=== PATIENT | male | born 1970 | race Caucasian/White ===

== ENCOUNTER → 2020-03-01 13:55 | Outpatient (BNVA) | payer MEDICARE, MEDICAID, SELFPAY | PROVIDERS: PCP Internal Medicine; Visit Provider Urology | DX: E29.1 Testicular hypofunction (principal); Z79.899 Other long term (current) drug therapy | CPT/HCPCS: 99213 ==

== ENCOUNTER → 2020-03-08 13:29 | Outpatient (BNVA) | payer MEDICARE, MEDICAID, SELFPAY | PROVIDERS: PCP Internal Medicine; Visit Provider Family Medicine Adult Medicine | DX: M96.1 Postlaminectomy syndrome, not elsewhere classified (principal); Z79.891 Long term (current) use of opiate analgesic; Z98.1 Arthrodesis status | CPT/HCPCS: 99214 ==

== ENCOUNTER 2020-04-25 08:49 | Outpatient (REF) | payer MEDICARE, MEDICAID, SELFPAY ==
[2020-04-25 11:29] LABS: MANUAL DIFF FLAG NO
[2020-04-25 11:37] LABS: Basophils Percent Auto 0.6 % (0-2); Eosinophils Absolute Auto 0.1 X10*3/uL (0.0-0.4); Eosinophils Percent Auto 2.9 % (0-4); Hematocrit 50.8 % (42-52); Imm Gran Abs Auto 0.01 X10*3/uL (0.00-0.03); Imm Gran Pct Auto 0.2 % (0.0-0.4); Lymphocytes Absolute Auto 1.4 X10*3/uL (1.2-4.9); Lymphocytes Percent Auto 28.5 % (20-40); Mean Corpuscular HGB Conc 33.5 g/dl (31.0-36.0); Mean Corpuscular Hemoglobin 29.5 pg (27.0-33.0); Mean Platelet Volume 10.9 fL (9.4-12.4); Monocytes Absolute Auto 0.4 X10*3/uL (0.1-1.2); Monocytes Percent Auto 8.8 % (2-11); Neutrophils Absolute Auto 2.8 X10*3/uL (2.0-8.3); Platelet Count 237 X10*3/uL (160-400); Red Blood Count 5.77 X10*6/uL (4.60-5.80); Red Cell Distribution Width 12.5 % (11.0-16.0); White Blood Count 4.8 X10*3/uL (4.8-10.8)
[2020-04-25 12:19] LABS: Vitamin D 25-OH Total 35.1 ng/mL (>30)
[2020-04-25 12:38] LABS: Alanine Aminotransferase 10 U/L (0-40); Anion Gap 11 (12-20); Aspartate Amino Transferase 16 U/L (5-37); Blood Urea Nitrogen 5 mg/dL (9-16); C Reactive Protein 0.26 mg/dL (< or = 0.50); Calcium 8.9 mg/dL (8.4-10.2); Carbon Dioxide 34 mmol/L (22-29); Chloride 101 mmol/L (96-108); Cholesterol 264 mg/dL; Estimated Glomerular Filt Rate > 60; Glucose Fasting 89 mg/dL (60-99); HDL Cholesterol 45 mg/dL; LDL Cholesterol Calculated 187 mg/dl; Potassium 4.2 mmol/l (3.3-5.1); Sodium 142 mmol/L (135-145); Triglycerides 162 mg/dL
[2020-04-25 13:22] LABS: Folate 4.2 ng/mL (> or = 4.0); Vitamin B12 629 pg/mL (200-900)
[2020-04-29 11:38] LABS: Testosterone, Total 994 ng/dL (250-1100)
== END 2020-04-25 08:50 | disposition home or self-care (01) ==
LOC: HO.HMGCLDS 08:49
PROVIDERS: Urology; PCP Internal Medicine; Visit Provider Internal Medicine
DX: E78.5 Hyperlipidemia, unspecified (principal); E29.1 Testicular hypofunction; M79.673 Pain in unspecified foot; I10 Essential (primary) hypertension
CPT/HCPCS: 36415; 80048; 80061; 82306; 82607; 82746; 84403; 84450; 84460; 85025; 86140

== ENCOUNTER → 2020-04-26 12:43 | Outpatient (BNVA) | payer MEDICARE, MEDICAID, SELFPAY | PROVIDERS: PCP Internal Medicine; Visit Provider Family Medicine Adult Medicine | DX: M96.1 Postlaminectomy syndrome, not elsewhere classified (principal); G57.93 Unspecified mononeuropathy of bilateral lower limbs | CPT/HCPCS: 99212 ==

== ENCOUNTER 2020-05-04 13:03 | Outpatient (REF) | payer MEDICARE, MEDICAID, SELFPAY | END 2020-05-04 13:04 | disposition home or self-care (01) | LOC: HO.HMGCLDS 13:03 | PROVIDERS: Visit Provider Internal Medicine | DX: Z20.828 Contact with and (suspected) exposure to other viral communicable diseases (principal) | CPT/HCPCS: C9803; U0003 ==

== ENCOUNTER → 2020-07-05 12:52 | Outpatient (BNVA) | payer MEDICARE, MEDICAID, SELFPAY | PROVIDERS: PCP Internal Medicine; Visit Provider Family Medicine Adult Medicine | DX: G57.93 Unspecified mononeuropathy of bilateral lower limbs (principal); M96.1 Postlaminectomy syndrome, not elsewhere classified | CPT/HCPCS: 99212 ==

== ENCOUNTER 2020-07-28 14:07 | Outpatient (REF) | payer MEDICARE, MEDICAID, SELFPAY ==
[2020-07-28 16:47] LABS: Alanine Aminotransferase 13 U/L (0-40); Aspartate Amino Transferase 20 U/L (5-37); Cholesterol 191 mg/dL; HDL Cholesterol 42 mg/dL; LDL Cholesterol Calculated 112 mg/dl; Triglycerides 189 mg/dL
== END 2020-07-28 14:08 | disposition home or self-care (01) ==
LOC: HO.HMGCLDS 14:07
PROVIDERS: PCP Internal Medicine; Visit Provider Internal Medicine
DX: E78.5 Hyperlipidemia, unspecified (principal)
CPT/HCPCS: 36415; 80061; 84450; 84460

== ENCOUNTER → 2020-08-02 14:41 | Outpatient (BNVA) | payer MEDICARE, MEDICAID, SELFPAY | PROVIDERS: PCP Internal Medicine; Visit Provider Family Medicine Adult Medicine | DX: G57.93 Unspecified mononeuropathy of bilateral lower limbs (principal); M96.1 Postlaminectomy syndrome, not elsewhere classified; Z79.899 Other long term (current) drug therapy | CPT/HCPCS: 99212 ==

== ENCOUNTER → 2020-08-17 12:55 | Outpatient (BNVA) | payer MEDICARE, MEDICAID, SELFPAY | PROVIDERS: PCP Internal Medicine; Visit Provider Nurse Practitioner Family | DX: M96.1 Postlaminectomy syndrome, not elsewhere classified (principal); G57.93 Unspecified mononeuropathy of bilateral lower limbs; Z98.1 Arthrodesis status | CPT/HCPCS: 99212 ==

== ENCOUNTER 2020-08-18 12:09 | Outpatient (REF) | payer MEDICARE, MEDICAID, SELFPAY ==
--- NOTE | ~2020-08-18 | XR_ITS ---
EXAMINATION: XR LUMBOSACRAL SPINE CLINICAL INFORMATION: M96.1 - Postlaminectomy syndrome, not elsewhere classified COMPARISON: Radiographs lumbar spine 12/17/2017 TECHNIQUE: Three views of the lumbosacral spine. FINDINGS: There is normal lumbar segmentation with 5 nonrib-bearing lumbar vertebrae of normal height and normal lumbar lordosis. There are prior postsurgical changes with lower lumbar laminectomy and fusion similar to prior exam. There is no destructive process. Degenerative disc changes are again present L3-L4 and lesser at L1-L2 and L2-L3. No spondylolisthesis, vertebral compression, destructive process. Mild degenerative changes again present SI joints. Visualized cecum otherwise unremarkable. XR/XR lumbar spine 2-3V IMPRESSION: 1. Stable postsurgical changes. No vertebral compression, spondylolisthesis, or destructive process. 2. Degenerative disc changes greatest at L3-L4.
== END 2020-08-18 12:10 | disposition home or self-care (01) ==
LOC: HO.XRAY 12:09
PROVIDERS: PCP Internal Medicine; Visit Provider Nurse Practitioner Family
DX: M96.1 Postlaminectomy syndrome, not elsewhere classified (principal); Z98.1 Arthrodesis status
CPT/HCPCS: 72100

== ENCOUNTER → 2020-08-30 09:27 | Outpatient (BNVA) | payer MEDICARE, MEDICAID, SELFPAY | PROVIDERS: PCP Internal Medicine; Visit Provider Family Medicine Adult Medicine | DX: M96.1 Postlaminectomy syndrome, not elsewhere classified (principal); G57.93 Unspecified mononeuropathy of bilateral lower limbs; G62.9 Polyneuropathy, unspecified; Z98.1 Arthrodesis status | CPT/HCPCS: 99212 ==

== ENCOUNTER → 2020-09-27 13:29 | Outpatient (BNVA) | payer MEDICARE, MEDICAID, SELFPAY | PROVIDERS: PCP Internal Medicine; Visit Provider Family Medicine Adult Medicine | DX: G62.9 Polyneuropathy, unspecified (principal) | CPT/HCPCS: 99212 ==

== ENCOUNTER → 2020-10-26 11:33 | Outpatient (BNVA) | payer MEDICARE, MEDICAID, SELFPAY | PROVIDERS: PCP Internal Medicine; Visit Provider Nurse Practitioner Family | DX: M96.1 Postlaminectomy syndrome, not elsewhere classified (principal); G57.93 Unspecified mononeuropathy of bilateral lower limbs; Z98.1 Arthrodesis status | CPT/HCPCS: 99212 ==

== ENCOUNTER 2020-11-04 15:59 | Outpatient (REF) | payer MEDICARE, MEDICAID, SELFPAY ==
[2020-11-04 17:49] LABS: MANUAL DIFF FLAG NO
[2020-11-04 18:07] LABS: Basophils Percent Auto 0.7 % (0-2); Eosinophils Absolute Auto 0.1 X10*3/uL (0.0-0.4); Eosinophils Percent Auto 3.3 % (0-4); Hematocrit 47.8 % (42-52); Hemoglobin 16.1 g/dl (14.0-18.0); Imm Gran Abs Auto 0.01 X10*3/uL (0.00-0.03); Imm Gran Pct Auto 0.2 % (0.0-0.4); Lymphocytes Absolute Auto 1.3 X10*3/uL (1.2-4.9); Lymphocytes Percent Auto 31.5 % (20-40); Mean Corpuscular HGB Conc 33.7 g/dl (31.0-36.0); Mean Corpuscular Hemoglobin 29.4 pg (27.0-33.0); Mean Corpuscular Volume 87.2 fL (80-98); Monocytes Absolute Auto 0.4 X10*3/uL (0.1-1.2); Monocytes Percent Auto 8.5 % (2-11); Neutrophils Absolute Auto 2.4 X10*3/uL (2.0-8.3); Neutrophils Percent Auto 55.8 % (45-73); Platelet Count 243 X10*3/uL (160-400); Red Blood Count 5.48 X10*6/uL (4.60-5.80); White Blood Count 4.3 X10*3/uL (4.8-10.8)
[2020-11-10 19:32] LABS: Testosterone, Total 1191 ng/dL (250-1100)
== END 2020-11-04 16:00 | disposition home or self-care (01) ==
LOC: HO.LAB 15:59
PROVIDERS: PCP Internal Medicine; Visit Provider Urology
DX: Z12.5 Encounter for screening for malignant neoplasm of prostate (principal); E29.1 Testicular hypofunction
CPT/HCPCS: 36415; 84153; 84402; 84403; 85025

== ENCOUNTER → 2020-11-24 13:46 | Outpatient (BNVA) | payer MEDICARE, MEDICAID, SELFPAY | PROVIDERS: PCP Internal Medicine; Visit Provider Family Medicine Adult Medicine | DX: M96.1 Postlaminectomy syndrome, not elsewhere classified (principal); G62.9 Polyneuropathy, unspecified; G57.93 Unspecified mononeuropathy of bilateral lower limbs; Z98.1 Arthrodesis status | CPT/HCPCS: 99212 ==

== ENCOUNTER → 2020-12-01 14:23 | Outpatient (BNVA) | payer MEDICARE, MEDICAID, SELFPAY | PROVIDERS: PCP Internal Medicine; Visit Provider Urology | CPT/HCPCS: Q3014 ==

== ENCOUNTER → 2021-01-03 08:40 | Outpatient (BNVA) | payer MEDICARE, MEDICAID, SELFPAY | PROVIDERS: PCP Internal Medicine; Visit Provider Family Medicine Adult Medicine | DX: G57.93 Unspecified mononeuropathy of bilateral lower limbs (principal); M96.1 Postlaminectomy syndrome, not elsewhere classified; G62.9 Polyneuropathy, unspecified; Z98.1 Arthrodesis status | CPT/HCPCS: 99212 ==

== ENCOUNTER 2021-02-13 11:08 | Outpatient (REF) | payer MEDICARE, MEDICAID, SELFPAY ==
[2021-02-13 14:46] LABS: Vitamin D 25-OH Total 34.3 ng/mL (>30)
[2021-02-13 14:50] LABS: Alanine Aminotransferase 14 U/L (0-40); Aspartate Amino Transferase 17 U/L (5-37); Cholesterol 193 mg/dL; HDL Cholesterol 45 mg/dL; LDL Cholesterol Calculated 120 mg/dl; Triglycerides 142 mg/dL
== END 2021-02-13 11:09 | disposition home or self-care (01) ==
LOC: HO.HMGCLDS 11:08
PROVIDERS: PCP Internal Medicine; Visit Provider Internal Medicine
DX: E78.5 Hyperlipidemia, unspecified (principal); E55.9 Vitamin D deficiency, unspecified
CPT/HCPCS: 36415; 80061; 82306; 84450; 84460

== ENCOUNTER → 2021-02-14 14:24 | Outpatient (BNVA) | payer MEDICARE, MEDICAID, SELFPAY | PROVIDERS: PCP Internal Medicine; Visit Provider Family Medicine Adult Medicine | DX: Z51.81 Encounter for therapeutic drug level monitoring (principal); M96.1 Postlaminectomy syndrome, not elsewhere classified; Z98.1 Arthrodesis status | CPT/HCPCS: Q3014 ==

== ENCOUNTER → 2021-03-21 15:35 | Outpatient (BNVA) | payer MEDICARE, MEDICAID, SELFPAY | PROVIDERS: Visit Provider Family Medicine Adult Medicine | DX: Z51.81 Encounter for therapeutic drug level monitoring (principal) | CPT/HCPCS: 99212 ==

== ENCOUNTER → 2021-03-28 15:36 | Outpatient (BNVA) | payer MEDICARE, MEDICAID, SELFPAY | PROVIDERS: PCP Internal Medicine; Visit Provider Family Medicine Adult Medicine | DX: M96.1 Postlaminectomy syndrome, not elsewhere classified (principal); Z98.1 Arthrodesis status; Z79.899 Other long term (current) drug therapy | CPT/HCPCS: 99212 ==

== ENCOUNTER → 2021-04-11 15:19 | Outpatient (BNVA) | payer MEDICARE, MEDICAID, SELFPAY | PROVIDERS: PCP Internal Medicine; Visit Provider Family Medicine Adult Medicine | DX: Z98.1 Arthrodesis status (principal); M96.1 Postlaminectomy syndrome, not elsewhere classified; G57.93 Unspecified mononeuropathy of bilateral lower limbs; Z88.6 Allergy status to analgesic agent; Z79.891 Long term (current) use of opiate analgesic; Z79.899 Other long term (current) drug therapy | CPT/HCPCS: 99212 ==

== ENCOUNTER 2021-05-02 11:22 | Outpatient (REF) | payer MEDICARE, MEDICAID, SELFPAY ==
[2021-05-02 11:48] LABS: Hematocrit 50.3 % (42.0-52.0); Hemoglobin 16.8 g/dl (14.0-18.0); Mean Corpuscular HGB Conc 33.4 g/dl (31.0-36.0); Mean Corpuscular Hemoglobin 29.2 pg (27.0-33.0); Mean Corpuscular Volume 87.3 fL (80.0-98.0); Mean Platelet Volume 10.3 fL (9.4-12.4); Platelet Count 216 X10*3/uL (160-400); Red Blood Count 5.76 X10*6/uL (4.60-5.80); Red Cell Distribution Width 12.4 % (11.0-16.0); White Blood Count 4.5 X10*3/uL (4.8-10.8)
[2021-05-02 12:41] LABS: Prostate Specific Antigen 1.59 ng/mL (<0.05-4.0)
[2021-05-07 17:17] LABS: Testosterone, Total 1913 ng/dL (250-1100)
== END 2021-05-02 11:23 | disposition home or self-care (01) ==
LOC: HO.LAB 11:22
PROVIDERS: PCP Internal Medicine; Visit Provider Urology
DX: Z12.5 Encounter for screening for malignant neoplasm of prostate (principal); E29.1 Testicular hypofunction
CPT/HCPCS: 36415; 84153; 84403; 85027

== ENCOUNTER → 2021-05-09 08:14 | Outpatient (BNVA) | payer MEDICARE, MEDICAID, SELFPAY | PROVIDERS: PCP Internal Medicine; Visit Provider Nurse Practitioner Family | DX: Z51.81 Encounter for therapeutic drug level monitoring (principal); M96.1 Postlaminectomy syndrome, not elsewhere classified; G57.93 Unspecified mononeuropathy of bilateral lower limbs; Z98.1 Arthrodesis status | CPT/HCPCS: 99212 ==

== ENCOUNTER → 2021-06-02 13:28 | Outpatient (BNVA) | payer MEDICARE, MEDICAID, SELFPAY | PROVIDERS: PCP Internal Medicine; Visit Provider Urology | DX: E29.1 Testicular hypofunction (principal) | CPT/HCPCS: Q3014 ==

== ENCOUNTER 2021-06-26 15:14 | Outpatient (REF) | payer MEDICARE, MEDICAID, SELFPAY ==
--- NOTE | ~2021-06-26 | MR_ITS ---
EXAMINATION: MR CERVICAL SPINE WITHOUT CONTRAST CLINICAL INFORMATION: Cervical radiculopathy. COMPARISON: Cervical spine CT from 12/19/2017. Cervical spine MRI from 09/05/2006. TECHNIQUE: MRI of the cervical spine was obtained using routine sequences without contrast. FINDINGS: Mild degenerative retrolisthesis of C3 on C4. Otherwise, normal anatomic alignment. Moderate degenerative disc disease at C3-C4, C5-C6, and C6-C7. Mild degenerative disc disease at all additional cervical levels. Associated mixed Modic type discogenic endplate changes including mild Modic type I discogenic edema at C4-C5 and C6-C7. No additional suspicious marrow edema. The vertebral body heights are largely maintained. No demonstrated spinal cord signal abnormalities. Limited evaluation of the soft tissues of the neck without demonstrated abnormalities. The flow voids of the major cervical vessels are maintained. Normal appearance of the cervicomedullary junction and visualized posterior fossa. SPINAL LEVELS: C2-C3: Mild disc-osteophyte complex. There is mild left and no right uncovertebral joint arthropathy. There is moderate bilateral facet joint arthropathy. There is mild left and no right neural foraminal stenosis. There is no spinal canal stenosis. C3-C4: Moderate disc-osteophyte complex. There is severe left and mild right uncovertebral joint arthropathy. There is moderate bilateral facet joint arthropathy. There is severe left and no right neural foraminal stenosis. There is no spinal canal stenosis. C4-C5: Mild disc-osteophyte complex. There is moderate left and no right uncovertebral joint arthropathy. There is moderate left and mild right facet joint arthropathy. There is moderate left and no right neural foraminal stenosis. There is no spinal canal stenosis. C5-C6: Mild disc-osteophyte complex. There is mild bilateral uncovertebral joint arthropathy. There is moderate left and mild right facet joint arthropathy. There is no neural foraminal stenosis. There is no spinal canal stenosis. C6-C7: Moderate disc-osteophyte complex. The previously demonstrated disc protrusion at this level has partially resorbed There is moderate bilateral uncovertebral joint arthropathy. There is mild bilateral facet joint arthropathy. There is moderate left and mild right neural foraminal stenosis. There is no spinal canal stenosis. C7-T1: Mild disc-osteophyte complex. There is mild bilateral uncovertebral joint arthropathy. There is mild bilateral facet joint arthropathy. There is no neural foraminal stenosis. There is no spinal canal stenosis. MR/MR cervical spine wo con IMPRESSION: Moderate multilevel degenerative spondyloarthropathy of the cervical spine as described in detail above. Most notably, there are moderate to severe neural foraminal stenoses at C3-C4, C4-C5, and C6-C7. No overt spinal canal stenosis.
[2021-06-30 11:06] LABS: Testosterone, Total 816 ng/dL (250-1100)
== END 2021-06-26 15:15 | disposition home or self-care (01) ==
LOC: HO.MRI 15:14
PROVIDERS: Urology; PCP Internal Medicine; Visit Provider Nurse Practitioner Family
DX: M54.12 Radiculopathy, cervical region (principal); E29.1 Testicular hypofunction
CPT/HCPCS: 36415; 72141; 84403

== ENCOUNTER → 2021-06-30 13:37 | Outpatient (BNVA) | payer MEDICARE, MEDICAID, SELFPAY | PROVIDERS: PCP Internal Medicine; Visit Provider Nurse Practitioner Family | DX: Z51.81 Encounter for therapeutic drug level monitoring (principal); F11.20 Opioid dependence, uncomplicated | CPT/HCPCS: 99212 ==

== ENCOUNTER → 2021-07-07 13:15 | Outpatient (BNVA) | payer MEDICARE, MEDICAID, SELFPAY | PROVIDERS: PCP Internal Medicine; Visit Provider Urology | DX: Z13.89 Encounter for screening for other disorder (principal) | CPT/HCPCS: Q3014 ==

== ENCOUNTER 2021-07-11 13:30 | Emergency (ER) | payer MEDICARE, MEDICAID, SELFPAY ==
--- NOTE | ~2021-07-11 | MR_ITS ---
EXAMINATION: MR LUMBAR SPINE WITHOUT CONTRAST CLINICAL INFORMATION: Worsening left-sided back pain radiating down the legs. COMPARISON: Lumbar spine radiographs from 08/18/2020. TECHNIQUE: MRI of the lumbar spine was obtained using routine sequences without contrast. FINDINGS: Changes of prior fusion of the L4-S1 vertebrae with L4-S1 laminectomies. Moderate to advanced degenerative disc disease at L3-L4. Moderate degenerative disc disease from T11-L3. Associated mixed Modic type discogenic endplate changes including mild Modic type I discogenic edema from T11-L3. No additional suspicious marrow edema. Small Schmorl's nodes from T11-L3. Otherwise, the vertebral body heights are largely maintained. Phlegmonous expansion of the ventral epidural space from L4-S2. The conus medullaris terminates at the level of L1. The distal spinal cord is normal in appearance. Moderate edema within the paraspinal tissues at the levels of the L4-S1 laminectomies and below. No discrete drainable fluid collection. Multiple T2 hyperintense renal cysts, measuring up to 1.1 cm on the left. Otherwise, limited evaluation of the intra-abdominal structures without significant abnormalities. The abdominal aorta is of normal contour and caliber. AXIAL SPINAL LEVELS: L1-L2: Mild diffuse disc bulge. There is mild bilateral facet joint arthropathy. There is no neural foraminal stenosis. There is no spinal canal stenosis. L2-L3: Shallow diffuse disc bulge with superimposed small left subarticular/foraminal disc protrusion. There is moderate bilateral facet joint arthropathy. There is no neural foraminal stenosis. There is narrowing of the left subarticular zones with no overt spinal canal stenosis centrally. L3-L4: Mild diffuse disc bulge. There is moderate bilateral facet joint arthropathy. There is moderate left and mild right neural foraminal stenosis. There is narrowing of the subarticular zones with no overt spinal canal stenosis centrally. L4-L5: Fused at this level. Laminectomy and partial facetectomy changes. There is mild left and no right neural foraminal stenosis. There is narrowing of the left subarticular zone with no overt spinal canal stenosis centrally. L5-S1: Fused at this level. Laminectomy and partial facetectomy changes. There is mild left and no right neural foraminal stenosis. There is narrowing of the left greater than right subarticular zones with no overt spinal canal stenosis centrally. MR/MR lumbar spine wo con IMPRESSION: 1. Changes of prior L4-S1 fusion with laminectomies/partial facetectomies. Moderate edema within the paraspinal soft tissues at the levels of the L4-S1 laminectomies and below. No discrete drainable fluid collection. 2. Otherwise, moderate multilevel degenerative spondyloarthropathy of the lumbar spine as described in detail above. Most notably, there are mild to moderate neural foraminal stenoses and narrowings of the subarticular zones from L3-S1. No overt spinal canal stenosis centrally.
[2021-07-11 14:07] VITALS: BP 165/91; PULSE 99; RESP 17; TEMP 37.5; O2SAT 99; BMI 28.1
[2021-07-11 14:51] LABS: Appearance Urine CLEAR; Color Urine YELLOW; Glucose Urine UA NEG (NEG); Leukocyte Esterase Urine NEG (NEG); Nitrite Urine NEG (NEG); Specific Gravity - Urine >= 1.030 (1.005-1.025); Urine Blood NEG (NEG); Urine Ketones NEG (NEG); Urine Protein NEG (NEG-TRACE)
[2021-07-11] MEDS: predniSONE 20 MG TABLET 60 MG PO (15:06)
[2021-07-11] MEDS: Ketorolac Tromethamine 60 MG/2 ML VIAL IM (15:07)
--- NOTE | 2021-07-11 16:07 | ED.EXTPRO ---
HPI - Extremity Problem General Chief complaint: Extremity Problem Stated complaint: pain down both legs nerve damage Time Seen by Provider: 07/11/21 14:21 Source: patient Mode of arrival: ambulatory Limitations: no limitations History of Present Illness HPI Narrative: 50-year-old male with a past medical history of dyslipidemia, hypogonadism, erectile dysfunction, neuropathy, chronic cervical and lumbar spine pain who is status post lumbar spinal fusion last surgery was in 2013 who reports he has chronic right lower extremity numbness and chronic left lower extremity tingling currently being followed by pain management currently on multiple pain medications including oxycodone 30 mg tablets, OxyContin extended release 20 mg tablets and OxyContin extended release 60 mg tablets taking as prescribed presenting to the ED with complaints of pain to his bilateral lower extremities for the past few days worse today. Reports that yesterday he had some difficulty moving his bowels he was able to move his bowels but it took him a long time and this is not usual for him. He reports that he started Cialis on 07/07/2021 for erectile dysfunction and he took it twice. He reports the 1st time he took it that he was able to have intercourse and then the next morning his lower extremity pains started. He denies any fevers, chills, dizziness, headaches, worsening neck pain/stiffness, trouble swallowing or breathing, sore throat, cough, chest pain or shortness of breath, abdominal pain, back pain, dysuria, hematuria, abnormal penile discharge, rashes, recent falls or trauma, history of cancer, history of IV drug use or any other symptoms complaints or concerns at this time. MD Complaint: extremity pain Onset (ago): day(s) (4) Pain Consistency: constant Location: left, right and lower extremity Severity scale (1-10): >10 Quality: aching, sharp and constant Radiation: distal Relieving factors: nothing Exacerbating factors: nothing Associated symptoms: denies other symptoms Related Data Home Medications Medication Instructions Recorded Confirmed insulin syringe-needle U-100 1 mL #100 ea 02/27/20 05/24/21 25 x 1 naloxone 4 mg/actuation nasal spray INTRANASAL 02/27/20 05/24/21 cholecalciferol (vitamin D3) 50 50 mcg PO DAILY 08/01/20 05/24/21 mcg (2,000 unit) capsule Previous Rx's Medication Instructions Recorded meclizine 25 mg tablet 25 mg PO BID PRN #30 tab 08/25/20 syringe with needle, safety 3 mL #4 ea 08/29/20 25 gauge x 1 (BD Integra Syringe) baclofen 10 mg tablet 10 mg PO BID PRN 90 Days #180 tab 11/29/20 atorvastatin 20 mg tablet 20 mg PO DAILY #90 tab 02/15/21 omega-3 fatty acids 1,000 mg 2,000 mg PO DAILY #60 cap 02/15/21 capsule celecoxib 200 mg capsule 200 mg PO BID #180 cap 03/16/21 clonidine HCl 0.1 mg tablet 0.1 mg PO BID PRN #30 tab 05/10/21 buprenorphine HCl 450 mcg buccal 450 mcg BUCCAL Q12H 30 Days #60 ea 06/06/21 film (Belbuca) methylprednisolone 4 mg tablets in See Rx Instructions PO PER PKG DIR 06/19/21 a dose pack (Medrol (Dalton)) #21 ea back brace #1 ea 07/04/21 oxycodone 20 mg tablet,crush 20 mg PO ONCE 30 Days #30 tab 07/04/21 resistant,extended release 12 hr (OxyContin) oxycodone 30 mg tablet 30 mg PO Q6H PRN 30 Days #120 tab 07/04/21 oxycodone 60 mg tablet,crush 60 mg PO TID PRN 30 Days #90 tab 07/04/21 resistant,extended release 12 hr MDD 3 syringe with needle 3 mL 22 gauge #30 ea 07/07/21 x 1 (BD Luer-Barby Syringe) tadalafil 10 mg tablet 10 mg PO DAILY 90 Days #90 tab 07/07/21 testosterone cypionate 200 mg/mL 140 mg (0.7 mL) IM QWEEK 28 Days 07/07/21 intramuscular oil #4 ml cyanocobalamin (vitamin B-12) 1,000 mcg IM Q4W 28 Days #1 ml 07/11/21 1,000 mcg/mL injection solution ketorolac 10 mg tablet 10 mg PO Q8H PRN #14 tab 07/11/21 prednisone 20 mg tablet 40 mg PO DAILY 5 Days #10 tab 07/11/21 pregabalin 100 mg capsule 100 mg PO BID 30 Days #60 cap 07/11/21 Allergies Allergy/AdvReac Type Severity Reaction Status Date / Time gabapentin [GABAPENTIN] Allergy Unknown RASH Verified 07/07/21 13:18 morphine Allergy Unknown Nausea and Verified 07/07/21 13:18 Vomiting fentanyl Allergy Vomiting Verified 07/07/21 13:18 Review of Systems Review of Systems: Constitutional : No trauma, No Weight loss, No Fever, No Chills, ENT/Mouth : No Hearing loss, No Ear Pain, No Nasal Congestion, No Sinus Pain, No Hoarseness, No sore throat, No Rhinorrhea, No Swallowing Difficulty Cardiovascular : No Chest Pain, No SOB Respiratory : No Cough, No Dyspnea Gastrointestinal : No Nausea, No Vomiting, No Diarrhea, No abdominal Pain, No Hematochezia, No Melena Genitourinary : No Dysuria, No Urinary Frequency, No Hematuria, No Urinary or Bowel Incontinence/retention Musculoskeletal : + b/l lower extremity pain, No Back pain, No neck pain, No joint stiffness, No joint swelling Skin : No Skin Lesions, No rash or signs of infection Neuro : + Chronic right lower extremity numbness, + chronic left lower extremity tingling, No worsening or new tingling/numbness, No Weakness, No headache, no loss of bowel or bladder incontinence, no saddle anesthesia, Focal weakness Denies history of IV drug usage. Yes all other systems are reviewed and are negative PMFSH Past Medical History Attestation statement: The following information was validated with the patient. Medical History Dyslipidemia Foot pain Heel pain, bilateral Neuropathy Neuropathy involving both lower extremities Postlaminectomy syndrome, lumbar Surgical History History of lumbar spinal fusion Family History Family History Father CVD (cardiovascular disease) Mother Cancer Brother No problems noted. Brother No problems noted. Sister No problems noted. Son No problems noted. Son No problems noted. Daughter No problems noted. Social History Social History Alcohol intake: never Advance Directives: Yes Advance Directives Information Provided: Yes Advance Directives on File: No Physical Exam Vital Signs: Vital Signs: Last Vital Signs Temp 98.4 F 07/11/21 17:52 Pulse 79 07/11/21 17:52 Resp 18 07/11/21 17:52 BP 143/99 H 07/11/21 17:52 Pulse Ox 99 07/11/21 14:07 BMI result Body Mass Index 28.1 vital signs have been reviewed as normal and appeared to be correct. Blood pressure 165/91. Heart rate normal. Respiration rate normal. Temperature normal. Oxygen saturation normal. Appearance: Alert. Oriented X3. No acute distress. Head: Normal external exam. Normocephalic. Atraumatic. Eyes: PERRLA. EOMI. Conjunctiva and sclera normal. Eyelids normal. ENT: Pharynx normal. Uvula midline. Moist mucous membranes. No trismus noted. No drooling noted. No muffled voice noted. Neck: Normal inspection. Neck supple. FROM. No adenopathy. Thyroid Normal. No meningeal signs. No neck mass noted. CVS: Normal heart rate and rhythm. Heart sound normal. No murmurs noted. Pulses normal throughout. Respiratory: No respiratory distress. Painless inspiration. Breath sounds normal. No wheezes/rales/rhonchi noted. Chest nontender. No accessory muscle usage noted or decreased air movement noted. Abdomen: Soft and nontender. Bowel sounds normal in all 4 quadrants. No distention noted. No organomegaly noted. No visible injury noted. Back: No CVA tenderness. Full range of motion noted. No obvious deformities, or edema. Nontender to the thoracic and lumbar region. Full ROM in back and lower extremities. 5/5 strength hip extension/flexion, abduction, adduction. Straight leg raise test negative on right; Straight leg raise test negative on left; Reflexes normal ankle and knee bilaterally; EHL motor strength normal bilaterally. No rashes/lesion/induration/fluctuance or signs infection noted. Rectal Exam: Normal rectal tone/normal rectal sphincter. No abnormalities noted. Skin: Skin warm and dry. Normal skin color. Normal skin turgor. No rashes/lesions/lacerations noted. Extremities: No lower extremity edema. No calf tenderness is noted. Extremities exhibit normal range of motion. Extremities nontender. Neuro: Oriented X 3. No motor deficit. No sensory deficit. Reflexes normal. Patient has a normal steady gait. Course Course Course Narrative: 17pm - Pt c likely muscular pain, but could be herniated disc. Neuro exam shows no deficits. Not c/w AAA/epidural abscess/dissection. No high risk Hx (Incont, fever, immunosupp, recent surgery/LP, coag, signif trauma, wt loss, puls mass, hx/o Ca, TB, or IVDU). Not c/w Pyelo/UTI/kidney stone/spinal fx. Not cauda equina syndrome. Although due to patient reporting worsening pain and having a hard time moving his bowel although he is able to move his bowels will obtain an MRI of lumbar spine. Will provide symptomatic treatment with 60 mg of IM Toradol and 60 mg of prednisone and re-evaluate. Reevaluation(s) Reevaluation #1: - patient reports moderate improvement with the Toradol and is requesting a short course of this. Will also DC home with steroids. Although labs reviewed and all within normal limits. MRI of lumbar spine revealed chronic changes no acute processes were noted and not consistent with cauda equina or epidural abscess or any other acute processes therefore at this time will DC home with instructions to return if any new or worsening symptoms follow-up with primary care provider along with pain management and his neurosurgeon. Patient understands agrees with this plan. Time: 18:45 MDM - Extremity (Nontraumatic) Medical Records Attestation: I reviewed the patient's medical records. Lab Data Attestation: I reviewed the patient's lab results. Result diagrams: 07/11/21 17:52 07/11/21 17:52 Labs: Lab Results 07/11/21 07/11/21 07/11/21 Range/Units 14:42 17:52 17:52 WBC 7.5 (4.8-10.8) X10*3/uL RBC 5.39 (4.60-5.80) X10*6/uL Hgb 15.9 (14.0-18.0) g/dl Hct 46.9 (42.0-52.0) % MCV 87.0 (80.0-98.0) fL MCH 29.5 (27.0-33.0) pg MCHC 33.9 (31.0-36.0) g/dl RDW 13.2 (11.0-16.0) % Plt Count 224 (160-400) X10*3/uL MPV 10.8 (9.4-12.4) fL Immature Gran % (Auto) 0.3 (0.0-0.4) % Neut % (Auto) 90.9 H (45-73) % Lymph % (Auto) 6.5 L (20-40) % Esmeralda % (Auto) 1.6 L (2-11) % Eos % (Auto) 0.4 (0-4) % Baso % (Auto) 0.3 (0-2) % Lymph # (Auto) 0.5 L (1.2-4.9) X10*3/uL Esmeralda # (Auto) 0.1 (0.1-1.2) X10*3/uL Eos # (Auto) 0.0 (0.0-0.4) X10*3/uL Baso # (Auto) 0.0 (0.0-0.2) X10*3/uL Abs Immat Gran (auto) 0.02 (0.00-0.03) X10*3/uL Absolute Neuts (auto) 6.8 (2.0-8.3) x10*3/uL Absolute Nucleated RBC 0.000 (0.0-0.012) X10*3/uL Nucleated RBC % (auto) 0.0 (0.0-0.2) /100WBC Smear Tech's Comments VERIFIED Sodium 141 (135-145) mmol/L Potassium 4.3 (3.3-5.1) mmol/L Chloride 105 (96-108) mmol/L Carbon Dioxide 30 H (22-29) mmol/L Anion Gap 10 L (12-20) BUN 10 (9-16) mg/dL Creatinine 0.85 (0.5-1.4) mg/dL Estim Creat Clear Calc 106.3 Estimated GFR > 60 Random Glucose 112 (60-115) mg/dL Calcium 9.5 D (8.4-10.2) mg/dL Magnesium 2.2 (1.6-2.6) mg/dL Total Bilirubin 0.5 (0.0-1.0) mg/dL AST 17 (5-37) U/L ALT 9 (0-40) U/L Alkaline Phosphatase 62 (39-117) U/L Total Creatine Kinase 127 (38-174) U/L Total Protein 6.9 (6.5-8.0) g/dL Albumin 4.3 (3.5-5.0) g/dL Urine Color YELLOW Urine Appearance CLEAR Urine pH 5.0 (5.0-8.0) Ur Specific [place] >= 1.030 H (1.005-1.025) Urine Protein NEG (NEG-TRACE) MG/DL Urine Glucose (UA) NEG (NEG) MG/DL Urine Ketones NEG (NEG) MG/DL Urine Blood NEG (NEG) Urine Nitrite NEG (NEG) Ur Leukocyte Esterase NEG (NEG) Imaging Data MRI of lumbar spine without contrast: Attestation: I personally reviewed and interpreted this imaging study as follows: Radiologist's impression: FINDINGS: Changes of prior fusion of the L4-S1 vertebrae with L4-S1 laminectomies. Moderate to advanced degenerative disc disease at L3-L4. Moderate degenerative disc disease from T11-L3. Associated mixed Modic type discogenic endplate changes including mild Modic type I discogenic edema from T11-L3. No additional suspicious marrow edema. Small Schmorl's nodes from T11-L3. Otherwise, the vertebral body heights are largely maintained. Phlegmonous expansion of the ventral epidural space from L4-S2. The conus medullaris terminates at the level of L1. The distal spinal cord is normal in appearance. Moderate edema within the paraspinal tissues at the levels of the L4-S1 laminectomies and below. No discrete drainable fluid collection. Multiple T2 hyperintense renal cysts, measuring up to 1.1 cm on the left. Otherwise, limited evaluation of the intra-abdominal structures without significant abnormalities. The abdominal aorta is of normal contour and caliber. AXIAL SPINAL LEVELS: L1-L2: Mild diffuse disc bulge. There is mild bilateral facet joint arthropathy. There is no neural foraminal stenosis. There is no spinal canal stenosis. L2-L3: Shallow diffuse disc bulge with superimposed small left subarticular/foraminal disc protrusion. There is moderate bilateral facet joint arthropathy. There is no neural foraminal stenosis. There is narrowing of the left subarticular zones with no overt spinal canal stenosis centrally. L3-L4: Mild diffuse disc bulge.? There is moderate bilateral facet joint arthropathy. There is moderate left and mild right neural foraminal stenosis. There is narrowing of the subarticular zones with no overt spinal canal stenosis centrally. L4-L5: Fused at this level. Laminectomy and partial facetectomy changes. There is mild left and no right neural foraminal stenosis. There is narrowing of the left subarticular zone with no overt spinal canal stenosis centrally. L5-S1: Fused at this level. Laminectomy and partial facetectomy changes. There is mild left and no right neural foraminal stenosis. There is narrowing of the left greater than right subarticular zones with no overt spinal canal stenosis centrally. MR/MR lumbar spine wo con IMPRESSION: 1. Changes of prior L4-S1 fusion with laminectomies/partial facetectomies. Moderate edema within the paraspinal soft tissues at the levels of the L4-S1 laminectomies and below. No discrete drainable fluid collection. 2. Otherwise, moderate multilevel degenerative spondyloarthropathy of the lumbar spine as described in detail above. Most notably, there are mild to moderate neural foraminal stenoses and narrowings of the subarticular zones from L3-S1. No overt spinal canal stenosis centrally. Critical Care Time Critical Care Time Critical Care Time: Yes Total Critical Care Time: 60 Attestation: I personally attest to this time spent taking care of the patient Discharge Plan Discharge Clinical Impression: Spondyloarthropathy of lumbar spine, Chronic back pain, Protrusion of lumbar intervertebral disc Patient Disposition: Home, Self-Care Instructions: Lower Back Exercises (ED) Prescriptions: New ketorolac 10 mg tablet 10 mg PO Q8H PRN (Reason: pain) Qty: 14 0RF Rx Instructions: Given 1st dose in the ED by IM dose tolerated well prednisone 20 mg tablet 40 mg PO DAILY 5 Days Qty: 10 0RF No Action (DME) BD Integra Syringe 3 mL 25 gauge x 1 syringe See Rx Instructions .ROUTE .MEDSUPPLY Qty: 4 12RF Rx Instructions: As directed baclofen 10 mg tablet 10 mg PO BID PRN (Reason: muscle spasm) 90 Days Qty: 180 1RF omega-3 fatty acids 1,000 mg capsule 2,000 mg PO DAILY Qty: 60 5RF atorvastatin 20 mg tablet 20 mg PO DAILY Qty: 90 3RF celecoxib 200 mg capsule 200 mg PO BID Qty: 180 0RF buprenorphine HCl [Belbuca] 450 mcg film 450 mcg buccal Q12H 30 Days Qty: 60 1RF methylprednisolone [Medrol (Dalton)] 4 mg tablets,dose pack See Rx Instructions PO PER PKG DIR Qty: 21 0RF Rx Instructions: PO PER PKG DIR (DME) back brace Misc See Rx Instructions .Route Qty: 1 0RF Rx Instructions: As directed oxycodone 30 mg tablet 30 mg PO Q6H PRN (Reason: pain, severe) 30 Days Qty: 120 0RF oxycodone [OxyContin] 20 mg tablet,oral only,ext.rel.12 hr 20 mg PO ONCE 30 Days Qty: 30 0RF oxycodone 60 mg tablet,oral only,ext.rel.12 hr 60 mg PO TID MDD 3 PRN (Reason: pain, severe) 30 Days Qty: 90 0RF cyanocobalamin (vitamin B-12) 1,000 mcg/mL solution 1,000 mcg IM Q4W 28 Days Qty: 1 5RF pregabalin 100 mg capsule 100 mg PO BID 30 Days Qty: 60 0RF cholecalciferol (vitamin D3) 50 mcg (2,000 unit) capsule 50 mcg PO DAILY 0RF meclizine 25 mg tablet 25 mg PO BID PRN (Reason: dizziness) Qty: 30 0RF (DME) BD Insulin Syringe 1 mL 25 x 1 syringe See Rx Instructions ml .ROUTE .MEDSUPPLY Qty: 100 0RF Rx Instructions: As directed Narcan 4 mg/actuation spray,non-aerosol intranasal 0RF clonidine HCl 0.1 mg tablet 0.1 mg PO BID PRN (Reason: withdrawal symptoms) Qty: 30 0RF testosterone cypionate 200 mg/mL oil 140 mg IM QWEEK 28 Days Qty: 4 5RF (DME) BD Luer-Barby Syringe 3 mL 22 gauge x 1 syringe See Rx Instructions .Route Qty: 30 0RF Rx Instructions: As directed tadalafil 10 mg tablet 10 mg PO DAILY 90 Days Qty: 90 1RF Rx Instructions: $40 [facility] Group [facility] [id number] Referrals: Eve Aguirre MD [Primary Care Provider] - 2 days (your pcp) Print Language: [place]
[2021-07-11 17:52] VITALS: BP 143/99; PULSE 79; RESP 18; TEMP 36.9
[2021-07-11 18:16] LABS: Basophils Percent Auto 0.3 % (0-2); Eosinophils Percent Auto 0.4 % (0-4); Hematocrit 46.9 % (42.0-52.0); Hemoglobin 15.9 g/dl (14.0-18.0); Imm Gran Abs Auto 0.02 X10*3/uL (0.00-0.03); Imm Gran Pct Auto 0.3 % (0.0-0.4); Lymphocytes Absolute Auto 0.5 X10*3/uL (1.2-4.9); Lymphocytes Percent Auto 6.5 % (20-40); MANUAL DIFF FLAG SCAN; Mean Corpuscular HGB Conc 33.9 g/dl (31.0-36.0); Mean Corpuscular Hemoglobin 29.5 pg (27.0-33.0); Mean Platelet Volume 10.8 fL (9.4-12.4); Monocytes Absolute Auto 0.1 X10*3/uL (0.1-1.2); Monocytes Percent Auto 1.6 % (2-11); Neutrophils Absolute Auto 6.8 x10*3/uL (2.0-8.3); Neutrophils Percent Auto 90.9 % (45-73); Platelet Count 224 X10*3/uL (160-400); Red Blood Count 5.39 X10*6/uL (4.60-5.80); Red Cell Distribution Width 13.2 % (11.0-16.0); SCAN SMEAR FLAG 1; White Blood Count 7.5 X10*3/uL (4.8-10.8)
[2021-07-11 18:28] LABS: Alanine Aminotransferase 9 U/L (0-40); Albumin Level 4.3 g/dL (3.5-5.0); Alkaline Phosphatase 62 U/L (39-117); Anion Gap 10 (12-20); Aspartate Amino Transferase 17 U/L (5-37); Bilirubin Total 0.5 mg/dL (0.0-1.0); Blood Urea Nitrogen 10 mg/dL (9-16); Calcium 9.5 mg/dL (8.4-10.2); Carbon Dioxide 30 mmol/L (22-29); Chloride 105 mmol/L (96-108); Creatinine Clr Calc Pharmacy 106.3; Estimated Glomerular Filt Rate > 60; Glucose Random 112 mg/dL (60-115); Magnesium 2.2 mg/dL (1.6-2.6); Potassium 4.3 mmol/L (3.3-5.1); Sodium 141 mmol/L (135-145); Total Protein 6.9 g/dL (6.5-8.0)
[2021-07-11 18:37] LABS: SLIDE REVIEW VERIFIED
== END 2021-07-11 19:06 | disposition home or self-care (01) ==
PROVIDERS: Physician Assistant Medical; Emergency Provider Emergency Medicine; PCP Internal Medicine
DX: M47.816 Spondylosis without myelopathy or radiculopathy, lumbar region (principal); M51.26 Other intervertebral disc displacement, lumbar region; G89.29 Other chronic pain; M54.50 Low back pain, unspecified; M79.604 Pain in right leg; M79.605 Pain in left leg; Z79.891 Long term (current) use of opiate analgesic
CPT/HCPCS: 36415; 72148; 80053; 81003; 82550; 83735; 85025; 96372; 99284; 99291; J1885

== ENCOUNTER → 2021-07-28 12:48 | Outpatient (BNVA) | payer MEDICARE, MEDICAID, SELFPAY | PROVIDERS: PCP Internal Medicine; Visit Provider Nurse Practitioner Family | DX: M54.12 Radiculopathy, cervical region (principal); M96.1 Postlaminectomy syndrome, not elsewhere classified; M47.816 Spondylosis without myelopathy or radiculopathy, lumbar region; R20.2 Paresthesia of skin; E78.5 Hyperlipidemia, unspecified; Z98.1 Arthrodesis status; Z88.6 Allergy status to analgesic agent; Z79.891 Long term (current) use of opiate analgesic; Z79.899 Other long term (current) drug therapy | CPT/HCPCS: 99212 ==

== ENCOUNTER 2021-08-02 09:39 | Outpatient (REF) | payer MEDICARE, MEDICAID, SELFPAY ==
--- NOTE | ~2021-08-02 | XR_ITS ---
EXAMINATION: XR KNEE, LEFT CLINICAL INFORMATION: M25.562 - Pain in left knee COMPARISON: None TECHNIQUE: Standing AP and lateral view of the left knee are obtained. FINDINGS: There is no fracture, dislocation, destructive process. No joint narrowing or erosive change or chondrocalcinosis. There is questionable trace thickening suprapatellar bursa which may represent a trace effusion. Hoffa's fat pad appears normal. Normal bony mineralization. No periostitis. XR/XR knee LT 2V IMPRESSION: 1. No joint narrowing or erosive change. 2. Question trace suprapatellar effusion.
--- NOTE | 2021-08-02 09:51 | EMG_ITS ---
This is a 50-year-old man, who has had 4 lumbar back operations and since his operation in 1988, he has not been able to move his toes on the right side and has numbness in his feet. He also has more recent cervical spine problems, for which he is being evaluated with MRI. PHYSICAL EXAMINATION: He is alert and oriented with normal intellectual functions. Cranial nerves II through XII are normal. He has partial atrophy of the EDB muscle on the right. Reflexes symmetrical. IMPRESSION: Lumbar radiculopathy. Nerve conduction EMG study: Motor axonal loss in the right peroneal nerve, otherwise normal nerve conduction study of the lower extremities. EMG of the L4-S1 innervated muscles bilaterally, is consistent with chronic neuropathic changes of mild chronic lower lumbar radiculopathy. MD MARCELO Keane/DIPESH / [id number]
== END 2021-08-02 09:40 | disposition home or self-care (01) ==
LOC: HO.NEURO 09:39
PROVIDERS: PCP Internal Medicine; Visit Provider Nurse Practitioner Family
DX: G57.93 Unspecified mononeuropathy of bilateral lower limbs (principal); M25.562 Pain in left knee
CPT/HCPCS: 73560; 95886; 95911

== ENCOUNTER → 2021-08-16 13:02 | Outpatient (BNVA) | payer MEDICARE, MEDICAID, SELFPAY | PROVIDERS: PCP Internal Medicine; Visit Provider Anesthesiology | DX: Z51.81 Encounter for therapeutic drug level monitoring (principal); F11.20 Opioid dependence, uncomplicated; M96.1 Postlaminectomy syndrome, not elsewhere classified; M54.12 Radiculopathy, cervical region; M47.816 Spondylosis without myelopathy or radiculopathy, lumbar region; G57.93 Unspecified mononeuropathy of bilateral lower limbs; Z98.1 Arthrodesis status | CPT/HCPCS: 99212 ==

== ENCOUNTER → 2021-08-25 11:09 | Outpatient (BNVA) | payer MEDICARE, MEDICAID, SELFPAY | PROVIDERS: PCP Internal Medicine; Visit Provider Anesthesiology | DX: Z13.89 Encounter for screening for other disorder (principal) ==

== ENCOUNTER → 2021-09-13 13:52 | Outpatient (BNVA) | payer MEDICARE, MEDICAID, SELFPAY | PROVIDERS: PCP Internal Medicine; Visit Provider Anesthesiology | DX: M96.1 Postlaminectomy syndrome, not elsewhere classified (principal); G57.93 Unspecified mononeuropathy of bilateral lower limbs; M54.12 Radiculopathy, cervical region; M47.816 Spondylosis without myelopathy or radiculopathy, lumbar region; M54.50 Low back pain, unspecified; M25.562 Pain in left knee; M48.02 Spinal stenosis, cervical region; Z79.891 Long term (current) use of opiate analgesic; Z98.1 Arthrodesis status | CPT/HCPCS: 99212 ==

== ENCOUNTER → 2021-10-09 15:12 | Outpatient (BNVA) | payer MEDICARE, MEDICAID, SELFPAY | PROVIDERS: PCP Internal Medicine; Visit Provider Anesthesiology | DX: Z13.89 Encounter for screening for other disorder (principal) ==

== ENCOUNTER → 2021-10-30 10:26 | Outpatient (BNVA) | payer MEDICARE, MEDICAID, SELFPAY | PROVIDERS: PCP Internal Medicine; Visit Provider Anesthesiology | DX: Z79.891 Long term (current) use of opiate analgesic (principal) | CPT/HCPCS: 99211 ==

== ENCOUNTER 2021-11-08 13:06 | Outpatient (REF) | payer MEDICARE, MEDICAID, SELFPAY ==
[2021-11-08 14:25] LABS: Alanine Aminotransferase 17 U/L (0-40); Anion Gap 12 (12-20); Aspartate Amino Transferase 20 U/L (5-37); Blood Urea Nitrogen 9 mg/dL (9-16); Calcium 9.5 mg/dL (8.4-10.2); Carbon Dioxide 34 mmol/L (22-29); Chloride 102 mmol/L (96-108); Cholesterol 198 mg/dL; Estimated Glomerular Filt Rate > 60; Glucose Fasting 109 mg/dL (60-99); HDL Cholesterol 46 mg/dL; LDL Cholesterol Calculated 125 mg/dl; Sodium 143 mmol/L (135-145); Triglycerides 136 mg/dL
[2021-11-08 14:54] LABS: Vitamin D 25-OH Total 33.2 ng/mL (>30)
[2021-11-08 14:55] LABS: Folate 5.5 ng/mL (> or = 4.0); Vitamin B12 362 pg/mL (200-900)
== END 2021-11-08 13:07 | disposition home or self-care (01) ==
LOC: HO.HMGCLDS 13:06
PROVIDERS: Absent Provider Urology; PCP Internal Medicine; Visit Provider Internal Medicine
DX: E53.8 Deficiency of other specified B group vitamins (principal); E78.5 Hyperlipidemia, unspecified; Z86.39 Personal history of other endocrine, nutritional and metabolic disease
CPT/HCPCS: 36415; 80048; 80061; 82306; 82607; 82746; 84450; 84460

== ENCOUNTER 2021-11-28 11:07 | Outpatient (REF) | payer MEDICARE, MEDICAID, SELFPAY ==
[2021-11-28 12:00] LABS: COVID-19 Test Positive (Negative); IDNOW Serial# 55D5AD1C
== END 2021-11-28 11:08 | disposition home or self-care (01) ==
LOC: HO.LAB 11:07
PROVIDERS: PCP Internal Medicine; Visit Provider Internal Medicine
DX: Z20.822 Contact with and (suspected) exposure to COVID-19 (principal)
CPT/HCPCS: 87635; C9803

== ENCOUNTER → 2021-12-04 11:01 | Outpatient (BNVA) | payer MEDICARE, MEDICAID, SELFPAY | PROVIDERS: PCP Internal Medicine; Visit Provider Anesthesiology | DX: M96.1 Postlaminectomy syndrome, not elsewhere classified (principal); G57.93 Unspecified mononeuropathy of bilateral lower limbs; M54.12 Radiculopathy, cervical region; M47.816 Spondylosis without myelopathy or radiculopathy, lumbar region; M48.02 Spinal stenosis, cervical region; M54.50 Low back pain, unspecified; M25.562 Pain in left knee; Z98.1 Arthrodesis status; Z79.891 Long term (current) use of opiate analgesic | CPT/HCPCS: 99212 ==

== ENCOUNTER 2021-12-15 14:59 | Outpatient (REF) | payer MEDICARE, MEDICAID, SELFPAY ==
[2021-12-15 16:30] LABS: Hematocrit 47.8 % (42.0-52.0); Hemoglobin 15.9 g/dl (14.0-18.0); Mean Corpuscular HGB Conc 33.3 g/dl (31.0-36.0); Mean Corpuscular Hemoglobin 29.6 pg (27.0-33.0); Mean Platelet Volume 10.6 fL (9.4-12.4); Platelet Count 210 X10*3/uL (160-400); Red Blood Count 5.37 X10*6/uL (4.60-5.80); Red Cell Distribution Width 12.9 % (11.0-16.0); White Blood Count 4.3 X10*3/uL (4.8-10.8)
[2021-12-15 17:00] LABS: Prostate Specific Antigen 1.35 ng/mL (<0.05-4.0)
[2021-12-22 12:02] LABS: Testosterone, Total 1143 ng/dL (250-1100)
== END 2021-12-15 15:00 | disposition home or self-care (01) ==
LOC: HO.HMGCLDS 14:59
PROVIDERS: PCP Internal Medicine; Visit Provider Urology
DX: N52.9 Male erectile dysfunction, unspecified (principal); Z12.5 Encounter for screening for malignant neoplasm of prostate
CPT/HCPCS: 36415; 84153; 84403; 85027

== ENCOUNTER → 2022-01-01 10:51 | Outpatient (BNVA) | payer MEDICARE, MEDICAID, SELFPAY | PROVIDERS: PCP Internal Medicine; Visit Provider Anesthesiology | DX: Z51.81 Encounter for therapeutic drug level monitoring (principal); F11.20 Opioid dependence, uncomplicated; M96.1 Postlaminectomy syndrome, not elsewhere classified; G57.93 Unspecified mononeuropathy of bilateral lower limbs; M54.12 Radiculopathy, cervical region; M47.816 Spondylosis without myelopathy or radiculopathy, lumbar region; M54.50 Low back pain, unspecified; M25.562 Pain in left knee; M48.02 Spinal stenosis, cervical region; Z98.1 Arthrodesis status | CPT/HCPCS: 99212 ==

== ENCOUNTER → 2022-01-02 13:03 | Outpatient (BNVA) | payer MEDICARE, MEDICAID, SELFPAY | PROVIDERS: PCP Internal Medicine; Visit Provider Urology | DX: E29.1 Testicular hypofunction (principal); N52.9 Male erectile dysfunction, unspecified | CPT/HCPCS: 99212 ==

== ENCOUNTER → 2022-01-31 10:25 | Outpatient (BNVA) | payer MEDICARE, MEDICAID, SELFPAY | PROVIDERS: PCP Internal Medicine; Visit Provider Anesthesiology | DX: Z51.81 Encounter for therapeutic drug level monitoring (principal); F11.20 Opioid dependence, uncomplicated; M96.1 Postlaminectomy syndrome, not elsewhere classified; G57.93 Unspecified mononeuropathy of bilateral lower limbs; M54.12 Radiculopathy, cervical region; M47.816 Spondylosis without myelopathy or radiculopathy, lumbar region; M54.50 Low back pain, unspecified; M25.562 Pain in left knee; M48.02 Spinal stenosis, cervical region; Z98.1 Arthrodesis status | CPT/HCPCS: 99212 ==

== ENCOUNTER → 2022-02-28 13:44 | Outpatient (BNVA) | payer MEDICARE, MEDICAID, SELFPAY | PROVIDERS: PCP Internal Medicine; Visit Provider Anesthesiology | DX: M96.1 Postlaminectomy syndrome, not elsewhere classified (principal); G57.93 Unspecified mononeuropathy of bilateral lower limbs; M54.12 Radiculopathy, cervical region; M47.816 Spondylosis without myelopathy or radiculopathy, lumbar region; M54.50 Low back pain, unspecified; M25.562 Pain in left knee; M48.02 Spinal stenosis, cervical region; Z79.891 Long term (current) use of opiate analgesic; Z98.1 Arthrodesis status | CPT/HCPCS: 99212 ==

== ENCOUNTER → 2022-04-02 15:01 | Outpatient (BNVA) | payer MEDICARE, MEDICAID, SELFPAY | PROVIDERS: PCP Internal Medicine; Visit Provider Anesthesiology | DX: Z51.81 Encounter for therapeutic drug level monitoring (principal); F11.20 Opioid dependence, uncomplicated; M96.1 Postlaminectomy syndrome, not elsewhere classified; G57.93 Unspecified mononeuropathy of bilateral lower limbs; M54.12 Radiculopathy, cervical region; M47.816 Spondylosis without myelopathy or radiculopathy, lumbar region; M54.50 Low back pain, unspecified; M25.562 Pain in left knee; M48.02 Spinal stenosis, cervical region; Z98.1 Arthrodesis status | CPT/HCPCS: 99212 ==

== ENCOUNTER → 2022-04-25 09:00 | Outpatient (BNVA) | payer MEDICARE, MEDICAID, SELFPAY | PROVIDERS: PCP Internal Medicine; Visit Provider Anesthesiology | DX: M96.1 Postlaminectomy syndrome, not elsewhere classified (principal); G57.93 Unspecified mononeuropathy of bilateral lower limbs; M54.12 Radiculopathy, cervical region; M47.816 Spondylosis without myelopathy or radiculopathy, lumbar region; M54.50 Low back pain, unspecified; M25.562 Pain in left knee; M48.02 Spinal stenosis, cervical region; F11.90 Opioid use, unspecified, uncomplicated; M10.9 Gout, unspecified; Z98.1 Arthrodesis status | CPT/HCPCS: Q3014 ==

== ENCOUNTER → 2022-05-18 12:45 | Outpatient (BNVA) | payer MEDICARE, MEDICAID, SELFPAY | PROVIDERS: PCP Internal Medicine; Visit Provider Anesthesiology | DX: Z12.31 Encounter for screening mammogram for malignant neoplasm of breast (principal) ==

== ENCOUNTER → 2022-06-18 14:31 | Outpatient (BNVA) | payer MEDICARE, MEDICAID, SELFPAY | PROVIDERS: PCP Internal Medicine; Visit Provider Anesthesiology | DX: Z51.81 Encounter for therapeutic drug level monitoring (principal); F11.20 Opioid dependence, uncomplicated; M96.1 Postlaminectomy syndrome, not elsewhere classified; M54.12 Radiculopathy, cervical region; M47.816 Spondylosis without myelopathy or radiculopathy, lumbar region; M54.50 Low back pain, unspecified; M25.562 Pain in left knee; M48.02 Spinal stenosis, cervical region; M10.9 Gout, unspecified; G57.93 Unspecified mononeuropathy of bilateral lower limbs; N52.9 Male erectile dysfunction, unspecified; Z98.1 Arthrodesis status; Z12.5 Encounter for screening for malignant neoplasm of prostate | CPT/HCPCS: 36415; 84153; 84403; 85027; 99212 ==

== ENCOUNTER 2022-06-18 15:03 | Outpatient (REF) | payer MEDICARE, MEDICAID, SELFPAY ==
[2022-06-18 16:35] LABS: Hematocrit 49.7 % (42.0-52.0); Hemoglobin 16.8 g/dl (14.0-18.0); Mean Corpuscular HGB Conc 33.8 g/dl (31.0-36.0); Mean Corpuscular Hemoglobin 29.4 pg (27.0-33.0); Mean Corpuscular Volume 86.9 fL (80.0-98.0); Mean Platelet Volume 11.2 fL (9.4-12.4); Platelet Count 230 X10*3/uL (160-400); Red Blood Count 5.72 X10*6/uL (4.60-5.80); Red Cell Distribution Width 12.5 % (11.0-16.0); White Blood Count 4.6 X10*3/uL (4.8-10.8)
[2022-06-18 21:25] LABS: Prostate Specific Antigen 1.67 ng/mL (<0.05-4.0)
[2022-06-23 13:54] LABS: Testosterone, Total 645 ng/dL (250-1100)
== END 2022-06-18 15:04 | disposition home or self-care (01) ==
LOC: HO.LAB 15:03
PROVIDERS: PCP Internal Medicine; Visit Provider Urology
DX: Z13.89 Encounter for screening for other disorder (principal)
CPT/HCPCS: 36415; 84153; 84403; 85027

== ENCOUNTER → 2022-06-28 09:29 | Outpatient (BNVA) | payer MEDICARE, MEDICAID, SELFPAY | PROVIDERS: PCP Internal Medicine; Visit Provider Student in an Organized Health Care Education/Training Program | DX: M19.041 Primary osteoarthritis, right hand (principal); M19.042 Primary osteoarthritis, left hand | CPT/HCPCS: 99202 ==

== ENCOUNTER → 2022-07-06 13:32 | Outpatient (BNVA) | payer MEDICARE, MEDICAID, SELFPAY | PROVIDERS: PCP Internal Medicine; Visit Provider Urology | DX: E29.1 Testicular hypofunction (principal); N52.9 Male erectile dysfunction, unspecified; E53.8 Deficiency of other specified B group vitamins | CPT/HCPCS: Q3014 ==

== ENCOUNTER → 2022-07-18 10:49 | Outpatient (BNVA) | payer MEDICARE, MEDICAID, SELFPAY | PROVIDERS: PCP Internal Medicine; Visit Provider Anesthesiology | DX: Z51.81 Encounter for therapeutic drug level monitoring (principal); F11.20 Opioid dependence, uncomplicated; M96.1 Postlaminectomy syndrome, not elsewhere classified; M54.12 Radiculopathy, cervical region; M47.816 Spondylosis without myelopathy or radiculopathy, lumbar region; M54.50 Low back pain, unspecified; M25.562 Pain in left knee; M48.02 Spinal stenosis, cervical region; M10.9 Gout, unspecified; G57.93 Unspecified mononeuropathy of bilateral lower limbs; Z98.1 Arthrodesis status | CPT/HCPCS: 99212 ==

== ENCOUNTER → 2022-07-23 14:37 | Outpatient (BNVA) | payer MEDICARE, MEDICAID, SELFPAY | PROVIDERS: PCP Internal Medicine; Visit Provider Anesthesiology | DX: M96.1 Postlaminectomy syndrome, not elsewhere classified (principal); M54.12 Radiculopathy, cervical region; M47.816 Spondylosis without myelopathy or radiculopathy, lumbar region; M54.50 Low back pain, unspecified; M25.562 Pain in left knee; M48.02 Spinal stenosis, cervical region; M10.9 Gout, unspecified; M54.2 Cervicalgia; M62.838 Other muscle spasm; G57.93 Unspecified mononeuropathy of bilateral lower limbs; F11.90 Opioid use, unspecified, uncomplicated; Z98.1 Arthrodesis status | CPT/HCPCS: Q3014 ==

== ENCOUNTER 2022-07-25 01:57 | Emergency (ER) | payer MEDICARE, MEDICAID, SELFPAY ==
--- NOTE | ~2022-07-25 | CT_ITS ---
EXAMINATION: CT CERVICAL SPINE WITHOUT CONTRAST CLINICAL INFORMATION: C3-C4 neuralgia COMPARISON: 06/26/2021 TECHNIQUE: Multidetector helical imaging was performed through the cervical spine. Coronal and sagittal reformatted images were created. This CT examination was performed using dose optimization techniques as appropriate, variously including the following: *Automated exposure control *Adjustment of mA and/or kV according to patient size (this includes techniques or standardized protocols for targeted exams where dose is matched to indication/reason for exam; i.e. extremities or head) *Use of iterative reconstruction technique DLP: 556 mGy-cm FINDINGS: There is anatomic alignment of the vertebral bodies and posterior elements. There is degenerative change at the atlantodens articulation. Vertebral body heights are maintained. Intervertebral disc spaces are relatively well-preserved. Bridging osteophytes are present in the mid to lower cervical spine in keeping with diffuse idiopathic skeletal hyperostosis. There is moderate to severe facet arthropathy at C3-C4 with severe bony foraminal narrowing. Moderate left-sided bony foraminal narrowing is seen on the left at C4-C5. No evidence of acute fracture. No prevertebral soft tissue swelling. Visualized portions of the lung apices are unremarkable. The thyroid gland is unremarkable. CT/CT cervical spine wo IV con IMPRESSION: Degenerative changes as noted above with severe bony foraminal narrowing on the left at C3-C4 and moderate narrowing on the left at C4-C5. No acute findings identified.
[2022-07-25 02:04] VITALS: BP 174/96; PULSE 84; RESP 14; TEMP 36.7; O2SAT 96; BMI 28.1
--- NOTE | 2022-07-25 03:39 | ED.NECK ---
HPI - Neck Pain/Injury General Chief Complaint: Extremity Problem Stated Complaint: Neck pain/No inj Time Seen by Provider: 07/25/22 03:38 Source: patient Mode of arrival: ambulatory Limitations: no limitations History of Present Illness HPI Narrative: Patient's cervical radiculopathy for long time followed by neurosurgeon and MRI last year which showed C3-C7 moderate to severe neural foramina stenosis at multiple levels patient followed by neurosurgeon patient does have left hand numbness off and on for long time. Now complaining of burning sensation in the upper part of the neck for last few days spoke to the neurosurgeon who will be doing MRI and plan for cortisone injections no hand weakness no gait problems no headache no recent trauma Related Data Home Medications Medication Instructions Recorded Confirmed cholecalciferol (vitamin D3) 50 50 mcg PO DAILY 08/01/20 07/18/22 mcg (2,000 unit) capsule Previous Rx's Medication Instructions Recorded back brace #1 ea 07/04/21 meclizine 25 mg tablet 25 mg PO BID PRN dizziness #30 tabs 08/03/21 omega-3 fatty acids 1,000 mg 2,000 mg PO DAILY #60 caps 09/13/21 capsule hydroxyzine pamoate 25 mg capsule 25 mg PO BEDTIME PRN insomnia 30 10/20/21 days #60 caps syringe with needle 3 mL 22 gauge #30 ea 03/06/22 x 1 (BD Luer-Barby Syringe) lisinopril 10 mg tablet 10 mg PO DAILY #90 tabs 04/06/22 ketorolac 30 mg/mL injection 30 mg IM .Once a day PRN severe 05/23/22 solution pain (scale score 7-10) 30 days #8 mL insulin syringe-needle U-100 1 mL #4 ea 06/05/22 25 x 1 (BD Insulin Syringe) testosterone cypionate 200 mg/mL 100 mg (0.5 mL) IM QWEEK 28 days 06/07/22 intramuscular oil #2 mL naloxegol 12.5 mg tablet (Movantik) 12.5 mg PO QAM 30 days #30 tabs 06/29/22 cyanocobalamin (vitamin B-12) 1,000 mcg IM Q4W 4 weeks #1 mL 07/02/22 1,000 mcg/mL injection solution buprenorphine HCl 750 mcg buccal 750 mcg buccal Q8H 30 days #90 ea 07/18/22 film (Belbuca) oxycodone 60 mg tablet,crush 60 mg PO TID PRN pain, severe 30 07/18/22 resistant,extended release 12 hr days #90 tabs Allergies Allergy/AdvReac Type Severity Reaction Status Date / Time gabapentin [GABAPENTIN] Allergy Unknown RASH Verified 07/23/22 14:32 morphine Allergy Unknown Nausea and Verified 07/23/22 14:32 Vomiting fentanyl Allergy Vomiting Verified 07/23/22 14:32 tadalafil Allergy Rash Verified 07/23/22 14:32 Review of Systems Review of Systems: Yes all other systems are reviewed and are negative [facility] Past Medical History Medical History Anxiety Dyslipidemia Foot pain H/O urinary frequency Heel pain, bilateral High cholesterol Hypogonadism in male Neuropathy Neuropathy involving both lower extremities Postlaminectomy syndrome, lumbar Vitamin B12 deficiency Surgical History History of lumbar spinal fusion Family History Family History Father CVD (cardiovascular disease) Mother Cancer Brother No problems noted. Brother No problems noted. Sister Dysplasia, fibromuscular, artery, renal Son No problems noted. Son No problems noted. Daughter No problems noted. Social History Social History Housing: House Alcohol intake: never Patient Tobacco Use Status: Never used Tobacco e-Cigarette/Vaping Use: Never Used Advance Directives: No Advance Directives Information Provided: No Current occupational status: unemployed Cognitive needs: No Hearing needs: No Vision needs: No Physical Exam Vital Signs: Vital Signs: Last Vital Signs Temp 98.0 F 07/25/22 02:04 Pulse 84 07/25/22 02:04 Resp 14 07/25/22 02:04 BP 174/96 H 07/25/22 02:04 Pulse Ox 96 07/25/22 02:04 O2 Del Method 07/25/22 02:04 BMI result Body Mass Index 28.1 Appearance: Alert. Oriented X3. No acute distress. Eyes: PERRLA, No Nystagmus ENT: Pharynx normal. Oral Mucosa moist Neck: Normal inspection. Neck supple. CVS: Normal heart rate and rhythm. Pulses normal. Respiratory: No respiratory distress. Equal air entry bilateral, no wheezing/rales/rhonchi Abdomen: Soft and nontender. Bowel sounds are present, no mass palpable, no CVA tenderness Skin: Skin warm and dry. Normal skin color. Normal skin turgor. Extremities: No lower extremity edema. No calf tenderness Neuro: Oriented X 3. No motor deficit. 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 Patient has plan to see neurosurgeon advised to follow-up with neurosurgeon continue his pain medication no focal motor deficit noticed Discharge Plan Discharge Clinical Impression: Cervical neuralgia Patient Disposition: Home, Self-Care Instructions: Cervical Radiculopathy (ED) Additional Instructions: Follow-up with neurosurgeon for further management Continue pain medications Prescriptions: No Action (DME) back brace Misc See Rx Instructions .Route Qty: 1 0RF Rx Instructions: As directed meclizine 25 mg tablet 25 mg PO BID PRN (Reason: dizziness) Qty: 30 0RF omega-3 fatty acids 1,000 mg capsule 2,000 mg PO DAILY Qty: 60 5RF hydroxyzine pamoate 25 mg capsule 25 mg PO BEDTIME PRN (Reason: insomnia) 30 Days Qty: 60 6RF Rx Instructions: Patient may take 1 or 2 pills at night for insomnia (DME) BD Luer-Barby Syringe 3 mL 22 gauge x 1 syringe See Rx Instructions .ROUTE .COMPLEX Qty: 30 0RF Dose Instruction: USE ONCE A DAY DIRECTED Rx Instructions: USE WEEKLY DIRECTED lisinopril 10 mg tablet 10 mg PO DAILY Qty: 90 1RF ketorolac 30 mg/mL solution 30 mg IM .Once a day MDD 1 vial - 30 mg PRN (Reason: severe pain (scale score 7-10)) 30 Days Qty: 8 8RF Rx Instructions: Deep IM injection once a day, but no more than 2 times a week. Do not take other NSAIDs on the day ketorolac is injected. Do not take aspirin. (DME) BD Insulin Syringe 1 mL 25 x 1 syringe See Rx Instructions .ROUTE .COMPLEX Qty: 4 3RF Dose Instruction: USE DIRECTED Rx Instructions: USE DIRECTED testosterone cypionate 200 mg/mL oil 100 mg IM QWEEK 28 Days Qty: 2 5RF Movantik 12.5 mg tablet 12.5 mg PO QAM 30 Days Qty: 30 5RF Rx Instructions: must be taken on empty stomach; no food 1 hr after or 2-3 hrs before dose cyanocobalamin (vitamin B-12) 1,000 mcg/mL solution 1,000 mcg IM Q4W 28 Days Qty: 1 6RF cholecalciferol (vitamin D3) 50 mcg (2,000 unit) capsule 50 mcg PO DAILY oxycodone 60 mg tablet,oral only,ext.rel.12 hr 60 mg PO TID MDD 3 PRN (Reason: pain, severe) 30 Days Qty: 90 0RF buprenorphine HCl [Belbuca] 750 mcg film 750 mcg buccal Q8H 30 Days Qty: 90 0RF Interventions: ED Discharge Assessment Last Done: 07/25/22 05:05 Discharge Date/Time: 07/25/22 05:05
--- NOTE | 2022-07-25 05:04 | PC.NURSE ---
Discharge intructions reviewed with pt. Pt verbalizes understanding.
== END 2022-07-25 05:05 | disposition home or self-care (01) ==
PROVIDERS: Emergency Provider Internal Medicine; PCP Internal Medicine
DX: G58.8 Other specified mononeuropathies (principal); M54.2 Cervicalgia; E78.5 Hyperlipidemia, unspecified; Z79.899 Other long term (current) drug therapy
CPT/HCPCS: 72125; 99283; 99284

== ENCOUNTER 2022-08-07 10:50 | Outpatient (REF) | payer MEDICARE, MEDICAID, SELFPAY ==
--- NOTE | ~2022-08-07 | MR_ITS ---
EXAMINATION: MR CERVICAL SPINE WITHOUT CONTRAST CLINICAL INFORMATION: Cervical radiculopathy. COMPARISON: CT scan of the cervical spine 07/25/2022. TECHNIQUE: MRI of the cervical spine was obtained using routine sequences without contrast. FINDINGS: VERTEBRAL BODIES AND PARASPINAL SOFT TISSUES: There is a slight dextroscoliosis. There is a mild anterolisthesis of C6 on C7. There is narrowing of intervertebral disc height with loss of signal which is most prominent at C5-C6. The vertebral bodies have normal height and contour and no fractures are demonstrated. Overall, marrow signal is homogenous. The visualized paravertebral and superior thoracic structures are unremarkable. CERVICOMEDULLARY JUNCTION AND VISUALIZED POSTERIOR FOSSA: The posterior fossa is obscured by artifact on all diagnostic sequences. The craniocervical junction is incompletely visualized but appears normal. Accounting for artifact, spinal cord signal appears normal. SPINAL LEVELS: C2-C3: There is mild bilateral facet arthropathy. There is a small central and left-sided soft disc protrusion without cord compression or central stenosis. There are uncovertebral osteophytes on the left and there is moderate left foraminal narrowing. C3-C4: There is moderate left and mild right facet arthropathy. There is a broad-based posterior soft disc protrusion which is most prominent centrally and on the with flattening of the ventral thecal sac on the left, but there is no cord compression or central stenosis. There may be posterior displacement of the traversing left C5 nerve root. There are uncovertebral osteophytes and there is severe left and moderate right foraminal narrowing. C4-C5: There is mild bilateral facet arthropathy. There is a posterior disc protrusion without mass effect on the thecal sac and there is no central stenosis or foraminal narrowing. There are uncovertebral osteophytes and there is moderate left foraminal narrowing. C5-C6: The facet joints appear normal. Posterior disc contour is normal in is no cord compression or central stenosis. The neural foramina are patent bilaterally. C6-C7: There is mild left facet arthropathy. There is a shallow right-sided disc protrusion without cord compression or central stenosis. There are uncovertebral osteophytes and there is moderate left and mild right foraminal narrowing. C7-T1: The facet joints appear normal bilaterally. Posterior disc contour is normal. There is no spinal cord compression or central stenosis. The neural foramina are patent bilaterally. MR/MR cervical spine wo con IMPRESSION: 1. At C3-C4 there is facet arthropathy and there is a broad-based posterior soft disc protrusion. There is no cord compression or central stenosis. There may be posterior displacement of the traversing left C5 nerve root. There is severe left and moderate right foraminal narrowing. 2. At C2-C3 there is a small central and left-sided soft disc protrusion without cord compression or central stenosis. There is moderate left foraminal narrowing. 3. At C4-C5 there is a posterior disc protrusion without cord compression or central stenosis. There is moderate left foraminal narrowing. 4. At C6-C7 there is a shallow right-sided disc protrusion without cord compression or central stenosis. There is moderate left and mild right foraminal narrowing. 5. The posterior fossa is suboptimally visualized due to artifact.
== END 2022-08-07 10:51 | disposition home or self-care (01) ==
LOC: HO.MRI 10:50
PROVIDERS: PCP Internal Medicine; Visit Provider Physician Assistant
DX: M54.12 Radiculopathy, cervical region (principal)
CPT/HCPCS: 72141

== ENCOUNTER → 2022-08-20 10:10 | Outpatient (BNVA) | payer MEDICARE, MEDICAID, SELFPAY | PROVIDERS: PCP Internal Medicine; Visit Provider Anesthesiology | DX: Z51.81 Encounter for therapeutic drug level monitoring (principal); F11.20 Opioid dependence, uncomplicated; M96.1 Postlaminectomy syndrome, not elsewhere classified; M54.12 Radiculopathy, cervical region; M47.816 Spondylosis without myelopathy or radiculopathy, lumbar region; M54.50 Low back pain, unspecified; M25.562 Pain in left knee; M48.02 Spinal stenosis, cervical region; M10.9 Gout, unspecified; M54.2 Cervicalgia; M62.838 Other muscle spasm; Z98.1 Arthrodesis status | CPT/HCPCS: 99212 ==

== ENCOUNTER → 2022-09-24 10:10 | Outpatient (BNVA) | payer MEDICARE, MEDICAID, SELFPAY | PROVIDERS: PCP Internal Medicine; Visit Provider Anesthesiology | DX: Z51.81 Encounter for therapeutic drug level monitoring (principal); F11.20 Opioid dependence, uncomplicated; M96.1 Postlaminectomy syndrome, not elsewhere classified; M54.12 Radiculopathy, cervical region; M47.816 Spondylosis without myelopathy or radiculopathy, lumbar region; M54.50 Low back pain, unspecified; M25.562 Pain in left knee; M48.02 Spinal stenosis, cervical region; M10.9 Gout, unspecified; M54.2 Cervicalgia; M62.838 Other muscle spasm; G57.93 Unspecified mononeuropathy of bilateral lower limbs; Z98.1 Arthrodesis status | CPT/HCPCS: 99212 ==

== ENCOUNTER → 2022-10-11 15:19 | Outpatient (AMB) | payer MEDICARE, MEDICAID, SELFPAY ==
--- NOTE | 2022-10-11 15:21 | A.OFFPC_ITS ---
Vital Signs 10/11/22 15:25 Height 5 ft 7 in Weight 178 lb 2 oz BMI 27.9 BP 132/74 Blood Pressure Location Rt brachial Position Sitting Pulse 95 Pulse Source Pulse Oximeter Pulse Oximetry (%) 97 Oxygen Delivery Method Room Air Intake Visit Reasons: Anxiety Intake Note: Pt is here today for sad and depression Allergies gabapentin [GABAPENTIN] Allergy (Unknown, Verified 01/21/23 16:10) RASH morphine Allergy (Unknown, Verified 01/21/23 16:10) Nausea and Vomiting fentanyl Allergy (Verified 01/21/23 16:10) Vomiting tadalafil Allergy (Verified 01/21/23 16:10) Rash Medication List - Last Reconciled 10/11/22 by Eve Aguirre MD back brace As directed buprenorphine HCl (Belbuca) 750 mcg buccal Q8H 30 days cholecalciferol (vitamin D3) 50 mcg PO DAILY cyanocobalamin (vitamin B-12) 1,000 mcg IM Q4W 4 weeks hydroxyzine pamoate 25 mg PO BEDTIME PRN 30 days ketorolac 30 mg IM .Once a day PRN 30 days MDD 1 vial - 30 mg meclizine 25 mg PO BID PRN naloxegol (Movantik) 12.5 mg PO QAM 30 days omega-3 fatty acids 2,000 mg (2 x 1,000 mg) PO DAILY oxycodone ER 60 mg PO TID PRN 30 days MDD 3 syringe with needle (BD Luer-Barby Syringe) USE WEEKLY DIRECTED testosterone cypionate 100 mg (0.5 mL) IM QWEEK 28 days Tobacco use date assessed: 10/11/22 HPI HPI Comments History of Present Illness Details 52-year-old male here today complaining of feeling very anxious, with labile mood, constantly worrying about how he is going to be able to manage his pain, now that he is under different pain management clinic, who changed his pain management regimen . Patient states that he has been unable to enjoy his usual day-to-day activities due to his recurrent pain in his lower back and posterior neck. [facility] Medical History (Updated 01/21/23 @ 16:40 by Eve Aguirre MD) Anxiety disorder due to medical condition Dyslipidemia Foot pain H/O urinary frequency Heel pain, bilateral Hypogonadism in male Neuropathy Neuropathy involving both lower extremities Postlaminectomy syndrome, lumbar Vitamin B12 deficiency Surgical History (Updated 01/21/23 @ 16:40 by Eve Aguirre MD) History of lumbar spinal fusion Family History Father CVD (cardiovascular disease) Mother Cancer Brother No problems noted. Brother No problems noted. Sister Dysplasia, fibromuscular, artery, renal Son No problems noted. Son No problems noted. Daughter No problems noted. Social History Housing: House Alcohol intake: never Patient Tobacco Use Status: Never used Tobacco e-Cigarette/Vaping Use: Never Used Current occupational status: unemployed Cognitive needs: No Hearing needs: No Vision needs: No Questionnaire PHQ-9 Over the last 2 weeks, how often have you been bothered by any of the following problems? 1. Little interest or pleasure in doing things: several days 2. Feeling down, depressed, or hopeless: not at all 3. Trouble falling or staying asleep, or sleeping too much: more than half the days 4. Feeling tired or having little energy: several days 5. Poor appetite or overeating: nearly every day 6. Feeling bad about yourself - or that you are a failure or have let yourself or your family down: several days 7. Trouble concentrating on things, such as reading the newspaper or watching television: not at all 8. Moving or speaking so slowly that other people could have noticed. Or the opposite - being so fidgety or restless that you have been moving around a lot m ore than usual: several days (due to pain in lower back) 9. Thoughts that you would be better off or of hurting yourself in some way: not at all Total score: 9 Depression Screening Interpretation: Negative (Patient denies that he is depressed, but unable to enjoy daily activities due to being in pain frequent ly) 17137 - PHQ-9 Billing: Yes Source: Developed by Drs. Everett Garzon, Kathy Odonnell, Edu Owens and colleagues, with an educational paulina from [employer]. Thrive Questionnaire Date Thrive assessed: 10/11/22 I am a: Patient What is your living situation today?: I have a steady place to live Within the past 12 months, did the food you bought not last and you didn't have the money to get more?: Never true Within the past 12 months, did you worry whether your food would run out before you got money to buy more?: Never true Do you have trouble paying for medicines?: No Do you have trouble getting transportation to medical appointments?: No Do you have trouble paying your heating and electricity bill?: No Do you have trouble taking care of your child, family member or friend?: No Do you have trouble with day-to-day activities such as bathing, preparing meals, shopping, managing finances, etc.?: No Are you currently unemployed and looking for a job?: No Are you interested in more education?: No AUDIT C Alcohol Use Questionnaire (AUDIT-C) 1. How often do you have a drink containing alcohol?: Never Total Score: 0 MIO-7 AMB Questionnaire MIO-7 Date MIO - 7 assessed: 10/11/22 Feeling nervous, anxious, or on edge: 1 = Several days Not being able to stop or control worryin = Several days Worrying too much about different things: 1 = Several days Trouble relaxin = Several days Being so restless that it is hard to sit still: 0 = Not at all Becoming easily annoyed or irritable: 1 = Several days Feeling afraid as if something awful might happen: 0 = Not at all Total MIO-7 score (0-4 normal; 5-9 mild; 10-14 moderate; 15-21 severe): 5 Source: Developed by Drs. Everett Garozn, Kathy Odonnell, Edu Owens and colleagues, with an educational paulina from [employer]. MIO-7 Assessment Billing MIO-7 Assessment Tool: MIO-7 Assessment 29343 Review of Systems Const Reports as per HPI, Denies fatigue, Denies frequent falls, Denies headache(s), Denies lethargy, Reports poor appetite and Denies weakness ENT Denies headache(s) Card Denies chest pain, Denies chest pain with activity, Denies dyspnea and Denies dyspnea on exertion Resp Denies cough, Denies dyspnea and Denies dyspnea on exertion GI Reports no additional complaints, Denies constipation, Denies heartburn, Denies fecal incontinence, Denies diarrhea and Denies nausea Reports no additional complaints and Denies urinary incontinence Musc Reports as per HPI and Denies abnormal gait Skin/Breast Denies lesions and Denies rash Neuro Denies abnormal gait, Denies frequent falls, Denies headache(s), Denies lack of coordination, Denies focal weakness and Denies weakness Psych Reports as per HPI Endo Denies fatigue Physical exam (Primary Care) Vital Signs: Last Vital Signs Pulse 95 10/11/22 15:25 BP 132/74 10/11/22 15:25 Pulse Ox 97 10/11/22 15:25 Oxygen Delivery Method Room Air 10/11/22 15:25 BMI result Body Mass Index 27.9 Tobacco/Smoking Status: Tobacco use Status Tobacco use date assessed 10/11/22 10/11/22 15:31 Patient Tobacco Use Status Never used Tobacco 10/11/22 15:22 e-Cigarette/Vaping Use Never Used 10/11/22 15:22 Depression Screening Interpretation: Negative (Patient denies that he is depressed, but unable to enjoy daily activities due to being in pain frequently) Thrive Assessment: Date of Thrive Assessment Date Thrive assessed 10/11/22 10/11/22 15:56 Const General: cooperative, no acute distress, alert and Physically active Nutritional Appearance: average body habitus Orientation/consciousness: patient oriented x3 Neck Neck: Yes full ROM, Yes no lymphadenopathy and Yes supple Resp Auscultation: clear to auscultation bilaterally Cardio Other: S1-S2 present regular rate and rhythm GI Palpation (GI): Soft to palpation, nontender, no guarding and no masses Auscultation: normal bowel sounds Back/Spine/Pelvis Thoracic/Lumbar Spine: bend over test abnormal, pain with thoraco-lumbar ROM, paraspinal muscle tenderness bilaterally in the mid lumbar and in the lower lumbar and straight leg raise positive Skin General skin exam: no rashes or lesions noted Neuro General: patient oriented x3, gait normal, tone normal, Normal light touch and pain sensation and no focal motor deficits Cognition (Neuro): normal cognition Gait exam (Neuro): Normal gait present Extrem General: Yes no joint enlargement, Yes no clubbing, cyanosis or edema, Yes no calf tenderness and Yes normal gait Psych Appearance: grossly normal and well kempt Mental Status: mental status grossly normal Speech and movement: Psychomotor agitation in speech present Affect: Anxious affect present Attitude: cooperative Thought process: Normal thought process present Thought content: Normal thought content present Assessment and Plan Assessment & Plan (1) Anxiety disorder due to medical condition: Code(s): F06.4 - Anxiety disorder due to known physiological condition Plan: Will start on buspirone 5 mg per tablet to take 1 tablet 3 times a day. He declined referral for counseling . Discussed other ways to relieve stress including : exercise or a massage, Get enough rest, Avoid alcohol, caffeine, nicotine, and illegal drugs which can increase your anxiety level and cause sleep problems. (2) Postlaminectomy syndrome, lumbar: Code(s): M96.1 - Postlaminectomy syndrome, not elsewhere classified Plan: Currently under the care of [facility] pain management Coding Level of Care Code Est Pt Level 3 (63014) Diagnoses Anxiety disorder due to medical condition F06.4 Postlaminectomy syndrome, lumbar M96.1 Additional Codes MIO-7 Assessment Billing - MIO-7 Assessment Tool: MIO-7 Assessment 80369 ([id number])
[2022-10-11 15:25] VITALS: BP 132/74; PULSE 95; O2SAT 97; BMI 27.9
== END ==
PROVIDERS: PCP Internal Medicine; Visit Provider Internal Medicine
DX: F06.4 Anxiety disorder due to known physiological condition (principal); M96.1 Postlaminectomy syndrome, not elsewhere classified
CPT/HCPCS: 99213

== ENCOUNTER → 2022-10-25 09:42 | Outpatient (BNVA) | payer MEDICARE, MEDICAID, SELFPAY | PROVIDERS: PCP Internal Medicine; Visit Provider Anesthesiology | DX: M96.1 Postlaminectomy syndrome, not elsewhere classified (principal); G57.93 Unspecified mononeuropathy of bilateral lower limbs; M54.12 Radiculopathy, cervical region; M48.16 Ankylosing hyperostosis [Forestier], lumbar region; M25.562 Pain in left knee; M47.816 Spondylosis without myelopathy or radiculopathy, lumbar region; M48.02 Spinal stenosis, cervical region; M10.9 Gout, unspecified; M62.838 Other muscle spasm; Z79.891 Long term (current) use of opiate analgesic; Z98.1 Arthrodesis status | CPT/HCPCS: 99212 ==

== ENCOUNTER → 2022-11-30 12:57 | Outpatient (BNVA) | payer MEDICARE, MEDICAID, SELFPAY | PROVIDERS: PCP Internal Medicine; Visit Provider Anesthesiology | DX: Z51.81 Encounter for therapeutic drug level monitoring (principal); F11.20 Opioid dependence, uncomplicated; M96.1 Postlaminectomy syndrome, not elsewhere classified; M54.12 Radiculopathy, cervical region; M47.816 Spondylosis without myelopathy or radiculopathy, lumbar region; M54.50 Low back pain, unspecified; M25.562 Pain in left knee; M48.02 Spinal stenosis, cervical region; M10.9 Gout, unspecified; M54.2 Cervicalgia; M62.838 Other muscle spasm; G57.93 Unspecified mononeuropathy of bilateral lower limbs; Z98.1 Arthrodesis status | CPT/HCPCS: 99212 ==

== ENCOUNTER 2022-12-12 11:24 | Outpatient (REF) | payer MEDICARE, MEDICAID, SELFPAY ==
[2022-12-12 13:23] LABS: Prostate Specific Antigen 1.44 ng/mL (<0.05-4.0)
[2022-12-17 14:19] LABS: Testosterone, Total 1583 ng/dL (250-1100)
== END 2022-12-12 11:25 | disposition home or self-care (01) ==
LOC: HO.LAB 11:24
PROVIDERS: PCP Internal Medicine; Visit Provider Urology
DX: E29.1 Testicular hypofunction (principal); Z12.5 Encounter for screening for malignant neoplasm of prostate
CPT/HCPCS: 36415; 84153; 84403

== ENCOUNTER 2023-01-01 15:21 | Outpatient (AMB) | payer MEDICARE, MEDICAID, SELFPAY ==
--- NOTE | 2023-01-01 15:39 | MHC.OFFVIS ---
Intake Intake Visit Reasons: 6M PSA/Testo(set) Intake Note: Patient is present for Telephone FOLLOW UP Urology Med: Testosterone Antibiotic Allergy: none Blood Thinner: None Pharmacy: [facility] Allergies gabapentin [GABAPENTIN] Allergy (Unknown, Verified 10/11/22 15:41) RASH morphine Allergy (Unknown, Verified 10/11/22 15:41) Nausea and Vomiting fentanyl Allergy (Verified 10/11/22 15:41) Vomiting tadalafil Allergy (Verified 10/11/22 15:41) Rash PFSH Medical History Anxiety Dyslipidemia Foot pain H/O urinary frequency Heel pain, bilateral High cholesterol Hypogonadism in male Neuropathy Neuropathy involving both lower extremities Postlaminectomy syndrome, lumbar Vitamin B12 deficiency Surgical History History of lumbar spinal fusion Family History Father CVD (cardiovascular disease) Mother Cancer Brother No problems noted. Brother No problems noted. Sister Dysplasia, fibromuscular, artery, renal Son No problems noted. Son No problems noted. Daughter No problems noted. Social History Housing: House Alcohol intake: never Patient Tobacco Use Status: Never used Tobacco e-Cigarette/Vaping Use: Never Used Current occupational status: unemployed Cognitive needs: No Hearing needs: No Vision needs: No Telehealth Telehealth Location of provider rendering services: practice address Location of patient: address on file Patient Identification confirmed using: Name, : Yes Telehealth method: voice only Patient verbally consented to treatment: Yes Patient verbally consented to billing insurance company: Yes Patient informed of any privacy concerns related to visit: Yes Coding Diagnoses
--- NOTE | 2023-01-01 15:41 | A.OFFVIS_ITS ---
Intake Intake Visit Reasons: 6M PSA/Testo(set) Allergies gabapentin [GABAPENTIN] Allergy (Unknown, Verified 10/11/22 15:41) RASH morphine Allergy (Unknown, Verified 10/11/22 15:41) Nausea and Vomiting fentanyl Allergy (Verified 10/11/22 15:41) Vomiting tadalafil Allergy (Verified 10/11/22 15:41) Rash Medication List - Last Reconciled 01/01/23 by Yang Young MD back brace As directed buprenorphine HCl (Belbuca) 750 mcg buccal Q8H 2 days buspirone 5 mg PO TID cholecalciferol (vitamin D3) 50 mcg PO DAILY clonidine HCl 0.1 mg PO BID PRN 30 days cyanocobalamin (vitamin B-12) 1,000 mcg IM Q4W 4 weeks hydroxyzine HCl 25 mg PO BID PRN 30 days hydroxyzine pamoate 25 mg PO BEDTIME PRN 30 days ketorolac 30 mg IM .Once a day PRN 30 days MDD 1 vial - 30 mg meclizine 25 mg PO BID PRN naloxegol (Movantik) 12.5 mg PO QAM 30 days omega-3 fatty acids 2,000 mg (2 x 1,000 mg) PO DAILY oxycodone ER 60 mg PO .QD PRN 2 days MDD 1 oxycodone ER 40 mg PO BID PRN 2 days syringe with needle (BD Luer-Barby Syringe) USE WEEKLY DIRECTED testosterone cypionate 100 mg (0.5 mL) IM QWEEK 28 days HPI HPI Comments History of Present Illness Details Lemuel is a pleasant male. He is a patient of Dr. Aguirre. He seen for the following urologic conditions - hypogonadism did have some pain with Cialis - erectile dysfunction Telemedicine Evaluation 15 min Consultation [place] [facility] attempted Tells me he took 1 cc on Saturday and tested on Saturday Only receives 2 cc total per month [place] renewed Hypogonadism Longstanding Current dosage injectable testosterone 0.5 cc weekly Injection Day: Saturday Lab Day: Lab Work 11/14 T 1200, PSA 1.40, 05/16 1900 P 1.6 Hct 50.3 - 06/17 T 816, 12/15 1143 (saturday) 47, 06/17 T 645 P 1.7, 12/16 T 1583 (Sat) Has had prior high T when testing to close to injection date May follow in 6 months [facility] Medical History Anxiety Dyslipidemia Foot pain H/O urinary frequency Heel pain, bilateral High cholesterol Hypogonadism in male Neuropathy Neuropathy involving both lower extremities Postlaminectomy syndrome, lumbar Vitamin B12 deficiency Surgical History History of lumbar spinal fusion Family History Father CVD (cardiovascular disease) Mother Cancer Brother No problems noted. Brother No problems noted. Sister Dysplasia, fibromuscular, artery, renal Son No problems noted. Son No problems noted. Daughter No problems noted. Social History Housing: House Alcohol intake: never Patient Tobacco Use Status: Never used Tobacco e-Cigarette/Vaping Use: Never Used Current occupational status: unemployed Cognitive needs: No Hearing needs: No Vision needs: No Assessment & Plan Assessment & Plan (1) Hypogonadism in male: Code(s): E29.1 - Testicular hypofunction Plan Six month follow-up Orders: Orders Prostate Specific Antigen 6 Months E29.1 - Testicular hypofunction Testosterone, Total 6 Months E29.1 - Testicular hypofunction Complete Blood Count no Diff 6 Months E29.1 - Testicular hypofunction Patient Instructions: Imaging studies, laboratory and physical exam results were discussed and reviewed in detail. No major barriers to patient understanding were identified. An opportunity to ask questions regarding the treatment plan was provided. All questions were answered. The patient expressed understanding and agreement with the above treatment plan. The patient is aware they should contact our office by phone for worsening of their current condition or the appearance of new urologic symptoms. Compliance is encouraged with any medications and followup testing that is ordered. It is a privilege to participate in the urologic care of your patient. If you have any questions or concerns regarding treatment for the above conditions, or other urologic issues, please do not hesitate to contact me. The office telephone contact is [phone]. This note is constructed using voice recognition software. While every effort has been made to ensure accuracy occupational therapy manager errors may have been included. Yours sincerely, Dr Yang Young MD, [facility] Providers of Expert, Compassionate Care for the Genitourinary System Telehealth Telehealth Location of provider rendering services: practice address Location of patient: address on file Patient Identification confirmed using: Name, : Yes Telehealth method: video Patient verbally consented to treatment: Yes Patient verbally consented to billing insurance company: Yes Patient informed of any privacy concerns related to visit: Yes Coding Level of Care Code Tele Est Pt Level 3 (08713) Diagnoses Hypogonadism in male E29.1
== END 2023-01-01 15:49 | disposition home or self-care (01) ==
LOC: HO.HUSH 15:21
PROVIDERS: PCP Internal Medicine; Visit Provider Urology
DX: E29.1 Testicular hypofunction (principal)
CPT/HCPCS: 99214

== ENCOUNTER → 2023-01-01 15:21 | Outpatient (BNVA) | payer MEDICARE, MEDICAID, SELFPAY | PROVIDERS: PCP Internal Medicine; Visit Provider Urology ==

== ENCOUNTER 2023-01-02 10:45 | Outpatient (AMB) | payer MEDICARE, MEDICAID, SELFPAY ==
--- NOTE | 2023-01-02 11:28 | A.OFFVIS_ITS ---
Intake Vital Signs 01/02/23 11:58 Height 5 ft 7 in Weight 171 lb BMI 26.8 BP 153/99 H Blood Pressure Location Lt brachial Position Sitting Respiration 14 Pulse 121 H Pulse Source Pulse Oximeter Pulse Oximetry (%) 99 Oxygen Delivery Method Room Air Intake Visit Reasons: Pill count Allergies gabapentin [GABAPENTIN] Allergy (Unknown, Verified 01/02/23 11:59) RASH morphine Allergy (Unknown, Verified 01/02/23 11:59) Nausea and Vomiting fentanyl Allergy (Verified 01/02/23 11:59) Vomiting tadalafil Allergy (Verified 01/02/23 11:59) Rash Medication List - Last Reconciled 01/02/23 by Evonne Arechiga, [employer] [employer] back brace As directed buprenorphine HCl (Belbuca) 750 mcg buccal Q8H 2 days buspirone 5 mg PO TID cholecalciferol (vitamin D3) 50 mcg PO DAILY clonidine HCl 0.1 mg PO BID PRN 30 days cyanocobalamin (vitamin B-12) 1,000 mcg IM Q4W 4 weeks hydroxyzine HCl 25 mg PO BID PRN 30 days hydroxyzine pamoate 25 mg PO BEDTIME PRN 30 days ketorolac 30 mg IM .Once a day PRN 30 days MDD 1 vial - 30 mg meclizine 25 mg PO BID PRN naloxegol (Movantik) 12.5 mg PO QAM 30 days omega-3 fatty acids 2,000 mg (2 x 1,000 mg) PO DAILY oxycodone ER 60 mg PO .QD PRN 2 days MDD 1 oxycodone ER 40 mg PO BID PRN 2 days syringe with needle (BD Luer-Barby Syringe) USE WEEKLY DIRECTED testosterone cypionate 100 mg (0.5 mL) IM QWEEK 28 days HPI HPI Comments History of Present Illness Details Lemuel presents to the office today for follow up chronic pain and chronic opioid therapy management. Patient is prescribed: Belbuca 750mcg, take one film three times daily. Patient arrived today with the expectation of having 3 films, he presented 6 films Oxycodone 40mg, take one tab po bid. Patient arrived today with the expectation of having 2 tabs, he presented 4 tabs Oxycodone 60mg ER, take one tab daily. Patient arrived today with the expectation of having 1 tab, he presented 2 tabs. All medications were counted in the presence of two staff members and returned t o the patient in the original prescription bottles. Patient reports he did not take any of his medications today as he was unsure if this would interfere with his pill count. Patient is currently being tapered off of his opioid medications, he is aware of the next dose decrease. Prior: Lemuel is in my office again after he had another dramatic exchange of the messages between this office in him. According to him he had his brother dying in [place] after car accident. He refused to come yesterday for his regular pill count to continue to taper down his opioid medications. We took into consideration his complain and requested him to come today between 13:00 and 13:30. He came and brought his medications for count. His pill count was correct. He presented with 1 pill of oxycodone 60 mg while his supposed to have 2 pills of oxycodone with him today, presented with 4 pills of oxycodone 40 mg while his supposed to have only 2 pills of oxycodone with him today. His supposed to have 6 films of Belbuca, he presented with 5 films of Belbuca in his possession. Therefore his count is correct. Again lots of drama was during the visit he was not very happy about continuation of the taper. I explained to him that nothing I can do for him at this time and his best bet to continue at least a current does of the opioid medications is to find another provider who will be willing to prescribe him the medications. Alternatively he can go to methadone clinic and receive opioid medications there. Suboxone clinics also are available however patient citing severe pain refuses to go for either Suboxone or methadone clinic. I again pointed out to him that multiple times in the past he was offered interventional procedures to help his pain including neuromodulation. He adamantly refused on the premise that he tried them all in the past. He also was referred to Dr. Coleman, his neurosurgeon because he has severe spinal canal stenosis in the cervical spine. He was explained the risk of continuation of this condition unattended, Dr. Coleman offered him surgery as soon as possible without delays. However the patient refusing to consider neuro surgery. There is a significant possibility that neuro surgery will alleviate at least his cervicalgia and cervical pain with radiation into bilateral upper extremities. Patient does not want to consider my explanations, he does not want to go to Dr. Coleman he has consult. Prior: Lemuel is in the office today for the film and pill count. Last visit he was ?given UDS to submit. The results are back and they contain morphine and its metabolites, hydromorphone as well as lorazepam and its metabolites, as well as metabolites of cannabis. There is no information on [place] [facility] that this patient was prescribed those medications by any practitioner. On top of that the urine of this patient was evident of consumption of two o medications I was prescribing to this patient: oxycodone and buprenorphine. Obviously there is a compulsive consumption of the benzodiazepins and multiple different opioids. Even if we consider hydromorphone a possible metabolite of morphine he nevertheless imposes great risk of opioid overdose on himself. Several unlikely scenarios he offered to us as the explanation of the accidental morphine and benzodiazepines metabolites in his urine, some of them are: 1. His urine was accidentally swiped when he was submitting the UDS. 2. The laboratory made a mistake analyzing his urine. 3. He was taking care of his mother who was dying from cancer in another state and he used his mother needles to inject himself some medications. While 2 of the explanations cannot stand the scrutiny of logical analysis because the urine contains his medications of oxycodone and buprenorphine and its metabolites while at the same time contains morphine and lorazepam, the 3rd explanation also would not be plausible because to reach the concentration of about 9000 nanograms in the urine the miniscule amount of the morphine which could be left in the channel of the needle is so small it is impossible to get this high concentration of the morphine in the urine unless big dose of morphine was injected intravenously no longer than 12 hours before his urine drug screen. He was informed that he will be suspended indefinitely in our opioid program. The combination of cannabinoids, opioids of several kind and benzodiazepines could be deadly for the patient. He was recommended to decrease the doses of the opioid 10% of the initial does monthly because the total dose of opioids he gets from us is exuberant. The pill count was performed today: He was found to have 23 pills of oxycodone of 60 mg in his possession while he is supposed to have 24 of the pills. And he had 24 film of buprenorphine while his supposed to have 24 films. He also brought with him medications apparently belonging to his mother. We found in his possession lorazepam 0.5 mg 256 pills as well as white tablets of unknown nature without marking on them 16 pills as well as liquid morphine 30 mL. All those medications were carefully destroyed in our office. We will start reducing his doses of the opioids by reducing 1 dose of his oxycodone 60 mg to 40 mg that would be available for him as the 10% of the total does decrease. I will also prescribe him hydroxyzine to help him without anx iety and clonidine to help him with symptoms of withdrawal alongside with current opioid regimen. Prior: ??Physical therapy did not help.? He went to Dr. Coleman for neurosurgical consult about her his cervical spinal stenosis.? He reports that his cervical pain is mild.? He reports that Dr. Coleman recommended him to have transforaminal epidural steroid injection.? I told him that to if his pain will become stronger and Dr. Coleman will make direct recommendation on the level of performance of transforaminal epidural steroid injection I can perform this procedure. He was very abusive to the staff of this office.? He has been threatening numerous times to commit suicide if the doses of the opioid medications will be reduced.? He through tantrum here when he was called to perform random urine drug screen.? He multiple times yelled and screamed to the staff in the office.? He was belligerent and incoherent. He has threatened our nurse practitioner Sara with a lawsuit if she will continue to decrease his opioid medications.? He also was complaining to administration prior. He was examined in the past in this office and he received MRIs of the cervical spine and lumbar spine.? Those examinations are non impressive to justify this significant doses of the opioid medications.? Although there are some elements of multiple level foraminal stenosis and arthritis as well as some fusions of the vertebras and laminectomy, there is no significant compression of any neural roots or structures.? There is no central canal stenosis. Most likely exuberant pain is secondary to opioid induced hyperalgesia.? Elements of arthritis, myofascial pain syndrome, and elements of postlaminectomy syndrome which has its roots in perineural adhesions formation also contribute to his current condition. Multiple option to treatment his pain with injections and neuromodulation procedures were med by patient with prejudice he all this kept refusing to go for the procedures. Multiple time he was explained that when he is coming to the office on these exuberant doses of the opioid medications and complains on pain 7 -8 out of 10 sometimes 9/10 are evident that chronic opioid therapy is failing to help his pain. Tolerance, opioid induced hyperalgesia, opioid induced constipation were explained to the patient multiple times. He is currently on Movantik to counteract OIC. He was under care of Dr. Kiser on exuberant doses of the opioids. He was once referred for a spinal cord stimulator evaluation. He reports a spinal injury over twenty years ago which resulted in lumbar surgery with hardware placed and after that removed.? He states during the surgery one piece of hardware broke resulting in extensive nerve damage. This resulted in pins/needles throughout his left leg and numbness throughout his entire right leg and with the inability to move toes on the right. All his hardware was then removed in 1999 and his lumbar spine was fused. [facility] Medical History Anxiety Dyslipidemia Foot pain H/O urinary frequency Heel pain, bilateral High cholesterol Hypogonadism in male Neuropathy Neuropathy involving both lower extremities Postlaminectomy syndrome, lumbar Vitamin B12 deficiency Surgical History History of lumbar spinal fusion Family History Father CVD (cardiovascular disease) Mother Cancer Brother No problems noted. Brother No problems noted. Sister Dysplasia, fibromuscular, artery, renal Son No problems noted. Son No problems noted. Daughter No problems noted. Social History Housing: House Alcohol intake: never Patient Tobacco Use Status: Never used Tobacco e-Cigarette/Vaping Use: Never Used Current occupational status: unemployed Cognitive needs: No Hearing needs: No Vision needs: No Review of Systems Const All systems reviewed & are unremarkable except as noted in HPI and below Physical Exam General: awake, alert, oriented. Answers questions appropriately. Fully engaged in examination. Skin: warm, dry, intact HEENT: Normocephalic. Hearing intact. Respiratory: No signs of respiratory distress. No cough, audible wheezing or stridor. Abdomen: without gross distension. MS: Able to transition from sit to stand unassisted. Ambulates with bilaterally normal heel strike and toe off Neurological: Oriented to person, place, time and situation. Thought process intact. No gait abnormalities appreciated. Psychiatric: Appropriate mood and affect. Assessment & Plan Assessment & Plan (1) Postlaminectomy syndrome, lumbar: Code(s): M96.1 - Postlaminectomy syndrome, not elsewhere classified (2) Neuropathy involving both lower extremities: Code(s): G57.93 - Unspecified mononeuropathy of bilateral lower limbs (3) History of lumbar spinal fusion: Code(s): Z98.1 - Arthrodesis status (4) Cervical radiculopathy: Code(s): M54.12 - Radiculopathy, cervical region (5) Lumbar facet arthropathy: Code(s): M47.816 - Spondylosis without myelopathy or radiculopathy, lumbar region (6) Myofascial low back pain: Code(s): M54.50 - Low back pain, unspecified (7) Left knee pain: Code(s): M25.562 - Pain in left knee (8) Spondylosis of lumbar spine: Code(s): M47.816 - Spondylosis without myelopathy or radiculopathy, lumbar region (9) Foraminal stenosis of cervical region: Code(s): M48.02 - Spinal stenosis, cervical region (10) Chronic, continuous use of opioids: Code(s): F11.90 - Opioid use, unspecified, uncomplicated (11) Gout: Code(s): M10.9 - Gout, unspecified (12) Cervicalgia: Code(s): M54.2 - Cervicalgia (13) Spasm of cervical paraspinous muscle: Code(s): M62.838 - Other muscle spasm Plan Current care plan per Dr. Matias while tapering patient off his opioid medications: Current plan of care is carefully explained to the patient.: 1. Reduction of the doses of the opioid medications by 10% of his total oxycodone dose monthly. Today he will be prescribed 40mg oxycodone ER TID. He will no longer be prescribed Oxycodone ER 60mg. Belbuca will remain at 750mg TID. Patient was instructed on the dose change and verbalized understanding. 2. Continue Clonidine 0.1 mg p.o. BID PRN opioid withdrawal related hypertension and anxiety, continue Hydroxyzine 25mg PO BID PRN opioid induced anxiety 3. Belbuca dose to remain unchanged while oxycodone dose is being tapered down 4. Patient may continue with interventional management procedures at any time Follow up with Dr. Matias in 1 month. Medications: Changed From buprenorphine HCl (Belbuca) Partial fill only by patient's request. 750 mcg buccal Q8H 2 days 6 ea 0RF To buprenorphine HCl (Belbuca) Partial fill only by patient's request. 750 mcg buccal Q8H 30 days 90 ea 0RF From oxycodone ER Partial Fill upon patient request. 40 mg PO BID 2 days PRN 4 tabs 0RF pain, severe To oxycodone ER Partial Fill upon patient request. 40 mg PO TID 30 days PRN 90 tabs 0RF pain, severe Discontinued oxycodone ER Partial fill only by patient's request Discontinued Reason: Doctor's Order 60 mg PO .QD 2 days PRN 2 tabs 0RF pain, severe MDD 1 M96.1 - Postlaminectomy syndrome, not elsewhere classified Coding Level of Care Code Est Pt Level 3 (37199) Diagnoses Postlaminectomy syndrome, lumbar M96.1 Neuropathy involving both lower extremities G57.93 History of lumbar spinal fusion Z98.1 Cervical radiculopathy M54.12 Lumbar facet arthropathy M47.816 Myofascial low back pain M54.50 Left knee pain M25.562 Spondylosis of lumbar spine M47.816 Foraminal stenosis of cervical region M48.02 Chronic, continuous use of opioids F11.90 Gout M10.9 Cervicalgia M54.2 Spasm of cervical paraspinous muscle M62.838
[2023-01-02 11:58] VITALS: BP 153/99; PULSE 121; RESP 14; O2SAT 99; BMI 26.8
== END 2023-01-02 11:07 | disposition home or self-care (01) ==
PROVIDERS: PCP Internal Medicine; Visit Provider Registered Nurse Emergency
DX: M96.1 Postlaminectomy syndrome, not elsewhere classified (principal); Z98.1 Arthrodesis status; M54.12 Radiculopathy, cervical region; M47.816 Spondylosis without myelopathy or radiculopathy, lumbar region; M54.50 Low back pain, unspecified; M25.562 Pain in left knee; M48.02 Spinal stenosis, cervical region; Z79.891 Long term (current) use of opiate analgesic; M10.9 Gout, unspecified; M54.2 Cervicalgia; M62.838 Other muscle spasm
CPT/HCPCS: 99213

== ENCOUNTER → 2023-01-02 10:45 | Outpatient (BNVA) | payer MEDICARE, MEDICAID, SELFPAY | PROVIDERS: PCP Internal Medicine; Visit Provider Registered Nurse Emergency | DX: Z51.81 Encounter for therapeutic drug level monitoring (principal); F11.20 Opioid dependence, uncomplicated; M96.1 Postlaminectomy syndrome, not elsewhere classified; G57.93 Unspecified mononeuropathy of bilateral lower limbs; M54.12 Radiculopathy, cervical region; M47.816 Spondylosis without myelopathy or radiculopathy, lumbar region; M54.50 Low back pain, unspecified; M25.562 Pain in left knee; M48.02 Spinal stenosis, cervical region; M10.9 Gout, unspecified; M54.2 Cervicalgia; M62.838 Other muscle spasm; Z98.1 Arthrodesis status | CPT/HCPCS: 99212 ==

== ENCOUNTER 2023-01-17 14:33 | Outpatient (AMB) | payer MEDICARE, MEDICAID, SELFPAY ==
--- NOTE | 2023-01-17 14:34 | A.OFFPC_ITS ---
Vital Signs 01/17/23 14:35 Height 5 ft 7 in Weight 171 lb BMI 26.8 BP 140/80 H Blood Pressure Location Lt brachial Position Sitting Pulse 81 Pulse Source Pulse Oximeter Pulse Oximetry (%) 98 Intake Visit Reasons: Followup meds Intake Note: pt is here for f/u Agency Operator Required: No Accompanied by: Self / Same As Patient Allergies gabapentin [GABAPENTIN] Allergy (Unknown, Verified 01/21/23 16:10) RASH morphine Allergy (Unknown, Verified 01/21/23 16:10) Nausea and Vomiting fentanyl Allergy (Verified 01/21/23 16:10) Vomiting tadalafil Allergy (Verified 01/21/23 16:10) Rash Medication List - Last Reconciled 01/21/23 by Eve Aguirre MD back brace As directed buprenorphine HCl (Belbuca) 750 mcg buccal Q8H 30 days buspirone 5 mg PO TID cholecalciferol (vitamin D3) 50 mcg PO DAILY clonidine HCl 0.1 mg PO BID PRN 30 days cyanocobalamin (vitamin B-12) 1,000 mcg IM Q4W 4 weeks hydroxyzine HCl 25 mg PO BID PRN 30 days ketorolac 30 mg IM .Once a day PRN 30 days MDD 1 vial - 30 mg meclizine 25 mg PO BID PRN naloxegol (Movantik) 12.5 mg PO QAM 30 days oxycodone ER 40 mg PO TID PRN 30 days syringe with needle (BD Luer-Barby Syringe) USE WEEKLY DIRECTED testosterone cypionate 100 mg (0.5 mL) IM QWEEK 28 days Tobacco use date assessed: 10/11/22 Dental Screening Dental Screen Date: 01/17/23 Did you have a dental visit in the last 12 months?: Yes Did you have a dental problem in the last 6 months where you did not have access to dental care?: No Was dental information given to patient?: Patient has dentist HPI Followup meds HPI Details 52-year-old male with postlaminectomy syndrome-lumbar, with neuropathy involving both lower extremities, cervical stenosis with radiculopathy , on chronic opioid use, has history of vitamin B12 deficiency, anxiety disorder, hypogonadism, here today wanting to see if I can prescribe his pain medication, as he states that he does not want to go and be seen anymore at the pain clinic at [facility], and that he received a large sum of money from the practice , to settle his case . He also states that if I chose not to fill his prescription for pain medication, that he needs a letter written by me, under oath, explaining why I will not write his pain medications. He also was diagnosed on last visit with anxiety, and was started on buspirone 5 mg , but never took the medication. He is currently on hydroxyzine prescribed by Dr. Matias for his anxiety attacks, and is on clonidine to help him with with possible withdrawal symptoms from his opioid taper [facility] Medical History (Updated 01/21/23 @ 16:40 by Eve Aguirre MD) Anxiety disorder due to medical condition Dyslipidemia Foot pain H/O urinary frequency Heel pain, bilateral Hypogonadism in male Neuropathy Neuropathy involving both lower extremities Postlaminectomy syndrome, lumbar Vitamin B12 deficiency Surgical History (Updated 01/21/23 @ 16:40 by Eve Aguirre MD) History of lumbar spinal fusion Family History Father CVD (cardiovascular disease) Mother Cancer Brother No problems noted. Brother No problems noted. Sister Dysplasia, fibromuscular, artery, renal Son No problems noted. Son No problems noted. Daughter No problems noted. Social History Housing: House Alcohol intake: never Patient Tobacco Use Status: Never used Tobacco e-Cigarette/Vaping Use: Never Used Current occupational status: unemployed Cognitive needs: No Hearing needs: No Vision needs: No Questionnaire PHQ-9 Over the last 2 weeks, how often have you been bothered by any of the following problems? Depression Screening Interpretation: Negative (Patient denies that he is depressed, but unable to enjoy daily activities due to being in pain frequently) Source: Developed by Drs. Everett Garzon, Kathy Odonnell, Edu Owens and colleagues, with an educational paulina from [employer]. Thrive Questionnaire Date Thrive assessed: 10/11/22 Review of Systems Const Reports body aches, Denies fatigue, Denies frequent falls, Denies headache(s), Denies lethargy, Reports poor appetite and Denies weakness ENT Denies headache(s) and Reports neck pain Card Denies chest pain, Denies chest pain with activity, Denies dyspnea and Denies dyspnea on exertion Resp Denies cough, Denies dyspnea and Denies dyspnea on exertion GI Denies abdominal pain, Denies constipation, Denies heartburn, Denies fecal incontinence, Denies diarrhea and Denies nausea Reports no additional complaints and Denies urinary incontinence Musc Denies abnormal gait, Reports back pain, Reports myalgias, Denies muscle weakness, Reports neck pain, Reports stiffness and Reports tingling (Going down both lower extremities) Skin/Breast Denies lesions and Denies rash Neuro Denies abnormal gait, Denies frequent falls, Denies headache(s), Denies lack of coordination, Denies focal weakness, Reports tingling (Going down both lower extremities) and Denies weakness Psych Reports as per HPI Endo Reports no additional complaints and Denies fatigue Blane/Lymph Denies easy bleeding and Denies easy bruising Physical exam (Primary Care) Vital Signs: Last Vital Signs Pulse 81 01/17/23 14:35 BP 140/80 H 01/17/23 14:35 Pulse Ox 98 01/17/23 14:35 BMI result Body Mass Index 26.8 Tobacco/Smoking Status: Tobacco use Status Tobacco use date assessed 10/11/22 01/17/23 14:42 Patient Tobacco Use Status Never used Tobacco 01/17/23 14:42 e-Cigarette/Vaping Use Never Used 01/17/23 14:42 Depression Screening Interpretation: Negative (Patient denies that he is depressed, but unable to enjoy daily activities due to being in pain frequently) Thrive Assessment: Date of Thrive Assessment Date Thrive assessed 10/11/22 01/17/23 14:42 Const General: comfortable, no acute distress, alert, Physically active and anxious Nutritional Appearance: average body habitus Orientation/consciousness: patient oriented x3 HENMT Head: Yes normocephalic and Yes atraumatic Mouth: Normal oral and palatal mucosa present, oropharynx normal and moist mucous membranes Eyes General: appearance normal, both eyes and all related structures Neck Neck: Yes full ROM, Yes no lymphadenopathy and Yes supple Resp Auscultation: clear to auscultation bilaterally Cardio Other: S1-S2 present regular rate and rhythm GI Palpation (GI): Soft to palpation, nontender, no guarding and no masses Auscultation: normal bowel sounds Back/Spine/Pelvis Thoracic/Lumbar Spine: pain with thoraco-lumbar ROM, paraspinal muscle tenderness bilaterally in the mid lumbar and in the lower lumbar and straight leg raise positive Skin General skin exam: no rashes or lesions noted Neuro General: patient oriented x3, gait normal, tone normal, Normal light touch and pain sensation and no focal motor deficits Cognition (Neuro): normal cognition Gait exam (Neuro): Normal gait present Extrem General: Yes no joint enlargement, Yes no clubbing, cyanosis or edema, Yes no calf tenderness and Yes normal gait Psych Appearance: grossly normal and well kempt Mental Status: mental status grossly normal Speech and movement: Psychomotor agitation in speech present Affect: Anxious affect present Attitude: cooperative Thought process: Normal thought process present Thought content: Normal thought content present Assessment and Plan Assessment & Plan (1) Postlaminectomy syndrome, lumbar: Code(s): M96.1 - Postlaminectomy syndrome, not elsewhere classified (2) Neuropathy involving both lower extremities: Code(s): G57.93 - Unspecified mononeuropathy of bilateral lower limbs (3) Foraminal stenosis of cervical region: Code(s): M48.02 - Spinal stenosis, cervical region (4) Anxiety disorder due to medical condition: Code(s): F06.4 - Anxiety disorder due to known physiological condition Plan: Patient has stopped taking buspirone prescribed on last office visit, declines starting any medication at present time and declines referral for counseling Plan Patient is currently under the care of [facility] pain management clinic, but was suspended indefinitelyfrom the opioid program due to a positive UDS. It was recommended to decrease the doses of the opioid 10% of the initial does monthly because the total dose of opioids he gets was exuberant. I made it clear to the patient that I will not take over treatment of his pain, and advised to reconsider several treatment options given to him by Dr Matias, e.g he can go to methadone clinic and receive opioid medications there.? Suboxone clinics also are available, however patient citing severe pain refuses to go for either Suboxone or methadone clinic.? He was also offered , multiple times in the past, interventional procedures to help his pain including neuromodulation, but he adamantly refused, on the premise that he tried them all in the past.? He also was referred to Dr. Coleman, his neurosurgeon because he has severe spinal canal stenosis in the cervical spine, and that Dr. Coleman offered him surgery as soon as possible without delay.? However the patient refusing to consider neuro surgery, even though it was explained to him by Dr Matias that there is a significant possibility that neurosurgery will alleviate at least his cervicalgia and cervical pain with radiation into bilateral upper extremities.? Patient does not want to consider any of theses options, and he does not want to go to Dr. Coleman even for a consult. Coding Level of Care Code Est Pt Level 4 (05803) Diagnoses Postlaminectomy syndrome, lumbar M96.1 Neuropathy involving both lower extremities G57.93 Foraminal stenosis of cervical region M48.02 Anxiety disorder due to medical condition F06.4 Time Spent (min) 30 Comment Spent 30 mins discussing case w/ pt and reviewing medical records from other provider
[2023-01-17 14:35] VITALS: BP 140/80; PULSE 81; O2SAT 98; BMI 26.8
== END 2023-01-17 16:59 | disposition home or self-care (01) ==
PROVIDERS: PCP Internal Medicine; Visit Provider Internal Medicine
DX: M96.1 Postlaminectomy syndrome, not elsewhere classified (principal); G57.93 Unspecified mononeuropathy of bilateral lower limbs; M48.02 Spinal stenosis, cervical region; F06.4 Anxiety disorder due to known physiological condition
CPT/HCPCS: 99214

== ENCOUNTER 2023-01-30 11:40 | Outpatient (AMB) | payer MEDICARE, MEDICAID, SELFPAY ==
--- NOTE | 2023-01-30 12:09 | A.OFFVIS_ITS ---
Intake Vital Signs 01/30/23 12:10 Height 5 ft 7 in Weight 172 lb 2 oz BMI 27.0 BP 155/91 H Blood Pressure Location Lt brachial Position Sitting Respiration 14 Pulse 107 H Pulse Source Pulse Oximeter Pulse Oximetry (%) 98 Oxygen Delivery Method Room Air Intake Visit Reasons: Pill count Allergies gabapentin [GABAPENTIN] Allergy (Unknown, Verified 01/30/23 12:09) RASH morphine Allergy (Unknown, Verified 01/30/23 12:09) Nausea and Vomiting fentanyl Allergy (Verified 01/30/23 12:09) Vomiting tadalafil Allergy (Verified 01/30/23 12:09) Rash HPI HPI Comments History of Present Illness Details Lemuel presents to the office today for follow up chronic pain and chronic opioid therapy management. Patient is currently suspended indefinitely in our opioid program however because he has doses of the opioid medications so high he is in the taper with current opioid therapy. Last time he was prescribed oxycodone 40 mg t.i.d. and Belbuca 750 micro g t.i.d.. This time we will be prescribed oxycodone 40 mg b.i.d., oxycodone 20 mg q.d. and Belbuca continue 750 mg t.i.d.. Prior: Several reasons were in play when we made the decision to stop prescription of the opioid for the patient in this office. He was told that he needs to find another physician who would agree to prescribe opioid medications for him. His doses a very high and he is going through a taper now. Alternatively he can go to methadone clinic and receive opioid medications there. Suboxone clinics also are available however patient citing severe pain refuses to go for either Suboxone or methadone clinic. I again pointed out to him that multiple times in the past he was offered interventional procedures to help his pain including neuromodulation. He adamantly refused on the premise that he tried them all in the past. He also was referred to Dr. Coleman, his neurosurgeon because he has severe spinal canal stenosis in the cervical spine. He was explained the risk of continuation of this condition unattended, Dr. Coleman offered him surgery as soon as possible without delays. However the patient refusing to consider neuro surgery. There is a significant possibility that neuro surgery will alleviate at least his cervicalgia and cervical pain with radiation into bilateral upper extremities. He was examined in the past in this office and he received MRIs of the cervical spine and lumbar spine.? .? Although there are some elements of multiple level foraminal stenosis and arthritis as well as some fusions of the vertebras and laminectomy.? Most likely exuberant pain is secondary to opioid induced hyperalgesia.? Elements of arthritis, myofascial pain syndrome, and elements of postlaminectomy syndrome which has its roots in perineural adhesions formation also contribute to his current condition. Multiple option to treatment his pain with injections and neuromodulation procedures were med by patient with prejudice he all this kept refusing to go for the procedures. Tolerance, opioid induced hyperalgesia, opioid induced constipation were explained to the patient multiple times. He is currently on Movantik to counteract OIC. He was under care of Dr. Kiser on exuberant doses of the opioids. He was once referred for a spinal cord stimulator evaluation. He reports a spinal injury over twenty years ago which resulted in lumbar surgery with hardware placed and after that removed.? He states during the surgery one piece of hardware broke resulting in extensive nerve damage. This resulted in pins/needles throughout his left leg and numbness throughout his entire right leg and with the inability to move toes on the right. All his hardware was then removed in 1999 and his lumbar spine was fused. [facility] Medical History (Updated 01/21/23 @ 16:40 by Eve Aguirre MD) Anxiety disorder due to medical condition Dyslipidemia Foot pain H/O urinary frequency Heel pain, bilateral Hypogonadism in male Neuropathy Neuropathy involving both lower extremities Postlaminectomy syndrome, lumbar Vitamin B12 deficiency Surgical History (Updated 01/21/23 @ 16:40 by Eve Aguirre MD) History of lumbar spinal fusion Family History Father CVD (cardiovascular disease) Mother Cancer Brother No problems noted. Brother No problems noted. Sister Dysplasia, fibromuscular, artery, renal Son No problems noted. Son No problems noted. Daughter No problems noted. Social History Housing: House Alcohol intake: never Patient Tobacco Use Status: Never used Tobacco e-Cigarette/Vaping Use: Never Used Current occupational status: unemployed Cognitive needs: No Hearing needs: No Vision needs: No Review of Systems Const All systems reviewed & are unremarkable except as noted in HPI and below Physical Exam Vital Signs: Last Vital Signs Pulse 107 H 01/30/23 12:10 Resp 14 01/30/23 12:10 BP 155/91 H 01/30/23 12:10 Pulse Ox 98 01/30/23 12:10 Oxygen Delivery Method Room Air 01/30/23 12:10 BMI result Body Mass Index 27.0 Const General: cooperative, healthy appearing, comfortable and no acute distress Orientation/consciousness: patient oriented x3 HEENT Face and sinus: Yes normal facial exam Mouth: moist mucous membranes Eyes Pupils: Equal, round and reactive pupils present Neck Neck: Yes normal visual inspection, No full ROM, Yes trachea midline and No supple Chest Chest palpation & inspection: normal inspection of the chest Resp Effort & Inspection: normal respiratory effort, able to speak in complete sentences and no respiratory distress GI Inspection: Yes normal to inspection Back/Spine/Pelvis Thoracic/Lumbar Spine: thoracic and lumbar spine normal to inspection, Lasegue's sign positive, pain with thoraco-lumbar ROM, paraspinal muscle tenderness and straight leg raise positive Skin General skin exam: no rashes or lesions noted Neuro General: patient oriented x3, gait normal, tone normal and moves all extremities Cranial nerves: Yes Equal, round and reactive pupils present Extrem General: Yes normal to inspection and Yes capillary refill normal Results Reviewed Results Reviewed: SPINAL LEVELS: C2-C3: Mild disc-osteophyte complex.? There is mild left and no right uncovertebral joint arthropathy. There is moderate bilateral facet joint arthropathy. There is mild left and no right neural foraminal stenosis. There is no spinal canal stenosis. C3-C4: Moderate disc-osteophyte complex.? There is severe left and mild right uncovertebral joint arthropathy. There is moderate bilateral facet joint arthropathy. There is severe left and no right neural foraminal stenosis. There is no spinal canal stenosis. C4-C5: Mild disc-osteophyte complex.? There is moderate left and no right uncovertebral joint arthropathy. There is moderate left and mild right facet joint arthropathy. There is moderate left and no right neural foraminal stenosis. There is no spinal canal stenosis. C5-C6: Mild disc-osteophyte complex.? There is mild bilateral uncovertebral joint arthropathy. There is moderate left and mild right facet joint arthropathy. There is no neural foraminal stenosis. There is no spinal canal stenosis. C6-C7: Moderate disc-osteophyte complex. The previously demonstrated disc protrusion at this level has partially resorbed There is moderate bilateral uncovertebral joint arthropathy. There is mild bilateral facet joint arthropathy. There is moderate left and mild right neural foraminal stenosis. There is no spinal canal stenosis. C7-T1: Mild disc-osteophyte complex.? There is mild bilateral uncovertebral joint arthropathy. There is mild bilateral facet joint arthropathy. There is no neural foraminal stenosis. There is no spinal canal stenosis MR LUMBAR SPINE WITHOUT CONTRAST CLINICAL INFORMATION: Worsening left-sided back pain radiating down the legs. COMPARISON: Lumbar spine radiographs from 08/18/2020. TECHNIQUE: MRI of the lumbar spine was obtained using routine sequences without contrast. FINDINGS: Changes of prior fusion of the L4-S1 vertebrae with L4-S1 laminectomies. Moderate to advanced degenerative disc disease at L3-L4. Moderate degenerative disc disease from T11-L3. Associated mixed Modic type discogenic endplate changes including mild Modic type I discogenic edema from T11-L3. No additional suspicious marrow edema. Small Schmorl's nodes from T11-L3. Otherwise, the vertebral body heights are largely maintained. P expansion of the ventral epidural space from L4-S2. The conus medullaris terminates at the level of L1. The distal spinal cord is normal in appearance. Moderate edema within the paraspinal tissues at the levels of the L4-S1 laminectomies and below. No discrete drainable fluid collection. Multiple T2 hyperintense renal cysts, measuring up to 1.1 cm on the left. Otherwise, limited evaluation of the intra-abdominal structures without significant abnormalities. The abdominal aorta is of normal contour and caliber. AXIAL SPINAL LEVELS: L1-L2: Mild diffuse disc bulge. There is mild bilateral facet joint arthropathy. There is no neural foraminal stenosis. There is no spinal canal stenosis. L2-L3: Shallow diffuse disc bulge with superimposed small left subarticular/foraminal disc protrusion. There is moderate bilateral facet joint arthropathy. There is no neural foraminal stenosis. There is narrowing of the left subarticular zones with no overt spinal canal stenosis centrally. L3-L4: Mild diffuse disc bulge.? There is moderate bilateral facet joint arthropathy. There is moderate left and mild right neural foraminal stenosis. There is narrowing of the subarticular zones with no overt spinal canal stenosis centrally. L4-L5: Fused at this level. Laminectomy and partial facetectomy changes. There is mild left and no right neural foraminal stenosis. There is narrowing of the left subarticular zone with no overt spinal canal stenosis centrally. L5-S1: Fused at this level. Laminectomy and partial facetectomy changes. There is mild left and no right neural foraminal stenosis. There is narrowing of the left greater than right subarticular zones with no overt spinal canal stenosis centrally. MR/MR lumbar spine wo con IMPRESSION: 1. Changes of prior L4-S1 fusion with laminectomies/partial facetectomies. Moderate edema within the paraspinal soft tissues at the levels of the L4-S1 laminectomies and below. No discrete drainable fluid collection. 2. Otherwise, moderate multilevel degenerative spondyloarthropathy of the lumbar spine as described in detail above. Most notably, there are mild to moderate neural foraminal stenoses and narrowings of the subarticular zones from L3-S1. No overt spinal canal stenosis centrally. Assessment & Plan Assessment & Plan (1) Postlaminectomy syndrome, lumbar: Code(s): M96.1 - Postlaminectomy syndrome, not elsewhere classified (2) Neuropathy involving both lower extremities: Code(s): G57.93 - Unspecified mononeuropathy of bilateral lower limbs (3) History of lumbar spinal fusion: Code(s): Z98.1 - Arthrodesis status (4) Cervical radiculopathy: Code(s): M54.12 - Radiculopathy, cervical region (5) Lumbar facet arthropathy: Code(s): M47.816 - Spondylosis without myelopathy or radiculopathy, lumbar region (6) Myofascial low back pain: Code(s): M54.50 - Low back pain, unspecified (7) Left knee pain: Code(s): M25.562 - Pain in left knee (8) Spondylosis of lumbar spine: Code(s): M47.816 - Spondylosis without myelopathy or radiculopathy, lumbar region (9) Foraminal stenosis of cervical region: Code(s): M48.02 - Spinal stenosis, cervical region (10) Chronic, continuous use of opioids: Code(s): F11.90 - Opioid use, unspecified, uncomplicated (11) Gout: Code(s): M10.9 - Gout, unspecified (12) Cervicalgia: Code(s): M54.2 - Cervicalgia (13) Spasm of cervical paraspinous muscle: Code(s): M62.838 - Other muscle spasm Plan Current plan of care is carefully explained to the patient.: 1. I will reduce the doses of the opioid medications by 10% of his total oxycodone dose monthly. I will prescribe him today OxyContin 40 mg b.i.d. instead of previous does of 40 mg q.d., I will prescribe him OxyContin 20 mg q.d.. I will continue Belbuca unchanged at 750 micro g t.i.d.. 2. He may continue clonidine 0.1 mg p.o. p.r.n. b.i.d. for opioid withdrawal related hypertension and anxiety, in addition to that to help with opioid induced anxiety he may continue on hydroxyzine 25 mg also p.r.n. b.i.d. for anxiety. 3. When his doses of the medication will reduce to appropriate numbers he will be left only on buprenorphine. 4. If he is willing to consider interventional pain management to treat his pain this office is very open for him and will welcome him for any kind of procedures he wished to consider for himself. 5. If he wants to continue his opioid doses without tapering I recommend him to find another practitioner who will be comfortable prescribing his current opioid doses. He may be interested in admitting himself to methadone clinic or go for treatment in Suboxone Clinic. Medications: New oxycodone ER Partial Fill upon patient request. 20 mg PO ONCE 30 tabs 0RF 30 days Changed From oxycodone ER Partial Fill upon patient request. 40 mg PO TID 30 days PRN 90 tabs 0RF pain, severe To oxycodone ER Partial Fill upon patient request. 40 mg PO BID PRN 60 tabs 0RF pain, severe 30 days Refilled buprenorphine HCl (Belbuca) Partial fill only by patient's request. 750 mcg buccal Q8H 90 ea 0RF 30 days Coding Level of Care Code Est Pt Level 3 (62916) Diagnoses Postlaminectomy syndrome, lumbar M96.1 Neuropathy involving both lower extremities G57.93 History of lumbar spinal fusion Z98.1 Cervical radiculopathy M54.12 Lumbar facet arthropathy M47.816 Myofascial low back pain M54.50 Left knee pain M25.562 Spondylosis of lumbar spine M47.816 Foraminal stenosis of cervical region M48.02 Chronic, continuous use of opioids F11.90 Gout M10.9 Cervicalgia M54.2 Spasm of cervical paraspinous muscle M62.838
[2023-01-30 12:10] VITALS: BP 155/91; PULSE 107; RESP 14; O2SAT 98; BMI 27.0
== END 2023-01-30 12:07 | disposition home or self-care (01) ==
PROVIDERS: PCP Internal Medicine; Visit Provider Anesthesiology
DX: M96.1 Postlaminectomy syndrome, not elsewhere classified (principal); G57.93 Unspecified mononeuropathy of bilateral lower limbs; Z98.1 Arthrodesis status; Z79.891 Long term (current) use of opiate analgesic; M54.12 Radiculopathy, cervical region; M47.816 Spondylosis without myelopathy or radiculopathy, lumbar region; M54.50 Low back pain, unspecified; M25.562 Pain in left knee; M48.02 Spinal stenosis, cervical region; M10.9 Gout, unspecified; M54.2 Cervicalgia; M62.838 Other muscle spasm
CPT/HCPCS: 99213

== ENCOUNTER → 2023-01-30 11:40 | Outpatient (BNVA) | payer MEDICARE, MEDICAID, SELFPAY | PROVIDERS: PCP Internal Medicine; Visit Provider Anesthesiology | DX: M96.1 Postlaminectomy syndrome, not elsewhere classified (principal); G57.93 Unspecified mononeuropathy of bilateral lower limbs; M47.26 Other spondylosis with radiculopathy, lumbar region; M54.50 Low back pain, unspecified; M25.562 Pain in left knee; M48.02 Spinal stenosis, cervical region; M10.9 Gout, unspecified; M54.2 Cervicalgia; M62.838 Other muscle spasm; Z79.891 Long term (current) use of opiate analgesic; Z98.1 Arthrodesis status | CPT/HCPCS: 99212 ==

== ENCOUNTER 2023-07-26 15:39 | Outpatient (REF) | payer MEDICARE, MEDICAID, SELFPAY ==
[2023-07-26 17:38] LABS: Hemoglobin 15.6 g/dl (14.0-18.0); Mean Corpuscular HGB Conc 33.9 g/dl (31.0-36.0); Mean Corpuscular Hemoglobin 29.3 pg (27.0-33.0); Mean Corpuscular Volume 86.5 fL (80.0-98.0); Mean Platelet Volume 10.9 fL (9.4-12.4); Platelet Count 196 X10*3/uL (160-400); Red Blood Count 5.32 X10*6/uL (4.60-5.80); Red Cell Distribution Width 12.7 % (11.0-16.0); White Blood Count 2.9 X10*3/uL (4.8-10.8)
[2023-07-26 18:21] LABS: PSA,Total (Free>4and<10) 0.85 ng/mL (0.00-4.00)
[2023-08-01 14:19] LABS: Testosterone, Free 37.5 pg/mL (35.0-155.0); Testosterone, Total 252 ng/dL (250-1100)
== END 2023-07-26 15:40 | disposition home or self-care (01) ==
LOC: HO.LAB 15:39
PROVIDERS: PCP Internal Medicine; Visit Provider Urology
DX: Z12.5 Encounter for screening for malignant neoplasm of prostate (principal); E29.1 Testicular hypofunction
CPT/HCPCS: 36415; 84153; 84402; 84403; 85027

== ENCOUNTER 2023-08-06 15:18 | Outpatient (AMB) | payer MEDICARE, MEDICAID, SELFPAY ==
--- NOTE | 2023-08-06 15:33 | A.OFFVIS_ITS ---
Intake Intake Visit Reasons: 6m/labs/xyosted teaching(set) Intake Note: Patient presented for xyosted teaching. Reviewed the proper use for the xyosted injection, patient able to return demonstration of proper injection technique. Patient stated he had no questions and understood information given. Allergies gabapentin [GABAPENTIN] Allergy (Unknown, Verified 01/30/23 12:09) RASH morphine Allergy (Unknown, Verified 01/30/23 12:09) Nausea and Vomiting fentanyl Allergy (Verified 01/30/23 12:09) Vomiting tadalafil Allergy (Verified 01/30/23 12:09) Rash Medication List - Last Reconciled 08/06/23 by Yang Young MD back brace As directed buprenorphine HCl (Belbuca) 750 mcg buccal Q8H 30 days buspirone 5 mg PO TID cholecalciferol (vitamin D3) 50 mcg PO DAILY clonidine HCl 0.1 mg PO BID PRN 30 days cyanocobalamin (vitamin B-12) 1,000 mcg IM Q4W 4 weeks hydroxyzine HCl 25 mg PO BID PRN 30 days ketorolac 30 mg IM .Once a day PRN 30 days MDD 1 vial - 30 mg meclizine 25 mg PO BID PRN naloxegol (Movantik) 12.5 mg PO QAM 30 days oxycodone ER 40 mg PO BID PRN 30 days oxycodone ER 20 mg PO ONCE 30 days syringe with needle (BD Luer-Barby Syringe) USE WEEKLY DIRECTED testosterone enanthate (Xyosted) 75 mg (0.5 mL) subcut QWEEK 4 weeks HPI HPI Comments History of Present Illness Details Lemuel is a pleasant male. He is a patient of Dr. Aguirre. He seen for the following urologic conditions - hypogonadism did have some pain with Cialis - erectile dysfunction Tells me he took 1 cc on Saturday and tested on Saturday Only receives 2 cc total per month Aguanga renewed When using standard testosterone has elevated hematocrit Recommendation trial of Xyosted to manage dosage Hypogonadism Longstanding Current dosage injectable testosterone 0.5 cc weekly Injection Day: Saturday Lab Day: Lab Work 11/14 T 1200, PSA 1.40, 05/16 1900 P 1.6 Hct 50.3 - 06/17 T 816, 12/15 1143 (saturday) 47, 1/2 2 T 645 P 1.7, 12/16 T 1583 (Wed), 08/17 T 252 H 46 Has had prior high T when testing to close to injection date May follow in 6 months [facility] Medical History (Updated 01/21/23 @ 16:40 by Eve Aguirre MD) Anxiety disorder due to medical condition H/O urinary frequency Vitamin B12 deficiency Hypogonadism in male Neuropathy Heel pain, bilateral Foot pain Dyslipidemia Neuropathy involving both lower extremities Postlaminectomy syndrome, lumbar Surgical History (Updated 01/21/23 @ 16:40 by Eve Aguirre MD) History of lumbar spinal fusion Family History Father CVD (cardiovascular disease) Mother Cancer Brother No problems noted. Brother No problems noted. Sister Dysplasia, fibromuscular, artery, renal Son No problems noted. Son No problems noted. Daughter No problems noted. Social History Housing: House Alcohol intake: never Patient Tobacco Use Status: Never used Tobacco e-Cigarette/Vaping Use: Never Used Current occupational status: unemployed Cognitive needs: No Hearing needs: No Vision needs: No Review of Systems Const Denies chills and Denies fever(s) Card Reports no additional complaints and Denies syncope Resp Denies cough GI Denies abdominal pain and Denies heartburn Reports as per HPI and Denies change in libido Neuro Denies syncope Psych Denies change in libido Endo Denies change in libido Physical Exam Const General: cooperative, healthy appearing, comfortable and no acute distress Orientation/consciousness: patient oriented x3 HEENT Face and sinus: Yes normal facial exam Mouth: moist mucous membranes Neck Neck: Yes normal visual inspection, Yes full ROM and Yes trachea midline Chest Chest palpation & inspection: normal inspection of the chest Resp Effort & Inspection: normal respiratory effort, able to speak in complete sentences and no respiratory distress GI Inspection: Yes normal to inspection Back/Spine/Pelvis Cervical Spine: normal cervical lordosis Thoracic/Lumbar Spine: thoracic and lumbar spine normal to inspection Skin General skin exam: no rashes or lesions noted Neuro General: patient oriented x3, gait normal, tone normal and moves all extremities Extrem General: Yes normal to inspection and Yes capillary refill normal Assessment & Plan Assessment & Plan (1) Erectile dysfunction: Code(s): N52.9 - Male erectile dysfunction, unspecified (2) Hypogonadism in male: Code(s): E29.1 - Testicular hypofunction Plan Six-month follow-up labs Orders: Orders Testosterone, Free/Total 08/07/23 E29.1 - Testicular hypofunction PSA,Total (Free>4and<10) 08/07/23 E29.1 - Testicular hypofunction Medications: New 2 testosterone enanthate (Xyosted) 75 mg (0.5 mL) subcut QWEEK 2 mL 5RF 4 weeks E29.1 - Testicular hypofunction sildenafil administer 60 minutes before intended activity 100 mg PO ONCE PRN 30 tabs 1RF sexual activity 30 days N52.9 - Male erectile dysfunction, unspecified Discontinued testosterone cypionate Discontinued Reason: Doctor's Order 100 mg (0.5 mL) IM QWEEK 28 days 2 mL 1RF E29.1 - Testicular hypofunction Patient Instructions: Imaging studies, laboratory and physical exam results were discussed and reviewed in detail. No major barriers to patient understanding were identified. An opportunity to ask questions regarding the treatment plan was provided. All questions were answered. The patient expressed understanding and agreement with the above treatment plan. The patient is aware they should contact our office by phone for worsening of their current condition or the appearance of new urologic symptoms. Compliance is encouraged with any medications and followup testing that is ordered. It is a privilege to participate in the urologic care of your patient. If you have any questions or concerns regarding treatment for the above conditions, or other urologic issues, please do not hesitate to contact me. The office telephone contact is [phone]. This note is constructed using voice recognition software. While every effort has been made to ensure accuracy game engineer errors may have been included. Yours sincerely, Dr Yang Young MD, [facility] - Urology Providers of Expert, Compassionate Care for the Genitourinary System Coding Level of Care Code Est Pt Level 3 (76398) Diagnoses Erectile dysfunction N52.9 Hypogonadism in male E29.1
== END 2023-08-06 15:58 | disposition home or self-care (01) ==
PROVIDERS: PCP Internal Medicine; Visit Provider Urology
DX: N52.9 Male erectile dysfunction, unspecified (principal); E29.1 Testicular hypofunction
CPT/HCPCS: 99213

== ENCOUNTER → 2023-08-06 15:18 | Outpatient (BNVA) | payer MEDICARE, MEDICAID, SELFPAY | PROVIDERS: PCP Internal Medicine; Visit Provider Urology | DX: N52.9 Male erectile dysfunction, unspecified (principal); E29.1 Testicular hypofunction | CPT/HCPCS: 99212 ==

== ENCOUNTER 2023-09-16 11:07 | Outpatient (AMB) | payer MEDICARE, MEDICAID, SELFPAY ==
--- NOTE | 2023-09-16 11:07 | MHC.OFFVIS ---
Vital Signs 09/16/23 11:08 Height 5 ft 7 in Weight 180 lb 5.41 oz BMI 28.2 BP 141/66 H Blood Pressure Location Lt brachial Position Sitting Pulse 72 Pulse Source Pulse Oximeter Intake Visit Reasons: constipation and colo screening Intake Note: Pt presents to the office today for constipation and a colo screening. Pt states he has been being followed by pain management for about 25 years due to an injury. He states has been having problems with passing his stool. He states his stools are soft but it is hard to pass them. He denies any other GI concerns at this time. Allergies gabapentin [GABAPENTIN] Allergy (Unknown, Verified 09/16/23 11:10) RASH morphine Allergy (Unknown, Verified 09/16/23 11:10) Nausea and Vomiting fentanyl Allergy (Verified 09/16/23 11:10) Vomiting tadalafil Allergy (Verified 09/16/23 11:10) Rash HPI HPI constipation and colo screening: Details: 52 year old? male dyslipidemia, post-laminectomy syndrome, neuropathy of bilateral lower extremities, chronic use of. Due to several spine surgeries is here today for pre colonoscopy screening.? Patient was sent to us by his PCP.? This is his first colonoscopy screening.? Patient had normal Cologuard in 2021. Patient was sent for colonoscopy couple years ago, however due to prolonged all. Use patient was unable to move his bowels well. Currently patient is on Movantik and is moving his bowels, however he does not empty them completely. Patient denies any other gastrointestinal symptoms in the past or at present.? Denies any personal or family history of gastrointestinal disease, colon polyps, or cancer.? Denies history of difficulty with sedation or anesthesia in the past.? Negative for history of sleep apnea.? Denies any history of cardiac, renal, pulmonary, or hepatic disease.?? No history of infectious? diseases like hepatitis A, B, C, HIV or tuberculosis.? Patient is not on any anticoagulation therapy. [facility], [facility] Medical History (Updated 09/16/23 @ 11:31 by BIBIANA Fernández-) Mixed connective tissue disease Anxiety disorder due to medical condition H/O urinary frequency Vitamin B12 deficiency Hypogonadism in male Neuropathy Heel pain, bilateral Foot pain Dyslipidemia Neuropathy involving both lower extremities Postlaminectomy syndrome, lumbar Surgical History History of lumbar spinal fusion Family History Father CVD (cardiovascular disease) Mother Cancer Brother No problems noted. Brother No problems noted. Sister Dysplasia, fibromuscular, artery, renal Son No problems noted. Son No problems noted. Daughter No problems noted. Social History Housing: House Alcohol intake: never Patient Tobacco Use Status: Never used Tobacco e-Cigarette/Vaping Use: Never Used Current occupational status: unemployed Cognitive needs: No Hearing needs: No Vision needs: No Review of Systems Const Denies weight gain and Denies weight loss ENT Reports no additional complaints, Denies dysphagia and Denies odynophagia Card Reports no additional complaints Resp Reports no additional complaints GI Denies abdominal pain, Denies belching, Denies melena, Denies bloating, Reports constipation, Denies dysphagia, Denies excessive flatus, Denies dyspepsia, Denies heartburn, Denies diarrhea, Denies loose stools, Denies nausea, Denies odynophagia and Denies vomiting Reports no additional complaints Musc Reports no additional complaints Neuro Reports no additional complaints Psych Reports no additional complaints Endo Reports no additional complaints Physical Exam Vital Signs: Last Vital Signs Pulse 72 09/16/23 11:08 BP 141/66 H 09/16/23 11:08 BMI result Body Mass Index 28.2 Const General: healthy appearing, no acute distress and well developed Nutritional Appearance: well nourished Orientation/consciousness: patient oriented x3 Resp Effort & Inspection: normal respiratory effort, able to speak in complete sentences, no tracheal deviation and symmetric chest movement Auscultation: clear to auscultation bilaterally Cardio Rate: regular rate GI Inspection: Yes normal to inspection and No distended Palpation (GI): Soft to palpation, not firm, nontender and No hepatosplenomegaly present Auscultation: normal bowel sounds General: Yes no CVA tenderness Back/Spine/Pelvis Back: no CVA tenderness Skin General skin exam: elasticity normal, turgor normal and dry skin Neuro General: patient oriented x3 Psych Appearance: grossly normal Mental Status: mental status grossly normal Assessment & Plan Assessment & Plan (1) Screen for colon cancer: Code(s): Z12.11 - Encounter for screening for malignant neoplasm of colon (2) Chronic, continuous use of opioids: Code(s): F11.90 - Opioid use, unspecified, uncomplicated Category: Medical (3) Chronic idiopathic constipation: Code(s): K59.04 - Chronic idiopathic constipation Plan Patient denies any cardiac or respiratory symptoms. ?Patient admits to constipation, dealing with this for very long time. Chronic opioid use due to several back surgeries and severe bilateral lower extremity neuropathies. Patient was placed on Movantik, however he continues to have trouble moving his bowels. Patient reports that Dulcolax worked in the past, however he states that it was causing severe cramping. We will put him on Dulcolax again and will have him take stool softeners in the morning. Denies any issues with anesthesia in the past.? Denies any history of sleep apnea.? No history infectious diseases in the past or present.? Not on any anticoagulation therapy.? No family or personal history of colon cancer or polyps.? Patient denies melena, hematochezia, unintentional weight loss or ribbon like stools.? Patient will return in 2 months to go over the prep again and to make sure that he is moving his bowels. Patient had been scheduled for colonoscopy in the past did 2 day prep and was unable to go till 4 days after procedure was scheduled. Patient missed the procedure and we will try to avoid that. He is agreeable to plan of care and verbalizes understanding of instructions. He was given the opportunity to ask questions and all questions answered. Thank you for allowing me to participate in his care Medications: New docusate sodium 200 mg (2 x 100 mg) PO DAILY 180 caps 3RF K59.00 - Constipation, unspecified bisacodyl (Dulcolax (bisacodyl)) 10 mg (2 x 5 mg) PO BEDTIME 180 tabs 4RF
[2023-09-16 11:08] VITALS: BP 141/66; PULSE 72; BMI 28.2
== END 2023-09-16 12:13 | disposition home or self-care (01) ==
PROVIDERS: Visit Provider Nurse Practitioner Family
DX: K59.04 Chronic idiopathic constipation (principal); Z12.11 Encounter for screening for malignant neoplasm of colon; F11.90 Opioid use, unspecified, uncomplicated
CPT/HCPCS: 99203; 99213

== ENCOUNTER → 2023-09-16 11:07 | Outpatient (BNVA) | payer MEDICARE, MEDICAID, SELFPAY | PROVIDERS: Visit Provider Nurse Practitioner Family | DX: Z12.11 Encounter for screening for malignant neoplasm of colon (principal); K59.04 Chronic idiopathic constipation; F11.20 Opioid dependence, uncomplicated | CPT/HCPCS: 99202 ==

== ENCOUNTER 2023-11-01 11:04 | Outpatient (REF) | payer MEDICARE, MEDICAID, SELFPAY ==
[2023-11-01 13:59] LABS: PSA,Total (Free>4and<10) 1.46 ng/mL (0.00-4.00)
[2023-11-07 14:44] LABS: Testosterone, Free 93.5 pg/mL (35.0-155.0); Testosterone, Total 703 ng/dL (250-1100)
== END 2023-11-01 11:05 | disposition home or self-care (01) ==
LOC: HO.HMGCLDS 11:04
PROVIDERS: PCP Family Medicine; Visit Provider Urology
DX: E29.1 Testicular hypofunction (principal); Z12.5 Encounter for screening for malignant neoplasm of prostate
CPT/HCPCS: 36415; 84153; 84402; 84403

== ENCOUNTER 2023-11-08 09:22 | Outpatient (AMB) | payer MEDICARE, MEDICAID, SELFPAY ==
--- NOTE | 2023-11-08 09:23 | MHC.OFFVIS ---
Intake Visit Reasons: 3M PSA/Testo(pending) Intake Note: Patient is Present for Telephone Follow Up For Urology Med: Sildenafil, Xyosted Antibiotic Allergy:None Blood Thinner: None Allergies gabapentin [GABAPENTIN] Allergy (Unknown, Verified 11/08/23 09:23) RASH morphine Allergy (Unknown, Verified 11/08/23 09:23) Nausea and Vomiting fentanyl Allergy (Verified 11/08/23 09:23) Vomiting tadalafil Allergy (Verified 11/08/23 09:23) Rash Medication List - Last Reconciled 11/08/23 by Yang Young MD atorvastatin 20 mg PO DAILY back brace As directed bisacodyl (Dulcolax (bisacodyl)) 10 mg (2 x 5 mg) PO BEDTIME cholecalciferol (vitamin D3) 50 mcg PO DAILY cyanocobalamin (vitamin B-12) 1,000 mcg IM Q4W 4 weeks docusate sodium 200 mg (2 x 100 mg) PO DAILY ketorolac 30 mg IM .Once a day PRN 30 days MDD 1 vial - 30 mg lisinopril 10 mg PO DAILY meclizine 25 mg PO BID PRN naloxegol (Movantik) 12.5 mg PO QAM 30 days oxycodone ER 40 mg PO BID PRN 30 days oxycodone ER 20 mg PO ONCE 30 days sildenafil 100 mg PO ONCE PRN 30 days syringe with needle (BD Luer-Barby Syringe) USE WEEKLY DIRECTED testosterone enanthate (Xyosted) 75 mg (0.5 mL) subcut QWEEK 4 weeks HPI Comments Details: Lemuel is a pleasant male. He is a patient of Dr. Aguirre. He seen for the following urologic conditions - hypogonadism did have some pain with Cialis - erectile dysfunction Telemedicine Evaluation 15 min Consultation [employer] Has been using Xyosted to manage dosage Hypogonadism Longstanding Current dosage injectable testosterone 0.5 cc weekly Injection Day: Saturday Lab Day: Lab Work 11/14 T 1200, PSA 1.40, 05/16 1900 P 1.6 Hct 50.3 - 06/17 T 816, 12/15 1143 (saturday) 47, 06/17 T 645 P 1.7, 12/16 T 1583 (Sat), 08/17 T 252 H 46, 11/17 T 705 Has had prior high T when testing to close to injection date May follow in 6 months [facility] Medical History Mixed connective tissue disease Anxiety disorder due to medical condition H/O urinary frequency Vitamin B12 deficiency Hypogonadism in male Neuropathy Heel pain, bilateral Foot pain Dyslipidemia Neuropathy involving both lower extremities Postlaminectomy syndrome, lumbar Surgical History History of lumbar spinal fusion Family History Father CVD (cardiovascular disease) Mother Cancer Brother No problems noted. Brother No problems noted. Sister Dysplasia, fibromuscular, artery, renal Son No problems noted. Son No problems noted. Daughter No problems noted. Social History Housing: House Alcohol intake: never Patient Tobacco Use Status: Never used Tobacco e-Cigarette/Vaping Use: Never Used Current occupational status: unemployed Cognitive needs: No Hearing needs: No Vision needs: No Review of Systems Const Denies chills and Denies fever(s) Card Reports no additional complaints and Denies syncope Resp Denies cough GI Denies abdominal pain and Denies heartburn Reports as per HPI and Denies change in libido Neuro Denies syncope Psych Denies change in libido Endo Denies change in libido Physical Exam Const General: cooperative, healthy appearing, comfortable and no acute distress Orientation/consciousness: patient oriented x3 HEENT Face and sinus: Yes normal facial exam Mouth: moist mucous membranes Neck Neck: Yes normal visual inspection, Yes full ROM and Yes trachea midline Chest Chest palpation & inspection: normal inspection of the chest Resp Effort & Inspection: normal respiratory effort, able to speak in complete sentences and no respiratory distress GI Inspection: Yes normal to inspection Back/Spine/Pelvis Cervical Spine: normal cervical lordosis Thoracic/Lumbar Spine: thoracic and lumbar spine normal to inspection Skin General skin exam: no rashes or lesions noted Neuro General: patient oriented x3, gait normal, tone normal and moves all extremities Extrem General: Yes normal to inspection and Yes capillary refill normal Telehealth Telehealth Telehealth Platform: [facility] Location of provider rendering services: practice address Location of patient: address on file Patient Identification confirmed using: Name, : Yes Telehealth method: video Patient verbally consented to treatment: Yes Patient verbally consented to billing insurance company: Yes Patient informed of any privacy concerns related to visit: Yes Minutes spent on Phone/Video with Pt.: 15 Assessment & Plan Assessment & Plan (1) Hypogonadism in male: Code(s): E29.1 - Testicular hypofunction Category: Medical Plan Six-month follow-up Orders: Orders Prostate Specific Antigen 6 Months E29.1 - Testicular hypofunction Testosterone, Total 6 Months E29.1 - Testicular hypofunction Complete Blood Count no Diff 6 Months E29.1 - Testicular hypofunction Patient Instructions: Imaging studies, laboratory and physical exam results were discussed and reviewed in detail. No major barriers to patient understanding were identified. An opportunity to ask questions regarding the treatment plan was provided. All questions were answered. The patient expressed understanding and agreement with the above treatment plan. The patient is aware they should contact our office by phone for worsening of their current condition or the appearance of new urologic symptoms. Compliance is encouraged with any medications and followup testing that is ordered. It is a privilege to participate in the urologic care of your patient. If you have any questions or concerns regarding treatment for the above conditions, or other urologic issues, please do not hesitate to contact me. The office telephone contact is [phone]. This note is constructed using voice recognition software. While every effort has been made to ensure accuracy windows software engineer errors may have been included. Yours sincerely, Dr Yang Young MD, [facility] - Urology Providers of Expert, Compassionate Care for the Genitourinary System Coding Level of Care Code Tele Est Pt Level 3 (12989) Diagnoses Hypogonadism in male E29.1
== END 2023-11-08 09:50 | disposition home or self-care (01) ==
LOC: HO.HUSH 09:22
PROVIDERS: PCP Family Medicine; Visit Provider Urology
DX: E29.1 Testicular hypofunction (principal)
CPT/HCPCS: 99213

== ENCOUNTER → 2023-11-08 09:22 | Outpatient (BNVA) | payer MEDICARE, MEDICAID, SELFPAY | PROVIDERS: PCP Family Medicine; Visit Provider Urology ==

== ENCOUNTER 2024-05-08 15:23 | Outpatient (REF) | payer MEDICARE, MEDICAID, SELFPAY ==
[2024-05-08 16:38] LABS: Hematocrit 44.8 % (42.0-52.0); Hemoglobin 15.4 g/dl (14.0-18.0); Mean Corpuscular HGB Conc 34.4 g/dl (31.0-36.0); Mean Corpuscular Hemoglobin 29.7 pg (27.0-33.0); Mean Corpuscular Volume 86.3 fL (80.0-98.0); Mean Platelet Volume 10.6 fL (9.4-12.4); Platelet Count 233 X10*3/uL (160-400); Red Blood Count 5.19 X10*6/uL (4.60-5.80); Red Cell Distribution Width 12.1 % (11.0-16.0); White Blood Count 4.2 X10*3/uL (4.8-10.8)
[2024-05-08 17:20] LABS: Prostate Specific Antigen 1.47 ng/mL (<0.05-4.0)
[2024-05-14 11:28] LABS: Testosterone, Total 354 ng/dL (250-1100)
== END 2024-05-08 15:24 | disposition home or self-care (01) ==
LOC: HO.LAB 15:23
PROVIDERS: Visit Provider Urology
DX: E29.1 Testicular hypofunction (principal); Z12.5 Encounter for screening for malignant neoplasm of prostate
CPT/HCPCS: 36415; 84153; 84403; 85027

== ENCOUNTER 2024-05-21 11:07 | Outpatient (AMB) | payer MEDICARE, MEDICAID, SELFPAY ==
--- NOTE | 2024-05-21 11:16 | MHC.OFFVIS ---
Intake Visit Reasons: 6M PSA/Testo(set) Intake Note: Patient is present for 6M PSA/TESTO Urology Medication:SILDENAFIL,TESTOSTERONE,VITAMIN B12 Antibiotic Allergy:GABAPENTIN Blood Thinner:NONE Steward/Stewardess Lounge Required: No Allergies fentanyl Allergy (Intermediate, Verified 05/21/24 11:17) Vomiting gabapentin [GABAPENTIN] Allergy (Intermediate, Verified 05/21/24 11:17) RASH morphine Allergy (Intermediate, Verified 05/21/24 11:17) Nausea and Vomiting tadalafil Allergy (Intermediate, Verified 05/21/24 11:17) Rash HPI Comments Details: Lemuel is a pleasant male. He is a patient of Dr. Aguirre. He seen for the following urologic conditions - hypogonadism did have some pain with Cialis - erectile dysfunction Has been using Xyosted to manage dosage Numbers within range Prescription provided Six-month follow-up Hypogonadism Longstanding - associated with long-term opiate pain pill use Secondary to prior back surgery Current dosage injectable testosterone 0.5 cc weekly Injection Day: Saturday Lab Day: Lab Work 11/14 T 1200, PSA 1.40, 05/16 1900 P 1.6 Hct 50.3 - 06/17 T 816, 12/15 1143 (saturday) 47, 06/17 T 645 P 1.7, 12/16 T 1583 (Sat), 08/17 T 252 H 46, 11/17 T 705, 05/19 354 Has had prior high T when testing to close to injection date May follow in 6 months [facility] Medical History (Updated 05/12/24 @ 13:59 by Rebecca Johnson RN) Arthritis Mixed connective tissue disease Anxiety disorder due to medical condition H/O urinary frequency Vitamin B12 deficiency Hypogonadism in male Neuropathy Heel pain, bilateral Foot pain Dyslipidemia Neuropathy involving both lower extremities Postlaminectomy syndrome, lumbar Surgical History History of lumbar spinal fusion Family History Father CVD (cardiovascular disease) Mother Cancer Brother No problems noted. Brother No problems noted. Sister Dysplasia, fibromuscular, artery, renal Son No problems noted. Son No problems noted. Daughter No problems noted. Social History Housing: House Alcohol intake: never Patient Tobacco Use Status: Never used Tobacco e-Cigarette/Vaping Use: Never Used Current occupational status: unemployed Cognitive needs: No Hearing needs: No Vision needs: No Review of Systems Const Denies chills and Denies fever(s) Card Reports no additional complaints and Denies syncope Resp Denies cough GI Denies abdominal pain and Denies heartburn Reports as per HPI and Denies change in libido Neuro Denies syncope Psych Denies change in libido Endo Denies change in libido Physical Exam Const General: cooperative, healthy appearing, comfortable and no acute distress Orientation/consciousness: patient oriented x3 HEENT Face and sinus: Yes normal facial exam Mouth: moist mucous membranes Neck Neck: Yes normal visual inspection, Yes full ROM and Yes trachea midline Chest Chest palpation & inspection: normal inspection of the chest Resp Effort & Inspection: normal respiratory effort, able to speak in complete sentences and no respiratory distress GI Inspection: Yes normal to inspection Back/Spine/Pelvis Cervical Spine: normal cervical lordosis Thoracic/Lumbar Spine: thoracic and lumbar spine normal to inspection Skin General skin exam: no rashes or lesions noted Neuro General: patient oriented x3, gait normal, tone normal and moves all extremities Extrem General: Yes normal to inspection and Yes capillary refill normal Assessment & Plan Assessment & Plan (1) Hypogonadism in male: Code(s): E29.1 - Testicular hypofunction Category: Medical Plan Six-month follow-up lab work Orders: Orders Prostate Specific Antigen 6 Months E29.1 - Testicular hypofunction Testosterone, Total 6 Months E29.1 - Testicular hypofunction Complete Blood Count no Diff 6 Months E29.1 - Testicular hypofunction Medications: Refilled testosterone enanthate (Xyosted) 75 mg (0.5 mL) subcut QWEEK 4 weeks 2 mL 5RF E29.1 - Testicular hypofunction Patient Instructions: Imaging studies, laboratory and physical exam results were discussed and reviewed in detail. No major barriers to patient understanding were identified. An opportunity to ask questions regarding the treatment plan was provided. All questions were answered. The patient expressed understanding and agreement with the above treatment plan. The patient is aware they should contact our office by phone for worsening of their current condition or the appearance of new urologic symptoms. Compliance is encouraged with any medications and followup testing that is ordered. It is a privilege to participate in the urologic care of your patient. If you have any questions or concerns regarding treatment for the above conditions, or other urologic issues, please do not hesitate to contact me. The office telephone contact is [phone]. This note is constructed using voice recognition software. While every effort has been made to ensure accuracy dispatcher automobile rental errors may have been included. Yours sincerely, Dr Yang Young MD, [facility] - Urology Providers of Expert, Compassionate Care for the Genitourinary System Coding Level of Care Code Est Pt Level 3 (92790) Diagnoses Hypogonadism in male E29.1
== END 2024-05-21 11:38 | disposition home or self-care (01) ==
PROVIDERS: PCP Family Medicine; Visit Provider Urology
DX: E29.1 Testicular hypofunction (principal)
CPT/HCPCS: 99213

== ENCOUNTER → 2024-05-21 11:07 | Outpatient (BNVA) | payer MEDICARE, MEDICAID, SELFPAY | PROVIDERS: PCP Family Medicine; Visit Provider Urology | DX: E29.1 Testicular hypofunction (principal); N52.9 Male erectile dysfunction, unspecified | CPT/HCPCS: 99212 ==

== ENCOUNTER 2024-11-17 09:39 | Outpatient (REF) | payer MEDICARE, MEDICAID, SELFPAY ==
--- OUTSIDE RECORDS SUMMARY | 2024-11-17 10:29 | XMS_ITS | Patient Health Record ---
Author Organization [facility] Address [address] [place] [address] [place] [id number] Care Team Providers Care Mounting Inspector Name Role Phone Martín Jay G Primary Care Provider Claus An Unavailable [phone] Freida Rollins Unavailable [phone] Loreta Jay Unavailable [phone] Allergies Allergen (clinical drug ingredient) Drug/Non Drug Allergy documented on EMR Reaction Allergy Type Onset Date Status gabapentin Neurontin Unknown Drug Allergy Active Results Component Value Reference Range Notes Full Screen with Reflex Reviewed date:08/31/2024 01:29:30 PM Interpretation: Performing Lab: Notes/Report: Opiates Not Detected Not Detected Oxycodone Detected Not Detected Buprenorphine Not Detected Not Detected Methadone, Quant 0 Methadone Not Detected Not Detected Benzodiazepines Not Detected Not Detected Amphetamine Not Detected Not Detected MDMA, Quant 0 MDMA Not Detected Not Detected Barbiturates Not Detected Not Detected Tricyclic Antidepressants Not Detected Not Detected Cannabinoids Not Detected Not Detected Cocaine Not Detected Not Detected Phencyclidine Not Detected Not Detected MDC (Confirm only) Reviewed date:08/31/2024 01:29:30 PM Interpretation: Performing Lab: Notes/Report: 3-5+ days Codeine Not Detected Not Detected Norcodeine Not Detected Not Detected Hydrocodone Not Detected Not Detected Norhydrocodone Not Detected Not Detected Hydromorphone Not Detected Not Detected Oxycodone >1000 < 50 Noroxycodone >1000 < 50 Oxymorphone >1000 < 50 Buprenorphine Not Detected Not Detected Norbuprenorphine Not Detected Not Detected Fentanyl Not Detected Not Detected Norfentanyl Not Detected Not Detected Tramadol Not Detected Not Detected O-Desmethyltramadol Not Detected Not Detected Alprazolam Not Detected Not Detected Alpha-Hydroxyalprazolam Not Detected Not Detected Clonazepam Not Detected Not Detected 7-Aminoclonazepam Not Detected Not Detected Diazepam Not Detected Not Detected Nordiazepam Not Detected Not Detected Lorazepam Not Detected Not Detected Temazepam Not Detected Not Detected Amphetamine Not Detected Not Detected Methamphetamine Not Detected Not Detected Cyclobenzaprine Not Detected Not Detected Carisoprodol Not Detected Not Detected Meprobamate Not Detected Not Detected Gabapentin Not Detected Not Detected Pregabalin Not Detected Not Detected [id number] Not Detected Not Detected Benzoylecgonine Not Detected Not Detected Zolpidem Not Detected Not Detected Carboxyzolpidem Not Detected Cotinine Not Detected Not Detected Ethyl Sulfate Not Detected Not Detected Morphine Not Detected Not Detected Oxycodone, Interp Consistent Consistent Noroxycodone, Interp Consistent Consistent Oxymorphone, Interp Consistent Consistent Buprenorphine, Interp Review Consistent Norbuprenorphine, Interp Inconsistent Consistent Oxazepam Not Detected Not Detected Cotinine, Quant 0 Reflex Confirmation of Meds [id number] Written Authorization (Not y et reviewed by provider) Interpretation: Performing Lab:[facility], [address] [place] [address], Phone - [phone], Director - [employer] Notes/Report: and Drug Administration. by [facility]. It has not been cleared or approved by the Food was developed and its performance characteristics determined Test(s) [id number] IA Written Authorization Written Authorization Received. Authorization received from Kaykay Beasley for Link Request on 10-28-2024 Logged by Tara Wiley TMJ [employer] Flex 24, [place] [id number] (Not yet reviewed by provider) Interpretation: Performing Lab:[facility], [address] [place] [address], Phone - [phone], Director - [employer] Notes/Report: Test(s) [id number] IA was developed and its performance characteristics determined by [facility]. It has not been cleared or approved by the Food and Drug Administration. Summary Report FINAL ===== Opiate Class, MS, Ur RFX Oxycodone Class, MS, Ur RFX [employer] Flex 24, Ur ===== Test Result Flag Units Drug Present Oxycodone >51887 ng/mg creat Oxymorphone 8663 ng/mg creat Noroxycodone >51279 ng/mg creat Noroxymorphone 3641 ng/mg creat Sources of oxycodone are scheduled prescription medications. Oxymorphone, noroxycodone, and noroxymorphone are expected metabolites of oxycodone. Oxymorphone is also available as a scheduled prescription medication. ===== Test Result Flag Units Ref Range Creatinine 97 mg/dL >=20 ===== Declared Medications: Medication list was not provided. ===== For clinical consultation, please call . ===== PDF . Creatinine 97 >=20 mg/dL REFERENCE RANGE : Ref Range>=20 AMPHETAMINES IA Negative CUTOFF:300 ng/mL BENZODIAZEPINES Negative Diazepam Not Detected Desmethyldiazepam Not Detected Oxazepam Not Detected Temazepam Not Detected Expected metabolism of benzodiazepine class drugs: Parent Drug Detected Metabolites Diazepam: Desmethyldiazepam, Temazepam, Oxazepam Chlordiazepoxide: Desmethyldiazepam, Oxazepam Clorazepate: Desmethyldiazepam, Oxazepam Halazepam: Desmethyldiazepam, Oxazepam Temazepam: Oxazepam Oxazepam: None Alprazolam Not Detected Alpha-hydroxyalprazolam Not Detected Desalkylflurazepam Not Detected Lorazepam Not Detected Alpha-hydroxytriazolam Not Detected Clonazepam Not Detected 7-aminoclonazepam Not Detected Midazolam Not Detected Alpha-hydroxymidazolam Not Detected Flunitrazepam Not Detected Desmethylflunitrazepam Not Detected COCAINE METABOLITE IA Negative CUTOFF:150 ng/mL ETHYL ALCOHOL Enzymatic Negative CUTOFF:0.020 g/dL CANNABINOIDS IA Negative CUTOFF:20 ng/mL 6-ACETYLMORPHINE IA Negative CUTOFF:10 ng/mL OPIATE CLASS IA CUTOFF:100 ng/mL Further testing indicated OXYCODONE CLASS IA CUTOFF:100 ng/mL Furth er testing indicated METHADONE IA Negative CUTOFF:100 ng/mL METHADONE MTB IA Negative CUTOFF:100 ng/mL BUPRENORPHINE Negative Buprenorphine Not Detected Norbuprenorphine Not Detected FENTANYL / ANALOGUES Negative Fentanyl Not Detected Norfentanyl Not Detected TAPENTADOL IA Negative CUTOFF:200 ng/mL MEPERIDINE IA Negative CUTOFF:200 ng/mL PROPOXYPHENE IA Negative CUTOFF:300 ng/mL TRAMADOL IA Negative CUTOFF:200 ng/mL SYMPATHOMIMETICS Negative Methylphenidate Not Detected Ritalinic Acid Not Detected BARBITURATES IA Negative CUTOFF:200 ng/mL OTHER HALLUCINOGENS Negative Ketamine Not Detected Norketamine Not Detected PHENCYCLIDINE IA Negative CUTOFF:25 ng/mL ANTICONVULSANTS Negative Carbamazepine Not Detected Clobazam Not Detected Ezogabine Not Detected Gabapentin Not Detected Pregabalin Not Detected Levetiracetam Not Detected Oxcarbazepine MHD Not Detected Primidone Not Detected Rufinamide Not Detected Tiagabine Not Detected Topiramate Not Detected Phenytoin Not Detected Zonisamide Not Detected Lamotrigine Not Detected MUSCLE RELAXANTS Negative Baclofen Not Detected Carisoprodol Not Detected Meprobamate Not Detected Cyclobenzaprine Not Detected Desmethylcyclobenzaprine Not Detected Tizanidine Not Detected Metaxalone Not Detected Methocarbamol Not Detected Orphenadrine Not Detected SEDATIVE/HYPNOTICS Negative Zolpidem Not Detected Zolpidem Acid Not Detected Zopiclone/Eszopiclone Not Detected Amino Chloropyridine Not Detected Zaleplon Not Detected Expected metabolism of Sedatives/Hypnotics: Parent Drug Detected Metabolites Zolpidem: Zolpidem Acid Zopiclone/Eszopiclone : Amino Chloropyridine Zaleplon: None ANTIDEPRESSANTS Negative Amitriptyline Not Detected Amoxapine Not Detected 8-Hydroxyamoxapine Not Detected Bupropion Not Detected Hydroxybupropion Not Detected Citalopram Not Detected Desmethylcitalopram Not Detected Clomipramine Not Detected Desmethylclomipramine Not Detected Desipramine Not Detected Doxepin Not Detected Desmethyldoxepin Not Detected Duloxetine Not Detected Fluoxetine Not Detected Norfluoxetine Not Detected Fluvoxamine Not Detected Imipramine Not Detected Mirtazapine Not Detected Nortriptyline Not Detected Paroxetine Not Detected Protriptyline Not Detected Sertraline Not Detected Desmethylsertraline Not Detected Maprotiline Not Detected Nefazodone Not Detected Trazodone Not Detected 1,3 chlorophenyl piperazine Not Detected Trimipramine Not Detected Venlafaxine Not Detected Desmethylvenlafaxine Not Detected Vilazodone Not Detected ANTIPSYCHOTICS Negative Chlorpromazine Not Detected Clozapine Not Detected Desmethylclozapine Not Detected Loxapine Not Detected 8-Hydroxyloxapine Not Detected Mesoridazine Not Detected Olanzapine Not Detected Quetiapine Not Detected Risperidone Not Detected Fluphenazine Not Detected Haloperidol Not Detected Thioridazine Not Detected Molindone Not Detected Pimozide Not Detected Prochlorperazine Not Detected Thiothixene Not Detected Trifluoperazine Not Detected Ziprasidone Not Detected Perphenazine Not Detected Aripiprazole Not Detected Asenapine Not Detected Iloperidone Not Detected Lurasidone Not Detected ACETAMINOPHEN IA Negative CUTOFF:5.0 ug/mL Opiate Class, MS, Ur RFX (No t yet reviewed by provider) Interpretation: Performing Lab:[facility], [address] [place] [address], Phone - [phone], [facility] Notes/Report: Test(s) [id number] IA was developed and its performance characteristics determined by [facility]. It has not been cleared or approved by the Food and Drug Administration. OPIATE CLASS Negative Codeine Not Detected Morphine Not Detected Normorphine Not Detected Norcodeine Not Detected Hydrocodone Not Detected Hydromorphone Not Detected Dihydrocodeine Not Detected Norhydrocodone Not Detected Expected metabolism of opiate class drugs: Parent Drug Detected Metabolites Codeine: Major: Morphine, Norcodeine Minor: Hydrocodone, Hydromorphone, Dihydrocodeine, Norhydrocodone, Normorphine Morphine: Major: Normorphine Minor: Hydromorphone Hydrocodone: Hydromorphone, Dihydrocodeine, Norhydrocodone Hydromorphone: None Dihydrocodeine: None Heroin: 6-Acetylmorphine (if included), Morphine, Normorphine Codeine, in small amounts in comparison to morphine, is often detected when heroin is the source drug. Oxycodone Class, MS, Ur RFX (Not yet reviewed by provider) Interpretation: Performing Lab:[facility], [address] [place] [address], Phone - [phone], Director [facility] Notes/Report: Test(s) [id number] IA was developed and its performance characteristics determined by [employer]. It has not been cleared or approved by the Food and Drug Administration. OXYCODONE CLASS +POSITIVE+ Oxycodone >87038 Oxymorphone 8663 Noroxycodone >81716 Noroxymorphone 3641 Expected metabolism of oxycodone class drugs: Parent Drug Detected Metabolites Oxycodone: Oxymorphone, Noroxycodone, Noroxymorphone Oxymorphone: Noroxymorphone PDF Report (Not yet reviewed by provider) Interpretation: Performing Lab:[facility], [address] [facility], Phone - [phone], Director - [employer] Notes/Report: Test(s) [id number] IA was developed and its performance characteristics determined by [facility]. It has not been cleared or approved by the Food and Drug Administration. Full Screen with Reflex (Not yet reviewed by provider) Interpretation: Performing Lab: Notes/Report: Opiates Detected Not Detected Oxycodone Detected Not Detected Buprenorphine Not Detected Not Detected EDDP Not Detected Benzodiazepines Not Detected Not Detected Amphetamine Not Detected Not Detected Methamphetamine Not Detected Barbiturates Not Detected Not Detected Tricyclic Antidepressants Not Detected Not Detected Cannabinoids Not Detected Not Detected Cocaine Not Detected Not Detected Phencyclidine Not Detected Not Detected Creatinine Normal Not Detected Oxidant Not Detected Not Detected Creatinine, Qnt 94 Specific [place], Qnt 1.014 1.003 - 1.030 pH, Qnt 7.0 3.0 - 11.0 Oxidant, Qnt -27 MDC (Confirm only) (Not yet reviewed by provider) Interpretation: Performing Lab: Notes/Report: Codeine Not Detected Not Detected Norcodeine Not Detected Not Detected Hydrocodone Not Detected Not Detected Norhydrocodone Not Detected Not Detected Hydromorphone Not Detected Not Detected Oxycodone >1000 < 50 Noroxycodone >1000 < 50 Oxymorphone >1000 < 50 Buprenorphine Not Detected Not Detected Norbuprenorphine 20 < 10 Fentanyl Not Detected Not Detected Norfentanyl Not Detected Not Detected Tramadol Not Detected Not Detected O-Desmethyltramadol Not Detected Not Detected Alprazolam Not Detected Not Detected Alpha-Hydroxyalprazolam Not Detected Not Detected Clonazepam Not Detected Not Detected 7-Aminoclonazepam Not Detected Not Detected Diazepam Not Detected Not Detected Nordiazepam Not Detected Not Detected Lorazepam Not Detected Not Detected Temazepam Not Detected Not Detected Amphetamine Not Detected Not Detected Methamphetamine Not Detected Not Detected Cyclobenzaprine Not Detected Not Detected Carisoprodol Not Detected Not Detected Meprobamate Not Detected Not Detected Gabapentin Not Detected Not Detected Pregabalin Not Detected Not Detected [id number] Not Detected Not Detected Benzoylecgonine Not Detected Not Detected Zolpidem Not Detected Not Detected Carboxyzolpidem Not Detected Cotinine Not Detected Not Detected Ethyl Sulfate Not Detected Not Detected Morphine Not Detected Not Detected Oxycodone, Interp Consistent Consistent Noroxycodone, Interp Consistent Consistent Oxymorphone, Interp Consistent Consistent Buprenorphine, Interp Review Consistent Norbuprenorphine, Interp Consistent Consistent Oxazepam Not Detected Not Detected Cotinine, Quant 0 Reflex Confirmation of Meds [id number] BUP Confirmation (Not yet re viewed by provider) Interpretation: Performing Lab: Notes/Report: Buprenorphine Not Detected Not Detected Norbuprenorphine 20 < 10 Naloxone Not Detected Not Detected Buprenorphine, Interp Review Consistent Norbuprenorphine, Interp Consistent Consistent Naloxone, Interp Review Consistent METHD Confirmation (Not yet reviewed by provider) Interpretation: Performing Lab: Notes/Report: Methadone Not Detected Not Detected EDDP Not Detected Not Detected NALTREX Confirmation (Not ye t reviewed by provider) Interpretation: Performing Lab: Notes/Report: Naltrexone Not Detected Not Detected MEPER Confirmation (Not yet reviewed by provider) Interpretation: Performing Lab: Notes/Report: Meperidine Not Detected Not Detected Normeperidine Not Detected Not Detected TAP Confirmation (Not yet re viewed by provider) Interpretation: Performing Lab: Notes/Report: An exception occurred while processing this report and so it has incomplete data. Please contact [employer] for assistance. Tapentadol Not Detected Not Detected S-[id number]-Ahruvljkzu Not Detected Not Detected 6-TANYA Confirmation (Not yet reviewed by provider) Interpretation: Performing Lab: Notes/Report: 6-Monoacetylmorphine Not Detected Not Detected BUP Confirmation Reviewed date:08/31/2024 01:29:30 PM Interpretation: Performing Lab: Notes/Report: 3-5+ days Buprenorphine Not Detected Not Detected Norbuprenorphine Not Detected Not Detected Naloxone Not Detected Not Detected Buprenorphine, Interp Review Consistent Norbuprenorphine, Interp Inconsistent Consistent Naloxone, Interp Review Consistent METHD Confirmation Reviewed date:08/31/2024 01:29:30 PM Interpretation: Performing Lab: Notes/Report: Methadone Not Detected Not Detected EDDP Not Detected Not Detected NALTREX Confirmation Reviewed date:08/31/2024 01:29:30 PM Interpretation: Performing Lab: Notes/Report: Naltrexone Not Detected Not Detected MEPER Confirmation Reviewed date:08/31/2024 01:29:30 PM Interpretation: Performing Lab: Notes/Report: Meperidine Not Detected Not Detected Normeperidine Not Detected Not Detected TAP Confirmation Reviewed date:08/31/2024 01:29:30 PM Interpretation: Performing Lab: Notes/Report: Tapentadol Not Detected Not Detected F-jtvltgyxx-Tsutfgkhsi Not Detected Not Detected 6-TANYA Confirmation Reviewed date:08/31/2024 01:29:30 PM Interpretation: Performing Lab: Notes/Report: 6-Monoacetylmorphine Not Detected Not Detected PDF Report (Not yet reviewed by provider) Interpretation: Performing Lab:[facility], [address] [place] [address], [place], Phone - [phone], Director - Kay Notes/Report: Full Screen with Reflex Reviewed date:07/29/2024 01:54:52 PM Interpretation: Performing Lab: Notes/Report: Opiates Detected Not Detected Oxycodone Detected Not Detected Buprenorphine Not Detected Not Detected EDDP Not Detected Benzodiazepines Not Detected Not Detected Amphetamine Not Detected Not Detected Methamphetamine Not Detected Barbiturates Not Detected Not Detected Tricyclic Antidepressants Not Detected Not Detected Cannabinoids Detected Not Detected Cocaine Not Detected Not Detected Phencyclidine Not Detected Not Detected Creatinine Normal Not Detected Oxidant Not Detected Not Detected Creatinine, Qnt 216 Specific [place], Qnt 1.013 1.003 - 1.030 pH, Qnt 6.5 3.0 - 11.0 Oxidant, Qnt -8 MDC (Confirm only) Reviewed date:07/29/2024 01:54:52 PM Interpretation: Performing Lab: Notes/Report: 5-7 days 3-5+ days Codeine Not Detected Not Detected Norcodeine Not Detected Not Detected Hydrocodone Not Detected Not Detected Norhydrocodone Not Detected Not Detected Hydromorphone Not Detected Not Detected Oxycodone >1000 < 50 Noroxycodone >1000 < 50 Oxymorphone >1000 < 50 Buprenorphine Not Detected Not Detected Norbuprenorphine Not Detected Not Detected Fentanyl Not Detected Not Detected Norfentanyl Not Detected Not Detected Tramadol Not Detected Not Detected O-Desmethyltramadol Not Detected Not Detected Alprazolam Not Detected Not Detected Alpha-Hydroxyalprazolam Not Detected Not Detected Clonazepam Not Detected Not Detected 7-Aminoclonazepam Not Detected Not Detected Diazepam Not Detected Not Detected Nordiazepam Not Detected Not Detected Lorazepam Not Detected Not Detected Temazepam Not Detected Not Detected Amphetamine Not Detected Not Detected Methamphetamine Not Detected Not Detected Cyclobenzaprine Not Detected Not Detected Carisoprodol Not Detected Not Detected Meprobamate Not Detected Not Detected Gabapentin Not Detected Not Detected Pregabalin Not Detected Not Detected [id number] 174 < 25 Benzoylecgonine Not Detected Not Detected Zolpidem Not Detected Not Detected Carboxyzolpidem Not Detected Cotinine Not Detected Not Detected Ethyl Sulfate Not Detected Not Detected Morphine Not Detected Not Detected Oxycodone, Interp Consistent Consistent Noroxycodone, Interp Consistent Consistent Oxymorphone, Interp Consistent Consistent Buprenorphine, Interp Review Consistent Norbuprenorphine, Interp Inconsistent Consistent Oxazepam Not Detected Not Detected [id number]-[id number], Interp Inconsistent Consistent Cotinine, Quant 0 Reflex Confirmation of Meds [id number] BUP Confirmation Reviewed date:07/29/2024 01:54:52 PM Interpretation: Performing Lab: Notes/Report: 3-5+ days Buprenorphine Not Detected Not Detected Norbuprenorphine Not Detected Not Detected Naloxone Not Detected Not Detected Buprenorphine, Interp Review Consistent Norbuprenorphine, Interp Inconsistent Consistent Naloxone, Interp Review Consistent METHD Confirmation Reviewed date:07/29/2024 01:54:52 PM Interpretation: Performing Lab: Notes/Report: Methadone Not Detected Not Detected EDDP Not Detected Not Detected NALTREX Confirmation Reviewed date:07/29/2024 01:54:52 PM Interpretation: Performing Lab: Notes/Report: Naltrexone Not Detected Not Detected MEPER Confirmation Reviewed date:07/29/2024 01:54:52 PM Interpretation: Performing Lab: Notes/Report: Meperidine Not Detected Not Detected Normeperidine Not Detected Not Detected TAP Confirmation Reviewed date:07/29/2024 01:54:52 PM Interpretation: Performing Lab: Notes/Report: Tapentadol Not Detected Not Detected R-[id number]-[id number] Not Detected Not Detected 6-TANYA Confirmation Reviewed date:07/29/2024 01:54:52 PM Interpretation: Performing Lab: Notes/Report: An exception occurred while processing this report and so it has incomplete data. Please contact [employer] for assistance. 6-Monoacetylmorphine Not Detected Not Detected Reason For Referral No Information Medications Medication SIG (Take, Route, Frequency, Duration) Notes Start Date End Date Status Atorvastatin Calcium Active Ketorolac Tromethamine 30 MG/ML 0.5 mL as needed Intramuscular every 6 hrs for 5 days 30mg and adjust the dose to .5mL 11/02/2024 Active Movantik 12.5 MG 1 tablet in the morning Orally Once a day for 30 day(s) Active Baclofen 10 MG 1 tablet as needed Orally Twice a day for 90 days Active OxyCONTIN 60 MG 1 tablet Orally 2 am , 1 afternoon, 2 at bedtime for 90 days Active Ketorolac Tromethamine 15 MG/ML 1 mL as needed Injection one weekly for 28 days prn pain exacerbations, Vials 10/26/2024 Active Testosterone Active Viagra Active Ketorolac Active Movantik Active Lisinopril Active Cyanocobalamin Activ e Problems Problem Type SNOMED Code ICD Code Onset Dates Problem Status W/U Status Risk Notes Problem Hyperlipidemia (39240800) Hyperlipidemia, unspecified (E78.5) Active confirmed Problem Essential hypertension (65429507) Essential (primary) hypertension (I10) Active confirmed Problem Solitary sacroiliitis (071356826) Sacroiliitis, not elsewhere classified (M46.1) Active confirmed Problem Chronic pain syndrome (654863062) Chronic Pain Syndrome (G89.4) Active confirmed Problem Post-laminectomy syndrome (21289981) Postlaminectomy syndrome, not elsewhere classified (M96.1) Active confirmed Problem Lumbar radiculopathy (361830714) Radiculopathy, lumbar region (M54.16) Active confirmed Problem Cervical radiculopathy (60283394) Radiculopathy, cervical region (M54.12) Active confirmed Vital Signs Heart Rate 55 /min 10/26/2024 Temperature 97.1 degrees Fahrenheit 10/26/2024 Respiratory Rate 16 /min 10/26/2024 Blood pressure diastolic 100 mm Hg 10/26/2024 Oximetry 100 % 10/26/2024 Height 67 in 10/26/2024 Blood pressure systolic 143 mm Hg 10/26/2024 Weight 167 lbs 10/26/2024 BMI 26.15 kg/m2 10/26/2024 Encounters Encounter Location Date Provider Diagnosis Michelleraquel Ryland [address] [facility] [address] [place] [id number] 11/18/2023 Claus Meek Chronic Pain Syndrom e G89.4 ; Postlaminectomy syndrome, not elsewhere classified M96.1 ; Sacroiliitis, not elsewhere classified M46.1 ; Radiculopathy, lumbar region M54.16 ; Radiculopathy, cervical region M54.12 ; Essential (primary) hypertension I10 ; Hyperlipidemia, unspecified E78.5 ; Encounter for screening for depression Z13.31 and Drug induced constipation K59.[address] [place], [place] [phone] 12/12/2023 Claus Gaviota Chronic Pain Syndrom e G89.4 ; Sacroiliitis, not elsewhere classified M46.1 ; Radiculopathy, lumbar region M54.16 ; Radiculopathy, cervical region M54.12 ; Essential (primary) hypertension I10 ; Hyperlipidemia, unspecified E78.5 ; Encounter for screening for depression Z13.31 ; Drug induced constipation K59.03 and Postlaminectomy syndrome, not elsewhere classified M96.1 [facility] Vitaly Freeman [address] [place] [address] [address] [place] [address] 01/08/2024 Claus Gaviota Chronic Pain Syndrom e G89.4 ; Sacroiliitis, not elsewhere classified M46.1 ; Radiculopathy, lumbar region M54.16 ; Radiculopathy, cervical region M54.12 ; Essential (primary) hypertension I10 ; Hyperlipidemia, unspecified E78.5 ; Encounter for screening for depression Z13.31 ; Drug induced constipation K59.03 and Postlaminectomy syndrome, not elsewhere classified M96.[address] [place], [place] [phone] 02/03/2024 Claus Gaviota Chronic Pain Syndrom e G89.4 ; Sacroiliitis, not elsewhere classified M46.1 ; Radiculopathy, lumbar region M54.16 ; Radiculopathy, cervical region M54.12 ; Essential (primary) hypertension I10 ; Hyperlipidemia, unspecified E78.5 ; Encounter for screening for depression Z13.31 ; Drug induced constipation K59.03 and Postlaminectomy syndrome, not elsewhere classified M96.[address] [place] [id number] 02/25/2024 Claus Gaviota Chronic Pain Syndrom e G89.4 ; Sacroiliitis, not elsewhere classified M46.1 ; Radiculopathy, lumbar region M54.16 ; Radiculopathy, cervical region M54.12 ; Essential (primary) hypertension I10 ; Hyperlipidemia, unspecified E78.5 ; Encounter for screening for depression Z13.31 ; Drug induced constipation K59.03 and Postlaminectomy syndrome, not elsewhere classified M96.[address] [place], [place] [id number] 03/26/2024 Claus Gaviota Chronic Pain Syndrom e G89.4 ; Sacroiliitis, not elsewhere classified M46.1 ; Radiculopathy, lumbar region M54.16 ; Radiculopathy, cervical region M54.12 ; Essential (primary) hypertension I10 ; Hyperlipidemia, unspecified E78.5 ; Encounter for screening for depression Z13.31 ; Drug induced constipation K59.03 and Postlaminectomy syndrome, not elsewhere classified M96.[address] [place], [place] [id number] 04/16/2024 Claus Gaviota Chronic Pain Syndrom e G89.4 ; Sacroiliitis, not elsewhere classified M46.1 ; Radiculopathy, lumbar region M54.16 ; Radiculopathy, cervical region M54.12 ; Essential (primary) hypertension I10 ; Hyperlipidemia, unspecified E78.5 ; Encounter for screening for depression Z13.31 ; Drug induced constipation K59.03 and Postlaminectomy syndrome, not elsewhere classified M96.[address] [place], [place] [id number] 05/12/2024 Freida Rollins Chronic Pain Syndrom e G89.4 ; Sacroiliitis, not elsewhere classified M46.1 ; Radiculopathy, lumbar region M54.16 ; Radiculopathy, cervical region M54.12 ; Essential (primary) hypertension I10 ; Hyperlipidemia, unspecified E78.5 ; Encounter for screening for depression Z13.31 ; Drug induced constipation K59.03 and Postlaminectomy syndrome, not elsewhere classified M96.1 [facility] [address] [place] [address] [address] [place], [place] [id number] 06/10/2024 Freida Ayo Chronic Pain Syndrom e G89.4 ; Sacroiliitis, not elsewhere classified M46.1 ; Radiculopathy, lumbar region M54.16 ; Radiculopathy, cervical region M54.12 ; Essential (primary) hypertension I10 ; Hyperlipidemia, unspecified E78.5 ; Encounter for screening for depression Z13.31 ; Drug induced constipation K59.03 and Postlaminectomy syndrome, not elsewhere classified M96.[address] [place] [id number] 07/08/2024 Freida Ayo Chronic Pain Syndrom e G89.4 ; Sacroiliitis, not elsewhere classified M46.1 ; Radiculopathy, lumbar region M54.16 ; Radiculopathy, cervical region M54.12 ; Essential (primary) hypertension I10 ; Hyperlipidemia, unspecified E78.5 ; Drug induced constipation K59.03 and Postlaminectomy syndrome, not elsewhere classified M96.[address] [place] [id number] 08/04/2024 Freida Ayo Chronic Pain Syndrom e G89.4 ; Sacroiliitis, not elsewhere classified M46.1 ; Radiculopathy, lumbar region M54.16 ; Radiculopathy, cervical region M54.12 ; Essential (primary) hypertension I10 ; Hyperlipidemia, unspecified E78.5 ; Drug induced constipation K59.03 and Postlaminectomy syndrome, not elsewhere classified M96.[address] [place] [id number] 08/25/2024 Freida Ayo Chronic Pain Syndrom e G89.4 ; 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 terminal 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 of opiate analgesic Z79.891 ; Sacroiliitis, not elsewhere classified M46.1 ; Radiculopathy, lumbar region M54.16 ; Radiculopathy, cervical region M54.12 ; Essential (primary) hypertension I10 ; Hyperlipidemia, unspecified E78.5 ; Drug induced constipation K59.03 and Postlaminectomy syndrome, not elsewhere classified M96.[address] [place], [place] [id number] 09/18/2024 Freida Ayo Chronic Pain Syndrom e G89.4 ; technician terminal 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 of opiate analgesic Z79.891 ; Sacroiliitis, not elsewhere classified M46.1 ; Radiculopathy, lumbar region M54.16 ; Radiculopathy, cervical region M54.12 ; Essential (primary) hypertension I10 ; Hyperlipidemia, unspecified E78.5 ; Drug induced constipation K59.03 and Postlaminectomy syndrome, not elsewhere classified M96.[address] [place], [place] [id number] 10/05/2024 Freida Ayo Chronic Pain Syndrom e G89.4 ; technician terminal 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 of opiate analgesic Z79.891 ; Sacroiliitis, not elsewhere classified M46.1 ; Radiculopathy, lumbar region M54.16 ; Radiculopathy, cervical region M54.12 ; Essential (primary) hypertension I10 ; Hyperlipidemia, unspecified E78.5 ; Drug induced constipation K59.03 and Postlaminectomy syndrome, not elsewhere classified M96.[address] [place], [place] [id number] 10/26/2024 Freida Ayo Chronic Pain Syndrom e G89.4 ; intermediate (current) use of opiate analgesic Z79.891 ; Sacroiliitis, not elsewhere classified M46.1 ; Radiculopathy, lumbar region M54.16 ; Radiculopathy, cervical region M54.12 ; Essential (primary) hypertension I10 ; Hyperlipidemia, unspecified E78.5 ; Drug induced constipation K59.03 and Postlaminectomy syndrome, not elsewhere classified M96.[address] [place], [place] [id number] 12/14/2023 Claus Meek [address] [place], [place] [id number] 02/03/2024 Claus Gaviota Postlaminectomy syndrome, not elsewhere classified M96.1 Sepa [facility]ors[facility] [address] [place], [place] [id number] 02/07/2024 Claus Gaviota [facility] [place] [address] [place], [place] [id number] 02/26/2024 [facility] [address] [place], [place] [id number] 02/28/2024 Freida Ayo [facility] [place] [address] [place] [id number] 03/26/2024 Claus Gaviota [facility] [place] [address] [place] [id number] 03/30/2024 Claus Gaviota [facility] [place] [address] [place] [id number] 04/17/2024 Claus Gaviota [facility] [place] [address] [place] [id number] 04/19/2024 Claus Gaviota Postlaminectomy syndrome, not elsewhere classified M96.1 Sepa [place] [address] [place], [place] [id number] 04/20/2024 Claus Gaviota Postlaminectomy syndrome, not elsewhere classified M96.1 Sepa [place] [address] [place], [place] [id number] 04/20/2024 Claus Gaviota [facility] [place] [address] [place] [id number] 05/04/2024 Claus Gaviota [facility] [place] [address] [place] [id number] 05/12/2024 Claus Gaviota [facility] [place] [address] [place] [id number] 05/14/2024 Freida Ayo Postlaminectomy syndrome, not elsewhere classified M96.1 Sepa [place] [address] [place], [place] [id number] 05/15/2024 Freida Ayo Postlaminectomy syndrome, not elsewhere classified M96.1 [place] [address] [facility] [address] [place] Marcelino [id number] 06/10/2024 Claus Gaviota [facility] [place] [address] [facility] [id number] 07/08/2024 Claus Gaviota [facility] [place] [address] [facility] [address] [place] [id number] 08/25/2024 Claus Gaviota Postlaminectomy syndrome, not elsewhere classified M96.1 [facility] [place] [address] [place] [id number] 08/25/2024 Claus Gaviota Postlaminectomy syndrome, not elsewhere classified M96.1 [facility] [place] [address] [facility] [id number] 08/31/2024 Claus Gaviota Postlaminectomy syndrome, not elsewhere classified M96.1 [facility] [place] [address] [facility] [id number] 09/01/2024 Claus Gaviota [facility] [place] [address] [place] [id number] 09/01/2024 Claus Gaviota [facility] [place] [address] [facility] [address] [place] Marcelino [id number] 09/18/2024 Claus Gaviota Postlaminectomy syndrome, not elsewhere classified M96.1 [facility] [place] [address] [facility] [id number] 10/26/2024 Freida Rollins [facility] [place] [address] [place] [id number] 10/26/2024 Claus Meek Chronic Pain Syndrom e G89.4 and intermediate (current) use of opiate analgesic Z79.891 [facility] [place] [address] [facility] [id number] 10/28/2024 Clausteto Meek [facility] [place] [address] [place] [id number] 11/02/2024 Freida Rollins [facility] [place] [address] [facility] [id number] 11/18/2023 Claus Gaviota [facility] [place] [address] [facility] [id number] 12/14/2023 Claus Gaviota [facility] [place] [address] [place] [id number] 12/16/2023 Claus Gaviota [facility] [place] [address] [place], [place] [id number] 12/16/2023 Claus Gaviota [facility] [place] [address] [place] [id number] 12/16/2023 Claus Gaviota [facility] [place] [address] [place] [id number] 02/27/2024 Claus Gaviota Postlaminectomy syndrome, not elsewhere classified M96.1 [facility] [place] [address] [place], [place] [id number] 02/27/2024 Freida Ayo Postlaminectomy syndrome, not elsewhere classified M96.1 [facility] [place] [address] [place], [place] [id number] 02/27/2024 Claus Gaviota [facility] [place] [address] [place] [id number] 03/01/2024 Claus Gaviota Postlaminectomy syndrome, not elsewhere classified M96.1 [facility] [place] [address] [place], [place] [id number] 03/22/2024 Claus Gaviota Postlaminectomy syndrome, not elsewhere classified M96.1 [facility] [place] [address] [place] [id number] 04/17/2024 Claus Gaviota [facility] [place] [address] [place] [id number] 04/20/2024 Claus Gaviota [facility] [place] [address] [place] [id number] 04/22/2024 Claus Gaviota [facility] [place] [address] [place] [id number] 06/05/2024 Claus Gaviota Postlaminectomy syndrome, not elsewhere classified M96.1 [facility] [place] [address] [place] [id number] 06/07/2024 Freida Ayo Postlaminectomy syndrome, not elsewhere classified M96.1 [facility] [place] [address] [place], [place] [id number] 06/08/2024 Claus Meek [place] [address] [place] [id number] 06/08/2024 Claus Meek [place] [address] [place] [id number] 06/08/2024 Claus Meek [place] [address] [place] [id number] 06/13/2024 Claus Meek [place] [address] [place] [id number] 07/08/2024 Claus Meek [place] [address] [place] [id number] 09/01/2024 Claus Meek [facility] [place] [address] [place], [place] [id number] 10/31/2024 Freidaalessandra Calderonari Postlaminectomy syndrome, not elsewhere classified M96.1 [facility] [place] [address] [place], [place] [id number] 11/12/2024 Claus Meek Assessments Encounter Date Diagnosis (ICD Code) Assessment Notes Treatment Notes Treatment Clinical Notes Section Notes 12/12/2023 Chronic Pain Syndrome (ICD-10 - G89.4) Discussed low dose ketamine infusions for opioid induced hyperalgesia and chronic pain syndrome. Patient would be an appropriate candidate. 01/08/2024 Chronic Pain Syndrome (ICD-10 - G89.4) Discussed low dose ketamine infusions for opioid induced hyperalgesia and chronic pain syndrome. Patient would be an appropriate candidate. 02/03/2024 Chronic Pain Syndrome (ICD-10 - G89.4) Discussed low dose ketamine infusions for opioid induced hyperalgesia and chronic pain syndrome. Patient would be an appropriate candidate. 02/25/2024 Chronic Pain Syndrome (ICD-10 - G89.4) Discussed low dose ketamine infusions for opioid induced hyperalgesia and chronic pain syndrome. Patient would be an appropriate candidate. 02/27/2024 Postlaminectomy syndrome, not elsewhere classified (ICD-10 - M96.1) 02/27/2024 Postlaminectomy syndrome, not elsewhere classified (ICD-10 - M96.1) 03/26/2024 Chronic Pain Syndrome (ICD-10 - G89.4) Patient is considering using marijuana, advised patient the risks and benefits of MMJ use. Discussed low dose ketamine infusions for opioid induced hyperalgesia and chronic pain syndrome. Patient would be an appropriate candidate. 04/16/2024 Chronic Pain Syndrome (ICD-10 - G89.4) Patient reports benefit with MMJ, states he uses a part of an edible at 8pm at night and it helps him sleep through the night. Advised patient the risks and benefits of MMJ use. Discussed low dose ketamine infusions for opioid induced hyperalgesia and chronic pain syndrome. Patient would be an appropriate candidate. 04/19/2024 Postlaminectomy syndrome, not elsewhere classified (ICD-10 - M96.1) 05/15/2024 Postlaminectomy syndrome, not elsewhere classified (ICD-10 - M96.1) 07/08/2024 Chronic Pain Syndrome (ICD-10 - G89.4) The patient will continue with the present analgesic regimen. No evidence of diversion or abuse. Reynaldo SHIPLEY queried and is consistent with the patients prescriptions. He is not unable to use marijuana if he works for [employer]. He is looking at the [employer] [facility] as alternative. As he is not on marijuana at bedtime can trial Baclofen then hew has from an older prescription. 08/04/2024 Chronic Pain Syndrome (ICD-10 - G89.4) The patient will continue with the present analgesic regimen. No evidence of diversion or abuse. Reynaldo SHIPLEY queried and is consistent with the patients prescriptions. He is not unable to use marijuana if he works for [employer]. He is looking at the [employer] as alternative. As he is not on marijuana at bedtime can trial Baclofen then hew has from an older prescription. 10/26/2024 Chronic Pain Syndrome (ICD-10 - G89.4) The patient will continue with the present analgesic regimen. No evidence of diversion or abuse. Reynaldo SHIPLEY queried and is consistent with the patients prescriptions. He is not unable to use marijuana if he works for [employer]. He is looking at the [employer] as alternative. As he is not on marijuana at bedtime can trial Baclofen then hew has from an older prescription. UDS 08/25/24 consistent -Belbuca 10/26/2024 Chronic Pain Syndrome (ICD-10 - G89.4) 10/31/2024 Postlaminectomy syndrome, not elsewhere classified (ICD-10 - M96.1) 06/10/2024 Chronic Pain Syndrome (ICD-10 - G89.4) The patient will continue with the present analgesic regimen. No evidence of diversion or abuse. [employer] queried and is consistent with the patients prescriptions. 05/14/2024 Postlaminectomy syndrome, not elsewhere classified (ICD-10 - M96.1) 05/12/2024 Chronic Pain Syndrome (ICD-10 - G89.4) Patient reports benefit with MMJ, states he uses a part of an edible at 8pm at night and it helps him sleep through the night. Advised patient the risks and benefits of MMJ use. Discussed low dose ketamine infusions for opioid induced hyperalgesia and chronic pain syndrome. Patient would be an appropriate candidate. 04/20/2024 Postlaminectomy syndrome, not elsewhere classified (ICD-10 - M96.1) 03/22/2024 Postlaminectomy syndrome, not elsewhere classified (ICD-10 - M96.1) 03/01/2024 Postlaminectomy syndrome, not elsewhere classified (ICD-10 - M96.1) 02/03/2024 Postlaminectomy syndrome, not elsewhere classified (ICD-10 - M96.1) 11/18/2023 Chronic Pain Syndrome (ICD-10 - G89.4) Discussed low dose ketamine infusions for opioid induced hyperalgesia and chronic pain syndrome. Patient would be an appropriate candidate. 10/05/2024 Chronic Pain Syndrome (ICD-10 - G89.4) The patient will continue with the present analgesic regimen. No evidence of diversion or abuse. Pa DMP queried and is consistent with the patients prescriptions. He is not unable to use marijuana if he works for [employer]. He is looking at [facility] [employer] as alternative. As he is not on marijuana at bedtime can trial Baclofen then hew has from an older prescription. UDS 08/25/24 consistent -Belbuca 09/18/2024 Postlaminectomy syndrome, not elsewhere classified (ICD-10 - M96.1) 09/18/2024 Chronic Pain Syndrome (ICD-10 - G89.4) The patient will continue with the present analgesic regimen. No evidence of diversion or abuse. Reynaldo SHIPLEY queried and is consistent with the patients prescriptions. He is not unable to use marijuana if he works for [employer]. He is looking at the [employer] [facility] as alternative. As he is not on marijuana at bedtime can trial Baclofen then hew has from an older prescription. UDS 06/10/24 consistent, A urine drug screen was obtained today (08/25/24) for monitoring of a patient with a history of high dose oxycodone ( 450 MME). 08/31/2024 Postlaminectomy syndrome, not elsewhere classified (ICD-10 - M96.1) 08/25/2024 Postlaminectomy syndrome, not elsewhere classified (ICD-10 - M96.1) 08/25/2024 Postlaminectomy syndrome, not elsewhere classified (ICD-10 - M96.1) 06/07/2024 Postlaminectomy syndrome, not elsewhere classified (ICD-10 - M96.1) 06/05/2024 Postlaminectomy syndrome, not elsewhere classified (ICD-10 - M96.1) 08/25/2024 Chronic Pain Syndrome (ICD-10 - G89.4) The patient will continue with the present analgesic regimen. No evidence of diversion or abuse. Reynaldo SHIPLEY queried and is consistent with the patients prescriptions. He is not unable to use marijuana if he works for [employer]. He is looking at the [employer] as alternative. As he is not on marijuana at bedtime can trial Baclofen then hew has from an older prescription. UDS 06/10/24 consistent, A urine drug screen was obtained today (08/25/24) for monitoring of a patient with a history of high dose oxycodone ( 450 MME). 08/25/2024 technician terminal 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 of opiate analgesic (ICD-10 - Z79.891) 09/18/2024 intermediate (current) use of opiate analgesic (ICD-10 - Z79.891) 10/05/2024 intermediate (current) use of opiate analgesic (ICD-10 - Z79.891) 11/18/2023 Postlaminectomy syndrome, not elsewhere classified (ICD-10 - M96.1) He has a history of 4 failed lumbar surgeries. He has tried and failed multiple injection and other interventional therapies. Continue Oxycontin- patient reports better relief with long acting. Will allow increase to 80MG TID Last visit Dr Meek decreased the Oxycodone- decreasing short acting med to account for increase in Oxycontin. Belbuca d/c due to insurance coverage issues Discussed possibly rotating to oxymorphone as patient has used with benefit in the past. Current dose of oxycodone would be equivalent to 50 MG/day of Oxymorphone (without reduction for cross-tolerance) 10/25/23 UDS is consistent t/c SCS trial, however the patient knows 2 people who did poorly so is not interested 11/18/2023 Sacroiliitis, not elsewhere classified (ICD-10 - M46.1) History of many SI joint injections done by previous pain management practices. On exam, he has classic findings for SI joint dysfunction, including +fortins, +fabers, +pelvic rock, +thigh thrust, +pelvic compression. Would consider repeat diagnostic b/l SI joint injections to determine if patient is a candidate for Transloc. 05/12/2024 Sacroiliitis, not elsewhere classified (ICD-10 - M46.1) History of many SI joint injections done by previous pain management practices. On exam, he has classic findings for SI joint dysfunction, including +fortins, +fabers, +pelvic rock, +thigh thrust, +pelvic compression. Would consider repeat diagnostic b/l SI joint injections to determine if patient is a candidate for Transloc. He can schedule prn. He presented several record of previous SI joint injections spanning from [id number] on 03/26/2024 Briefly discussed risks and benefits of the Transloc procedure, provided brochure previously 06/10/2024 Sacroiliitis, not elsewhere classified (ICD-10 - M46.1) History of many SI joint injections done by previous pain management practices. On exam, he has classic findings for SI joint dysfunction, including +fortins, +fabers, +pelvic rock, +thigh thrust, +pelvic compression. Would consider repeat diagnostic b/l SI joint injections to determine if patient is a candidate for Transloc. He can schedule prn. He presented several record of previous SI joint injections spanning from [id number] on 03/26/2024 Briefly discussed risks and benefits of the Transloc procedure, provided brochure previously 10/26/2024 intermediate (current) use of opiate analgesic (ICD-10 - Z79.891) 10/26/2024 technician terminal 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 of opiate analgesic (ICD-10 - Z79.891) 08/04/2024 Sacroiliitis, not elsewhere classified (ICD-10 - M46.1) History of many SI joint injections done by previous pain management practices. On exam, he has classic findings for SI joint dysfunction, including +fortins, +fabers, +pelvic rock, +thigh thrust, +pelvic compression. Would consider repeat diagnostic b/l SI joint injections to determine if patient is a candidate for Transloc. He can schedule prn. He presented several record of previous SI joint injections spanning from [id number] on 03/26/2024 Briefly discussed risks and benefits of the Transloc procedure, provided brochure previously 07/08/2024 Sacroiliitis, not elsewhere classified (ICD-10 - M46.1) History of many SI joint injections done by previous pain management practices. On exam, he has classic findings for SI joint dysfunction, including +fortins, +fabers, +pelvic rock, +thigh thrust, +pelvic compression. Would consider repeat diagnostic b/l SI joint injections to determine if patient is a candidate for Transloc. He can schedule prn. He presented several record of previous SI joint injections spanning from [id number] on 03/26/2024 Briefly discussed risks and benefits of the Transloc procedure, provided brochure previously 04/16/2024 Sacroiliitis, not elsewhere classified (ICD-10 - M46.1) History of many SI joint injections done by previous pain management practices. On exam, he has classic findings for SI joint dysfunction, including +fortins, +fabers, +pelvic rock, +thigh thrust, +pelvic compression. Would consider repeat diagnostic b/l SI joint injections to determine if patient is a candidate for Transloc. He can schedule prn. He presented several record of previous SI joint injections spanning from on 03/26/2024 Briefly discussed risks and benefits of the Transloc procedure, provided brochure previously 03/26/2024 Sacroiliitis, not elsewhere classified (ICD-10 - M46.1) History of many SI joint injections done by previous pain management practices. On exam, he has classic findings for SI joint dysfunction, including +fortins, +fabers, +pelvic rock, +thigh thrust, +pelvic compression. Would consider repeat diagnostic b/l SI joint injections to determine if patient is a candidate for Transloc. He can schedule prn. He presented several record of previous SI joint injections spanning from [phone] today 03/26/2024 Briefly discussed risks and benefits of the Transloc procedure, provided brochure previously 02/25/2024 Sacroiliitis, not elsewhere classified (ICD-10 - M46.1) History of many SI joint injections done by previous pain management practices. On exam, he has classic findings for SI joint dysfunction, including +fortins, +fabers, +pelvic rock, +thigh thrust, +pelvic compression. Would consider repeat diagnostic b/l SI joint injections to determine if patient is a candidate for Transloc. He can schedule prn. Briefly discussed risks and benefits of the Transloc procedure, provided brochure today, 02/03/24. 02/03/2024 Sacroiliitis, not elsewhere classified (ICD-10 - M46.1) History of many SI joint injections done by previous pain management practices. On exam, he has classic findings for SI joint dysfunction, including +fortins, +fabers, +pelvic rock, +thigh thrust, +pelvic compression. Would consider repeat diagnostic b/l SI joint injections to determine if patient is a candidate for Transloc. He can schedule prn. Briefly discussed risks and benefits of the Transloc procedure, provided brochure today, 02/03/24. 01/08/2024 Sacroiliitis, not elsewhere classified (ICD-10 - M46.1) History of many SI joint injections done by previous pain management practices. On exam, he has classic findings for SI joint dysfunction, including +fortins, +fabers, +pelvic rock, +thigh thrust, +pelvic compression. Would consider repeat diagnostic b/l SI joint injections to determine if patient is a candidate for Transloc. 12/12/2023 Sacroiliitis, not elsewhere classified (ICD-10 - M46.1) History of many SI joint injections done by previous pain management practices. On exam, he has classic findings for SI joint dysfunction, including +fortins, +fabers, +pelvic rock, +thigh thrust, +pelvic compression. Would consider repeat diagnostic b/l SI joint injections to determine if patient is a candidate for Transloc. 12/12/2023 Radiculopathy, lumbar region (ICD-10 - M54.16) Patient continues to report B/L leg pain and numbness s/p 4 lumbar sx 01/08/2024 Radiculopathy, lumbar region (ICD-10 - M54.16) Patient continues to report B/L leg pain and numbness s/p 4 lumbar sx 02/03/2024 Radiculopathy, lumbar region (ICD-10 - M54.16) Patient continues to report B/L leg pain and numbness s/p 4 lumbar sx 02/25/2024 Radiculopathy, lumbar region (ICD-10 - M54.16) Patient continues to report B/L leg pain and numbness s/p 4 lumbar sx 03/26/2024 Radiculopathy, lumbar region (ICD-10 - M54.16) Patient continues to report B/L leg pain and numbness s/p 4 lumbar sx 04/16/2024 Radiculopathy, lumbar region (ICD-10 - M54.16) Patient continues to report B/L leg pain and numbness s/p 4 lumbar sx 07/08/2024 Radiculopathy, lumbar region (ICD-10 - M54.16) Patient continues to report B/L leg pain and numbness s/p 4 lumbar sx 08/04/2024 Radiculopathy, lumbar region (ICD-10 - M54.16) Patient continues to report B/L leg pain and numbness s/p 4 lumbar sx 10/26/2024 Sacroiliitis, not elsewhere classified (ICD-10 - M46.1) History of many SI joint injections done by previous pain management practices. On exam, he has classic findings for SI joint dysfunction, including +fortins, +fabers, +pelvic rock, +thigh thrust, +pelvic compression. Would consider repeat diagnostic b/l SI joint injections to determine if patient is a candidate for Transloc. He can schedule prn. He presented several record of previous SI joint injections spanning from [id number] on 03/26/2024 Briefly discussed risks and benefits of the Transloc procedure, provided brochure previously 06/10/2024 Radiculopathy, lumbar region (ICD-10 - M54.16) Patient continues to report B/L leg pain and numbness s/p 4 lumbar sx 05/12/2024 Radiculopathy, lumbar region (ICD-10 - M54.16) Patient continues to report B/L leg pain and numbness s/p 4 lumbar sx 11/18/2023 Radiculopathy, lumbar region (ICD-10 - M54.16) Patient continues to report B/L leg pain and numbness s/p 4 lumbar sx 10/05/2024 Sacroiliitis, not elsewhere classified (ICD-10 - M46.1) History of many SI joint injections done by previous pain management practices. On exam, he has classic findings for SI joint dysfunction, including +fortins, +fabers, +pelvic rock, +thigh thrust, +pelvic compression. Would consider repeat diagnostic b/l SI joint injections to determine if patient is a candidate for Transloc. He can schedule prn. He presented several record of previous SI joint injections spanning from 6836-1419 on 03/26/2024 Briefly discussed risks and benefits of the Transloc procedure, provided brochure previously 09/18/2024 Sacroiliitis, not elsewhere classified (ICD-10 - M46.1) History of many SI joint injections done by previous pain management practices. On exam, he has classic findings for SI joint dysfunction, including +fortins, +fabers, +pelvic rock, +thigh thrust, +pelvic compression. Would consider repeat diagnostic b/l SI joint injections to determine if patient is a candidate for Transloc. He can schedule prn. He presented several record of previous SI joint injections spanning from 6431-0740 on 03/26/2024 Briefly discussed risks and benefits of the Transloc procedure, provided brochure previously 08/25/2024 Sacroiliitis, not elsewhere classified (ICD-10 - M46.1) History of many SI joint injections done by previous pain management practices. On exam, he has classic findings for SI joint dysfunction, including +fortins, +fabers, +pelvic rock, +thigh thrust, +pelvic compression. Would consider repeat diagnostic b/l SI joint injections to determine if patient is a candidate for Transloc. He can schedule prn. He presented several record of previous SI joint injections spanning from 1148-2376 on 03/26/2024 Briefly discussed risks and benefits of the Transloc procedure, provided brochure previously 09/18/2024 Radiculopathy, lumbar region (ICD-10 - M54.16) Patient continues to report B/L leg pain and numbness s/p 4 lumbar sx 08/25/2024 Radiculopathy, lumbar region (ICD-10 - M54.16) Patient continues to report B/L leg pain and numbness s/p 4 lumbar sx 10/05/2024 Radiculopathy, lumbar region (ICD-10 - M54.16) Patient continues to report B/L leg pain and numbness s/p 4 lumbar sx 11/18/2023 Radiculopathy, cervical region (ICD-10 - M54.12) Neck and left UE radicular pain 05/12/2024 Radiculopathy, cervical region (ICD-10 - M54.12) Neck and left UE radicular pain. Recommended home cervical traction. 06/10/2024 Radiculopathy, cervical region (ICD-10 - M54.12) Neck and left UE radicular pain. Recommended home cervical traction. 10/26/2024 Radiculopathy, lumbar region (ICD-10 - M54.16) Patient continues to report B/L leg pain and numbness s/p 4 lumbar sx 08/04/2024 Radiculopathy, cervical region (ICD-10 - M54.12) Neck and left UE radicular pain. Recommended home cervical traction. 07/08/2024 Radiculopathy, cervical region (ICD-10 - M54.12) Neck and left UE radicular pain. Recommended home cervical traction. 04/16/2024 Radiculopathy, cervical region (ICD-10 - M54.12) Neck and left UE radicular pain. Recommended home cervical traction. 03/26/2024 Radiculopathy, cervical region (ICD-10 - M54.12) Neck and left UE radicular pain. Recommended home cervical traction. 02/25/2024 Radiculopathy, cervical region (ICD-10 - M54.12) Neck and left UE radicular pain. Recommended home cervical traction. 02/03/2024 Radiculopathy, cervical region (ICD-10 - M54.12) Neck and left UE radicular pain. Recommended home cervical traction. 01/08/2024 Radiculopathy, cervical region (ICD-10 - M54.12) Neck and left UE radicular pain. Recommended home cervical traction. 12/12/2023 Radiculopathy, cervical region (ICD-10 - M54.12) Neck and left UE radicular pain. Recommended home cervical traction. 12/12/2023 Essential (primary) hypertension (ICD-10 - I10) Reportedly stable on Lisinopril, ongoing follow up 01/08/2024 Essential (primary) hypertension (ICD-10 - I10) Reportedly stable on Lisinopril, ongoing follow up 02/03/2024 Essential (primary) hypertension (ICD-10 - I10) Reportedly stable on Lisinopril, ongoing follow up 02/25/2024 Essential (primary) hypertension (ICD-10 - I10) Reportedly stable on Lisinopril, ongoing follow up 03/26/2024 Essential (primary) hypertension (ICD-10 - I10) Reportedly stable on Lisinopril, ongoing follow up 04/16/2024 Essential (primary) hypertension (ICD-10 - I10) Reportedly stable on Lisinopril, ongoing follow up 07/08/2024 Essential (primary) hypertension (ICD-10 - I10) Reportedly stable on Lisinopril, ongoing follow up 08/04/2024 Essential (primary) hypertension (ICD-10 - I10) Reportedly stable on Lisinopril, ongoing follow up 10/26/2024 Radiculopathy, cervical region (ICD-10 - M54.12) Neck and left UE radicular pain. Recommended home cervical traction. 06/10/2024 Essential (primary) hypertension (ICD-10 - I10) Reportedly stable on Lisinopril, ongoing follow up 05/12/2024 Essential (primary) hypertension (ICD-10 - I10) Reportedly stable on Lisinopril, ongoing follow up 11/18/2023 Essential (primary) hypertension (ICD-10 - I10) Reportedly stable on Lisinopril, ongoing follow up 10/05/2024 Radiculopathy, cervical region (ICD-10 - M54.12) Neck and left UE radicular pain. Recommended home cervical traction. 08/25/2024 Radiculopathy, cervical region (ICD-10 - M54.12) Neck and left UE radicular pain. Recommended home cervical traction. 09/18/2024 Radiculopathy, cervical region (ICD-10 - M54.12) Neck and left UE radicular pain. Recommended home cervical traction. 09/18/2024 Essential (primary) hypertension (ICD-10 - I10) Reportedly stable on Lisinopril, ongoing follow up 08/25/2024 Essential (primary) hypertension (ICD-10 - I10) Reportedly stable on Lisinopril, ongoing follow up 10/05/2024 Essential (primary) hypertension (ICD-10 - I10) Reportedly stable on Lisinopril, ongoing follow up 11/18/2023 Hyperlipidemia, unspecified (ICD-10 - E78.5) Reportedly stable on Atorvastatin, ongoing follow up 05/12/2024 Hyperlipidemia, unspecified (ICD-10 - E78.5) Reportedly stable on Atorvastatin, ongoing follow up 06/10/2024 Hyperlipidemia, unspecified (ICD-10 - E78.5) Reportedly stable on Atorvastatin, ongoing follow up 10/26/2024 Essential (primary) hypertension (ICD-10 - I10) Reportedly stable on Lisinopril, ongoing follow up 08/04/2024 Hyperlipidemia, unspecified (ICD-10 - E78.5) Reportedly stable on Atorvastatin, ongoing follow up 07/08/2024 Hyperlipidemia, unspecified (ICD-10 - E78.5) Reportedly stable on Atorvastatin, ongoing follow up 04/16/2024 Hyperlipidemia, unspecified (ICD-10 - E78.5) Reportedly stable on Atorvastatin, ongoing follow up 03/26/2024 Hyperlipidemia, unspecified (ICD-10 - E78.5) Reportedly stable on Atorvastatin, ongoing follow up 02/25/2024 Hyperlipidemia, unspecified (ICD-10 - E78.5) Reportedly stable on Atorvastatin, ongoing follow up 02/03/2024 Hyperlipidemia, unspecified (ICD-10 - E78.5) Reportedly stable on Atorvastatin, ongoing follow up 01/08/2024 Hyperlipidemia, unspecified (ICD-10 - E78.5) Reportedly stable on Atorvastatin, ongoing follow up 12/12/2023 Hyperlipidemia, unspecified (ICD-10 - E78.5) Reportedly stable on Atorvastatin, ongoing follow up 12/12/2023 Encounter for screening for depression (ICD-10 - Z13.31) 01/08/2024 Encounter for screening for depression (ICD-10 - Z13.31) 02/25/2024 Encounter for screening for depression (ICD-10 - Z13.31) Patient mentioned being depressed after his last injection on did not work, he experienced sucicial idealation. He also notes with the upcoming season change to fall and winter his depression is increasing. 02/03/2024 Encounter for screening for depression (ICD-10 - Z13.31) Watchful waiting based on PHQ-9 score today. Will repeat the questionnaire during follow-up visit. Patient mentioned being depressed after his last injection on did not work, he experienced sucicial idealation. He also notes with the upcoming season change to fall and winter his depression is increasing. 03/26/2024 Encounter for screening for depression (ICD-10 - Z13.31) Patient mentioned being depressed after his last injection on did not work, he experienced sucicial idealation. He also notes with the upcoming season change to fall and winter his depression is increasing. 04/16/2024 Encounter for screening for depression (ICD-10 - Z13.31) Patient mentioned being depressed after his last injection on did not work, he experienced sucicial idealation. He also notes with the upcoming season change to fall and winter his depression is increasing. 07/08/2024 Drug induced constipation (ICD-10 - K59.03) 08/04/2024 Drug induced constipation (ICD-10 - K59.03) 10/26/2024 Hyperlipidemia, unspecified (ICD-10 - E78.5) Reportedly stable on Atorvastatin, ongoing follow up 06/10/2024 Encounter for screening for depression (ICD-10 - Z13.31) Patient mentioned being depressed after his last injection on did not work, he experienced sucicial idealation. He also notes with the upcoming season change to fall and winter his depression is increasing. 11/18/2023 Encounter for screening for depression (ICD-10 - Z13.31) 05/12/2024 Encounter for screening for depression (ICD-10 - Z13.31) Patient mentioned being depressed after his last injection on did not work, he experienced sucicial idealation. He also notes with the upcoming season change to fall and winter his depression is increasing. 10/05/2024 Hyperlipidemia, unspecified (ICD-10 - E78.5) Reportedly stable on Atorvastatin, ongoing follow up 09/18/2024 Hyperlipidemia, unspecified (ICD-10 - E78.5) Reportedly stable on Atorvastatin, ongoing follow up 08/25/2024 Hyperlipidemia, unspecified (ICD-10 - E78.5) Reportedly stable on Atorvastatin, ongoing follow up 08/25/2024 Drug induced constipation (ICD-10 - K59.03) 09/18/2024 Drug induced constipation (ICD-10 - K59.03) 10/05/2024 Drug induced constipation (ICD-10 - K59.03) 05/12/2024 Drug induced constipation (ICD-10 - K59.03) 11/18/2023 Drug induced constipation (ICD-10 - K59.03) 06/10/2024 Drug induced constipation (ICD-10 - K59.03) 10/26/2024 Drug induced constipation (ICD-10 - K59.03) 08/04/2024 Postlaminectomy syndrome, not elsewhere classified (ICD-10 - M96.1) Dr Meek sent in 90 day supply 06/08/2024 His brother is getting in September 2024, so the patient will be in town for that event. Discussed that with 90 SCRIPT strict adherence to no EARLY REFILLS and patient agrees to be regularly seen and provide UDS as required. Will start the 90 days in 2024 as the patient does not want to mess up the end of the month scripts. He has a history of 4 failed lumbar surgeries. He has tried and failed multiple injection and other interventional therapies. Stop Belbuca- patient not reporting benefit Continue Oxycontin- patient reports better relief with long acting. Decreased from 80mg to 60mg but increased dose with 2 in AM, 1 in PM, and 2 hs. He has stopped Oxycodone IR. 02/03/24 UDS and 10/25/23 UDS is consistent 04/16/2024 Drug induced constipation (ICD-10 - K59.03) 02/25/2024 Drug induced constipation (ICD-10 - K59.03) 03/26/2024 Drug induced constipation (ICD-10 - K59.03) 02/03/2024 Drug induced constipation (ICD-10 - K59.03) 01/08/2024 Drug induced constipation (ICD-10 - K59.03) 12/12/2023 Drug induced constipation (ICD-10 - K59.03) 12/12/2023 Postlaminectomy syndrome, not elsewhere classified (ICD-10 - M96.1) He has a history of 4 failed lumbar surgeries. He has tried and failed multiple injection and other interventional therapies. Refill Belbuca- 900MCG once a day. will look to see if we can decrease this further in the future if patient does not think it is beneficial. Refill Oxycontin- patient reports better relief with long acting. Will allow increase to 80MG TID 10/25/23 UDS is consistent 01/08/2024 Postlaminectomy syndrome, not elsewhere classified (ICD-10 - M96.1) He has a history of 4 failed lumbar surgeries. He has tried and failed multiple injection and other interventional therapies. Refill Belbuca- 900MCG once a day. will look to see if we can decrease this further in the future if patient does not think it is beneficial. Refill Oxycontin- patient reports better relief with long acting. Will allow increase to 80MG TID 10/25/23 UDS is consistent 02/03/2024 Postlaminectomy syndrome, not elsewhere classified (ICD-10 - M96.1) He has a history of 4 failed lumbar surgeries. He has tried and failed multiple injection and other interventional therapies. Refill Belbuca- 900MCG once a day. will look to see if we can decrease this further in the future if patient does not think it is beneficial. Refill Oxycontin- patient reports better relief with long acting. Will allow increase to 80MG TID 10/25/23 UDS is consistent 03/26/2024 Postlaminectomy syndrome, not elsewhere classified (ICD-10 - M96.1) He has a history of 4 failed lumbar surgeries. He has tried and failed multiple injection and other interventional therapies. Stop Belbuca- patient not reporting benefit Continue Oxycontin- patient reports better relief with long acting. Decreased from 80mg to 60mg but increased dose with 2 in AM, 1 in PM, and 2 hs. Discontinuing Oxycodone IR. Will f/u next appointment. 02/03/24 UDS and 10/25/23 UDS is consistent 02/25/2024 Postlaminectomy syndrome, not elsewhere classified (ICD-10 - M96.1) He has a history of 4 failed lumbar surgeries. He has tried and failed multiple injection and other interventional therapies. Stop Belbuca- patient not reporting benefit Refill Oxycontin- patient reports better relief with long acting. Decreased from 80mg to 60mg but increased dose with 2 in AM, 1 in PM, and 2 hs. Discontinuing Oxycodone IR. Will f/u next appointment. 02/03/24 UDS and 10/25/23 UDS is consistent 04/16/2024 Postlaminectomy syndrome, not elsewhere classified (ICD-10 - M96.1) He has a history of 4 failed lumbar surgeries. He has tried and failed multiple injection and other interventional therapies. Stop Belbuca- patient not reporting benefit Continue Oxycontin- patient reports better relief with long acting. Decreased from 80mg to 60mg but increased dose with 2 in AM, 1 in PM, and 2 hs. Discontinuing Oxycodone IR. Will f/u next appointment. 02/03/24 UDS and 10/25/23 UDS is consistent Disscussed that with 90 SCRIPT strict adherence to no EARLY REFILLS and patient agrees to be regularly seen and provide UDS as required. 07/08/2024 Postlaminectomy syndrome, not elsewhere classified (ICD-10 - M96.1) Dr Meek sent in 90 day supply 06/08/2024 His broither is getting in September of 2024 so the patient will be in town for that event. VACATION OVERRIDE WAS DONE FOR 04/22/24 target delivery, EXPECTED DATE WAS 04/27/24 Disscussed that with 90 SCRIPT strict adherence to no EARLY REFILLS and patient agrees to be regularly seen and provide UDS as required. Will start the 90 days in 2024 as the patient does not want to mess up the end of the month scripts. He will follow up with Dr Meek in May He has a history of 4 failed lumbar surgeries. He has tried and failed multiple injection and other interventional therapies. Stop Belbuca- patient not reporting benefit Continue Oxycontin- patient reports better relief with long acting. Decreased from 80mg to 60mg but increased dose with 2 in AM, 1 in PM, and 2 hs. He has stopped Oxycodone IR. 02/03/24 UDS and 10/25/23 UDS is consistent 10/26/2024 Postlaminectomy syndrome, not elsewhere classified (ICD-10 - M96.1) Dr Meek sent in 90 day supply 09/04/24 He has a script for Ketorolac injectable to use for pain exacerbations. He is asking for a refill. Discussed that with 90 SCRIPT strict adherence to no EARLY REFILLS and patient agrees to be regularly seen and provide UDS as required. He has a history of 4 failed lumbar surgeries. He has tried and failed multiple injection and other interventional therapies. Stop Belbuca- patient not reporting benefit Continue Oxycontin- patient reports better relief with long acting. Decreased from 80mg to 60mg but increased dose with 2 in AM, 1 in PM, and 2 hs. He has stopped Oxycodone IR. 06/10/2024 Postlaminectomy syndrome, not elsewhere classified (ICD-10 - M96.1) Dr Meek sent in 90 day supply 06/08/2024 His broither is getting in September of 2024 so the patient will be in town for that event. VACATION OVERRIDE WAS DONE FOR 04/22/24 target delivery, EXPECTED DATE WAS 04/27/24 Disscussed that with 90 SCRIPT strict adherence to no EARLY REFILLS and patient agrees to be regularly seen and provide UDS as required. Will start the 90 days in 2024 as the patient does not want to mess up the end of the month scripts. He will follow up with Dr Meek in May He has a history of 4 failed lumbar surgeries. He has tried and failed multiple injection and other interventional therapies. Stop Belbuca- patient not reporting benefit Continue Oxycontin- patient reports better relief with long acting. Decreased from 80mg to 60mg but increased dose with 2 in AM, 1 in PM, and 2 hs. He has stopped Oxycodone IR. 02/03/24 UDS and 10/25/23 UDS is consistent 05/12/2024 Postlaminectomy syndrome, not elsewhere classified (ICD-10 - M96.1) VACATION OVERRIDE FOR 04/22/24 target delivery, EXPECTED DATE WAS 04/27/24 Disscussed that with 90 SCRIPT strict adherence to no EARLY REFILLS and patient agrees to be regularly seen and provide UDS as required. Will start the 90 days in 2024 as the patient does not want to mess up the end of the month scripts. He will follow up with Dr Meek in May He has a history of 4 failed lumbar surgeries. He has tried and failed multiple injection and other interventional therapies. Stop Belbuca- patient not reporting benefit Continue Oxycontin- patient reports better relief with long acting. Decreased from 80mg to 60mg but increased dose with 2 in AM, 1 in PM, and 2 hs. He has stopped Oxycodone IR. 02/03/24 UDS and 10/25/23 UDS is consistent 10/05/2024 Postlaminectomy syndrome, not elsewhere classified (ICD-10 - M96.1) Dr Meek sent in 90 day supply 09/04/24 His brother is getting in September 2024, so the patient will be in town for that event. Discussed that with 90 SCRIPT strict adherence to no EARLY REFILLS and patient agrees to be regularly seen and provide UDS as required. Will start the 90 days in 2024 as the patient does not want to mess up the end of the month scripts. He has a history of 4 failed lumbar surgeries. He has tried and failed multiple injection and other interventional therapies. Stop Belbuca- patient not reporting benefit Continue Oxycontin- patient reports better relief with long acting. Decreased from 80mg to 60mg but increased dose with 2 in AM, 1 in PM, and 2 hs. He has stopped Oxycodone IR. 09/18/2024 Postlaminectomy syndrome, not elsewhere classified (ICD-10 - M96.1) Dr Meek sent in 90 day supply 06/08/2024, will forward to Dr Meek to send it in as I cannot send in 90 day supplies His brother is getting in September 2024, so the patient will be in town for that event. Discussed that with 90 SCRIPT strict adherence to no EARLY REFILLS and patient agrees to be regularly seen and provide UDS as required. Will start the 90 days in 2024 as the patient does not want to mess up the end of the month scripts. He has a history of 4 failed lumbar surgeries. He has tried and failed multiple injection and other interventional therapies. Stop Belbuca- patient not reporting benefit Continue Oxycontin- patient reports better relief with long acting. Decreased from 80mg to 60mg but increased dose with 2 in AM, 1 in PM, and 2 hs. He has stopped Oxycodone IR. UDS 06/10/24 is consistent 08/25/2024 Postlaminectomy syndrome, not elsewhere classified (ICD-10 - M96.1) Dr Meek sent in 90 day supply 06/08/2024, will forward to Dr Meek to send it in as I cannot send in 90 day supplies His brother is getting in September 2024, so the patient will be in town for that event. Discussed that with 90 SCRIPT strict adherence to no EARLY REFILLS and patient agrees to be regularly seen and provide UDS as required. Will start the 90 days in 2024 as the patient does not want to mess up the end of the month scripts. He has a history of 4 failed lumbar surgeries. He has tried and failed multiple injection and other interventional therapies. Stop Belbuca- patient not reporting benefit Continue Oxycontin- patient reports better relief with long acting. Decreased from 80mg to 60mg but increased dose with 2 in AM, 1 in PM, and 2 hs. He has stopped Oxycodone IR. UDS 06/10/24 is consistent 11/18/2023 Other Today's televis it includes audio and video components 12/12/2023 Other 01/08/2024 Other 02/03/2024 Other 02/25/2024 Other 04/16/2024 Other Today's televis it includes audio and video components 05/12/2024 Other Today's televis it includes audio and video components 06/10/2024 Other 08/04/2024 Other Yang Serrato, scribed portions of this chart for Freida Rollins PA-C 08/25/2024 Other 09/18/2024 Other Yang Serrato, scribed portions of this chart for Freida Rollins PA-C 10/05/2024 Yang Anderson, scribed portions of this chart for Freida Rollins PA-C 10/26/2024 Yang Anderson, scribed portions of this chart for Freida Rollins PA-C Plan Of Treatment Pending Test Test Name Order Date Written Authorization 10/26/2024 Level 3 (Confirm only) 08/19/2023 New Patient Panel 03/07/2023 New Patient Panel 04/12/2023 New Patient Panel 05/01/2023 New Patient Panel 06/25/2023 BUP Confirmation 02/03/2024 METHD Confirmation 02/03/2024 NALTREX Confirmation 02/03/2024 MEPER Confirmation 02/03/2024 TAP Confirmation 02/03/2024 [id number] Confirmation 02/03/2024 PDF Report 10/26/2024 PDF Report 10/26/2024 Full Screen with Reflex 09/04/2023 MDC (Confirm only) 10/26/2024 MDC (Confirm only) 09/04/2023 ToxAssure Flex 24, [place] [id number] 10/26/2024 Opiate Class, MS, Ur RFX 10/26/2024 Oxycodone Class, MS, Ur RFX 10/26/2024 Full Screen with Reflex 10/26/2024 Future Test Test Name Order Date Level 3 (Confirm only) 10/25/2023 Full Screen with Reflex 02/03/2024 MDC (Confirm only) 02/03/2024 Next Appt Details Provider Name:Freida S Kvng marks, 11/25/2024 04:30:00 PM, [address] [place] [address], [address], [place], [phone], Provider Name:Freida Larry Kvng marks, 12/18/2024 03:30:00 PM, [address], [place], [id number], Provider Name:Freida Larry Kvng marks, 02/01/2025 08:00:00 AM, [address] [place] [address], [address], [place], [phone], Insurance Providers Payer Name Payer Address Payer Phone Subscriber Number Group Number Insured Name Patient Relationship to Insured Coverage Start Date Coverage End Date Medicare of REYNALDO Malave [address] [place] [id number] Lemuel Deal Self - patient is the insured Medical (General) History Medical History History ICD Code neck pain back pain osteoporosis fibromyalgia OA chronic fatigue syndrome gout hypertension hyperlipidemia suicide attempt 2003 Surgical History Surgery Date(Month/Year) lumbar laminectomy/fusion x4 (1996, 1998 , 2000, 2003) Hospitalization History Reason Date(Month/Year) with surgery
[2024-11-17 10:39] LABS: Hematocrit 47.5 % (42.0-52.0); Hemoglobin 15.7 g/dl (14.0-18.0); Mean Corpuscular HGB Conc 33.1 g/dl (31.0-36.0); Mean Corpuscular Hemoglobin 29.1 pg (27.0-33.0); Mean Platelet Volume 10.6 fL (9.4-12.4); Platelet Count 240 X10*3/uL (160-400); Red Cell Distribution Width 12.6 % (11.0-16.0); White Blood Count 4.2 X10*3/uL (4.8-10.8)
[2024-11-17 11:30] LABS: Prostate Specific Antigen 1.88 ng/mL (<0.05-4.0)
[2024-11-20 17:38] LABS: Testosterone, Total 529 ng/dL (250-1100)
== END 2024-11-17 09:40 | disposition home or self-care (01) ==
LOC: HO.LAB 09:39
PROVIDERS: PCP Nurse Practitioner; Visit Provider Urology
DX: E29.1 Testicular hypofunction (principal); Z12.5 Encounter for screening for malignant neoplasm of prostate
CPT/HCPCS: 36415; 84153; 84403; 85027

== ENCOUNTER → 2024-11-19 09:19 | Outpatient (BNVA) | payer MEDICARE, MEDICAID, SELFPAY | PROVIDERS: Visit Provider Urology | DX: Z13.89 Encounter for screening for other disorder (principal) ==

== ENCOUNTER 2025-04-27 07:51 | Outpatient (REF) | payer MEDICARE, MEDICAID, SELFPAY ==
[2025-04-27 13:30] LABS: MANUAL DIFF FLAG NO
[2025-04-27 13:37] LABS: Hematocrit 49.5 % (42.0-52.0); Hemoglobin 16.3 g/dl (14.0-18.0); Imm Gran Abs Auto 0.01 X10*3/uL (0.00-0.03); Imm Gran Pct Auto 0.3 % (0.0-0.4); Lymphocytes Absolute Auto 0.8 X10*3/uL (1.2-4.9); Mean Corpuscular HGB Conc 32.9 g/dl (31.0-36.0); Mean Corpuscular Hemoglobin 28.6 pg (27.0-33.0); Mean Corpuscular Volume 86.8 fL (80.0-98.0); NRBC Abs Auto 0.000 X10*3/uL (0.0-0.012); NRBC Pct Auto 0.0 /100WBC (0.0-0.2); Platelet Count 218 X10*3/uL (160-400); Red Blood Count 5.70 X10*6/uL (4.60-5.80); White Blood Count 3.3 X10*3/uL (4.8-10.8)
[2025-04-27 13:47] LABS: Appearance Urine Clear; Glucose Urine UA Negative (Negative); PH 8.0 (5.0-9.0); Specific Gravity - Urine 1.010 (1.005-1.025)
[2025-04-27 13:56] LABS: Alanine Aminotransferase 21 U/L (0-40); Albumin Level 4.8 g/dL (3.5-5.0); Alkaline Phosphatase 85 U/L (39-117); Anion Gap 12 (12-20); Aspartate Amino Transferase 24 U/L (5-37); Blood Urea Nitrogen 8 mg/dL (9-16); Calcium 9.9 mg/dL (8.4-10.2); Carbon Dioxide 33 mmol/L (22-29); Chloride 101 mmol/L (96-108); Estimated Glomerular Filt Rate > 60; Potassium 4.2 mmol/L (3.3-5.1); Sodium 142 mmol/L (135-145); Total Protein 7.4 g/dL (6.5-8.0)
[2025-04-27 14:11] LABS: Thyroid Stimulating Hormone 1.18 uIU/mL (0.32-4.0)
[2025-04-27 14:23] LABS: Protein/Creatinine Ratio, Ur 0.10 (<0.2); Total Protein Urine Random 8 mg/dL (<12)
[2025-04-27 14:39] LABS: Erythrocyte Sedimentation Rate 2 MM/HR (0-15)
[2025-04-28 11:54] LABS: Anti Nuclear Antibody Screen NEGATIVE (NEGATIVE)
[2025-04-28 18:48] LABS: Antibody to SS-A Antigen <1.0 NEG AI (<1.0 NEG); Antibody to SS-B Antigen <1.0 NEG AI (<1.0 NEG); SM/Ribonucleoprotein Ab <1.0 NEG AI (<1.0 NEG); Smith Protein <1.0 NEG AI (<1.0 NEG)
[2025-04-28 19:23] LABS: Thyroglobulin Antibodies <1 IU/mL (< or = 1)
[2025-05-01 12:28] LABS: Centromere Protein A Ab <11 SI (<11); Centromere Protein B Ab <11 SI (<11); Fibrillarin Ab <11 SI (<11); PM SCL 100 Ab <11 SI (<11); PM SCL 75 Ab <11 SI (<11); RNA Polymerase III RP11 Ab <11 SI (<11); RNA Polymerase III RP155 Ab <11 SI (<11); SCL-70 Extractable Nuclear Ab <11 SI (<11); Th-To Ab <11 SI (<11); U1 SNRNP RNP 70KD <11 SI (<11); U1 SNRNP RNP A <11 SI (<11); U1 SNRNP RNP C <11 SI (<11)
[2025-05-03 08:58] LABS: DNAds, Crithidia Antibody Negative (Negative)
== END 2025-04-27 07:52 | disposition home or self-care (01) ==
LOC: HO.HKASLDS 07:51
PROVIDERS: Visit Provider Student in an Organized Health Care Education/Training Program
DX: M19.042 Primary osteoarthritis, left hand (principal); M19.041 Primary osteoarthritis, right hand; R76.89 Other specified abnormal immunological findings in serum; R76.0 Raised antibody titer; Z13.29 Encounter for screening for other suspected endocrine disorder; Z01.84 Encounter for antibody response examination
CPT/HCPCS: 36415; 80053; 81001; 82550; 82570; 83516; 84156; 84182; 84443; 85025; 85652; 86038; 86140; 86160; 86200; 86225; 86235; 86255; 86376; 86431; 86800; 99202

== ENCOUNTER 2025-04-27 07:51 | Outpatient (AMB) | payer MEDICARE, MEDICAID, SELFPAY ==
--- OUTSIDE RECORDS SUMMARY | 2025-04-27 07:55 | XMS_ITS | Encounter Summary ---
Author Organization [place] [address] Care Team Providers Care Social Human Services Assistants Name Role Phone Apolonia Piedra NP Primary Care Provider [phone] Encounter Details Date Type Department Care Team (Late st Contact Info) Description 03/31/2025 Results Follow-Up [facility] [address] [facility] [address] [place] [phone] Jodie Brandt DO [address] [facility] [address] [place] [phone] Social History Tobacco Use Types Packs/Day Years Used Date Smoking Tobacco: Never Smokeless Tobacco: Never Alcohol Use Standard Drinks/Week Comments Never 0 (1 standard drink = 0.6 oz pur e alcohol) Housing Instability Answer Date Recorde d Are you worried that in the next 2 months you may not have stable housing? No 10/22/2024 Food Access & Nutrition Answer Date Rec orded Do you have access to a vari ety of food including fruits and vegetables? Yes 10/22/2024 Access to Healthcare Answer Date Record ed Within the last 3 months, ho w many times did you visit the emergency department for your medical care? 0 02/07/2023 Health Literacy Answer Date Recorded How often do you need to hav e someone help you when you read instructions, pamphlets, or other written material from your doctor or pharmacy? Never 10/22/2024 Caregiver: How often do you need to have someone help you when you read instructions, pamphlets, or other written material from your doctor or pharmacy? Not on file 10/22/2024 Financial Risk Answer Date Recorded How hard is it for you to pa y for the very basics like food, housing, medical care, and air conditioning / heating? Not very hard 10/22/2024 Transportation Answer Date Recorded Has the lack of transportati on kept you from meetings, work, or from getting things needed for daily living? No Has the lack of transportati on kept you from medical appointments or from getting medications? No 10/22/2024 Social Isolation Answer Date Recorded How often do you feel lonely or isolated from th ose around you? Never 10/22/2024 Food Risk Answer Date Recorded Within the past 12 months we worried whether our food would run out before we got money to buy more. Never true 10/22/2024 Within the past 12 months th e food we bought just didn't last and we didn't have money to get more. Never true 10/22/2024 Sex and Gender Information Value Date Recorded Sex Assigned at Not on file Legal Sex Male 11:31 PM EST Gender Identity Not on file Sexual Orientation Not on file documented as of this encounter Plan of Treatment Upcoming Encounters Date Type Department Care Team (Late st Contact Info) Description 05/12/2025 10:00 AM EST Office Visit [facility] Primary Care [place] [address] [facility] [address] [place] [phone] Jodie Brandt DO [address] [facility] [address] [place] [phone] documented as of this encounter Visit Diagnoses Not on filedocumented in this encounter Additional Health Concerns Assessment Noted Time PHQ-9 Depression Total Score: 0 10/23/19 3:08 PM EDT A fall risk assessment has been complete d for the patient 10/22/2024 3:07 PM EDT documented as of this encounter Care Teams Social Human Services Assistants Relationship Specialty Start Date End Date Apolonia Piedra NP [address] [facility] [address] [place] [id number] PCP - General Family Medicine 09/17/24 documented as of this encounter
--- OUTSIDE RECORDS SUMMARY | 2025-04-27 07:55 | XMS_ITS | Clinical Summary ---
Author Organization [facility] Address [address] [place] [phone] Phone Care Team Providers Care Draw Press Operator Name Role Phone Unknown, Unknown Primary Care Provider Alannah stewart Medications No known medications Active Problems No known active problems Social History Tobacco Use Types Packs/Day Years Used Date Smoking Tobacco: Never Smokeless Tobacco: Never Alcohol Use Standard Drinks/Week Comments Never 0 (1 standard drink = 0.6 oz pur e alcohol) Education Answer Date Recorded Are you interested in more education? Not on gregory e 09/20/2022 Are you concerned about learning? Not on file 09/20/2022 No 09/20/2022 No 09/20/2022 Digital Access Answer Date Recorded No 10/22/2022 No 10/22/2022 No 10/22/2022 Reliable internet access at home? Not on file 10/22/2022 Device with a working camera? Not on file Sex and Gender Information Value Date Recorded Sex Assigned at Not on file Legal Sex Male 7:40 PM EST Gender Identity Not on file Sexual Orientation Not on file Plan of Treatment Health Maintenance Due Date Last Done Comments LIPID PANEL 1970 DEPRESSION SCREENING 1982 HEPATITIS C SCREENING 1988 HIV ONE-TIME SCREENING (18-6 5 YEARS) 1988 SMOKING STATUS SCREENING (On ce After 26 Yrs) 1996 COLOGUARD 10/22/2015 COLONOSCOPY 10/22/2015 COLORECTAL CANCER SCREENING 10/22/2015 FIT TEST 10/22/2015 FOBT 10/22/2015 SIGMOIDOSCOPY 10/22/2015 VIRTUAL COLONOSCOPY 10/22/2015 PNEUMOCOCCAL VACCINES (50+ y ears) (1 of 1 - PCV) 2020 ZOSTER VACCINES (1 of 2) 2020 INFLUENZA VACCINE (#1) 2024 COVID-19 VACCINE (2 - 2024-2 6 season) 2025 09/15/2020 Adult Td,Tdap Booster 11/22/2027 11/21/2017 RSV VACCINE (1 - 1-dose 75+ series) 2045 HEPATITIS A VACCINES Aged Out No long er eligible based on patient's age to complete this topic HIB VACCINES Aged Out No longer eligi ble based on patient's age to complete this topic IPV VACCINES Aged Out No longer eligi ble based on patient's age to complete this topic MENINGOCOCCAL VACCINES (ACWY) Aged Out No longer eligible based on patient's age to complete this topic MENINGOCOCCAL VACCINES (B) Aged Out N o longer eligible based on patient's age to complete this topic Medical Devices Not on file Insurance MEDICARE PART A & B [facility] MEDIC[facility] PART A & B [place] & B HEALTH MEDICARE PART A & [place] & [place] PART A & B MEDICARE PART A & B [facility] MEDICARE PART A & B [place] MEDIC[place] PART A & [place] [employer] Care Teams Draw Press Operator Relationship Specialty Start Date End Date Unknown, Unknown, PCP - General 08/06/18 Additional Source Comments The information contained in this document represents components of the legal health record. It is not the complete legal health record.[facility]
--- OUTSIDE RECORDS SUMMARY | 2025-04-27 07:55 | XMS_ITS | Clinical Summary ---
Author Organization [facility] Pr actice Address [address] [place] [address] Phone Care Team Providers Care Temperer Name Role Phone Apolonia Piedra NP Primary Care Provider [phone] Allergies Active Allergy Reactions Criticality Noted Date Comments Fentanyl Nausea And Vomiting Medium 08/11/2021 Gabapentin Medium 08/11/2021 Legs swollen very red Morphine Medium 08/11/2021 Patient states he was told he was allergic given after a previous surgery Pregabalin Medium 08/11/2021 Severe rash and swelling Medications busPIRone (BUSPAR) 5 mg tablet 12/18/19 23 Active ketorolac 30 mg/mL (1 mL) injection INJECT 1 ML INTRAMUSCULARLY EVERY OTHER DAY NEEDED FOR SEVERE PAIN 11/14/19 23 Active BD Insulin Syringe 1 mL 25 x 1 syringe 09/04/19 23 Active sildenafiL (VIAGRA) 100 mg tablet TAKE ONE TABLET BY MOUTH ONCE 60 MINUTES BEFORE INTENDED ACTIVITY 07/06/19 23 Active testosterone cypionate (DEPO-TESTOTERONE ) 200 mg/mL injection 01/09/20 23 Active OxyCONTIN 60 mg 12 hr abuse-deterrent tablet Take 1 tablet (60 mg total) by mouth 3 (three) times a day. 01/02/20 23 Active Xyosted 75 mg/0.5 mL auto-injector 08/25/19 25 Active oxyCODONE (ROXICODONE) 20 mg immediate release tablet 08/30/19 25 Active lisinopriL (PRINIVIL,ZESTRIL ) 10 mg tablet TAKE 1 TABLET(10 MG) BY MOUTH DAILY 90 tablet 11/26/19 25 Active atorvastatin (LIPITOR) 20 mg tabletIndications :Mixed hyperlipidemia TAKE 1 TABLET(20 MG) BY MOUTH AT BEDTIME 90 tablet 11/26/19 25 Active cyanocobalamin (VITAMIN B-12) 1,000 mcg/mL injectionIndicati ons:B12 deficiency INJECT 1 ML INTO THE SHOULDER,THIGH,OR BUTTOCKS EVERY 30 DAYS 3 mL 1 12/10/19 25 Active Active Problems Problem Noted Date Diagnosed Date Lumbar post-laminectomy syndrome 02/14/2023 Overview (02/14/2023): 1996. Stable on his current medical regimen. Specialty follow/up is required. Mixed hyperlipidemia 02/14/2023 Assessment & Plan (10/22/2024 4:03 PM EDT): Orders: Vitamin B12 and folate; Future Thyroid stimulating hormone with reflex free T4; Future Lipid panel with LDL and HDL ratio; Future Urinalysis with microscopic; Future CBC and differential; Future Comprehensive metabolic panel; Future B12 deficiency 02/14/2023 Overview (02/14/2023): Improving on supplementation. Assessment & Plan (10/22/2024 4:03 PM EDT): Orders: Vitamin B12 and folate; Future Thyroid stimulating hormone with reflex free T4; Future Lipid panel with LDL and HDL ratio; Future Urinalysis with microscopic; Future CBC and differential; Future Comprehensive metabolic panel; Future Chronic low back pain with bilateral sciatica 01/31/2023 Overview (01/31/2023): Last Assessment & Plan: Mr. Deal has had an over 20 year history of back pain, surgery without relief of symptoms with resultant paresthsias. There are no new or worrisome findings that would benefit from further surgery and I agree that he may benefit from aquatic therapy as is the plan from pain management. He is terrified to proceed with a spinal cord stimulator and I assured him that he would undergo a trial first in order to assess the benefits. Assessment & Plan (10/22/2024 4:03 PM EDT): Mr. 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 I would not expect C3-4 to induce radicular arm symptoms but it may ease the neck pain and limited mobility. If he is able to tolerate it consistently then he may open up the lower levels. A referral slip to PT to try the traction in a supervised setting was given as well as a prescription for a home unit. Resolved Problems Problem Noted Date Diagnosed Date Resolved Date Body mass index (BMI) of 27. 0 to 27.9 in adult 02/14/2023 10/22/2024 Overview (02/14/2023): Stable. Counseled in detail. Options reviewed. All questions answered. Genesis has been encouraged to eat breakfast everyday to stimulate anabolic metabolism. Encounters Date Type Department Care Team Description 04/09/2025 Telephone [facility] [place] [address] [place] [address] Apolonia Piedra NP 03/31/2025 Results Follow-Up [facility] [place] [address] [place] [phone] Jodie Brandt DO from Last 3 Months Immunizations Immunization Administration Dates Next Due Tdap Tetanus diptheria acell ular pertussis (Boostrix; Adacel) 7yo and older 11/21/2017 Zoster recombinant (Shingrix) 19yo and older 10/2020 Surgical History Surgery Date Site/Laterality Comments SPINE SURGERY 1996 1997 2000 2003 BACK SURGERY 1996 PROCEDURE: HISTORICAL BACK SURGERY; COMMENT: Lumbar laminectomy with Dr. Castillo BACK SURGERY 1998 PROCEDURE: HISTORICAL BACK SURGERY; COMMENT: L4-S1 fusion, Dr. Blum, hardware removed 2003 Medical History Medical History Date Comments Anxiety 1997 Arthritis 2013 Depression 1998 Hypertension 2022 Neuromuscular disorder (CMS/[facility] V24, CMS/[facility] V28 ) 1998 Dyslipidemia DX:Dyslipidemia Systemic lupus (CMS/HCC V24, CMS/[facility] V28) DX:Systemic lupus (HCC) Family History Medical History Relation Name Comments Early Father Gasper Arthritis Mother Mom Breast cancer Mother Mom Cancer Mother Mom Hypertension Mother Mom Relation Name Status Comments Father Gasper Mother Mom Social History Tobacco Use Types Packs/Day Years Used Date Smoking Tobacco: Never Smokeless Tobacco: Never Tobacco Cessation:Counseling Given: Not Answered Alcohol Use Standard Drinks/Week Comments Never 0 [...] on file Sexual Orientation Not on file Obstetrics History Last Filed Vital Signs Vital Sign Reading Time Taken Comments Blood Pressure 120/79 10/22/2024 3:09 PM EDT Pulse 65 10/22/2024 3:09 PM EDT Temperature 36.7 C (98 F) 10/22/2024 3:09 PM EDT Respiratory Rate 16 10/22/2024 3:09 PM EDT Oxygen Saturation 98% 02/14/2023 2:04 PM EDT Inhaled Oxygen Concentration - - Weight 76.1 kg (167 lb 12.8 oz) 10/22/2024 3:09 PM EDT Height 170.2 cm (5' 7 ) 10/22/2024 3:09 PM EDT Body Mass Index 26.28 10/22/2024 3:09 PM EDT Plan of Treatment Upcoming Encounters Date Type Department Care Team (Late st Contact Info) Description 05/12/2025 10:00 AM EST Office Visit [facility] [place] [address] [place] [phone] Jodie Brandt DO [address] [place] [address] Health Maintenance Due Date Last Done Comments Hepatitis B Vaccines (1 of 3 - 19+ 3-dose series) 1989 Pneumococcal Vaccine: 50+ Years (1 of 1 - PCV) 2020 Zoster Vaccines (2 of 2) 04/26/2021 03/01/2021 COVID-19 Vaccine (3 - 2024- season) 2025 06/06/2021, 09/15/2020 Influenza Vaccine (#1) 2025 Medicare Annual Wellness Visit 10/22/2025 10/22/2024 Social Influencers of Health Screening 10/22/2025 10/22/2024 Colorectal Cancer Screening: FIT-DNA (Cologuard) 08/03/2027 08/02/2024, 08/02/2024, 08/02/2024, Additional history exists DTaP,Tdap,and Td Vaccines (2 - Td or Tdap) 11/22/2027 11/21/2017 Cholesterol Screening (Lipid Panel) 10/27/2029 10/27/2024, 02/15/2023 RSV Immunization Adult Patients (1 - 1-dose 75+ series) 2045 HIV Screening Completed 02/15/2023 Hepatitis C Screening Completed 02/15/2023 Depression Screening Completed 10/22/2024 HIB Vaccines Aged Out No longer eligi ble based on patient's age to complete this topic HPV Vaccines Aged Out No longer eligi ble based on patient's age to complete this topic Hepatitis A Vaccines Aged Out No long er eligible based on patient's age to complete this topic IPV Vaccines Aged Out No longer eligi ble based on patient's age to complete this topic MMR Vaccines Aged Out No longer eligi ble based on patient's age to complete this topic Meningococcal ACWY Vaccine Aged Out N o longer eligible based on patient's age to complete this topic Meningococcal B Vaccine Aged Out No l onger eligible based on patient's age to complete this topic RSV Immunization Patients Under 20 months Aged Out No longer eligible based on patient's age to complete this topic Varicella Vaccines Aged Out No longer eligible based on patient's age to complete this topic Procedures Procedure Name Priority Date/Time Associated Diagnosis Comments LIPID PANEL WITH LDL AND HDL RATIO Routine 10/27/2024 2:31 PM EDT Adult general medical examination Encounter to establish care with new provider B12 deficiency Mixed hyperlipidemia BMI 26.0-26.9,adult LAB COLOGUARD COLON CANCER SCREEN Routine 08/02/2024 12:53 PM EDT Colon cancer screening HEPATITIS PANEL, ACUTE WITH REFLEX TO CONFIRMATION Routine 02/15/2023 8:50 AM EDT Adult general medical examination Cervical post-laminectomy syndrome Lumbar post-laminectomy syndrome Body mass index (BMI) of 27.0 to 27.9 in adult Mixed hyperlipidemia B12 deficiency HIV 1, HIV 2 ANTIBODY SCREEN, P24 ANTIGEN WITH REFLEX TO DIFFERENTIATION Routine 02/15/2023 8:50 AM EDT Adult general medical examination Cervical post-laminectomy syndrome Lumbar post-laminectomy syndrome Body mass index (BMI) of 27.0 to 27.9 in adult Mixed hyperlipidemia B12 deficiency from Last 3 Months or Most Recently Relevant to Health Maintenance Results * (ABNORMAL) Lipid panel with LDL and HDL ratio (10/27/2024 2:31 PM EDT) Pathologist [facility] Cholesterol Total 218(H) <200 mg/dL [facility] HDL Cholesterol 52 > OR = 40 mg/dL [facility] Triglycerides 87 <150 mg/dL [facility] LDL Cholesterol 147(H) mg/dL (calc) [facility] Comment: Reference range: <100 Desirable range <100 mg/dL for primary prevention; <70 mg/dL for patients with CHD or diabetic patients with > or = 2 CHD risk factors. LDL-C is now calculated using the Doc-Sunshine calculation, which is a validated novel method providing better accuracy than the Friedewald equation in the estimation of LDL-C. Doc SS et al. MICHAEL. 2013;310(19): 3455-3574 (http://education.[employer]/faq/DNM088) Chol/HDLC Ratio 4.2 <5.0 (calc) [facility] LDL/HDL Ratio 2.8 (calc) [facility] Comment: Below Average Risk: <2.28 Average Risk: 2.29-4.90 Moderate Risk: 4.91-7.12 High Risk: >7.13 Non HDL Cholesterol 166(H) <130 mg/dL (calc) [facility] Comment: For patients with diabetes plus 1 major ASCVD risk factor, treating to a non-HDL-C goal of <100 mg/dL (LDL-C of <70 mg/dL) is considered a therapeutic option. Blood Venous blood specimen / Unknown 10/27/2024 2:31 PM EDT 10/27/2024 2:31 PM EDT Narrative DAVID TODD ([facility]) - 03/31/2025 12:06 PM EST FASTING:NO Apolonia Piedra NP LAB BLOOD ORDERABLES Yris vanegas Result DAVID TODD ([facility]) [address] [place] [address] [employer] [address] [place] [phone] * Cologuard?? colon cancer screening (08/02/2024 12:53 PM EDT) COLOGUARD Negative Negative [facility] Comment: NEGATIVE TEST RESULT. A negative Cologuard result indicates a low likelihood that a colorectal cancer (CRC) or advanced adenoma (adenomatous polyps with more advanced pre-malignant features) is present. The chance that a person with a negative Cologuard test has a colorectal cancer is less than 1 in 1500 (negative predictive value >99.9%) or has an advanced adenoma is less than 5.3% (negative predictive value 94.7%). These data are based on a prospective cross-sectional study of 10,000 individuals at average risk for colorectal cancer who were screened with both Cologuard and colonoscopy. (Tello Avila et al, N Engl J Med 2014;370(14):6297-1635) The normal value (reference range) for this assay is negative. COLOGUARD RE-SCREENING RECOMMENDATION: Periodic colorectal cancer screening is an important part of preventive healthcare for asymptomatic individuals at average risk for colorectal cancer. Following a negative Cologuard result, the [place] [employer] Society and U.S. Multi-Society Task Force screening guidelines recommend a Cologuard re-screening interval of 3 years. References: [place] [employer] Guideline for Colorectal Cancer Screening: https://www.cancer.org/cancer/dnlct-buchxy-xzwaut/numlchlfj-kkinromrr-fqevfea/ac s-rec ommendations.html.; Jeffrey ISAAC, John SIERRA, Elliot CHONG, Colorectal Cancer Screening: Recommendations for Physicians and Patients from the U.S. Multi-Society Task Force on Colorectal Cancer Screening , Am J Gastroenterology 2017; 112:9301-2325. TEST DESCRIPTION: Composite algorithmic analysis of stool DNA-biomarkers with hemoglobin immunoassay. Quantitative values of individual biomarkers are not reportable and are not associated with individual biomarker result reference ranges. Cologuard is intended for colorectal cancer screening of adults of either sex, 45 years or older, who are at average-risk for colorectal cancer (CRC). Cologuard has been approved for use by the U.S. FDA. The performance of Cologuard was established in a cross sectional study of average-risk adults aged 50-84. Cologuard performance in patients ages 45 to 49 years was estimated by sub-group analysis of near-age groups. Colonoscopies performed for a positive result may find as the most clinically significant lesion: colorectal cancer [4.0%], advanced adenoma (including sessile serrated polyps greater than or equal to 1cm diameter) [20%] or non- advanced adenoma [31%]; or no colorectal neoplasia [45%]. These estimates are derived from a prospective cross-sectional screening study of 10,000 individuals at average risk for colorectal cancer who were screened with both Cologuard and colonoscopy. (Tello Casper al, N Engl J Med 2014;370(14):5419-8949.) Cologuard may produce a false negative or false positive result (no colorectal cancer or precancerous polyp present at colonoscopy follow up). A negative Cologuard test result does not guarantee the absence of CRC or advanced adenoma (pre-cancer). The current Cologuard screening interval is every 3 years. ([place] [employer] and U.S. Multi-Society Task Force). Cologuard performance data in a 10,000 patient pivotal study using colonoscopy as the reference method can be accessed at the following location: www.[employer]/results. Additional description of the Cologuard test process, warnings and precautions can be found at www.[employer].com. Stool 08/02/2024 12:5 3 PM EDT 08/04/2024 12:43 PM EDT Apolonia Piedra NP LAB MOLECULAR DIAGNOSTICS ORDERABLES Final Result [facility] [address] [place] [address] [facility] [address] [place] [address] * Hepatitis panel, acute with reflex to confirmation (02/15/2023 8:50 AM EDT) Hepatitis A Antibody IgM NON-REACTI VE NON-REACT JAZ [facility] Comment: For additional information, please refer to http://[employer] technology/faq/XAY434 (This link is being provided for informational/ educational purposes only.) Hepatitis B Surface Antigen NON-REACTI VE NON-REACT JAZ [facility] Comment: For additional information, please refer to http://[employer]/faq/VTZ432 (This link is being provided for informational/ educational purposes only.) Hepatitis B Core Antibody IgM NON-REACTI VE NON-REACT JAZ [facility] Comment: For additional information, please refer to http://[employer]/faq/RTW547 (This link is being provided for informational/ educational purposes only.) Hepatitis C Antibody NON-REACTI VE NON-REACT JAZ [facility] Comment: HCV antibody was non-reactive. There is no laboratory evidence of HCV infection. In most cases, no further action is required. However, if recent HCV exposure is suspected, a test for HCV RNA (test code 60088) is suggested. For additional information please refer to http://[employer]/faq/GXU33t2 (This link is being provided for informational/ educational purposes only.) Blood Venous blood specimen / Unknown 02/15/2023 8:50 AM EDT 02/15/2023 9:00 AM EDT us Jay Resendiz DO LAB BLOOD ORDERABLES Final Result DAVID TODD ([facility]) [address] [place] [address] [place] [address] [address] [place] [address] [place] [address] * HIV 1, HIV 2 antibody screen, P24 antigen with reflex to differentiation (02/15/2023 8:50 AM EDT) HIV Ag/Ab, 4th Generation NON-REACT JAZ NON-REACT JAZ [facility] Comment: HIV-1 antigen and HIV-1/HIV-2 antibodies were not detected. There is no laboratory evidence of HIV infection. PLEASE NOTE: This information has been disclosed to you from records whose confidentiality may be protected by state law. If your state requires such protection, then the state law prohibits you from making any further disclosure of the information without the specific written consent of the person to whom it pertains, or as otherwise permitted by law. A general authorization for the release of medical or other information is NOT sufficient for this purpose. For additional information please refer to http://education.[employer]/faq/GMZ710 (This link is being provided for informational/ educational purposes only.) The performance of this assay has not been clinically validated in patients less than 2 years old. Blood Venous blood specimen / Unknown 02/15/2023 8:50 AM EDT 02/15/2023 9:00 AM EDT Jay Resendiz DO LAB BLOOD ORDERABLES Final Result DAVID TODD ([facility]) [address] [place] [address] [place] [address] [address] [place] [address] [place] [address] from Last 3 Months or Most Recently Relevant to Health Maintenance Insurance MEDICARE [place]ICAID - [place] Care Teams Temperer Relationship Specialty Start Date End Date Apolonia Piedra NP [address] [place] [address] PCP - General Family Medicine 09/17/24
[2025-04-27 07:58] VITALS: BP 140/80; PULSE 74; O2SAT 96; BMI 27.4
--- NOTE | 2025-04-27 07:58 | MHC.OFFVIS ---
Vital Signs 04/27/25 07:58 Height 5 ft 7 in Weight 175 lb 2 oz BMI 27.4 BP 140/80 H Blood Pressure Location Lt brachial Position Standing Pulse 74 Pulse Source Pulse Oximeter Pulse Oximetry (%) 96 Oxygen Delivery Method Room Air Intake Visit Reasons: RA Intake Note: Patient is a new patient, externally referred by PARESH Ford for Rheumatoid Arthritis. Cytogenetics Technologist Required: No Accompanied by: Self / Same As Patient Allergies fentanyl Allergy (Intermediate, Verified 04/27/25 08:06) Vomiting gabapentin (GABAPENTIN) Allergy (Intermediate, Verified 04/27/25 08:06) RASH morphine Allergy (Intermediate, Verified 04/27/25 08:06) Nausea and Vomiting tadalafil Allergy (Intermediate, Verified 04/27/25 08:06) Rash HPI Comments Details: 54 year old male previously in the [facility] with previous multiple back surgeries that failed,hypertension presents as new patient for evaluation of joint pain. He reports that he has had longstanding back pain however since 3 years ago the joint pain has been wprsenong. The pain is in the hands, shoudlers, elbows, knees,pain in feet. He endorses morning stiffness of 3 hours. Oveall generalized body pain. He takes oxycontin 40mg 7 times a day, He takes ketorolac which really helps his pain. He had a reported positive LETITIA and a positive EYELETTER IN JUNE 2023 BLOOD WORK DONE BY HIS PRIMARY CARE in light of worsening joint pain. At that time he also had CRP done which was within normal limits. HE HAS HAD A CHRONIC LOW WBC COUNT. Also had bilateral hand x-rays which showed osteoarthritis and PIPs DIPs, no erosions. He also had a right foot x-ray which was essentially normal. Patient reports that last year, he saw a condenser cleaner for evaluation of generalized joint pain, and he was told he does not have any autoimmune disease and that his joint pain is mostly stemming from osteoarthritis. He did not go back for follow-up Review of Systems Constitutional: Denies fever, chills, weight loss ENT: Denies vision changes, eye pain or eye redness,no oral ulcers, he endorses dry mouth GI: Denies nausea, vomiting, diarrhea, abdominal pain, change in BM Pulm: Denies SOB, ROSE, hemoptysis, wheezing Cards: Denies chest pain, palpitations Skin: Denies Raynaud's, rash, nail changes, photosensitivity, FINANCIAL ADVISOR: Denies headaches, weakness, paresthesias, recurrent falls MSK: as per HPI FH:mother had RA All other systems reviewed and are unremarkable except noted above Vital signs reviewed PHYSICAL EXAM General: Comfortable CVS: RRR Respiratory: clear to auscultation bilaterally. Good respiratory effort Skin: There is a scaly rash noted on the back looking like dermatitis MSK: PATIENT IS ABLE TO MAKE A FIST BILATERALLY. PATIENT HAS no active synovitis noted in any of the PIPs, MCPs of the hands. However there is diffuse tenderness in all PIPs MCPs of the hands, wrists. Patient has 5/5 range of motion of the shoulders, however there is tenderness on palpation. Patient has limited range of motion of the hips bilaterally, limited more on internal rotation. Patient also has weakness of the right leg, strength is 3/5, strength in the right leg is 4/5. No swelling noted of any of the joints COUNTS INCLUDE 234 BEDS AT THE [facility] Medical History (Updated 04/27/25 @ 08:48 by Rina Mccall MD) Arthritis Mixed connective tissue disease Anxiety disorder due to medical condition H/O urinary frequency Vitamin B12 deficiency Hypogonadism in male Neuropathy Heel pain, bilateral Foot pain Dyslipidemia Neuropathy involving both lower extremities Postlaminectomy syndrome, lumbar Surgical History (Updated 04/27/25 @ 08:10 by Kusum Lr CMA) History of back surgery History of lumbar spinal fusion Family History Father CVD (cardiovascular disease) Mother Cancer Brother No problems noted. Brother No problems noted. Sister Dysplasia, fibromuscular, artery, renal Son No problems noted. Son No problems noted. Daughter No problems noted. Social History (Updated 04/27/25 @ 08:11 by Kusum Lr CMA) Housing: House Alcohol intake: never Patient Tobacco Use Status: Never used Tobacco e-Cigarette/Vaping Use: Never Used Current occupational status: unemployed Cognitive needs: No Hearing needs: No Vision needs: No Physical Exam Vital Signs: Last Vital Signs Pulse 74 04/27/25 07:58 BP 140/80 H 04/27/25 07:58 Pulse Ox 96 04/27/25 07:58 Oxygen Delivery Method Room Air 04/27/25 07:58 BMI result Body Mass Index 27.4 Assessment & Plan Assessment & Plan (1) Polyarthralgia: Code(s): M25.50 - Pain in unspecified joint Category: Medical (2) Positive antinuclear antibody: Code(s): R76.89 - Other specified abnormal immunological findings in serum Category: Medical (3) Osteoarthritis of hands, bilateral: Code(s): M19.041 - Primary osteoarthritis, right hand; M19.042 - Primary osteoarthritis, left hand Category: Medical Qualifiers: Osteoarthritis type: primary Qualified Code(s): M19.041 - Primary osteoarthritis, right hand; M19.042 - Primary osteoarthritis, left hand (4) Positive sm/EYELETTER antibody: Code(s): R76.89 - Other specified abnormal immunological findings in serum Category: Medical Plan This is a 54-year-old male with a past medical history of multiple back surgeries, osteoarthritis, chronic pain syndrome coming in as a new patient for evaluation for joint pain. Based on this patient's history, blood work from [facility] and physical exam cause of his joint pain looks more to be noninflammatory nature like osteoarthritis/fibromyalgia rather than inflammatory diseases. Clinically he does not have stigmata of rheumatoid arthritis, SLE, scleroderma, inflammatory myositis or even mixed connective tissue disease. At this time, I will repeat all the blood work including LETITIA, LETITIA subsets, C3, C4, urine studies, CK level, RF, CCP. I will also order a set of hip x-rays bilaterally and lumbar spine x-ray to see the extent of wear and tear in the spine Patient will follow-up with me in 3 weeks to discuss the results of the blood work and imaging Orders: Orders C Reactive Protein Today R76.0 - Raised antibody titer Complement C4 Today R76.0 - Raised antibody titer Complement C3 Today R76.0 - Raised antibody titer UA ClnCatch+Micro w/rflx Cult Today R76.0 - Raised antibody titer Protein Creatinine Ratio, Ur Today R76.0 - Raised antibody titer LETITIA Reflex Titer and Pattern Today R76.0 - Raised antibody titer Anti DNA DS Antibody Today R76.0 - Raised antibody titer DNA Double Stranded-Crithidia Today R76.0 - Raised antibody titer Cyclic Citrullinated Peptide Today R76.0 - Raised antibody titer Rheumatoid Factor Today R76.0 - Raised antibody titer Anti-Centromere B Antibodies Today R76.0 - Raised antibody titer Thyroid Peroxidase Antibodies Today R76.0 - Raised antibody titer Complete Blood Count Auto Diff Today R76.0 - Raised antibody titer Erythrocyte Sedimentation Rate Today R76.0 - Raised antibody titer Comprehensive Met. Panel Today R76.0 - Raised antibody titer Histone Antibody Today R76.0 - Raised antibody titer Sm Sm/EYELETTER Antibodies Today R76.0 - Raised antibody titer Sjogren's Antibodies Today R76.0 - Raised antibody titer Scleroderma 12 Panel Today R76.0 - Raised antibody titer Scleroderma 70 Antibody Today R76.0 - Raised antibody titer Thyroglobulin Antibodies Today R76.0 - Raised antibody titer Thyroid Stimulating Hormone Today R76.0 - Raised antibody titer Alanine Aminotransferase Today R76.0 - Raised antibody titer Aspartate Amino Transferase Today R76.0 - Raised antibody titer Creatinine Today R76.0 - Raised antibody titer XR hip BI w PEL1V Today M25.50 - Pain in unspecified joint, R76.89 - Other specified abnormal immunological findings in serum XR lumbar spine 2-3V Today M25.50 - Pain in unspecified joint Creatine Kinase Total Today M25.50 - Pain in unspecified joint Coding Level of Care Code New Pt Level 4 (01014) Diagnoses Polyarthralgia M25.50 Positive antinuclear antibody R76.89 Primary osteoarthritis of both hands M19.041; M19.042 Osteoarthritis type: primary Positive sm/EYELETTER antibody R76.89
== END 2025-04-27 08:56 | disposition home or self-care (01) ==
LOC: HO.RHES 07:51
PROVIDERS: Visit Provider Student in an Organized Health Care Education/Training Program
DX: M25.50 Pain in unspecified joint (principal); R76.89 Other specified abnormal immunological findings in serum; M19.041 Primary osteoarthritis, right hand; M19.042 Primary osteoarthritis, left hand
CPT/HCPCS: 99204

== ENCOUNTER 2025-04-29 10:34 | Outpatient (REF) | payer MEDICARE, MEDICAID, SELFPAY ==
--- NOTE | ~2025-04-29 | XR_ITS ---
EXAMINATION: XR LUMBOSACRAL SPINE CLINICAL INFORMATION: M25.50 - Pain in unspecified joint COMPARISON: August 18, 2020 TECHNIQUE: AP and lateral views FINDINGS: Multilevel marginal osteophyte formation and endplate sclerosis and decreased intervertebral disc height. Ankylosis from L4 to S1 and status post laminectomy at L4-5 and L5-S1. S-shaped curvature of the lumbar spine. No acute fracture or listhesis. No lytic or blastic lesions. Osteopenia versus osteoporosis. XR/XR lumbar spine 2-3V IMPRESSION: Multilevel spondylosis and post treatment changes L4-5 and L5-S1. Stable since prior exam. Electronically signed by: Larry Castañeda MD 04/29/2025 11:15 AM [facility]
--- NOTE | ~2025-04-29 | XR_ITS ---
EXAMINATION: XR HIP 2 OR MORE VIEWS BILATERAL HISTORY: M25.50 - Pain in unspecified joint COMPARISON: There are no prior studies available for comparison. FINDINGS: A single AP view of the pelvis and two views of each hip are submitted. Osseous mineralization is normal. There is no fracture or dislocation. The joint spaces are maintained. The soft tissues are unremarkable. XR/XR hip BI w PEL1V IMPRESSION: Unremarkable examination of the bilateral hips. Electronically signed by: Everett Mckeon MD 04/29/2025 11:15 AM [facility]
[2025-04-29 11:27] LABS: Hematocrit 48.0 % (42.0-52.0); Hemoglobin 16.2 g/dl (14.0-18.0); Mean Corpuscular HGB Conc 33.8 g/dl (31.0-36.0); Mean Corpuscular Hemoglobin 29.2 pg (27.0-33.0); Mean Corpuscular Volume 86.6 fL (80.0-98.0); NRBC Abs Auto 0.000 X10*3/uL (0.0-0.012); NRBC Pct Auto 0.0 /100WBC (0.0-0.2); Platelet Count 206 X10*3/uL (160-400); Red Blood Count 5.54 X10*6/uL (4.60-5.80); White Blood Count 3.9 X10*3/uL (4.8-10.8)
[2025-04-29 12:17] LABS: Alanine Aminotransferase 21 U/L (0-40); Aspartate Amino Transferase 23 U/L (5-37); Estimated Glomerular Filt Rate > 60
[2025-04-29 12:38] LABS: Prostate Specific Antigen 1.26 ng/mL (<0.05-4.0)
== END 2025-04-29 10:35 | disposition home or self-care (01) ==
LOC: HO.XRAY 10:34
PROVIDERS: Absent Provider Student in an Organized Health Care Education/Training Program; Visit Provider Urology
DX: M25.551 Pain in right hip (principal); M25.552 Pain in left hip; E29.1 Testicular hypofunction; R76.0 Raised antibody titer; R76.89 Other specified abnormal immunological findings in serum; Z12.5 Encounter for screening for malignant neoplasm of prostate
CPT/HCPCS: 36415; 72100; 73521; 82565; 84153; 84403; 84450; 84460; 85027

== ENCOUNTER → 2025-04-29 10:47 | Outpatient (BNV) | payer MEDICARE, MEDICAID, SELFPAY | PROVIDERS: Absent Provider Student in an Organized Health Care Education/Training Program; Visit Provider Radiology Diagnostic Radiology | DX: M47.816 Spondylosis without myelopathy or radiculopathy, lumbar region (principal) | CPT/HCPCS: 72100; 73521 ==

== ENCOUNTER 2025-05-18 08:36 | Outpatient (AMB) | payer MEDICARE, MEDICAID, SELFPAY ==
--- OUTSIDE RECORDS SUMMARY | 2025-02-01 18:00 | XMS_ITS ---
Author Organization [facility] Address [address] [place] [address] [address] [place] Stout [address] Care Team Providers Care Nurse Intern Name Role Phone Jay Resendiz Primary Care Provider Juan Pablo An Unavailable [phone] Freida Rollins Unavailable [phone] Allergies Allergen (clinical drug ingredient) Drug/Non Drug Allergy documented on EMR Reaction Allergy Type Onset Date Status gabapentin Neurontin Unknown Drug Allergy Active Medications Medication SIG (Take, Route, Frequency, Duration) Notes Start Date End Date Status Movantik 12.5 MG 1 tablet in the morning Orally Once a day; Duration: 30 day(s) Active Atorvastatin Calcium Active Ketorolac Tromethamine 30 MG/ML 1 mL as needed IM Injection one weekly; Duration: 28 days prn pain exacerbations Active Ketorolac Tromethamine 30 MG/ML 0.5 mL as needed Intramuscular every 6 hrs; Duration: 5 days 30mg and adjust the dose to .5mL 11/02/2024 Active Lisinopril Active Viagra Active Movantik Active Testosterone Active Ketorolac Active Cyanocobalamin Activ e OxyCONTIN 60 MG 1 tablet Orally 2 am, 1 afternoon, 2 at bedtime; Duration: 90 days ORDER AND SHIP BY 02/18/25 FOR ONGOING THERAPY, Juan Pablo Meek MD, license: [id number], UDAY: [id number], Active Baclofen 10 MG 1 tablet as needed Orally Twice a day; Duration: 90 days Active Encounters Encounter Location Date Provider Diagnosis [facility] [address] [facility] [address] [place] Marcelino [id number] 02/01/2025 Freida Rollins Chronic Pain Syndrom e G89.4 ; senior living (current) use of opiate analgesic Z79.891 ; Sacroiliitis, not elsewhere classified M46.1 ; Radiculopathy, lumbar region M54.16 ; Radiculopathy, cervical region M54.12 ; Essential (primary) hypertension I10 ; Hyperlipidemia, unspecified E78.5 ; Drug induced constipation K59.03 and Postlaminectomy syndrome, not elsewhere classified M96.1 Assessments Encounter Date Diagnosis (ICD Code) Assessment Notes Treatment Notes Treatment Clinical Notes Section Notes 02/01/2025 Chronic Pain Syndrome (ICD-10 - G89.4) The patient will continue with the present analgesic regimen. No evidence of diversion or abuse. Reynaldo DMP queried and is consistent with the patients prescriptions. He is not unable to use marijuana if he works for [employer]. He is looking [facility] as alternative. As he is not on marijuana at bedtime can trial Baclofen then hew has from an older prescription. UDS 10/26/24 - CONSISTENT 02/01/2025 senior living (current) use of opiate analgesic (ICD-10 - Z79.891) 02/01/2025 Sacroiliitis, not elsewhere classified (ICD-10 - M46.1) [...] of previous SI joint injections spanning from [id number] on 03/26/2024 Briefly discussed risks and benefits of the Transloc procedure, provided brochure previously 02/01/2025 Radiculopathy, lumbar region (ICD-10 - M54.16) Patient continues to report B/L leg pain and numbness s/p 4 lumbar sx 02/01/2025 Radiculopathy, cervical region (ICD-10 - M54.12) Neck and left UE radicular pain. Recommended home cervical traction. 02/01/2025 Essential (primary) hypertension (ICD-10 - I10) Reportedly stable on Lisinopril, ongoing follow up 02/01/2025 Hyperlipidemia, unspecified (ICD-10 - E78.5) Reportedly stable on Atorvastatin, ongoing follow up 02/01/2025 Drug induced constipation (ICD-10 - K59.03) 02/01/2025 Postlaminectomy syndrome, not elsewhere classified (ICD-10 - M96.1) Liliana Rollins PA-C sent in 90 day supply 11/25/24 He has a script for Ketorolac injectable to use for pain exacerbations. He is asking for a refill however he is in [place], written by previous prescriber. As he also has [place] medicade, my staff are unable to PA as we are only with KENDRICK YODER Discussed that with 90 SCRIPT strict adherence [...] 2 hs. He has stopped Oxycodone IR. 02/01/2025 Other Ama, Yang Ortez, scribed portions of this chart for Freida Rollins PA-C Plan Of Treatment Medication Medication Name Sig Start Date Stop Date Notes OxyCONTIN 60 MG 1 tablet Orally 2 am , 1 afternoon, 2 at bedtime; Duration: 90 days ORDER AND SHIP BY FOR ONGOING THERAPY, Juan Pablo Meek MD, license: [id number], UDAY: [id number], Baclofen 10 MG 1 tablet as needed Orally Twice a day; Duration: 90 days Treatment Notes Assessment Notes Chronic Pain Syndrome The patient will continue with the present analgesic regimen. No evidence of diversion or abuse. Reynaldo DMP queried and is consistent with the patients prescriptions. He is not unable to use marijuana if he works for [employer]. He is looking at the [employer] as alternative. As he is not on marijuana at bedtime can trial Baclofen then hew has from an older prescription. UDS 10/26/24 - CONSISTENT Sacroiliitis, not elsewhere classified History of many SI joint injections done by previous pain management practices. On exam, he has classic findings for SI joint dysfunction, including +fortins, +fabers, +pelvic rock, +thigh thrust, +pelvic compression. Would consider repeat diagnostic b/l SI joint injections to determine if patient is a candidate for Transloc. He can schedule prn. He presented several record of previous SI joint injections spanning from 9337-9972 on 03/26/2024 Briefly discussed risks and benefits of the Transloc procedure, provided brochure previously Radiculopathy, lumbar region Patient con tinues to report B/L leg pain and numbness s/p 4 lumbar sx Radiculopathy, cervical region Neck and left UE radicular pain. Recommended home cervical traction. Essential (primary) hypertension Reporte dly stable on Lisinopril, ongoing follow up Hyperlipidemia, unspecified Reportedly s table on Atorvastatin, ongoing follow up Postlaminectomy syndrome, no t elsewhere classified Liliana Rollins PA-C sent in 90 day supply 11/25/24 He has a script for Ketorolac injectable to use for pain exacerbations. He is asking for a refill however he is in [place], written by previous prescriber. As he also has [place] medicade, my staff are unable to PA as we are only with [employer]EN[employer] YODER Discussed that with 90 SCRIPT strict adherence [...] 2 hs. He has stopped Oxycodone IR. Other I, Yang Ortez, scribed portions of this chart for Freida Rollins PA-C Next Appt Details Follow Up: 4 Weeks, Reason: PE/Rx in person Progress Notes * Silas DEALOB:[birth year] (54 yo M)Acc No.[id number]:02/01/2025 Progress Notes Patient: Lemuel BRIGHT Provider: REYNALDO Krishna :1970 A ge:54 Y S ex:Male Date:02/01/2025 Address:[address] [place], [place] [phone] Pcp:Jay Resendiz Subjective: * Chief Complaints: * * HPI: E valuation: 54 year old male presents with c/o - - low back, b/l LE pain, neck pain, left UE pain, T he patient has a history of 4 lumbar surgeries dating back to 1996. In 1996 he underwent a lumbar discectomy. In 1998 he underwent a fusion that was complicated by hardware failure intra-operatively. He had a revision of this fusion in 2000. He has been suffering from chronic low back and b/l LE pain since these surgeries. In 2003, pain became so severe that he attempted suicide. He has since undergone treatment including medical management and extensive therapy. High dose naroctics were introduced in 2002. Since then, he has made progress to wean down to his current dose of narcotic. He feels at his current doses, he is able to have a quality of life that would not be possible without the medications., T he patient's occupation status is:? The patient is on disability., D lorenzo patient's NPE evaluation, the pain was rated as 9/10 on the VAS, T he pain is described as throbbing, shooting, weakness, numbness/tingling, stabbing, aching, sharp, T he pain is associated with the following symptoms numbness/tingling, T he patient reports increased pain with bending, sitting, walking, changing position, changing position, lifting, movement, T he patient reports decreased pain with the following conservative measures ice, sitting, lying down, T he pain is c onstant., T he pain has been present for a period of >20 years, T he patient has tried p hysical therapy, medication management, interventional pain management history of 4x lumbar surgeries, SI joint injections/neurotomies, PT, fentanyl, levorphenol, hydromorphone, vicodin, morphine, soma. Patient presents here today for pe/rx refill via teleV. Patient reports he does not need his scripts refilled at this time as his next refill date will be 02/18/25 and he is schedueld for 02/01/25. Patient reports no changes to medical history. PDMP: 11/26/2024OxyCONTIN(Tablet, Extended Release) 90days JUAN PABLO MEEK UDS 10/26/24 consistent. * ROS: P ain Management ROS: General/Constitutional: D enies, Fatigue, Fever. C ardiovascular: N egative for, Chest pain, Fainting, Heart trouble, Palpitations. R espiratory:?Negative for, Asthma, Cough. E ndocrine: N egative for, Diabetes. G astrointestinal: Negative for, Abdominal pain, Constipation, Diarrhea, Nausea, Vomiting. M usculoskeletal:?As per HPI. N eurological: N egative for, Headaches, Seizures. H ematologic: N egative for , Anemia, Bleeding disorder. S kin/Integumentary: N egative for, Rash. P sychiatric: h istory of suicide attempt. * Medical History: N rogerio pain, Back pain, Osteoporosis, Fibromyalgia, OA, Chronic fatigue syndrome, Gout, Hypertension, Hyperlipidemia, Suicide attempt 2003. * Surgical History: l umbar laminectomy/fusion x4 (1996, 1998, 2000, 2003) . * Hospitalization/Major Diagno stic Procedure: w [facility] surgery . * Family History: M other: . N on-Contributory. reviewed and is non-contributory. * Social History: S ocialHx: . : No smoking, No EtOH, No illicit drug use. * Medications: T aking OxyCONTIN 60 MG Tablet ER 12 Hour Abuse-Deterrent 1 tablet Orally 2 am, 1 afternoon, 2 at bedtime , Notes to Pharmacist: ORDER AND SHIP BY 02/18/25 FOR ONGOING THERAPY, Juan Pablo Meek MD, license: [id number], UDAY: [id number], , Notes: OKAY TO FILL 02/18/25, Taking Baclofen 10 MG Tablet 1 tablet as needed Orally Twice a day , Taking Viagra , Taking Testosterone , Taking Movantik , Taking Ketorolac , Taking Cyanocobalamin , Taking Lisinopril , Taking Atorvastatin Calcium , Taking Movantik 12.5 MG Tablet 1 tablet in the morning Orally Once a day , Taking Ketorolac Tromethamine 30 MG/ML Solution 0.5 mL as needed Intramuscular every 6 hrs , Notes to Pharmacist: 30mg and adjust the dose to .5mL, Taking Ketorolac Tromethamine 30 MG/ML Solution 1 mL as needed IM Injection one weekly , Notes to Pharmacist: prn pain exacerbations, Medication List reviewed and reconciled with the patient * Allergies: N eurontin. Objective: * Vitals: * Examination: G eneral Examination: GENERAL APPEARANCE: a lert, well hydrated, in no distress .? HEAD: normocephalic atraumatic. EYES: p upils equal, round, reactive to light and accommodation. EARS: n ormal. SKIN: no rashes warm and dry. HEART: regular rate and rhythm. LUNGS: c lear to auscultation bilaterally. CHEST: normal. ABDOMEN: n ormal, bowel sounds present, soft, nontender, nondistended. BACK: W ell healed lumbar laminectomy scar, +fortins bilaterally, pain with extension >10 degrees, pain with flexion >30 degrees, pain with axial rotation. MUSCULOSKELETAL p atellar reflexes intact, d ecreased achilles reflex 1/4 on the right, 4- plantar flexion right foot, 3+ dorsiflexion right foot, 3/5 eversion right foot, +nayana's bilaterally, +thigh thrust bilaterally, +pelvic rock, mildly positive pelvic compression. NEUROLOGIC: d yesthesia to light tough left lateral thigh, numbness to light touch right lateral thigh, numbness t o touch L5-S1 distribution right side.? PSYCH: a lert, oriented cooperative with exam cognitive function intact. . HIP EXAM n o pain with internal rotation b/l hips . Assessment: * Assessment: 1. C hronic Pain Syndrome - G89.4 2 . L franko term (current) use of opiate analgesic - Z79.891 3 . S acroiliitis, not elsewhere classified - M46.1 4 . R adiculopathy, lumbar region - M54.16 5 . R adiculopathy, cervical region - M54.12 6 . E ssential (primary) hypertension - I10 7 . H yperlipidemia, unspecified - E78.5 8 . D rug induced constipation - K59.03 9 . P ostlaminectomy syndrome, not elsewhere classified - M96.1 (Primary)? Plan: * Treatment: 2. C hronic Pain Syndrome Notes: The patient will continue with the present analgesic regimen. No evidence of diversion or abuse. Reynaldo DMP queried and is consistent with the patients prescriptions. He is not unable to use marijuana if he works for [employer]. He is looking [facility] as alternative. As he is not on marijuana at bedtime can trial Baclofen then hew has from an older prescription. UDS 10/26/24 - CONSISTENT 3. S acroiliitis, not elsewhere classified Notes: History of many SI joint injections done by previous pain management practices. On exam, he has classic findings for SI joint dysfunction, including +fortins, +fabers, +pelvic rock, +thigh thrust, +pelvic compression. Would consider repeat diagnostic b/l SI joint injections to determine if patient is a candidate for Transloc. He can schedule prn. He presented several record of previous SI joint injections spanning from 2889-4270 on 03/26/2024 Briefly discussed risks and benefits of the Transloc procedure, provided brochure previously ? 4. R adiculopathy, lumbar region Notes: Patient continues to report B/L leg pain and numbness s/p 4 lumbar sx 5. R adiculopathy, cervical region Notes: Neck and left UE radicular pain. Recommended home cervical traction. 6. E ssential (primary) hypertension Notes: Reportedly stable on Lisinopril, ongoing follow up 7. H yperlipidemia, unspecified Notes: Reportedly stable on Atorvastatin, ongoing follow up 8. O thers Notes: I, Yang Ortez, scribed portions of this chart for Freida Rollins PA-C * Preventive Medicine: Plan: P GLADYS M EDICATIONS:, Medications as above, Prescription analgesic medications as above, Rationale, Risks and Benefits, and instruction for use were provided for all prescribed medications, Prescription Drug Monitoring Program query performed, COUNSELING:, I have counseled the patient on the benefits of core strengthening exercises, Greater than 50% of the time was spent on counseling and coordination of care. Thank you for allowing us to participate in your patient's care, Greater than 15 min was spent with the patient with over 50% of the time spent on counseling and coordination of care. Thank you for allowing us to participate in your patient's care. O PIOID USE: T he risks of opioid use including dependence, addiction, potential for withdrawal, respiratory depression, altered mentation/level of consciousness, constipation, urinary retention, itching, nausea, anorexia, potentiation of other BANKRUPTCY ATTORNEY depressants and even were discussed with the patient, who expressed reasonable understanding. The patient was advised to avoid heavy machinery or driving while under the influence of opioids. All questions were answered. * Follow Up: 4 Weeks (Reason: PE/Rx in person) * * Electronic signature of MAG Arguello on 05/18/2025 at 08:49 AM EST Sign off status: Pending * Provider: REYNALDO Krishna Date: 0 02/01/2025 Generated for Deejay rojo/Cristina/Govinditting on: 1 07/19/2024 08:49 AM EST History and Physical Notes * HPI (History of Present Illness) Category Sub-Category Detail Notes Category Not es Evaluation --: low back, b/l L E pain, neck pain, left UE pain Patient presents here today for pe/rx refill via teleV. Patient reports he does not need his scripts refilled at this time as his next refill date will be 02/18/25 and he is schedueld for 02/01/25. Patient reports no changes to medical history. PDMP: 11/26/2024 OxyCONTIN (Tablet, Extended Release) 90days JUAN PABLO MEEK UDS 10/26/24 consistent The patient: has a history of 4 l umbar surgeries dating back to 1996. In 1996 he underwent a lumbar discectomy. In 1998 he underwent a fusion that was complicated by hardware failure intra-operatively. He had a revision of this fusion in 2000. He has been suffering from chronic low back and b/l LE pain since these surgeries. In 2003, pain became so severe that he attempted suicide. He has since undergone treatment including medical management and extensive therapy. High dose naroctics were introduced in 2002. Since then, he has made progress to wean down to his current dose of narcotic. He feels at his current doses, he is able to have a quality of life that would not be possible without the medications. The patient's occupation status is:: The patient is on disability. During patient's NPE evaluat ion, the pain was rated as: 9/10 on the VAS The pain is described as: throbbing, leo oting, weakness, numbness/tingling, stabbing, aching, sharp The pain is associated with the following symptoms: numbness/tingling The patient reports increased pain with: bending, sitting, walking, changing position, changing position, lifting, movement The patient reports decrease d pain with the following conservative measures: ice, sitting, lying down The pain is: constant. The pain has been present fo r a period of: >20 years The patient has tried: physi kwasi therapy, medication management, interventional pain management history of 4x lumbar surgeries, SI joint injections/neurotomies, PT, fentanyl, levorphenol, hydromorphone, vicodin, morphine, soma Examination Category Sub-Category Detail Notes Category Not es General Examination GENERAL APPEARANCE: alert, w ell hydrated, in no distress HEAD: normocephalic atraum atic EYES: pupils equal, round, reactive to light and accommodation EARS: normal HEART: regular rate and rhy thm CHEST: normal LUNGS: clear to auscultatio n bilaterally ABDOMEN: normal, bowel sounds present, soft, nontender, nondistended NEUROLOGIC: dyesthesia to light tough left lateral thigh, numbness to light touch right lateral thigh, numbness?to touch L5-S1 distribution right side SKIN: no rashes warm and d ry BACK: Well healed lumbar l aminectomy scar, +fortins bilaterally, pain with extension >10 degrees, pain with flexion >30 degrees, pain with axial rotation MUSCULOSKELETAL patellar reflexes in tact,?decreased achilles reflex 1/4 on the right, 4- plantar flexion right foot, 3+ dorsiflexion right foot, 3/5 eversion right foot, +nayana's bilaterally, +thigh thrust bilaterally, +pelvic rock, mildly positive pelvic compression PSYCH: alert, oriented coop erative with exam cognitive function intact. HIP EXAM no pain with interna l rotation b/l hips
--- OUTSIDE RECORDS SUMMARY | 2025-05-18 08:49 | XMS_ITS | Patient Health Record ---
Author Organization [facility] Address [address] [place] [address] [place] [address] Care Team Providers Care Alumni Relations Officer Name Role Phone Jay Resendiz Primary Care Provider Claus An Unavailable [phone] Freida Rollins Unavailable [phone] Loreta Jay Unavailable [phone] Allergies Allergen (clinical drug ingredient) Drug/Non Drug Allergy documented on EMR Reaction Allergy Type Onset Date Status gabapentin Neurontin Unknown Drug Allergy Active Results Component Value Reference Range Notes Full Screen with Reflex (Not yet reviewed [...] Not Detected Not Detected MDC (Confirm only) (Not yet reviewed by provider) Interpretation: Performing Lab: Notes/Report: Reflex Confirmation of Meds [id number] PDF Report (Not yet reviewed by provider) Interpretation: Performing Lab:[facility], [address] [place] [address], Phone - [phone], Director - Ingris Notes/Report: Test(s) 009100-[id number] IA was developed and its performance characteristics determined by [facility]. It has not been cleared or approved by the Food and Drug Administration. Oxycodone Class, MS, Ur RFX (Not yet reviewed by provider) Interpretation: Performing Lab:[facility], [address] [place] [address], Phone - [phone], Director - Ingris Notes/Report: Test(s) 069487-[id number] IA was developed and its performance characteristics determined by [facility]. It has not been cleared or approved by the Food and Drug Administration. OXYCODONE CLASS +POSITIVE+ Oxycodone >50727 Oxymorphone 8663 Noroxycodone >69303 Noroxymorphone 3641 Expected metabolism of oxycodone class drugs: Parent Drug Detected Metabolites Oxycodone: Oxymorphone, Noroxycodone, Noroxymorphone Oxymorphone: Noroxymorphone Opiate Class, MS, Ur RFX (No t yet reviewed by provider) Interpretation: Performing Lab:[facility], [address] [place] [address], Phone - [phone], Director - [facility] Notes/Report: Test(s) 296725-[id number] IA was developed and its performance characteristics determined by [facility]. It has not been cleared or approved [...] detected when heroin is the source drug. ToxAssure Flex 24, [place] 556357 (Not yet reviewed by provider) Interpretation: Performing Lab:[facility], [address] [place] [address], Phone - [phone], Director - Ingris Notes/Report: Test(s) 429081-[id number] IA was developed and its performance characteristics determined by [facility]. It has not been cleared or approved by the Food and Drug Administration. Summary Report FINAL ===== Opiate Class, MS, Ur RFX Oxycodone Class, MS, Ur RFX ToxAssure Flex 24, Ur ===== Test Result Flag Units Drug Present Oxycodone >96287 ng/mg creat Oxymorphone 8663 ng/mg creat Noroxycodone >65209 ng/mg creat Noroxymorphone 3641 ng/mg creat Sources [...] Not Detected ACETAMINOPHEN IA Negative CUTOFF:5.0 ug/mL PDF Report (Not yet reviewed by provider) Interpretation: Performing Lab:[facility] [place] [place], [address] [place] [address], Phone - [phone], Director - Kay Notes/Report: Written Authorization (Not y et reviewed by provider) Interpretation: Performing Lab:[facility], [address] [place] [address], Phone - [phone], Director - Ingris Notes/Report: Test(s) 302979-[id number] IA was developed and its performance characteristics determined by [facility]. It has not been cleared or approved by the Food and Drug Administration. Written Authorization Written Authorization Received. Authorization received from Kaykay Beasley for Link Request on 10-28-2024 Logged by Tara Wiley Full Screen with Reflex (Not yet reviewed by provider) Interpretation: Performing Lab: Notes/Report: Opiates Not Detected [...] Not Detected Not Detected MDC (Confirm only) (Not yet reviewed by [...] Not Detected Pregabalin Not Detected Not Detected THC-COOH Not Detected Not Detected Benzoylecgonine Not Detected Not Detected Zolpidem Not Detected Not Detected Carboxyzolpidem Not Detected Cotinine Not Detected Not Detected Ethyl Sulfate Not Detected Not Detected Morphine Not Detected Not Detected Oxycodone, Interp Consistent Consistent Noroxycodone, Interp Consistent Consistent Oxymorphone, Interp Consistent Consistent Oxazepam Not Detected Not Detected Cotinine, Quant 0 Reflex Confirmation of Meds [id number] [facility] (Confirm only) Reviewed date:08/31/2024 01:29:30 PM Interpretation: [...] Not Detected Pregabalin Not Detected Not Detected Mxxxh-5-WSQ-COOH Not Detected Not Detected Benzoylecgonine Not Detected [...] Cotinine, Quant 0 Reflex Confirmation of Meds [id number] 6-TANYA Confirmation Reviewed date:08/31/2024 01:29:30 PM Interpretation: Performing Lab: Notes/Report: 6-Monoacetylmorphine Not Detected Not Detected TAP Confirmation Reviewed date:08/31/2024 01:29:30 PM Interpretation: Performing Lab: Notes/Report: Tapentadol Not Detected Not Detected Z-inulityuf-Ozeiydnzex Not Detected Not Detected MEPER Confirmation Reviewed date:08/31/2024 01:29:30 PM Interpretation: Performing Lab: Notes/Report: Meperidine Not Detected Not Detected Normeperidine Not Detected Not Detected NALTREX Confirmation Reviewed date:08/31/2024 01:29:30 PM Interpretation: Performing Lab: Notes/Report: Naltrexone Not Detected Not Detected METHD Confirmation Reviewed date:08/31/2024 01:29:30 PM Interpretation: Performing Lab: Notes/Report: Methadone Not Detected Not Detected EDDP Not Detected Not Detected BUP Confirmation Reviewed date:08/31/2024 01:29:30 PM Interpretation: Performing Lab: Notes/Report: 3-5+ days Buprenorphine Not Detected Not Detected Norbuprenorphine Not Detected Not Detected Naloxone Not Detected Not Detected Buprenorphine, Interp Review Consistent Norbuprenorphine, Interp Inconsistent Consistent Naloxone, Interp Review Consistent Full Screen with Reflex Reviewed date:08/31/2024 01:29:30 [...] Not Detected Phencyclidine Not Detected Not Detected 6-TANYA Confirmation Reviewed date:07/29/2024 01:54:52 PM Interpretation: Performing Lab: Notes/Report: An exception occurred while processing this report and so it has incomplete data. Please contact [employer] for assistance. 6-Monoacetylmorphine Not Detected Not Detected TAP Confirmation Reviewed date:07/29/2024 01:54:52 PM Interpretation: Performing Lab: Notes/Report: Tapentadol Not Detected Not Detected H-sworspuiz-Ogkbnygvql Not Detected Not Detected MEPER Confirmation Reviewed date:07/29/2024 01:54:52 PM Interpretation: Performing Lab: Notes/Report: Meperidine Not Detected Not Detected Normeperidine Not Detected Not Detected NALTREX Confirmation Reviewed date:07/29/2024 01:54:52 PM Interpretation: Performing Lab: Notes/Report: Naltrexone Not Detected Not Detected METHD Confirmation Reviewed date:07/29/2024 01:54:52 PM Interpretation: Performing Lab: Notes/Report: Methadone Not Detected Not Detected EDDP Not Detected Not Detected BUP Confirmation Reviewed date:07/29/2024 01:54:52 PM Interpretation: Performing Lab: Notes/Report: 3-5+ days Buprenorphine Not Detected Not Detected Norbuprenorphine Not Detected Not Detected Naloxone Not Detected Not Detected Buprenorphine, Interp Review Consistent Norbuprenorphine, Interp Inconsistent Consistent Naloxone, Interp Review Consistent MDC (Confirm only) Reviewed date:07/29/2024 01:54:52 PM Interpretation: Performing Lab: Notes/Report: 3-5+ days 5-7 days Codeine Not Detected Not Detected Norcodeine [...] Not Detected Pregabalin Not Detected Not Detected Kdznb-2-MMC-COOH 174 < 25 Benzoylecgonine Not Detected Not Detected Zolpidem Not Detected Not Detected Carboxyzolpidem Not Detected Cotinine Not Detected Not Detected Ethyl Sulfate Not Detected Not Detected Morphine Not Detected Not Detected Oxycodone, Interp Consistent Consistent Noroxycodone, Interp Consistent Consistent Oxymorphone, Interp Consistent Consistent Buprenorphine, Interp Review Consistent Norbuprenorphine, Interp Inconsistent Consistent Oxazepam Not Detected Not Detected Ovfqz-7-TBE-COOH, Interp Inconsistent Consistent Cotinine, Quant 0 Reflex Confirmation of Meds [id number] Full Screen with Reflex Reviewed date:07/29/2024 01:54:52 [...] Detected Not Detected Creatinine, Qnt 216 Specific [place], Qnt 1.013 1.003 - 1.030 pH, Qnt 6.5 3.0 - 11.0 Oxidant, Qnt -8 Reason For Referral No Information Medications Medication SIG (Take, Route, Frequency, Duration) Notes Start Date End Date Status Viagra Active Testosterone Active Movantik Active Ketorolac Active Tonmya 2.8 MG 1 tablet under the tongue and allow to dissolve avoid eating or drinking for at least 15 mins after tab dissolves at bedtime Sublingual Once a day; Duration: 30 day(s) 05/12/2025 Active Cyanocobalamin Activ e Lisinopril Active Atorvastatin Calcium Active Movantik 12.5 MG 1 tablet in the morning Orally Once a day; Duration: 30 day(s) Active Ketorolac Tromethamine 30 MG/ML 0.5 mL as needed Intramuscular every 6 hrs; Duration: 5 days 11/02/2024 Active OxyCONTIN 40 MG 1 tablet Orally 3 am , 2 afternoon, 2 at bedtime; Duration: 90 days FILL 28 DAYS AFTER LAST RX 05/12/2025 Active Ketorolac Tromethamine 30 MG/ML 1 mL as needed IM Injection one weekly; Duration: 28 days Active Baclofen 10 MG 1 tablet as needed Orally Twice a day; Duration: 90 days Active Syringe Avitene - as directed External ly MAX 3 DAYS A WEEK; Duration: 30 days 01/29/2025 Active Problems Problem Type SNOMED Code ICD Code Onset Dates Problem Status W/U Status Risk Notes Problem Hyperlipidemia (31762798) Hyperlipidemia, unspecified (E78.5) Active confirmed Problem Essential hypertension (76943054) Essential (primary) hypertension (I10) Active confirmed Problem Solitary sacroiliitis (539591899) Sacroiliitis, not elsewhere classified (M46.1) Active confirmed Problem Fibromyalgia (478924066) Fibromyalgia (M79.7) Active confirmed Problem Chronic pain syndrome (382896146) Chronic Pain Syndrome (G89.4) Active confirmed Problem Post-laminectomy syndrome (37449443) Postlaminectomy syndrome, not elsewhere classified (M96.1) Active confirmed Problem Lumbar radiculopathy (305118235) Radiculopathy, lumbar region (M54.16) Active confirmed Problem Cervical radiculopathy (08148262) Radiculopathy, cervical region (M54.12) Active confirmed Vital Signs Heart Rate 73 /min 05/12/2025 Temperature 97.1 degrees Fahrenheit 05/12/2025 Respiratory Rate 16 /min 10/26/2024 Blood pressure diastolic 98 mm Hg 05/12/2025 Oximetry 97 % 05/12/2025 Height 67 in 05/12/2025 Blood pressure systolic 156 mm Hg 05/12/2025 Weight 170 lbs 05/12/2025 BMI 26.62 kg/m2 05/12/2025 Encounters Encounter Location Date Provider Diagnosis Placido Marcelino [address] [facility] [address] [place] [id number] 06/10/2024 Freida Rollins Chronic Pain Syndrom e G89.4 ; Sacroiliitis, not elsewhere classified M46.1 ; Radiculopathy, lumbar region M54.16 ; Radiculopathy, cervical region M54.12 ; Essential (primary) hypertension I10 ; Hyperlipidemia, unspecified E78.5 ; Encounter for screening for depression Z13.31 ; Drug induced constipation K59.03 and Postlaminectomy syndrome, not elsewhere classified M96.1 [facility] [place] [address] [place] [address] [address] [place] [id number] 07/08/2024 Freida Ayo Chronic Pain Syndrom e G89.4 ; Sacroiliitis, not elsewhere classified M46.1 ; Radiculopathy, lumbar region M54.16 ; Radiculopathy, cervical region M54.12 ; Essential (primary) hypertension I10 ; Hyperlipidemia, unspecified E78.5 ; Drug induced constipation K59.03 and Postlaminectomy syndrome, not elsewhere classified M96.1 [facility] [place] [id number] 08/04/2024 Freida Ayo Chronic Pain Syndrom e G89.4 ; Sacroiliitis, not elsewhere classified M46.1 ; Radiculopathy, lumbar region M54.16 ; Radiculopathy, cervical region M54.12 ; Essential (primary) hypertension I10 ; Hyperlipidemia, unspecified E78.5 ; Drug induced constipation K59.03 and Postlaminectomy syndrome, not elsewhere classified M96.1 Plac[facility] [place] [place] [id number] 08/25/2024 Freida Ayo Chronic Pain Syndrom e G89.4 ; supervisor intermediates (current) use of opiate analgesic Z79.891 ; Sacroiliitis, not elsewhere classified M46.1 ; Radiculopathy, lumbar region M54.16 ; Radiculopathy, cervical region M54.12 ; Essential (primary) hypertension I10 ; Hyperlipidemia, unspecified E78.5 ; Drug induced constipation K59.03 and Postlaminectomy syndrome, not elsewhere classified M96.1 Plac[facility] [place] [place], [place] [id number] 09/18/2024 Freida Ayo Chronic Pain Syndrom e G89.4 ; MCFP (current) use of opiate analgesic Z79.891 ; Sacroiliitis, not elsewhere classified M46.1 ; Radiculopathy, lumbar region M54.16 ; Radiculopathy, cervical region M54.12 ; Essential (primary) hypertension I10 ; Hyperlipidemia, unspecified E78.5 ; Drug induced constipation K59.03 and Postlaminectomy syndrome, not elsewhere classified M96.[address] [id number] 10/05/2024 Freida Ayo Chronic Pain Syndrom e G89.4 ; MCFP (current) use of opiate analgesic Z79.891 ; Sacroiliitis, not elsewhere classified M46.1 ; Radiculopathy, lumbar region M54.16 ; Radiculopathy, cervical region M54.12 ; Essential (primary) hypertension I10 ; Hyperlipidemia, unspecified E78.5 ; Drug induced constipation K59.03 and Postlaminectomy syndrome, not elsewhere classified M96.1 [facility] [place] [id number] 10/26/2024 Freida Ayo Chronic Pain Syndrom e G89.4 ; supervisor intermediates (current) use of opiate analgesic Z79.891 ; Sacroiliitis, not elsewhere classified M46.1 ; Radiculopathy, lumbar region M54.16 ; Radiculopathy, cervical region M54.12 ; Essential (primary) hypertension I10 ; Hyperlipidemia, unspecified E78.5 ; Drug induced constipation K59.03 and Postlaminectomy syndrome, not elsewhere classified M96.[address] [id number] 11/25/2024 Freida Ayo Chronic Pain Syndrom e G89.4 ; supervisor intermediates (current) use of opiate analgesic Z79.891 ; Sacroiliitis, not elsewhere classified M46.1 ; Radiculopathy, lumbar region M54.16 ; Radiculopathy, cervical region M54.12 ; Essential (primary) hypertension I10 ; Hyperlipidemia, unspecified E78.5 ; Drug induced constipation K59.03 and Postlaminectomy syndrome, not elsewhere classified M96.1 Placido [place] [address] [place] [address] 12/18/2024 Freida Ayo Chronic Pain Syndrom e G89.4 ; supervisor intermediates (current) use of opiate analgesic Z79.891 ; Sacroiliitis, not elsewhere classified M46.1 ; Radiculopathy, lumbar region M54.16 ; Radiculopathy, cervical region M54.12 ; Essential (primary) hypertension I10 ; Hyperlipidemia, unspecified E78.5 ; Drug induced constipation K59.03 and Postlaminectomy syndrome, not elsewhere classified M96.1 [place] [address] [facility] [address] [place], [place] [id number] 01/11/2025 Freida [place]onari Chronic Pain Syndrom e G89.4 ; supervisor intermediates (current) use of opiate analgesic Z79.891 ; Sacroiliitis, not elsewhere classified M46.1 ; Radiculopathy, lumbar region M54.16 ; Radiculopathy, cervical region M54.12 ; Essential (primary) hypertension I10 ; Hyperlipidemia, unspecified E78.5 ; Drug induced constipation K59.03 and Postlaminectomy syndrome, not elsewhere classified M96.[address] [place] [address] 02/02/2025 Claus Meek Chronic Pain Syndrom e G89.4 ; MCFP (current) use of opiate analgesic Z79.891 ; Sacroiliitis, not elsewhere classified M46.1 ; Radiculopathy, lumbar region M54.16 ; Radiculopathy, cervical region M54.12 ; Essential (primary) hypertension I10 ; Hyperlipidemia, unspecified E78.5 ; Drug induced constipation K59.03 and Postlaminectomy syndrome, not elsewhere classified M96.[address] [place] [address] 03/24/2025 Claus Gaviota Chronic Pain Syndrom e G89.4 ; MCFP (current) use of opiate analgesic Z79.891 ; Sacroiliitis, not elsewhere classified M46.1 ; Radiculopathy, lumbar region M54.16 ; Radiculopathy, cervical region M54.12 ; Essential (primary) hypertension I10 ; Hyperlipidemia, unspecified E78.5 ; Drug induced constipation K59.03 and Postlaminectomy syndrome, not elsewhere classified M96.1 [facility] [address] [place] [address] 04/20/2025 Claus Meek Chronic Pain Syndrom e G89.4 ; MCFP (current) use of opiate analgesic Z79.891 ; Sacroiliitis, not elsewhere classified M46.1 ; Radiculopathy, lumbar region M54.16 ; Radiculopathy, cervical region M54.12 ; Essential (primary) hypertension I10 ; Hyperlipidemia, unspecified E78.5 ; Drug induced constipation K59.03 and Postlaminectomy syndrome, not elsewhere classified M96.1 [facility] [place] [address] [facility] [address] [place] [id number] 05/12/2025 Claus Meek Fibromyalgia M79.7 ; Chronic Pain Syndrome G89.4 ; MCFP (current) use of opiate analgesic Z79.891 ; Sacroiliitis, not elsewhere classified M46.1 ; Radiculopathy, lumbar region M54.16 ; Radiculopathy, cervical region M54.12 ; Essential (primary) hypertension I10 ; Hyperlipidemia, unspecified E78.5 ; Drug induced constipation K59.03 and Postlaminectomy syndrome, not elsewhere classified M96.1 [facility] [place] [address] [facility] [address] [place] [id number] 06/10/2024 Claus Meek [facility] [place] [address] [place] [address] 07/08/2024 Claus Meek [facility] [place] [address] [facility] [address] [place], [place] [id number] 08/25/2024 Clausteto Meek Postlaminectomy syndrome, not elsewhere classified M96.1 [facility] [place] [address] [place] [address] 08/25/2024 Claus Gaviota Postlaminectomy syndrome, not elsewhere classified M96.1 [facility] [place] [address] [place] [address] 08/31/2024 Clausludwig Meek Postlaminectomy syndrome, not elsewhere classified M96.1 [facility] [place] [address] [place] [address] 09/01/2024 Claus Meek [facility] [place] [address] [place] [address] 09/01/2024 Claus Meek [facility] [address] [facility] [address] [place] [id number] 09/18/2024 Claus Meek Postlaminectomy syndrome, not elsewhere classified M96.1 [facility] [address] [facility] [address] 10/26/2024 [facility] [address] [facility] [address] 10/26/2024 Claus Meek Chronic Pain Syndrom e G89.4 and supervisor intermediates (current) use of opiate analgesic Z79.891 [facility] [address] [place] [address] 10/28/2024 [facility] [address] [place] [address] 11/02/2024 [facility]ida [facility] [address] [place] [address] 11/24/2024 Freida Ayo Postlaminectomy syndrome, not elsewhere classified M96.1 [facility] [address] [facility] [address] 11/26/2024 Claus [facility] [address] [place] [address] 11/30/2024 Freida Ayo Postlaminectomy syndrome, not elsewhere classified M96.1 [facility] [address] [facility] [facility] [address] 01/28/2025 Claus Meek [facility] [place] [address] [place] [address] 01/29/2025 Claus Meek [facility] [place] [address] [place] [address] 01/29/2025 Claus Meek [facility] [place] [address] [place], [place] [id number] 02/01/2025 Claus Meek [place] [place] [address] [place] [address] 02/01/2025 Claus Meek [place] [place] [address] [place] [address] 02/02/2025 Claus Meek [facility] (current) use of opiate analgesic Z79.891 [facility] [place] [address] [place] [address] 02/18/2025 Claus Meek [place] [place] [address] [place] [address] 02/18/2025 Claus Meek [place] [address] [place] [address] 02/19/2025 [facility] [address] [place] [address] 04/06/2025 Claus [facility] [address] [facility] [facility] [address] 06/05/2024 Clausteto Meek Postlaminectomy syndrome, not elsewhere classified M96.1 [facility] [address] [place] [address] 06/07/2024 Freida Rollins Postlaminectomy syndrome, not elsewhere classified M96.1 [facility] [address] [place] [address] 06/08/2024 Claus Meek [place] [address] [facility] [address] 06/08/2024 Claus Gaviota [place] [address] [place] [address] 06/08/2024 Claus Meek [place] [place] [address] [place] [address] 06/13/2024 Clausludwig Meek [place] [address] [place] [address] 07/08/2024 Claus Meek [place] [address] [place] [address] 09/01/2024 Claus Meek [place] [address] [place] [address] 10/31/2024 Freida Rollins Postlaminectomy syndrome, not elsewhere classified M96.1 [facility] [address] [place] [address] 11/12/2024 Claus Meek [place] [address] [place] [address] 01/04/2025 Claus Meek [facility] [address] [place] [address] 01/05/2025 Claus Meek [place] [address] [place] [address] 01/28/2025 [facility] [address] [place] [address] 04/20/2025 Claus Meek Assessments Encounter Date Diagnosis (ICD Code) Assessment Notes Treatment Notes Treatment Clinical Notes Section Notes 06/05/2024 Postlaminectomy syndrome, not elsewhere classified (ICD-10 - M96.1) 06/07/2024 Postlaminectomy syndrome, not elsewhere classified (ICD-10 - M96.1) 06/10/2024 Chronic Pain Syndrome (ICD-10 - G89.4) The patient will continue with the present analgesic regimen. No evidence of diversion or abuse. Keyshawn queried and is consistent with the patients prescriptions. 07/08/2024 Chronic Pain Syndrome (ICD-10 - G89.4) The patient will continue with the present analgesic regimen. No evidence of diversion or abuse. Reynaldo SHIPLEY queried and is consistent with the patients prescriptions. He is not unable to use marijuana if he works for [employer]. He is looking at the schoox as alternative. As he is not on [...] then hew has from an older prescription. 08/25/2024 Chronic Pain Syndrome (ICD-10 - G89.4) [...] high dose oxycodone ( 450 MME). 08/25/2024 Postlaminectomy syndrome, not elsewhere classified (ICD-10 - M96.1) 08/25/2024 Postlaminectomy syndrome, not elsewhere classified (ICD-10 - M96.1) 08/31/2024 Postlaminectomy syndrome, not elsewhere classified (ICD-10 [...] of high dose oxycodone ( 450 MME). 09/18/2024 Postlaminectomy syndrome, not elsewhere classified (ICD-10 - M96.1) 10/05/2024 Chronic Pain Syndrome (ICD-10 - G89.4) [...] syndrome, not elsewhere classified (ICD-10 - M96.1) 11/24/2024 Postlaminectomy syndrome, not elsewhere classified (ICD-10 - M96.1) 11/25/2024 Chronic Pain Syndrome (ICD-10 - G89.4) The [...] an older prescription. UDS 10/26/24 - CONSISTENT UDS 08/25/24 consistent -[place] 11/30/2024 Postlaminectomy syndrome, not elsewhere classified (ICD-10 - M96.1) 12/18/2024 Chronic Pain Syndrome (ICD-10 - G89.4) The [...] an older prescription. UDS 10/26/24 - CONSISTENT 01/11/2025 Chronic Pain Syndrome (ICD-10 - G89.4) The [...] an older prescription. UDS 10/26/24 - CONSISTENT 02/02/2025 Chronic Pain Syndrome (ICD-10 - G89.4) The [...] from an older prescription. UDS 10/26/24 - CONSISTENT. A UDS was obtained today (02/02/25) for ongoing monitoring of controlled substances in dosages, combinations or quantity that substantially exceeds CDC guidelines. 02/02/2025 supervisor intermediates (current) use of opiate analgesic (ICD-10 - Z79.891) 03/24/2025 Chronic Pain Syndrome (ICD-10 - G89.4) The [...] hew has from an older prescription. UDS 02/02/25 - CONSISTENT. 04/20/2025 Chronic Pain Syndrome (ICD-10 - G89.4) The [...] hew has from an older prescription. UDS 02/02/25 - CONSISTENT. 05/12/2025 Fibromyalgia (ICD-10 - M79.7) Start Tonmya - for fibro pain. Ongoing follow up with rheumatology. 05/12/2025 Chronic Pain Syndrome (ICD-10 - G89.4) The [...] hew has from an older prescription. UDS 02/02/25 - CONSISTENT. A UDS was obtained today (05/12/25) for ongoing monitoring of controlled substances in dosages, combinations or quantity that substantially exceeds CDC guidelines. 04/20/2025 [facility] (current) use of opiate analgesic (ICD-10 - Z79.891) Discussed risks of opioid inducred hyperalgesia. 03/24/2025 supervisor intermediates (current) use of opiate analgesic (ICD-10 - Z79.891) 02/02/2025 supervisor intermediates (current) use of opiate analgesic (ICD-10 - Z79.891) 01/11/2025 supervisor intermediates (current) use of opiate analgesic (ICD-10 - Z79.891) 12/18/2024 [facility] (current) use of opiate analgesic (ICD-10 - Z79.891) 11/25/2024 supervisor intermediates (current) use of opiate analgesic (ICD-10 - Z79.891) 10/26/2024 supervisor intermediates (current) use of opiate analgesic (ICD-10 - Z79.891) 10/26/2024 supervisor intermediates (current) use of opiate analgesic (ICD-10 - Z79.891) 10/05/2024 [facility] (current) use of opiate analgesic (ICD-10 - Z79.891) 09/18/2024 supervisor intermediates (current) use of opiate analgesic (ICD-10 - Z79.891) 08/25/2024 supervisor intermediates (current) use of opiate analgesic (ICD-10 - Z79.891) 07/08/2024 Sacroiliitis, not elsewhere classified (ICD-10 - [...] of previous SI joint injections spanning from 5602-9960 on 03/26/2024 Briefly discussed risks and benefits of the Transloc procedure, provided brochure previously 08/04/2024 Sacroiliitis, not elsewhere classified (ICD-10 - [...] of previous SI joint injections spanning from 4499-1153 on 03/26/2024 Briefly discussed risks and benefits [...] of previous SI joint injections spanning from 0994-4733 on 03/26/2024 Briefly discussed risks and benefits [...] and numbness s/p 4 lumbar sx 08/25/2024 Sacroiliitis, not elsewhere classified (ICD-10 - [...] of previous SI joint injections spanning from 3376-7316 on 03/26/2024 Briefly discussed risks and benefits [...] of the Transloc procedure, provided brochure previously 10/05/2024 Sacroiliitis, not elsewhere classified (ICD-10 - [...] the Transloc procedure, provided brochure previously 10/26/2024 Sacroiliitis, not elsewhere classified (ICD-10 - [...] of the Transloc procedure, provided brochure previously 11/25/2024 Sacroiliitis, not elsewhere classified (ICD-10 - M46.1) [...] of previous SI joint injections spanning from 9833-1767 on 03/26/2024 Briefly discussed risks and benefits of the Transloc procedure, provided brochure previously 12/18/2024 Sacroiliitis, not elsewhere classified (ICD-10 - M46.1) [...] of the Transloc procedure, provided brochure previously 01/11/2025 Sacroiliitis, not elsewhere classified (ICD-10 - M46.1) [...] of previous SI joint injections spanning from 6905-7800 on 03/26/2024 Briefly discussed risks and benefits of the Transloc procedure, provided brochure previously 02/02/2025 Sacroiliitis, not elsewhere classified (ICD-10 - M46.1) [...] of the Transloc procedure, provided brochure previously 03/24/2025 Sacroiliitis, not elsewhere classified (ICD-10 - M46.1) [...] of the Transloc procedure, provided brochure previously 04/20/2025 Sacroiliitis, not elsewhere classified (ICD-10 - M46.1) [...] of the Transloc procedure, provided brochure previously 05/12/2025 [facility] (current) use of opiate analgesic (ICD-10 - Z79.891) Discussed risks of opioid inducred hyperalgesia. 05/12/2025 Sacroiliitis, not elsewhere classified (ICD-10 - M46.1) [...] of the Transloc procedure, provided brochure previously 04/20/2025 Radiculopathy, lumbar region (ICD-10 - M54.16) Patient continues to report B/L leg pain and numbness s/p 4 lumbar sx 03/24/2025 Radiculopathy, lumbar region (ICD-10 - M54.16) Patient continues to report B/L leg pain and numbness s/p 4 lumbar sx 02/02/2025 Radiculopathy, lumbar region (ICD-10 - M54.16) Patient continues to report B/L leg pain and numbness s/p 4 lumbar sx 01/11/2025 Radiculopathy, lumbar region (ICD-10 - M54.16) Patient continues to report B/L leg pain and numbness s/p 4 lumbar sx 12/18/2024 Radiculopathy, lumbar region (ICD-10 - M54.16) Patient continues to report B/L leg pain and numbness s/p 4 lumbar sx 11/25/2024 Radiculopathy, lumbar region (ICD-10 - M54.16) Patient continues to report B/L leg pain and numbness s/p 4 lumbar sx 10/26/2024 Radiculopathy, lumbar region (ICD-10 - M54.16) Patient continues to report B/L leg pain and numbness s/p 4 lumbar sx 10/05/2024 Radiculopathy, lumbar region (ICD-10 - M54.16) Patient continues to report B/L leg pain and numbness s/p 4 lumbar sx 09/18/2024 Radiculopathy, lumbar region (ICD-10 - M54.16) [...] radicular pain. Recommended home cervical traction. 07/08/2024 Essential (primary) hypertension (ICD-10 - I10) Reportedly stable on Lisinopril, ongoing follow up 06/10/2024 Essential (primary) hypertension (ICD-10 - I10) Reportedly stable on Lisinopril, ongoing follow up 08/04/2024 Essential (primary) hypertension (ICD-10 - I10) Reportedly stable on Lisinopril, ongoing follow up 08/25/2024 Radiculopathy, cervical region (ICD-10 - M54.12) Neck and left UE radicular pain. Recommended home cervical traction. 09/18/2024 Radiculopathy, cervical region (ICD-10 - M54.12) Neck and left UE radicular pain. Recommended home cervical traction. 10/05/2024 Radiculopathy, cervical region (ICD-10 - M54.12) Neck and left UE radicular pain. Recommended home cervical traction. 10/26/2024 Radiculopathy, cervical region (ICD-10 - M54.12) Neck and left UE radicular pain. Recommended home cervical traction. 11/25/2024 Radiculopathy, cervical region (ICD-10 - M54.12) Neck and left UE radicular pain. Recommended home cervical traction. 12/18/2024 Radiculopathy, cervical region (ICD-10 - M54.12) Neck and left UE radicular pain. Recommended home cervical traction. 01/11/2025 Radiculopathy, cervical region (ICD-10 - M54.12) Neck and left UE radicular pain. Recommended home cervical traction. 02/02/2025 Radiculopathy, cervical region (ICD-10 - M54.12) Neck and left UE radicular pain. Recommended home cervical traction. 03/24/2025 Radiculopathy, cervical region (ICD-10 - M54.12) Neck and left UE radicular pain. Recommended home cervical traction. 04/20/2025 Radiculopathy, cervical region (ICD-10 - M54.12) Neck and left UE radicular pain. Recommended home cervical traction. 05/12/2025 Radiculopathy, lumbar region (ICD-10 - M54.16) Patient continues to report B/L leg pain and numbness s/p 4 lumbar sx 05/12/2025 Radiculopathy, cervical region (ICD-10 - M54.12) Neck and left UE radicular pain. Recommended home cervical traction. 04/20/2025 Essential (primary) hypertension (ICD-10 - I10) Reportedly stable on Lisinopril, ongoing follow up 03/24/2025 Essential (primary) hypertension (ICD-10 - I10) Reportedly stable on Lisinopril, ongoing follow up 02/02/2025 Essential (primary) hypertension (ICD-10 - I10) Reportedly stable on Lisinopril, ongoing follow up 01/11/2025 Essential (primary) hypertension (ICD-10 - I10) Reportedly stable on Lisinopril, ongoing follow up 12/18/2024 Essential (primary) hypertension (ICD-10 - I10) Reportedly stable on Lisinopril, ongoing follow up 11/25/2024 Essential (primary) hypertension (ICD-10 - I10) Reportedly stable on Lisinopril, ongoing follow up 10/26/2024 Essential (primary) hypertension (ICD-10 - I10) Reportedly stable on Lisinopril, ongoing follow up 10/05/2024 Essential (primary) hypertension (ICD-10 - I10) Reportedly stable on Lisinopril, ongoing follow up 09/18/2024 Essential (primary) hypertension (ICD-10 - I10) [...] fall and winter his depression is increasing. 08/04/2024 Drug induced constipation (ICD-10 - K59.03) 07/08/2024 Drug induced constipation (ICD-10 - K59.03) 08/25/2024 Hyperlipidemia, unspecified (ICD-10 - E78.5) Reportedly stable on Atorvastatin, ongoing follow up 09/18/2024 Hyperlipidemia, unspecified (ICD-10 - E78.5) Reportedly stable on Atorvastatin, ongoing follow up 10/05/2024 Hyperlipidemia, unspecified (ICD-10 - E78.5) Reportedly stable on Atorvastatin, ongoing follow up 10/26/2024 Hyperlipidemia, unspecified (ICD-10 - E78.5) Reportedly stable on Atorvastatin, ongoing follow up 11/25/2024 Hyperlipidemia, unspecified (ICD-10 - E78.5) Reportedly stable on Atorvastatin, ongoing follow up 12/18/2024 Hyperlipidemia, unspecified (ICD-10 - E78.5) Reportedly stable on Atorvastatin, ongoing follow up 01/11/2025 Hyperlipidemia, unspecified (ICD-10 - E78.5) Reportedly stable on Atorvastatin, ongoing follow up 02/02/2025 Hyperlipidemia, unspecified (ICD-10 - E78.5) Reportedly stable on Atorvastatin, ongoing follow up 03/24/2025 Hyperlipidemia, unspecified (ICD-10 - E78.5) Reportedly stable on Atorvastatin, ongoing follow up 04/20/2025 Hyperlipidemia, unspecified (ICD-10 - E78.5) Reportedly stable on Atorvastatin, ongoing follow up 05/12/2025 Essential (primary) hypertension (ICD-10 - I10) Reportedly stable on Lisinopril, ongoing follow up 05/12/2025 Hyperlipidemia, unspecified (ICD-10 - E78.5) Reportedly stable on Atorvastatin, ongoing follow up 04/20/2025 Drug induced constipation (ICD-10 - K59.03) 03/24/2025 Drug induced constipation (ICD-10 - K59.03) 02/02/2025 Drug induced constipation (ICD-10 - K59.03) 01/11/2025 Drug induced constipation (ICD-10 - K59.03) 12/18/2024 Drug induced constipation (ICD-10 - K59.03) 11/25/2024 Drug induced constipation (ICD-10 - K59.03) 10/26/2024 Drug induced constipation (ICD-10 - K59.03) 10/05/2024 Drug induced constipation (ICD-10 - K59.03) 09/18/2024 Drug induced constipation (ICD-10 - K59.03) 08/04/2024 [...] 02/03/24 UDS and 10/25/23 UDS is consistent 08/25/2024 Drug induced constipation (ICD-10 - K59.03) 06/10/2024 Drug induced constipation (ICD-10 - K59.03) 06/10/2024 Postlaminectomy syndrome, not elsewhere classified (ICD-10 [...] 02/03/24 UDS and 10/25/23 UDS is consistent 07/08/2024 Postlaminectomy syndrome, not elsewhere classified (ICD-10 [...] 02/03/24 UDS and 10/25/23 UDS is consistent 09/18/2024 Postlaminectomy syndrome, not elsewhere classified (ICD-10 [...] stopped Oxycodone IR. UDS 06/10/24 is consistent 10/05/2024 Postlaminectomy syndrome, not elsewhere [...] 2 hs. He has stopped Oxycodone IR. 10/26/2024 Postlaminectomy syndrome, not elsewhere classified (ICD-10 [...] 2 hs. He has stopped Oxycodone IR. 11/25/2024 Postlaminectomy syndrome, not elsewhere classified (ICD-10 - [...] 2 hs. He has stopped Oxycodone IR. 12/18/2024 Postlaminectomy syndrome, not elsewhere classified (ICD-10 - M96.1) Liliana Rollins PA-C sent in 90 day supply 11/25/24 He has a script for Ketorolac injectable to use for pain exacerbations. He is asking for a refill however he is in [place], written [place] previous prescriber. As he also has [facility], my staff are unable to PA [...] 2 hs. He has stopped Oxycodone IR. 01/11/2025 Postlaminectomy syndrome, not elsewhere classified (ICD-10 - [...] 2 hs. He has stopped Oxycodone IR. 02/02/2025 Postlaminectomy syndrome, not elsewhere classified (ICD-10 - M96.1) He has a script for Ketorolac injectable to use for pain exacerbations. He is asking for a refill however he is in [place], written by previous prescriber. As he also has [employer], my staff are unable to PA [...] 2 hs. He has stopped Oxycodone IR. 03/24/2025 Postlaminectomy syndrome, not elsewhere classified (ICD-10 - M96.1) He has a script for Ketorolac injectable to use for pain exacerbations. He is asking for a refill however he is in [place], written [place] previous prescriber. As he also [place] [employer], my staff are unable to PA [...] 2 hs. He has stopped Oxycodone IR. 04/20/2025 Postlaminectomy syndrome, not elsewhere classified (ICD-10 - M96.1) He has a script for Ketorolac injectable to use for pain exacerbations. He is asking for a refill however he is in [place], written [place] previous prescriber. As he also has [employer], my staff are unable to PA [...] 2 hs. He has stopped Oxycodone IR. We discussed weaning down on his medications by 10% every 2-3 months. 05/12/2025 Drug induced constipation (ICD-10 - K59.03) 05/12/2025 Postlaminectomy syndrome, not elsewhere classified (ICD-10 - M96.1) He has a script for Ketorolac injectable to use for pain exacerbations. He is asking for a refill however he is in [place], written by previous prescriber. As he also has [employer], my staff are unable to PA [...] 2 hs. He has stopped Oxycodone IR. We discussed weaning down on his medications by 10% every 2-3 months. 02/01/2025 Other Yang Serrato, scribed portions of this chart for Freida Rollins PA-C 06/10/2024 Other 08/04/2024 Other Yang Serrato, scribed portions of this chart for Freida Rollins PA-C 08/25/2024 Other 09/18/2024 Other Yang Serrato, scribed portions of this chart for Freida Rollins PA-C 10/05/2024 Other Yang Serrato, scribed portions of this chart for Freida HERO Rollins 10/26/2024 Other Yang Serrato, scribed portions of this chart for Freida HERO Rollins 11/25/2024 Other Yang Serrato, scribed portions of this chart for Freida HERO Rollins 12/18/2024 Other Yang Serrato, scribed portions of this chart for Freida HERO Rollins 01/11/2025 Other Yang Serrato, scribed portions of this chart for Freida HERO Rollins 02/02/2025 Other 03/24/2025 Other Today's televis it includes audio and video components 04/20/2025 Other Today's televis it includes audio and video components 05/12/2025 Other Plan Of Treatment Pending Test Test Name [...] (Confirm only) 10/26/2024 MDC (Confirm only) 09/04/2023 MDC (Confirm only) 05/12/2025 MDC (Confirm only) 02/02/2025 ToxAssure Flex 24, Ur [id number] 10/26/2024 Opiate Class, MS, Ur RFX 10/26/2024 Oxycodone Class, MS, Ur RFX 10/26/2024 Full Screen with Reflex 10/26/2024 Full Screen with Reflex 02/02/2025 Full Screen with Reflex 05/12/2025 Future Test Test Name Order Date Level 3 (Confirm only) 10/25/2023 Full Screen with Reflex 02/03/2024 MDC (Confirm only) 02/03/2024 Insurance Providers Payer Name Payer Address Payer Phone Subscriber Number Group Number Insured Name Patient Relationship to Insured Coverage Start Date Coverage End Date Medicare of [employer] Malave [address] [place] [id number] Lemuel Deal Self - patient is the insured Medical (General) History Medical History History ICD Code neck pain back pain osteoporosis fibromyalgia OA chronic fatigue syndrome gout hypertension hyperlipidemia suicide attempt 2003 Surgical History Surgery Date(Month/Year) lumbar laminectomy/fusion x4 (1996, 1998 , 2000, 2003) Hospitalization History Reason Date(Month/Year) with surgery
--- OUTSIDE RECORDS SUMMARY | 2025-05-18 08:49 | XMS_ITS | Encounter Summary ---
Author Organization [facility] Address [address] [place] [address] Care Team Providers Care Joiners Supervisor Name Role Phone Apolonia Piedra NP Primary Care Provider [phone] Encounter Details Date Type Department Care Team (Late st Contact Info) Description 05/04/2025 Results Follow-Up [facility] [place] [address] [place] [id number] Jodie Brandt DO [address] [place] [phone] Social History Tobacco [...] as of this encounter Plan of Treatment Not on file documented as of this encounter Visit Diagnoses Not on filedocumented in this encounter Additional Health Concerns Assessment Noted Time PHQ-9 Depression Total Score: 0 10/23/19 25 3:08 PM EDT A fall risk assessment has been complete d for the patient 10/22/2024 3:07 PM EDT documented as of this encounter Care Teams Joiners Supervisor Relationship Specialty Start Date End Date Apolonia Piedra NP [address] [facility] [address] [place] [address] PCP - General Family Medicine 09/17/24 documented as of this encounter
--- OUTSIDE RECORDS SUMMARY | 2025-05-18 08:49 | XMS_ITS | Clinical Summary ---
Author Organization [facility] Address [address] [facility] [address] [place] [address] Phone Care Team Providers Care Wildlife Removal Specialist Name Role Phone Apolonia Piedra NP Primary Care Provider [phone] Allergies Active Allergy Reactions Criticality Noted Date Comments Fentanyl Nausea And Vomiting Medium 08/11/2021 Gabapentin Medium 08/11/2021 Legs swollen very red Morphine Medium 08/11/2021 Patient states he was told he was allergic given after a previous surgery Pregabalin Medium 08/11/2021 Severe rash and swelling Tadalafil Rash High 04/27/2025 and severe pain in legs Medications ketorolac 30 mg/mL (1 mL) injection INJECT 1 ML INTRAMUSCULARLY EVERY OTHER DAY NEEDED FOR SEVERE PAIN 11/14/19 23 Active sildenafiL (VIAGRA) 100 mg tablet [...] mg immediate release tablet 08/30/19 25 Active cyanocobalamin (VITAMIN B-12) 1,000 mcg/mL injectionIndicati ons:B12 deficiency Inject 1 mL (1,000 mcg total) into the shoulder, thigh, or buttocks every 30 (thirty) days. 3 mL 1 05/12/20 25 2025 Active atorvastatin (LIPITOR) 20 mg tabletIndications :Mixed hyperlipidemia Take 1 tablet (20 mg total) by mouth at bedtime. 90 tablet 1 05/12/20 Active lisinopriL (PRINIVIL,ZESTRIL ) 10 mg tabletIndications :Primary hypertension Take 1 tablet (10 mg total) by mouth 1 (one) time each day. 90 each 1 05/12/20 25 Active busPIRone (BUSPAR) 5 mg tablet 12/18/19 23 2024 Disconti nued(Alt ernate therapy) BD Insulin Syringe 1 mL 25 x 1 syringe 09/04/19 23 2024 Disconti nued(Alt ernate therapy) lisinopriL (PRINIVIL,ZESTRIL ) 10 mg tablet TAKE 1 TABLET(10 MG) BY MOUTH DAILY 90 tablet 11/26/19 25 2024 Disconti nued(Reo rder) atorvastatin (LIPITOR) 20 mg tabletIndications :Mixed hyperlipidemia TAKE 1 TABLET(20 MG) BY MOUTH AT BEDTIME 90 tablet 11/26/19 25 2024 Disconti nued(Reo rder) cyanocobalamin (VITAMIN B-12) 1,000 mcg/mL injectionIndicati ons:B12 deficiency INJECT 1 ML INTO THE SHOULDER,THIGH,OR BUTTOCKS EVERY 30 DAYS 3 mL 1 12/10/19 25 2024 Disconti nued(Reo rder) Active Problems Problem Noted Date Diagnosed Date Anxiety disorder due to medical condition 2024 Cervical neuralgia 05/12/2025 Chronic, continuous use of opioids 05/12/2025 Dyslipidemia 05/12/2025 Erectile dysfunction 05/12/2025 Foot pain 05/12/2025 Foraminal stenosis of cervical region 05/12/2025 Heel pain, bilateral 05/12/2025 Hypogonadism in male 05/12/2025 Left knee pain 05/12/2025 Neuropathy 05/12/2025 Neuropathy involving both lower extremities 04/26 Osteoarthritis of hands, bilateral 05/12/2025 Polyarthralgia 05/12/2025 Positive antinuclear antibody 05/12/2025 Protrusion of lumbar intervertebral disc 025 Gouty arthritis 05/12/2025 Lumbar facet arthropathy 05/12/2025 Vertigo 05/12/2025 Lumbar post-laminectomy syndrome 02/14/2023 Overview (02/14/2023): 1997. Stable on his current medical regimen. Specialty follow/up is required. Mixed hyperlipidemia 02/14/2023 Assessment & Plan (05/12/2025 10:04 AM EST): Stable; continue Atorvastatin Orders: atorvastatin (LIPITOR) 20 mg tablet; Take 1 tablet (20 mg total) by mouth at bedtime. Assessment & Plan (10/22/2024 4:03 PM EDT): Orders: Vitamin B12 and folate; Future Thyroid stimulating hormone with reflex free T4; Future Lipid panel with LDL and HDL ratio; Future Urinalysis with microscopic; Future CBC and differential; Future Comprehensive metabolic panel; Future B12 deficiency 02/14/2023 Overview (02/14/2023): Improving on supplementation. Assessment & Plan (05/12/2025 10:04 AM EST): Stable; continue home injection Orders: cyanocobalamin (VITAMIN B-12) 1,000 mcg/mL injection; Inject 1 mL (1,000 mcg total) into the shoulder, thigh, or buttocks every 30 (thirty) days. Assessment & Plan (10/22/2024 4:03 PM EDT): [...] to assess the benefits. Assessment & Plan (04/21/2025 1:08 PM EST): Worsening; PT ordered; Assessment & Plan (05/12/2025 10:04 AM EST): Stable; sees pain management Assessment & Plan (10/22/2024 4:03 PM EDT): [...] 27.9 in adult 02/14/2023 10/22/2024 Overview (02/14/2023): Nay. Counseled in detail. Options reviewed. All questions answered. Genesis has been encouraged to eat breakfast everyday to stimulate anabolic metabolism. Encounters Date Type Department Care Team Description 05/12/2025 10:00 AM EST Office Visit [facility] [address] [address] [address] [phone] Jodie Brandt, Chronic midline low back pain with bilateral sciatica (Primary Dx); Mixed hyperlipidemia; B12 deficiency; Primary hypertension 05/04/2025 Results Follow-Up [facility] [address] [place] [address] Jodie Brandt DO 04/09/2025 Telephone [facility] [address] [place] [phone] Apolonia Piedra NP 03/31/2025 Results Follow-Up [facility] [address] [place] [phone] Jodie Brandt DO from Last 3 Months Immunizations Immunization Administration Dates Next Due Tdap Tetanus diptheria acell ular pertussis (Boostrix; Adacel) 7yo and older 11/21/2017 Zoster recombinant (Shingrix) 19yo and older ,03/01/2021 Surgical History Surgery Date Site/Laterality Comments SPINE SURGERY 1996 1997 2000 2003 BACK SURGERY 1996 PROCEDURE: HISTORICAL BACK SURGERY; COMMENT: Lumbar laminectomy with Dr. Castillo BACK SURGERY 1998 PROCEDURE: HISTORICAL BACK SURGERY; COMMENT: L4-S1 fusion, Dr. Blum, hardware removed 2003 Medical History Medical History Date Comments Anxiety 1997 Arthritis 2013 Depression 1998 Hypertension 2022 Neuromuscular disorder (CMS/[facility] V24, CMS/[facility] V28 ) 1998 Dyslipidemia DX:Dyslipidemia Systemic lupus (CMS/HCC V24, CMS/[facility] V28) DX:Systemic lupus ([facility]) Family History Medical History Relation Name Comments [...] on file Sexual Orientation Not on file Last Filed Vital Signs Vital Sign Reading Time Taken Comments Blood Pressure 138/80 05/12/2025 9:43 AM EST Pulse 73 05/12/2025 9:43 AM EST Temperature 36.7 C (98 F) 05/12/2025 9:43 AM EST Respiratory Rate 16 05/12/2025 9:43 AM EST Oxygen Saturation 95% 05/12/2025 9:43 AM EST Inhaled Oxygen Concentration - - Weight 79.8 kg (176 lb) 05/12/2025 9:43 AM EST Height 170.2 cm (5' 7 ) 05/12/2025 9:43 AM EST Body Mass Index 27.57 05/12/2025 9:43 AM EST Plan of Treatment Health Maintenance Due Date Last Done Comments Drug Screen 1970 Non-Opioid Controlled Substance Agreement 1970 Hepatitis A Vaccines (1 of 2 - Risk 2-dose series) 1989 Hepatitis B Vaccines (1 of 3 - 19+ 3-dose series) 1989 Pneumococcal Vaccine: 50+ Years (1 of 1 - PCV) 2020 COVID-19 Vaccine (3 - season) 2025 06/06/2021, 09/15/2020 Medicare Annual Wellness Visit 10/22/2025 10/22/2024 Social Influencers of Health Screening 10/22/2025 10/22/2024 Hypertension/CHF/CAD Annual BMP Blood Test 10/27/2025 10/27/2024, 02/15/2023 Colorectal Cancer Screening: FIT-DNA (Cologuard) 08/03/2027 08/02/2024, 08/02/2024, 08/02/2024, Additional history exists DTaP,Tdap,and Td Vaccines (2 - Td or Tdap) 11/22/2027 11/21/2017 Cholesterol Screening (Lipid Panel) 05/03/2030 05/03/2025, 10/27/2024, 02/15/2023 RSV Immunization Adult Patients (1 - 1-dose 75+ series) 2045 HIV Screening Completed 02/15/2023 Hepatitis C Screening Completed 02/15/2023 Zoster Vaccines Completed 08/16/2023, 03/01/2021 Depression Screening Completed 05/12/2025 HIB Vaccines Aged Out No longer eligi ble based on patient's age to complete this topic HPV Vaccines Aged Out No longer eligi ble based on patient's age to complete this topic IPV Vaccines Aged Out No longer eligi ble based on patient's age to complete this topic Influenza Vaccine Discontinued MMR Vaccines Aged Out No longer eligi [...] Procedure Name Priority Date/Time Associated Diagnosis Comments CBC WITH AUTO DIFFERENTIAL Routine 05/03/2025 11:41 AM EST Leukocytosis, unspecified type LIPID PANEL Routine 05/03/2025 11:41 AM EST Mixed hyperlipidemia CBC AND DIFFERENTIAL Routine 05/03/2025 11:41 AM EST Leukocytosis, unspecified type COMPREHENSIVE METABOLIC PANEL Routine 10/27/2024 2:31 PM EDT Adult general [...] Relevant to Health Maintenance Results * (ABNORMAL) CBC auto differential (05/03/2025 11:41 AM EST) White Blood Cell Count 4.1 3.8 - 10.8 Thousand/ uL [facility] [employer] [facility] [employer] RBC Count 5.78 4.20 - 5.80 Million/u L [facility] [employer] [facility] [employer] Hemoglobin 16.9 13.2 - 17.1 g/dL [facility] [employer] [facility] [employer] Hematocrit 51.9(H) 39.4 - 51.1 % [facility] [employer] [facility] [employer] MCV 89.8 81.4 - 101.7 fL [facility] [facility] MCH 29.2 27.0 - 33.0 pg [facility] [employer] MCHC 32.6 31.6 - 35.4 g/dL [facility] [employer] RDW 13.5 11.0 - 15.0 % [facility] [employer] Platelet Count 230 140 - 400 Thousand/ uL [facility] MPV 10.9 7.5 - 12.5 fL [facility] [employer] Absolute Neutrophil 2,399 1,500 - 7,800 cells/uL [facility] Bands Absolute CANCELED 0 - 750 cells/uL [facility] Comment:Result canceled by t he ancillary. Absolute Metamyelocytes CANCELED 0 cells/uL [facility] [employer] Comment:Result canceled by t he ancillary. Absolute Myelocytes CANCELED 0 cells/uL [facility] Comment:Result canceled by t he ancillary. Absolute Promyelocutes CANCELED 0 cells/uL [facility] Comment:Result canceled by t he ancillary. Absolute Lymphocytes 1,205 850 - 3,900 cells/uL [facility] Absolute Monocytes 344 200 - 950 cells/uL [facility] Absolute Eosinophils 111 15 - 500 cells/uL [facility] Absolute Basophils 41 0 - 200 cells/uL [facility] Absolute Blasts CANCELED 0 cells/uL [facility] Comment:Result canceled by t he ancillary. NRBC Absolute CANCELED 0 cells/uL [facility] Comment:Result canceled by t he ancillary. Neutrophils 58.5 % [facility] [employer] Band Neutrophils Relative CANCELED % [facility] Comment:Result canceled by t he ancillary. Metamyelocytes CANCELED % [facility] Comment:Result canceled by t he ancillary. Myelocytes CANCELED % [facility] Comment:Result canceled by t he ancillary. Promyelocyte CANCELED % [facility] Comment:Result canceled by t he ancillary. Lymphocytes 29.4 % [facility] [employer] Reactive Lymphocytes CANCELED % [facility] [employer] Comment:Result canceled by t he ancillary. Monocytes 8.4 % [employer] Eosinophils 2.7 % [employer] Basophils 1.0 % [facility] Blasts CANCELED % [facility] Comment:Result canceled by t he ancillary. Nucleated RBC CANCELED 0 /100 WBC [facility] Comment:Result canceled by t ancillary. Comment CANCELED [facility] Comment: Your request to have a duplicate copy faxed has been acknowledged. Queued to: [phone] Result canceled by the ancillary. Blood Venous blood specimen / Unknown 05/03/2025 11:41 AM EST 05/03/2025 11:41 AM EST Yusuf STOUT ([facility]) - 05/03/2025 10:47 PM EST FASTING:NO us Apolonia Piedra NP LAB BLOOD ORDERABLES Yris l Result DAVID STOUT ([facility]) [address] [facility] [place] [address] [facility] [address] [place] [phone] * Lipid panel (05/03/2025 11:41 AM EST) Cholesterol Total 184 <200 mg/dL [facility] HDL Cholesterol 65 > OR = 40 mg/dL [facility] Triglycerides 115 <150 mg/dL [facility] LDL Cholesterol 98 mg/dL (calc) [facility] Comment: Reference range: <100 Desirable range <100 mg/dL for primary prevention; <70 mg/dL for patients with CHD or diabetic patients with > or = 2 CHD risk factors. LDL-C is now calculated using the Jessica calculation, which is a validated novel method providing better accuracy than the Friedewald equation in the estimation of LDL-C. Doc MCNALLY et al. MICHAEL. 2013;310(19): 3183-7433 (http://education.LaunchTrack.OjOs.com/faq/YBC671) Chol/HDLC Ratio 2.8 <5.0 (calc) [facility] Non HDL Cholesterol 119 <130 mg/dL (calc) [facility] Comment: For patients with diabetes plus 1 major ASCVD risk factor, treating to a non-HDL-C goal of <100 mg/dL (LDL-C of <70 mg/dL) is considered a therapeutic option. Blood Venous blood specimen / Unknown 05/03/2025 11:41 AM EST 05/03/2025 11:41 AM EST Narrative DAVID STOUT ([facility]) - 05/03/2025 10:47 PM EST FASTING:NO us Apolonia Piedra NP LAB BLOOD ORDERABLES Yris romina Result DAVID STOUT ([facility]) [address] [facility] [place] [address] [facility] [address] [place] [phone] * (ABNORMAL) Comprehensive metabolic panel (10/27/2024 2:31 PM EDT) Glucose 153(H) 65 - 139 mg/dL [facility] Comment: Non-fasting reference interval This amended report is issued due to a previously reported incorrect reference range on the original report. There is no change in the flagging of the result. For someone without known diabetes, a glucose value >125 mg/dL indicates that they may have diabetes and this should be confirmed with a follow-up test. => Indicates changed result(s) or information. PLEASE DISREGARD PREVIOUSLY REPORTED INFORMATION BELOW: (The information below was originally reported on 10/27/2024 at 9:52 PM) GLUCOSE 153 H Fasting reference interval For someone without known diabetes, a glucose value >125 mg/dL indicates that they may have diabetes and this should be confirmed with a follow-up test. Urea Nitrogen (BUN) 9 7 - 25 mg/dL [facility] Creatinine 1.07 0.70 - 1.30 mg/dL [facility] eGFR 82 > OR = 60 mL/min/1 .73m2 [facility] BUN/Creatinine Ratio SEE NOTE: (calc) [facility] Comment: Not Reported: BUN and Creatinine are within reference range. Sodium 140 135 - 146 mmol/L [facility] Potassium 4.6 3.5 - 5.3 mmol/L [facility] Chloride 101 98 - 110 mmol/L [facility] Carbon Dioxide 31 20 - 32 mmol/L [facility] Calcium 9.6 8.6 - 10.3 mg/dL [facility] Total Protein 6.9 6.1 - 8.1 g/dL [facility] Albumin 4.5 3.6 - 5.1 g/dL [facility] Globulin 2.4 1.9 - 3.7 g/dL (calc) [facility] Albumin/Globulin Ratio 1.9 1.0 - 2.5 (calc) [facility] Bilirubin Total 0.7 0.2 - 1.2 mg/dL [facility] Alkaline Phosphatase 71 35 - 144 U/L [facility] Aspartate aminotransferase (AST) 16 10 - 35 U/L [facility] Alanine Aminotransferase (ALT) 12 9 - 46 U/L [facility] Blood Venous blood specimen / Unknown 10/27/2024 2:31 PM EDT 10/27/2024 2:31 PM EDT Narrative DAVID STOUT ([facility]) - 03/31/2025 12:06 PM EST FASTING:NO Apolonia Piedra NP LAB BLOOD ORDERABLES Edit ed Result - Final DAVID STOUT ([facility]) [address] [place] [address] [facility] [address] [place] [phone] * Cologuard?? colon cancer screening (08/02/2024 12:53 PM EDT) COLOGUARD Negative Negative [facility] Comment: NEGATIVE TEST RESULT. A negative [...] (Tello Casper al, N Engl J Med 2014;370(14):0395-1884) The normal value (reference range) for this assay is negative. COLOGUARD RE-SCREENING RECOMMENDATION: Periodic colorectal cancer screening is an important part of preventive healthcare for asymptomatic individuals at average risk for colorectal cancer. Following a negative Cologuard result, the [place] Cancer Society and U.S. Multi-Society Task Force screening guidelines recommend a Cologuard re-screening interval of 3 years. References: [place] [employer] Guideline for Colorectal Cancer Screening: https://www.cancer.org/cancer/ftmtz-jfvxfs-whvzpw/yrfflrswg-csqjjnftd-piutzxi/ac s-rec ommendations.html.; Jeffrey DK, John CR, Elliot KhanK, Colorectal Cancer Screening: Recommendations for Physicians and Patients from the U.S. Multi-Society Task Force on Colorectal Cancer Screening , Am J Gastroenterology 2017; 112:4707-2040. TEST DESCRIPTION: Composite algorithmic analysis of stool [...] (Tello Casper al, N Engl J Med 2014;370(14):3257-3760.) Cologuard may produce a false negative or false positive result (no colorectal cancer or precancerous polyp present at colonoscopy follow up). A negative Cologuard test result does not guarantee the absence of CRC or advanced adenoma (pre-cancer). The current Cologuard screening interval is every 3 years. ([place] Cancer Society and U.S. Multi-Society Task Force). Cologuard performance data in a 10,000 patient pivotal study using colonoscopy as the reference method can be accessed at the following location: www.[employer] [place]/results. Additional description of the Cologuard test process, warnings and precautions can be found at www.SportsHedgerd.com. Stool 08/02/2024 12:5 3 PM EDT 08/04/2024 12:43 PM EDT Apolonia Piedra NP LAB MOLECULAR DIAGNOSTICS ORDERABLES Final Result Performing Organization Address City/State/[facility] Co de Phone Number [employer] [address] [place] [address] [employer] [address] [place] [address] * Hepatitis panel, acute with reflex to confirmation (02/15/2023 8:50 AM EDT) Hepatitis A Antibody IgM NON-REACTI VE NON-REACT JAZ [facility] Comment: For additional information, please refer to http://Socialinus.Sudiksha/faq/VFU009 (This link is being provided for informational/ educational purposes only.) Hepatitis B Surface Antigen NON-REACTI VE NON-REACT JAZ [facility] Comment: For additional information, please refer to http://Socialinus.[employer].OjOs.com/faq/AGV566 (This link is being provided for informational/ educational purposes only.) Hepatitis B Core Antibody IgM NON-REACTI VE NON-REACT JAZ [facility] Comment: For additional information, please refer to http://Socialinus.Sudiksha/faq/WEL942 (This link is being provided for informational/ educational purposes only.) Hepatitis C Antibody NON-REACTI VE NON-REACT JAZ [facility] Comment: HCV antibody was non-reactive. There is no laboratory evidence of HCV infection. In most cases, no further action is required. However, if recent HCV exposure is suspected, a test for HCV RNA (test code 13402) is suggested. For additional information please refer to http://alive.cn/faq/INN73c0 (This link is being provided for informational/ educational purposes only.) Blood Venous blood specimen / Unknown 02/15/2023 8:50 AM EDT 02/15/2023 9:00 AM EDT Jay Resendiz DO LAB BLOOD ORDERABLES Final Result DAVID STOUT ([facility]) [address] [place] [address] Dr. Stout, [place] [address] [employer] [address] * HIV 1, HIV 2 antibody screen, P24 antigen with reflex to differentiation (02/15/2023 8:50 AM EDT) HIV Ag/Ab, 4th Generation NON-REACT JAZ NON-REACT JAZ [facility] Comment: HIV-1 antigen and HIV-1/HIV-2 antibodies [...] purpose. For additional information please refer to http://Socialinus.Sudiksha/faq/OAY389 (This link is being provided for informational/ educational purposes only.) The performance of this assay has not been clinically validated in patients less than 2 years old. Blood Venous blood specimen / Unknown 02/15/2023 8:50 AM EDT 02/15/2023 9:00 AM EDT Jay Resendiz DO LAB BLOOD ORDERABLES Final Result DAVID STOUT ([facility]) [address] [place] [address] [place] [address] [place] [address] [place] [address] from Last 3 Months or Most Recently Relevant to Health Maintenance Insurance MEDICARE MEDICAID - [place] Care Teams Wildlife Removal Specialist Relationship Specialty Start Date End Date Apolonia Piedra NP [address] [facility] [address] [place] [address] PCP - General Family Medicine 09/17/24
--- OUTSIDE RECORDS SUMMARY | 2025-05-18 08:49 | XMS_ITS | Clinical Summary ---
Author Organization [facility] Address [address] [place] [phone] Phone Care Team Providers Care Process Laboratory Specialist Name Role Phone Unknown, Unknown Primary Care [...] file Insurance MEDICARE PART A & B [facility] MEDICARE PART A & B [place] MEDICARE PART A & [place] [facility] & B [facility] MEDICARE PART A & [place] & B HEALTH MEDICARE PART A & B [employer] Care Teams Process Laboratory Specialist Relationship Specialty Start Date End Date Unknown, Unknown, PCP - General 08/06/18 Additional Source Comments The information contained in this document represents components of the legal health record. It is not the complete legal health record.[facility]
--- OUTSIDE RECORDS SUMMARY | 2025-05-18 08:49 | XMS_ITS | Encounter Summary ---
Author Organization [facility] [place] [address] Care Team Providers Care Metal Flooring Installer Name Role Phone Apolonia Piedra NP Primary Care Provider [phone] Encounter Details Date Type Department Care Team (Late st Contact Info) Description 03/31/2025 Results Follow-Up [facility] [address] [facility] [address] [place] [phone] Jodie Brandt DO [address] [facility] [address] [place] [phone] Social History Tobacco [...] documented as of this encounter Care Teams Metal Flooring Installer Relationship Specialty Start Date End Date Apolonia Piedra NP [address] [facility] [address] [place] [address] PCP - General Family Medicine 09/17/24 documented as of this encounter
--- OUTSIDE RECORDS SUMMARY | 2025-05-18 08:49 | XMS_ITS | Patient Health Record ---
Author Organization [facility] Address [address] [place] [address] Care Team Providers Care Governor Assembler Name Role Phone Dawit (RETIRED) Massimo AVITIA Primary Care Provide Adebayo Garcia Jr Unavailable Allergies Allergen (clinical drug ingredient) Drug/Non Drug Allergy documented on EMR Reaction Allergy Type Onset Date Status morphine morphine (uncoded) Unknown Allergy A ctive gabapentin neurontin (uncoded) Unknown Allergy Active Reason For Referral No Information Medications Medication SIG (Take, Route, Frequency, Duration) Notes Start Date End Date Status Colyte with Flavor Packs 240 GM Solution Reconstituted as directed Orally Over the specified time.; Duration: 1 day(s) 04/01/2014 Active Terazosin HCl Active Polyethylene Glycol Active Simvastatin Active oxyCODONE HCl Active OxyCONTIN Active AndroGel Pump Active Social History Social History Additional Details Category Social Info Options Details Miscellaneous: Marital status: Occupation: disabled Section Notes: He denies tobacco alcohol an d substance use He denies tobacco alcohol an d substance use Problems Problem Type SNOMED Code ICD Code Onset Dates Problem Status W/U Status Risk Notes Problem Constipation (17945588) Unspecified constipation (564.00) Active confirmed Plan Of Treatment Future Test Test Name Order Date COLONOSCOPY 04/01/2014 Insurance Providers Payer Name Payer Address Payer Phone Subscriber Number Group Number Insured Name Patient Relationship to Insured Coverage Start Date Coverage End Date [place] [address] [place] [address] [id number] RDAHA GENESIS Self - patient is the insured MEDICAID OF [facility] [address] [place] [address] [id number] GEENSIS GARCIA Self - patient is the insured Medical (General) History Medical History History ICD Code benign prostatic hypertrophy nephrolithiasis erectile dysfunction back pain depression elevated cholesterol Denies [place],DM,CVA,Lung disease,renal dise ase Surgical History Surgery Date(Month/Year) multiple back surgeries cystoscopy [facility]
--- NOTE | 2025-05-18 09:35 | MHC.OFFVIS ---
Intake Visit Reasons: 6m/ testo Intake Note: Patient is present for 6M Telehealth Urology Medication:SILDENAFIL,TESTOSTERONE Antibiotic Allergy:none Blood Thinner:NONE Labs done :04/29/25 Total Testosterone 653, PSA :1.26 Absorption Operator Required: No Accompanied by: Self / Same As Patient Allergies fentanyl Allergy (Intermediate, Verified 05/19/25 11:06) Vomiting gabapentin (GABAPENTIN) Allergy (Intermediate, Verified 05/19/25 11:06) RASH morphine Allergy (Intermediate, Verified 05/19/25 11:06) Nausea and Vomiting tadalafil Allergy (Intermediate, Verified 05/19/25 11:06) Rash HPI Comments Details: Lemuel is a pleasant male. He is a patient of Dr. Aguirre. He seen for the following urologic conditions - hypogonadism did have some pain with Cialis - erectile dysfunction Telemedicine Evaluation 15 min Consultation [employer] Has been using Xyosted to manage dosage Numbers within range Prescription provided Six-month follow-up Otherwise feeling good Six-month follow-up office Hypogonadism Longstanding - associated with long-term opiate pain pill use Secondary to prior back surgery Injection Day: Saturday Lab Day: Lab Work 11/14 T 1200, PSA 1.40, 05/16 1900 P 1.6 Hct 50.3 - 06/17 T 816, 12/15 1143 (saturday) 47, 06/17 T 645 P 1.7, 12/16 T 1583 (Sat), 08/17 T 252 H 46, 11/17 T 705, 05/19 354, 11/18 580 P 1.8, 05/20 653 1.26 Has had prior high T when testing to close to injection date May follow in 6 months [facility] Medical History (Updated 05/19/25 @ 11:32 by Rina Mccall MD) Arthritis Mixed connective tissue disease Anxiety disorder due to medical condition H/O urinary frequency Vitamin B12 deficiency Hypogonadism in male Neuropathy Heel pain, bilateral Foot pain Dyslipidemia Neuropathy involving both lower extremities Postlaminectomy syndrome, lumbar Surgical History History of back surgery History of lumbar spinal fusion Family History Father CVD (cardiovascular disease) Mother Cancer Brother No problems noted. Brother No problems noted. Sister Dysplasia, fibromuscular, artery, renal Son No problems noted. Son No problems noted. Daughter No problems noted. Social History (Updated 04/27/25 @ 08:11 by Kusum Lr [facility]) Housing: House Alcohol intake: never Patient Tobacco Use Status: Never used Tobacco e-Cigarette/Vaping Use: Never Used Current occupational status: unemployed Cognitive needs: No Hearing needs: No Vision needs: No Review of Systems Const All systems reviewed & are unremarkable except as noted in HPI and below Reports no additional complaints Card Reports no additional complaints and Denies syncope Resp Reports no additional complaints GI Reports no additional complaints Reports as per HPI and Denies change in libido Musc Reports no additional complaints Neuro Denies syncope Psych Denies change in libido Endo Denies change in libido Physical Exam Telemedicine evaluation Appropriate responses Regular breathing rate and rhythm Const General: cooperative, healthy appearing, comfortable and no acute distress Orientation/consciousness: patient oriented x3 HEENT Head: Yes normal to inspection Ears: hearing grossly normal bilaterally Face and sinus: Yes normal facial exam Mouth: moist mucous membranes Eyes General: appearance normal, both eyes and all related structures Neck Neck: Yes normal visual inspection Chest Chest palpation & inspection: normal inspection of the chest Resp Effort & Inspection: normal respiratory effort and able to speak in complete sentences GI Inspection: Yes normal to inspection Back/Spine/Pelvis Cervical Spine: normal cervical lordosis Thoracic/Lumbar Spine: thoracic and lumbar spine normal to inspection Skin General skin exam: no rashes or lesions noted Neuro General: patient oriented x3, gait normal, tone normal and moves all extremities Extrem General: Yes normal to inspection and Yes capillary refill normal Telehealth Telehealth Telehealth Platform: [employer] Location of provider rendering services: practice address Location of patient: address on file Patient Identification confirmed using: Name, : Yes Telehealth method: video Patient verbally consented to treatment: Yes Patient verbally consented to billing insurance company: Yes Patient informed of any privacy concerns related to visit: Yes Minutes spent on Phone/Video with Pt.: 15 Assessment & Plan Assessment & Plan (1) Erectile dysfunction: Code(s): N52.9 - Male erectile dysfunction, unspecified Category: Medical (2) Hypogonadism in male: Code(s): E29.1 - Testicular hypofunction Category: Medical Plan Refill prescription Six-month follow-up lab work Orders: Orders Prostate Specific Antigen 5 Months E29.1 - Testicular hypofunction Hematocrit 5 Months E29.1 - Testicular hypofunction Testosterone, Total 5 Months E29.1 - Testicular hypofunction Medications: Discontinued testosterone enanthate (Xyosted) Discontinued Reason: Duplicate 75 mg (0.5 mL) subcut QWEEK 4 weeks 2 mL 5RF E29.1 - Testicular hypofunction Patient Instructions: This note is constructed using voice recognition software. While every effort has been made to ensure accuracy metallography teacher errors may have been included. Imaging studies, laboratory and physical exam results were discussed and reviewed in detail. No major barriers to patient understanding were identified. An opportunity to ask questions regarding the treatment plan was provided. All questions were answered. The patient expressed understanding and agreement with the above treatment plan. The patient is aware they should contact our office by phone for worsening of their current condition or the appearance of new urologic symptoms. Compliance is encouraged with any medications and followup testing that is ordered. It is a privilege to participate in the urologic care of your patient. If you have any questions or concerns regarding treatment for the above conditions, or other urologic issues, please do not hesitate to contact me. The office telephone contact is [phone]. Sincerely, Dr Yang Young MD, [facility] - Urology Compassionate Specialist Care for the Genitourinary System Coding Level of Care Code Est Pt Level 3 (22098) Add On Problem Visit Only Diagnoses Erectile dysfunction N52.9 Hypogonadism in male E29.1
== END 2025-05-18 11:57 | disposition home or self-care (01) ==
LOC: HO.HUSH 08:36
PROVIDERS: Visit Provider Urology
DX: N52.9 Male erectile dysfunction, unspecified (principal); E29.1 Testicular hypofunction
CPT/HCPCS: 99213; G2211

== ENCOUNTER → 2025-05-18 08:36 | Outpatient (BNVA) | payer MEDICARE, MEDICAID, SELFPAY | PROVIDERS: Visit Provider Urology | DX: N52.9 Male erectile dysfunction, unspecified (principal); E29.1 Testicular hypofunction | CPT/HCPCS: 99212 ==

== ENCOUNTER 2025-05-19 11:00 | Outpatient (AMB) | payer MEDICARE, MEDICAID, SELFPAY ==
--- OUTSIDE RECORDS SUMMARY | 2025-02-01 18:00 | XMS_ITS ---
Author Organization [facility] Address [address] [place] [address] [address] [place] [address] Care Team Providers Care Hat Maker Name Role Phone Jay Resendiz Primary Care Provider Juan Pablo An Unavailable [phone] Freida Rollins Unavailable [phone] Allergies Allergen (clinical drug ingredient) Drug/Non Drug [...] ONGOING THERAPY, Juan Pablo Meek MD, license: [id number], UDAY: [id number], Active Baclofen 10 MG 1 tablet as needed Orally Twice a day; Duration: 90 days Active Encounters Encounter Location Date Provider Diagnosis [facility] [place] [address] [facility] [address] [place]YNALDO Marcelino [id number] 02/01/2025 Freida Rollins Chronic Pain Syndrom e G89.4 ; prison (current) use of opiate analgesic Z79.891 ; [...] to use marijuana if he works for [employer]. He is looking at the [facility] as alternative. As he is not on marijuana at bedtime can trial Baclofen then hew has from an older prescription. UDS 10/26/24 - CONSISTENT 02/01/2025 prison (current) use of opiate analgesic (ICD-10 - [...] of previous SI joint injections spanning from 4688-3301 on 03/26/2024 Briefly discussed risks and benefits [...] ONGOING THERAPY, Juan Pablo Meek MD, license: [id number], UDAY: [id number], Baclofen 10 MG 1 tablet as needed Orally Twice a day; Duration: 90 days Treatment Notes Assessment Notes Chronic Pain Syndrome The patient will continue with the present analgesic regimen. No evidence of diversion or abuse. Reynaldo DMP queried and is consistent with the patients prescriptions. He is not unable to use marijuana if he works for [employer]. He is looking at the [employer] as alternative. As he is not on [...] of previous SI joint injections spanning from 5688-1366 on 03/26/2024 Briefly discussed risks and benefits [...] by previous prescriber. As he also has [place] medicade, my staff are unable to PA [...] * Silas DEALOB:[birth year] (54 yo M)Acc No.[id number]:02/01/2025 Progress Notes Patient: Lemuel BRIGHT Provider: REYNALDO Krishna :1970 A ge:54 Y S ex:Male Date:02/01/2025 Address:[address] [place], [place] [phone] Pcp:Jay Resendiz Subjective: * Chief Complaints: * [...] . * Hospitalization/Major Diagno stic Procedure: w [facility] surgery . * Family History: M other: [...] ONGOING THERAPY, Juan Pablo Meek MD, license: [id number], UDAY: [id number], , Notes: OKAY TO FILL 02/18/25, Taking [...] to use marijuana if he works for [employer]. He is looking at the [employer] [...] of previous SI joint injections spanning from 8275-5091 on 03/26/2024 Briefly discussed risks and benefits [...] retention, itching, nausea, anorexia, potentiation of other CONSULTING UTILITY FORESTER depressants and even were discussed with the patient, who expressed reasonable understanding. The patient was advised to avoid heavy machinery or driving while under the influence of opioids. All questions were answered. * Follow Up: 4 Weeks (Reason: PE/Rx in person) * * Electronic signature of MAG Arguello on 05/19/2025 at 11:05 AM EST Sign off status: Pending * Provider: REYNALDO Krishna Date: 0 02/01/2025 Generated for Deejay rojo/Cristina/Govinditting on: 1 07/20/2024 11:05 AM EST History and Physical Notes * [...]
[2025-05-19 11:02] VITALS: BP 130/80; PULSE 77; O2SAT 97; BMI 27.3
--- NOTE | 2025-05-19 11:02 | MHC.OFFVIS ---
Vital Signs 05/19/25 11:02 Height 5 ft 7 in Weight 174 lb 2 oz BMI 27.3 BP 130/80 Blood Pressure Location Lt brachial Position Sitting Pulse 77 Pulse Source Pulse Oximeter Pulse Oximetry (%) 97 Oxygen Delivery Method Room Air Intake Visit Reasons: follow up Intake Note: Patient presents for follow up on labs, x-ray review for polyarthralgia/ osteoarthritis of both hands. Digital Imager Required: Yes Accompanied by: Self / Same As Patient Allergies fentanyl Allergy (Intermediate, Verified 05/19/25 11:06) Vomiting gabapentin (GABAPENTIN) Allergy (Intermediate, Verified 05/19/25 11:06) RASH morphine Allergy (Intermediate, Verified 05/19/25 11:06) Nausea and Vomiting tadalafil Allergy (Intermediate, Verified 05/19/25 11:06) Rash HPI Comments Details: 54 year old male previously in the [facility] with previous multiple back surgeries that failed,hypertension presents follow-up for evaluation of joint pain. Today he reports All autoimmune workup was negative, LETITIA, LETITIA subsets, my RF CCP. Inflammatory markers negative. X-rays of the hips were unremarkable, extra of the spine shows degenerative changes. Initial history He reports that he has had longstanding back pain however since 3 years ago the joint pain has been wprsenong. The pain is in the hands, shoulders, elbows, knees,pain in feet. He endorses morning stiffness of 3 hours. Overall generalized body pain. He takes oxycontin 40mg 7 times a day, He takes ketorolac which really helps his pain. He had a reported positive LETITIA and a positive CHILDREN'S NURSERY ASSISTANT IN JUNE 2023 BLOOD WORK DONE BY HIS PRIMARY CARE in light of worsening joint pain. At that time he also had CRP done which was within normal limits. HE HAS HAD A CHRONIC LOW WBC COUNT. Also had bilateral hand x-rays which showed osteoarthritis and PIPs DIPs, no erosions. He also had a right foot x-ray which was essentially normal. Patient reports that last year, he saw a inspector and adjuster golf club head for evaluation of generalized joint pain, and he was told he does not have any autoimmune disease and that his joint pain is mostly stemming from osteoarthritis. He did not go back for follow-up Review of Systems Constitutional: Denies fever, chills, weight loss ENT: Denies vision changes, eye pain or eye redness,no oral ulcers, he endorses dry mouth GI: Denies nausea, vomiting, diarrhea, abdominal pain, change in BM Pulm: Denies SOB, ROSE, hemoptysis, wheezing Cards: Denies chest pain, palpitations Skin: Denies Raynaud's, rash, nail changes, photosensitivity, SIGN PAINTER: Denies headaches, weakness, paresthesias, recurrent falls MSK: as per HPI FH:mother had RA All other systems reviewed and are unremarkable except noted above Vital signs reviewed PHYSICAL EXAM General: Comfortable CVS: RRR Respiratory: clear to auscultation bilaterally. Good respiratory effort Skin: There is a scaly rash noted on the back looking like dermatitis MSK: PATIENT IS ABLE TO MAKE A FIST BILATERALLY. PATIENT HAS no active synovitis noted in any of the PIPs, MCPs of the hands. However there is diffuse tenderness in all PIPs MCPs of the hands, wrists. Patient has 5/5 range of motion of the shoulders, however there is tenderness on palpation. Patient has limited range of motion of the hips bilaterally, limited more on internal rotation. Patient also has weakness of the right leg, strength is 3/5, strength in the right leg is 4/5. No swelling noted of any of the joints [facility] Medical History (Updated 05/19/25 @ 11:32 by Rina Mccall MD) Arthritis Mixed connective tissue disease Anxiety disorder due to medical condition H/O urinary frequency Vitamin B12 deficiency Hypogonadism in male Neuropathy Heel pain, bilateral Foot pain Dyslipidemia Neuropathy involving both lower extremities Postlaminectomy syndrome, lumbar Surgical History History of back surgery History of lumbar spinal fusion Family History Father CVD (cardiovascular disease) Mother Cancer Brother No problems noted. Brother No problems noted. Sister Dysplasia, fibromuscular, artery, renal Son No problems noted. Son No problems noted. Daughter No problems noted. Social History (Updated 04/27/25 @ 08:11 by Kusum Lr CMA) Housing: House Alcohol intake: never Patient Tobacco Use Status: Never used Tobacco e-Cigarette/Vaping Use: Never Used Current occupational status: unemployed Cognitive needs: No Hearing needs: No Vision needs: No Physical Exam Vital Signs: Last Vital Signs Pulse 77 05/19/25 11:02 BP 130/80 12/24/25 11:02 Pulse Ox 97 05/19/25 11:02 Oxygen Delivery Method Room Air 05/19/25 11:02 BMI result Body Mass Index 27.3 Assessment & Plan Assessment & Plan (1) Polyarthralgia: Code(s): M25.50 - Pain in unspecified joint Category: Medical (2) Positive antinuclear antibody: Code(s): R76.89 - Other specified abnormal immunological findings in serum Category: Medical (3) Cervicalgia: Code(s): M54.2 - Cervicalgia Category: Medical (4) Osteoarthritis of hands, bilateral: Code(s): M19.041 - Primary osteoarthritis, right hand; M19.042 - Primary osteoarthritis, left hand Category: Medical Qualifiers: Osteoarthritis type: primary Qualified Code(s): M19.041 - Primary osteoarthritis, right hand; M19.042 - Primary osteoarthritis, left hand (5) Chronic lower back pain: Code(s): M54.50 - Low back pain, unspecified; G89.29 - Other chronic pain Category: Medical Qualifiers: Back pain laterality: bilateral Sciatica presence: without sciatica Qualified Code(s): M54.50 - Low back pain, unspecified; G89.29 - Other chronic pain Plan This is a 54-year-old male with a past medical history of multiple back surgeries, osteoarthritis, chronic pain syndrome coming in for evaluation for joint pain. Based on this patient's history, blood work and physical exam cause of his joint pain looks more to be noninflammatory nature like osteoarthritis/fibromyalgia rather than inflammatory diseases. Clinically he does not have stigmata of rheumatoid arthritis, SLE, scleroderma, inflammatory myositis or even mixed connective tissue disease. Patient is seeing pain Medicine for the management of chronic pain. He is agreeable to try physical therapy for his lower back to help strengthen the core muscles. He can follow up with me as needed Orders: Orders PT Evaluation and Treatment Today G89.29 - Other chronic pain, M54.50 - Low back pain, unspecified Coding Level of Care Code Est Pt Level 3 (30294) Add On Problem Visit Only Diagnoses Polyarthralgia M25.50 Positive antinuclear antibody R76.89 Cervicalgia M54.2 Primary osteoarthritis of both hands M19.041; M19.042 Osteoarthritis type: primary Chronic bilateral low back pain without sciatica M54.50; G89.29 Back pain laterality: bilateral Sciatica presence: without sciatica
--- OUTSIDE RECORDS SUMMARY | 2025-05-19 11:05 | XMS_ITS | Patient Health Record ---
Author Organization [facility] Address [address] [place] [address] Care Team Providers Care World Designer Name Role Phone Dawit (RETIRED) Massimo AVITIA Primary Care Provide Adebayo Garcia Jr Unavailable [phone] Allergies Allergen (clinical drug ingredient) Drug/Non Drug [...] Status W/U Status Risk Notes Problem Constipation (94281218) Unspecified constipation (564.00) Active confirmed Plan Of Treatment Future Test Test Name Order Date COLONOSCOPY 04/01/2014 Insurance Providers Payer Name Payer Address Payer Phone Subscriber Number Group Number Insured Name Patient Relationship to Insured Coverage Start Date Coverage End Date MEDICARE OF [place] [address] [place] [address] [id number] RADHA GENESIS Self - patient is the insured MEDICAID OF [facility] [address] [place] [address] [id number] GENESIS GARCIA Self - patient is the insured Medical (General) History Medical History History ICD Code benign prostatic hypertrophy nephrolithiasis erectile dysfunction back pain depression elevated cholesterol Denies AK,DM,CVA,Lung disease,renal dise ase Surgical History Surgery Date(Month/Year) multiple back surgeries cystoscopy ESWL
--- OUTSIDE RECORDS SUMMARY | 2025-05-19 11:05 | XMS_ITS | Patient Health Record ---
Author Organization [facility] Address [address] [place] [address] [address] [place] [address] Care Team Providers Care Assistant Sales Director Name Role Phone Jay Resendiz Primary Care Provider Claus An Unavailable [phone] Freida Rollins Unavailable [phone] Loreta Jay Unavailable [phone] Allergies Allergen (clinical drug ingredient) Drug/Non Drug [...] Cotinine, Quant 0 Reflex Confirmation of Meds [id number] PDF Report (Not yet reviewed by provider) Interpretation: Performing Lab:[facility], [address] [place] [address], Phone - [phone], Director - [facility] Notes/Report: Test(s) 119878-HOUBKDLVPU IA was developed and its performance characteristics determined by [facility]. It has not been cleared or approved by the Food and Drug Administration. Oxycodone Class, MS, Ur RFX (Not yet reviewed by provider) Interpretation: Performing Lab:[facility], [address] [place] [address], Phone - [phone], [facility] Notes/Report: Test(s) 202969-WGKXTPTQHR IA was developed and its performance characteristics determined by [facility]. It has not been cleared or approved by the Food and Drug Administration. OXYCODONE CLASS +POSITIVE+ Oxycodone >98873 Oxymorphone 8663 Noroxycodone >47405 Noroxymorphone 3641 Expected metabolism of oxycodone class drugs: Parent Drug Detected Metabolites Oxycodone: Oxymorphone, Noroxycodone, Noroxymorphone Oxymorphone: Noroxymorphone Opiate Class, MS, Ur RFX (No t yet reviewed by provider) Interpretation: Performing Lab:[facility], [address] [place] [address], Phone - [phone], [facility]/Report: Test(s) 896663-FETOHQKTIY IA was developed and its performance characteristics [...] the source drug. ToxAssure Flex 24, [place] 786165 (Not yet reviewed by provider) Interpretation: Performing Lab:[facility], [address] [facility], Phone - [phone], Director - [facility] Notes/Report: Test(s) 538346-LUTPHCZYGE IA was developed and its performance characteristics determined by [facility]. It has not been cleared or approved by the Food and Drug Administration. Summary Report FINAL ===== Opiate Class, MS, Ur RFX Oxycodone Class, MS, Ur RFX ToxAssure Flex 24, Ur ===== Test Result Flag Units Drug Present Oxycodone >10864 ng/mg creat Oxymorphone 8663 ng/mg creat Noroxycodone >73973 ng/mg creat Noroxymorphone 3641 ng/mg creat Sources [...] (Not yet reviewed by provider) Interpretation: Performing Lab:[facility], [address], [place], Phone - [phone], Director - Kay Notes/Report: Written Authorization (Not y et reviewed by provider) Interpretation: Performing Lab:[facility], [address] [facility], Phone - [phone], Director - [facility] Notes/Report: Test(s) 733815-HGHHQYEUHA IA was developed and its performance characteristics determined by [facility]. It has not been cleared or approved by the Food and Drug Administration. Written Authorization Written Authorization Received. Authorization received from Kaykay Beasley for Link Request on 10-28-2024 Logged by Tara BOYD (Confirm only) Reviewed date:08/31/2024 01:29:30 PM Interpretation: [...] Not Detected Pregabalin Not Detected Not Detected Hjyqm-4-EQV-COOH Not Detected Not Detected Benzoylecgonine Not Detected [...] Cotinine, Quant 0 Reflex Confirmation of Meds [id number] 6-TANYA Confirmation Reviewed date:08/31/2024 01:29:30 PM Interpretation: Performing Lab: Notes/Report: 6-Monoacetylmorphine Not Detected Not Detected TAP Confirmation Reviewed date:08/31/2024 01:29:30 PM Interpretation: Performing Lab: Notes/Report: Tapentadol Not Detected Not Detected W-hllezeshs-Nqgbagfkdo Not Detected Not Detected MEPER Confirmation Reviewed [...] so it has incomplete data. Please contact [employer] [facility] for assistance. 6-Monoacetylmorphine Not Detected Not Detected TAP Confirmation Reviewed date:07/29/2024 01:54:52 PM Interpretation: Performing Lab: Notes/Report: Tapentadol Not Detected Not Detected R-zqgpvvsse-Ugqbyvkstq Not Detected Not Detected MEPER Confirmation Reviewed [...] Not Detected Pregabalin Not Detected Not Detected Kfszb-8-YTU-COOH 174 < 25 Benzoylecgonine Not Detected Not Detected Zolpidem Not Detected Not Detected Carboxyzolpidem Not Detected Cotinine Not Detected Not Detected Ethyl Sulfate Not Detected Not Detected Morphine Not Detected Not Detected Oxycodone, Interp Consistent Consistent Noroxycodone, Interp Consistent Consistent Oxymorphone, Interp Consistent Consistent Buprenorphine, Interp Review Consistent Norbuprenorphine, Interp Inconsistent Consistent Oxazepam Not Detected Not Detected Ezpak-9-NWM-COOH, Interp Inconsistent Consistent Cotinine, Quant 0 Reflex Confirmation of Meds [id number] Full Screen with Reflex Reviewed date:07/29/2024 01:54:52 [...] Detected Not Detected Creatinine, Qnt 216 Specific Helotes, Qnt 1.013 1.003 - 1.030 pH, Qnt 6.5 3.0 - 11.0 Oxidant, Qnt -8 Full Screen with Reflex (Not yet reviewed [...] Cotinine, Quant 0 Reflex Confirmation of Meds [id number] Opioids Panel (Not yet revie wed by provider) Interpretation: Performing Lab: Notes/Report: Codeine Not Detected Not Detected Morphine Not Detected Not Detected Hydrocodone Not Detected Not Detected Norhydrocodone Not Detected Not Detected Hydromorphone Not Detected Not Detected Oxycodone >1000 < 50 Noroxycodone >1000 < 50 Oxymorphone >1000 < 50 6-Monoacetylmorphine Not Detected Not Detected Norcodeine Not Detected Not Detected Oxycodone, Interp Consistent Consistent Noroxycodone, Interp Consistent Consistent Oxymorphone, Interp Consistent Consistent Reason For Referral No Information Medications Medication [...] Status W/U Status Risk Notes Problem Hyperlipidemia (49527079) Hyperlipidemia, unspecified (E78.5) Active confirmed Problem Essential hypertension (89385649) Essential (primary) hypertension (I10) Active confirmed Problem Solitary sacroiliitis (775679676) Sacroiliitis, not elsewhere classified (M46.1) Active confirmed Problem Fibromyalgia (893098510) Fibromyalgia (M79.7) Active confirmed Problem Chronic pain syndrome (711091620) Chronic Pain Syndrome (G89.4) Active confirmed Problem Post-laminectomy syndrome (71926313) Postlaminectomy syndrome, not elsewhere classified (M96.1) Active confirmed Problem Lumbar radiculopathy (880937222) Radiculopathy, lumbar region (M54.16) Active confirmed Problem Cervical radiculopathy (72486355) Radiculopathy, cervical region (M54.12) Active confirmed Vital Signs Heart Rate 73 /min 05/12/2025 Temperature 97.1 degrees Fahrenheit 05/12/2025 Respiratory Rate 16 /min 10/26/2024 Oximetry 97 % 05/12/2025 Blood pressure diastolic 98 mm Hg 05/12/2025 Height 67 in 05/12/2025 Blood pressure systolic 156 mm Hg 05/12/2025 Weight 170 lbs 05/12/2025 BMI 26.62 kg/m2 05/12/2025 Encounters Encounter Location Date Provider Diagnosis [address] [place], [place] [id number] 06/10/2024 Freida Rollins Chronic Pain Syndrom e G89.4 ; Sacroiliitis, not elsewhere classified M46.1 ; Radiculopathy, lumbar region M54.16 ; Radiculopathy, cervical region M54.12 ; Essential (primary) hypertension I10 ; Hyperlipidemia, unspecified E78.5 ; Encounter for screening for depression Z13.31 ; Drug induced constipation K59.03 and Postlaminectomy syndrome, not elsewhere classified M96.[address] [place], [place] [id number] 07/08/2024 Freida Rollins Chronic Pain Syndrom e G89.4 ; Sacroiliitis, not elsewhere classified M46.1 ; Radiculopathy, lumbar region M54.16 ; Radiculopathy, cervical region M54.12 ; Essential (primary) hypertension I10 ; Hyperlipidemia, unspecified E78.5 ; Drug induced constipation K59.03 and Postlaminectomy syndrome, not elsewhere classified M96.[address] [place], [place] [id number] 08/04/2024 Freida Ayo Chronic Pain Syndrom e G89.4 ; Sacroiliitis, not elsewhere classified M46.1 ; Radiculopathy, lumbar region M54.16 ; Radiculopathy, cervical region M54.12 ; Essential (primary) hypertension I10 ; Hyperlipidemia, unspecified E78.5 ; Drug induced constipation K59.03 and Postlaminectomy syndrome, not elsewhere classified M96.[address] [id number] 08/25/2024 Freidaraquel Rollins Chronic Pain Syndrom e G89.4 ; nursing home (current) use of opiate analgesic Z79.891 ; Sacroiliitis, not elsewhere classified M46.1 ; Radiculopathy, lumbar region M54.16 ; Radiculopathy, cervical region M54.12 ; Essential (primary) hypertension I10 ; Hyperlipidemia, unspecified E78.5 ; Drug induced constipation K59.03 and Postlaminectomy syndrome, not elsewhere classified M96.[address] [place], [place] [id number] 09/18/2024 Freida Ayo Chronic Pain Syndrom e G89.4 ; 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 ; Sacroiliitis, not elsewhere classified M46.1 ; Radiculopathy, lumbar region M54.16 ; Radiculopathy, cervical region M54.12 ; Essential (primary) hypertension I10 ; Hyperlipidemia, unspecified E78.5 ; Drug induced constipation K59.03 and Postlaminectomy syndrome, not elsewhere classified M96.[address] [id number] 10/05/2024 Freida Ayo Chronic Pain Syndrom e G89.4 ; nursing home (current) use of opiate analgesic Z79.891 ; Sacroiliitis, not elsewhere classified M46.1 ; Radiculopathy, lumbar region M54.16 ; Radiculopathy, cervical region M54.12 ; Essential (primary) hypertension I10 ; Hyperlipidemia, unspecified E78.5 ; Drug induced constipation K59.03 and Postlaminectomy syndrome, not elsewhere classified M96.[address] [place], [place] [id number] 10/26/2024 Freida Ayo Chronic Pain Syndrom e G89.4 ; nursing home (current) use of opiate analgesic Z79.891 ; Sacroiliitis, not elsewhere classified M46.1 ; Radiculopathy, lumbar region M54.16 ; Radiculopathy, cervical region M54.12 ; Essential (primary) hypertension I10 ; Hyperlipidemia, unspecified E78.5 ; Drug induced constipation K59.03 and Postlaminectomy syndrome, not elsewhere classified M96.[address] [place], [place] [id number] 11/25/2024 Freida Ayo Chronic Pain Syndrom e G89.4 ; nursing home (current) use of opiate analgesic Z79.891 ; Sacroiliitis, not elsewhere classified M46.1 ; Radiculopathy, lumbar region M54.16 ; Radiculopathy, cervical region M54.12 ; Essential (primary) hypertension I10 ; Hyperlipidemia, unspecified E78.5 ; Drug induced constipation K59.03 and Postlaminectomy syndrome, not elsewhere classified M96.1 Placido Freeman [address] [facility] [address] [place] [address] 12/18/2024 Freida Ayo Chronic Pain Syndrom e G89.4 ; 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 ; Sacroiliitis, not elsewhere classified M46.1 ; Radiculopathy, lumbar region M54.16 ; Radiculopathy, cervical region M54.12 ; Essential (primary) hypertension I10 ; Hyperlipidemia, unspecified E78.5 ; Drug induced constipation K59.03 and Postlaminectomy syndrome, not elsewhere classified M96.1 [place] [address] [facility] [address] [place], [place] [id number] 01/11/2025 Freida Rollins Chronic Pain Syndrom e G89.4 ; 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 ; Sacroiliitis, not elsewhere classified M46.1 ; Radiculopathy, lumbar region M54.16 ; Radiculopathy, cervical region M54.12 ; Essential (primary) hypertension I10 ; Hyperlipidemia, unspecified E78.5 ; Drug induced constipation K59.03 and Postlaminectomy syndrome, not elsewhere classified M96.[address] [place] [address] 02/02/2025 Claus Meek Chronic Pain Syndrom e G89.4 ; 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 ; Sacroiliitis, not elsewhere classified M46.1 ; Radiculopathy, lumbar region M54.16 ; Radiculopathy, cervical region M54.12 ; Essential (primary) hypertension I10 ; Hyperlipidemia, unspecified E78.5 ; Drug induced constipation K59.03 and Postlaminectomy syndrome, not elsewhere classified M96.[address] [place] [address] 03/24/2025 Claus Gaviota Chronic Pain Syndrom e G89.4 ; nursing home (current) use of opiate analgesic Z79.891 ; Sacroiliitis, not elsewhere classified M46.1 ; Radiculopathy, lumbar region M54.16 ; Radiculopathy, cervical region M54.12 ; Essential (primary) hypertension I10 ; Hyperlipidemia, unspecified E78.5 ; Drug induced constipation K59.03 and Postlaminectomy syndrome, not elsewhere classified M96.[address] [place] [address] 04/20/2025 Claus Gaviota Chronic Pain Syndrom e G89.4 ; 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 ; Sacroiliitis, not elsewhere classified M46.1 ; Radiculopathy, lumbar region M54.16 ; Radiculopathy, cervical region M54.12 ; Essential (primary) hypertension I10 ; Hyperlipidemia, unspecified E78.5 ; Drug induced constipation K59.03 and Postlaminectomy syndrome, not elsewhere classified M96.1 Sepa [place] [address] [facility] [address] [place] [id number] 05/12/2025 Claus Gaviota Fibromyalgia M79.7 ; Chronic Pain Syndrome G89.4 ; nursing home (current) use of opiate analgesic Z79.891 ; Sacroiliitis, not elsewhere classified M46.1 ; Radiculopathy, lumbar region M54.16 ; Radiculopathy, cervical region M54.12 ; Essential (primary) hypertension I10 ; Hyperlipidemia, unspecified E78.5 ; Drug induced constipation K59.03 and Postlaminectomy syndrome, not elsewhere classified M96.1 Sepa [place] [address] [facility] [address] [place] [id number] 06/10/2024 Claus Gaviota [facility] [place] [address] [place] [address] 07/08/2024 Claus Gaviota [facility] [place] [address] [facility] [address] [place] [id number] 08/25/2024 Claus Gaviota Postlaminectomy syndrome, not elsewhere classified M96.1 [facility] [place] [address] [place] [address] 08/25/2024 Claus Gaviota Postlaminectomy syndrome, not elsewhere classified M96.1 Sepa [place] [address] [place] [address] 08/31/2024 Claus Gaviota Postlaminectomy syndrome, not elsewhere classified M96.1 Sepa [place] [address] [place] [address] 09/01/2024 Claus Gaviota [facility] [place] [address] [place] [address] 09/01/2024 Claus Gaviota [facility] [place] [address] [place] [id number] 09/18/2024 Claus Meek Postlaminectomy syndrome, not elsewhere classified M96.1 [facility] [place] [address] [place] [address] 10/26/2024 Freidaalessandra Calderonari [facility] [place] [address] [place] [address] 10/26/2024 Claus Meek Chronic Pain Syndrom e G89.4 and 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 [facility] [address] [place] [address] 10/28/2024 Claus Meek [facility] [place] [address] [place] [address] 11/02/2024 [facility] [address] [place] [address] 11/24/2024 Freida Ayo Postlaminectomy syndrome, not elsewhere classified M96.1 [place] [address] [place] [address] 11/26/2024 Claus Meek [facility] [place] [address] [place] [address] 11/30/2024 Freida Ayo Postlaminectomy syndrome, not elsewhere classified M96.1 [facility] [place] [address] [place] [address] 01/28/2025 Claus Meek [place] [place] [address] [place] [address] 01/29/2025 Claus Meek [facility] [place] [address] [place] [address] 01/29/2025 Claus Marcelino [address] [place] [id number] 02/01/2025 Claus Meek [facility] [place] [address] [place] [address] 02/01/2025 Claus Meek [facility] [place] [address] [place] [address] 02/02/2025 Claus Meek 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 [facility] [address] [place] [address] 02/18/2025 Claus [facility] [address] [facility] [address] 02/18/2025 Claus Meek [facility] [address] [facility] [address] 02/19/2025 [facility] [address] [facility] [address] 04/06/2025 Claus Meek [facility] [address] [place] [address] 06/05/2024 Claus Meek Postlaminectomy syndrome, not elsewhere classified M96.1 [facility] [address] [facility] [address] 06/07/2024 Freida Ayo Postlaminectomy syndrome, not elsewhere classified M96.1 [facility] [address] [facility] [address] 06/08/2024 [facility] [address] [place] [address] 06/08/2024 Claus Meek [facility] [address] [place] [address] 06/08/2024 Claus Meek [facility] [address] [place] [address] 06/13/2024 Claus Meek [facility] [place] [address] [place] [address] 07/08/2024 Claus Meek [facility] [address] [facility] [address] 09/01/2024 [facility] [address] [facility] [address] 10/31/2024 Freida Ayo Postlaminectomy syndrome, not elsewhere classified M96.1 [facility] [place] [address] [place] [address] 11/12/2024 Claus Gaviota [facility] [place] [address] [place], [place] [address] 01/04/2025 Claus Gaviota [facility] [place] [address] [facility] [place] [address] 01/05/2025 Claus Gaviota [facility] [place] [address] [facility] [place] [address] 01/28/2025 Claus Meek [facility] [place] [address] [place] [address] 04/20/2025 Claus Meek Assessments Encounter Date Diagnosis [...] quantity that substantially exceeds CDC guidelines. 02/02/2025 nursing home (current) use of opiate analgesic (ICD-10 - [...] quantity that substantially exceeds CDC guidelines. 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 (ICD-10 - Z79.891) 10/05/2024 nursing home (current) use of opiate analgesic (ICD-10 - Z79.891) 09/18/2024 nursing home (current) use of opiate analgesic (ICD-10 - Z79.891) 08/25/2024 nursing home (current) use of opiate analgesic (ICD-10 - [...] of previous SI joint injections spanning from 7769-8490 on 03/26/2024 Briefly discussed risks and benefits [...] of previous SI joint injections spanning from 4426-0960 on 03/26/2024 Briefly discussed risks and benefits [...] of previous SI joint injections spanning from 3869-0068 on 03/26/2024 Briefly discussed risks and benefits [...] of previous SI joint injections spanning from 8495-3077 on 03/26/2024 Briefly discussed risks and benefits [...] of previous SI joint injections spanning from 1145-1137 on 03/26/2024 Briefly discussed risks and benefits [...] of previous SI joint injections spanning from 5810-3923 on 03/26/2024 Briefly discussed risks and benefits of the Transloc procedure, provided brochure previously 05/12/2025 nursing home (current) use of opiate analgesic (ICD-10 - [...] of previous SI joint injections spanning from 3819-7084 on 03/26/2024 Briefly discussed risks and benefits [...] this chart for Freida Rollins PA-C 10/26/2024 Other Yang Serrato, scribed portions of this chart for Freida Rollins PA-C 11/25/2024 Other Yang Serrato, scribed portions of this chart for Freida Rollins PA-C 12/18/2024 Other Yang Serrato, scribed portions of this chart for Freida Rollins PA-C 01/11/2025 Other Yang Serrato, scribed portions of this chart for Freida Rollins PA-C 02/02/2025 Other 03/24/2025 Other Today's televis it includes audio and video components 04/20/2025 Other Today's televis it includes audio and video components 05/12/2025 Other Plan Of Treatment Pending Test Test Name Order Date Written Authorization 10/26/2024 Level 3 (Confirm only) 08/19/2023 New Patient Panel 03/07/2023 New Patient Panel 04/12/2023 New Patient Panel 05/01/2023 New Patient Panel 06/25/2023 Opioids Panel 05/12/2025 BUP Confirmation 02/03/2024 METHD Confirmation 02/03/2024 NALTREX Confirmation 02/03/2024 MEPER Confirmation 02/03/2024 TAP Confirmation 02/03/2024 6-TANYA Confirmation 02/03/2024 PDF Report 10/26/2024 PDF Report 10/26/2024 Full Screen with Reflex 09/04/2023 MDC (Confirm only) 10/26/2024 MDC (Confirm only) 09/04/2023 MDC (Confirm only) 05/12/2025 MDC (Confirm only) 02/02/2025 ToxAssure Flex 24, [place] [id number] 10/26/2024 Opiate Class, MS, Ur RFX 10/26/2024 [...] Date Medicare of [place] [address] [place] [phone] [id number] Say , Lemuel Self - patient is the insured Medical (General) History Medical History History ICD Code neck pain back pain osteoporosis fibromyalgia OA chronic fatigue syndrome gout hypertension hyperlipidemia suicide attempt 2003 Surgical History Surgery Date(Month/Year) lumbar laminectomy/fusion x4 (1996, 1998 , 2000, 2003) Hospitalization History Reason Date(Month/Year) with surgery
--- OUTSIDE RECORDS SUMMARY | 2025-05-19 11:05 | XMS_ITS | Clinical Summary ---
Author Organization [facility] Address [address] [place] [phone] Phone Care Team Providers Care Digital Solution Architect Name Role Phone Unknown, Unknown Primary Care [...] file Insurance MEDICARE PART A & B [facility] MEDICARE PART A & [place] & B HEALTH MEDICARE PART A & [place] [facility] B [facility] MEDICARE PART A & [place] MED[place] PART A & B HEALTH MEDICARE PART A & B [employer] Care Teams Digital Solution Architect Relationship Specialty Start Date End Date Unknown, Unknown, PCP - General 08/06/18 Additional Source Comments The information contained in this document represents components of the legal health record. It is not the complete legal health record.[facility]
--- OUTSIDE RECORDS SUMMARY | 2025-05-19 11:06 | XMS_ITS | Encounter Summary ---
Author Organization [facility] [place] [address] Care Team Providers Care Strategic Debriefing Specialist Name Role Phone Apolonia Piedra NP Primary Care Provider [phone] Encounter Details Date Type Department Care Team (Late st Contact Info) Description 03/31/2025 Results Follow-Up [facility] Jonancy [address] [facility] [address] [address] Jodie Brandt DO [address] [facility] [address] [place] [address] Social History [...] documented as of this encounter Care Teams Strategic Debriefing Specialist Relationship Specialty Start Date End Date Apolonia Piedra NP [address] [facility] [address] [place] [address] PCP - General Family Medicine 09/17/24 documented as of this encounter
--- OUTSIDE RECORDS SUMMARY | 2025-05-19 11:06 | XMS_ITS | Encounter Summary ---
Author Organization [facility] Address [address] [place] [address] Care Team Providers Care Shipping Weigher Name Role Phone Apolonia Piedra NP Primary Care Provider [phone] Encounter Details Date Type Department Care Team (Late st Contact Info) Description 05/04/2025 Results Follow-Up [facility] Dawn [address] [facility] [address] [address] Jodie Brandt DO [address] [facility] [address] [address] Social History Tobacco [...] documented as of this encounter Care Teams Shipping Weigher Relationship Specialty Start Date End Date Apolonia Piedra NP [address] [facility] [address] [place] [address] PCP - General Family Medicine 09/17/24 documented as of this encounter
--- OUTSIDE RECORDS SUMMARY | 2025-05-19 11:06 | XMS_ITS | Clinical Summary ---
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); Mixed hyperlipidemia; B12 deficiency; Primary hypertension 05/04/2025 Results Follow-Up [facility] [place] [address] [place] [address] [address] [place] [address] Jodie Brandt DO 04/09/2025 Telephone [facility] [place] [address] [place] [address] [place] [address] [place] [phone] Apolonia Piedra NP 03/31/2025 Results Follow-Up [facility] [place] [address] [place] [address] [place] [address] [place] [phone] Jodie Brandt DO from Last 3 Months [...] 2013 Depression 1998 Hypertension 2022 Neuromuscular disorder (CMS/[facility] V24, CMS/[facility] V28 ) 1998 Dyslipidemia DX:Dyslipidemia Systemic lupus (CMS/HCC V24, CMS/[facility] V28) DX:Systemic lupus ([facility]) Family History Medical History Relation [...] 3.8 - 10.8 Thousand/ uL [facility] RBC Count 5.78 4.20 - 5.80 Million/u L [facility] Hemoglobin 16.9 13.2 - 17.1 g/dL [facility] Hematocrit 51.9(H) 39.4 - 51.1 % [facility] MCV 89.8 81.4 - 101.7 fL [facility] MCH 29.2 27.0 - 33.0 pg [facility] MCHC 32.6 31.6 - 35.4 g/dL [facility] RDW 13.5 11.0 - 15.0 % [facility] Platelet Count 230 140 - 400 Thousand/ uL [facility] MPV 10.9 7.5 - 12.5 fL [facility] Absolute Neutrophil 2,399 1,500 - 7,800 cells/uL [facility] Bands Absolute CANCELED 0 - 750 cells/uL [facility] Comment:Result canceled by t he ancillary. Absolute Metamyelocytes CANCELED 0 cells/uL [facility] Comment:Result canceled by t he ancillary. Absolute Myelocytes CANCELED 0 cells/uL [facility] Comment:Result canceled by t he ancillary. Absolute Promyelocutes CANCELED 0 cells/uL [facility] Comment:Result canceled by t he ancillary. Absolute Lymphocytes 1,205 850 - 3,900 cells/uL [facility] Absolute Monocytes 344 200 - 950 cells/uL [facility] Absolute Eosinophils 111 15 - 500 cells/uL [facility] Absolute Basophils 41 0 - 200 cells/uL [facility] Absolute Blasts CANCELED 0 cells/uL [facility] Comment:Result canceled by t he ancillary. NRBC Absolute CANCELED 0 cells/uL [facility] Comment:Result canceled by t he ancillary. Neutrophils 58.5 % [facility] Band Neutrophils Relative CANCELED % [facility] Comment:Result canceled by t he ancillary. Metamyelocytes CANCELED % [facility] Comment:Result canceled by t he ancillary. Myelocytes CANCELED % [facility] Comment:Result canceled by t he ancillary. Promyelocyte CANCELED % [facility] Comment:Result canceled by t he ancillary. Lymphocytes 29.4 % [facility] Reactive Lymphocytes CANCELED % [facility] Comment:Result canceled by t he ancillary. Monocytes 8.4 % [facility] Eosinophils 2.7 % [facility] Basophils 1.0 % [facility] Blasts CANCELED % [facility] Comment:Result canceled by t he ancillary. Nucleated RBC CANCELED 0 /100 WBC [facility] Comment:Result canceled by t ancillary. Comment CANCELED [facility] Comment: Your request to have a duplicate copy faxed has been acknowledged. Queued to: [phone] Result canceled by the ancillary. Blood Venous blood specimen / Unknown 05/03/2025 11:41 AM EST 05/03/2025 11:41 AM EST Yusuf STOUT ([facility]) - 05/03/2025 10:47 PM EST FASTING:NO us Apolonia Piedra NP LAB BLOOD ORDERABLES Yris l Result DAVID STOUT ([facility]) [address] [facility] [place] [address] [facility] [address] [place] [phone] * Lipid panel (05/03/2025 11:41 AM EST) Cholesterol Total 184 <200 mg/dL [facility] HDL Cholesterol 65 > OR = 40 mg/dL [facility] Triglycerides 115 <150 mg/dL [facility] LDL Cholesterol 98 mg/dL (calc) [facility] Comment: Reference range: <100 Desirable range <100 mg/dL for primary prevention; <70 mg/dL for patients with CHD or diabetic patients with > or = 2 CHD risk factors. LDL-C is now calculated using the Jessica calculation, which is a validated novel method providing better accuracy than the Friedewald equation in the estimation of LDL-C. Doc MCNALLY et al. MICHAEL. 2013;310(19): 7390-7945 (http://education.Eagle Alpha.Kaleidoscope/faq/QQV327) Chol/HDLC Ratio 2.8 <5.0 (calc) [facility] Non HDL Cholesterol 119 <130 mg/dL (calc) [facility] Comment: For patients with diabetes plus 1 [...] BLOOD ORDERABLES Yris romina Result DAVID STOUT ([facility]) [address] [facility] [place] [address] [facility] [address] [place] [phone] * (ABNORMAL) Comprehensive metabolic panel (10/27/2024 2:31 PM EDT) Glucose 153(H) 65 - 139 mg/dL [facility] Comment: Non-fasting reference interval This amended report [...] Nitrogen (BUN) 9 7 - 25 mg/dL [facility] Creatinine 1.07 0.70 - 1.30 mg/dL [facility] eGFR 82 > OR = 60 mL/min/1 .73m2 [facility] BUN/Creatinine Ratio SEE NOTE: (calc) [facility] Comment: Not Reported: BUN and Creatinine are within reference range. Sodium 140 135 - 146 mmol/L [facility] Potassium 4.6 3.5 - 5.3 mmol/L [facility] Chloride 101 98 - 110 mmol/L [facility] Carbon Dioxide 31 20 - 32 mmol/L [facility] Calcium 9.6 8.6 - 10.3 mg/dL [facility] Total Protein 6.9 6.1 - 8.1 g/dL [facility] Albumin 4.5 3.6 - 5.1 g/dL [facility] Globulin 2.4 1.9 - 3.7 g/dL (calc) [facility] Albumin/Globulin Ratio 1.9 1.0 - 2.5 (calc) [facility] Bilirubin Total 0.7 0.2 - 1.2 mg/dL [facility] Alkaline Phosphatase 71 35 - 144 U/L [facility] Aspartate aminotransferase (AST) 16 10 - 35 U/L [facility] Alanine Aminotransferase (ALT) 12 9 - 46 U/L [facility] Blood Venous blood specimen / Unknown 10/27/2024 2:31 PM EDT 10/27/2024 2:31 PM EDT Narrative DAVID STOUT ([facility]) - 03/31/2025 12:06 PM EST FASTING:NO Apolonia Piedra NP LAB BLOOD ORDERABLES Edit ed Result - Final DAVID STOUT ([facility]) [address] [place] [address] [facility] [address] [place] [phone] * Cologuard?? colon cancer screening (08/02/2024 12:53 PM EDT) COLOGUARD Negative Negative [facility] Comment: NEGATIVE TEST RESULT. A negative [...] (Tello Casper al, N Engl J Med 2014;370(14):1756-9716) The normal value (reference range) for this assay is negative. COLOGUARD RE-SCREENING RECOMMENDATION: Periodic colorectal cancer screening is an important part of preventive healthcare for asymptomatic individuals at average risk for colorectal cancer. Following a negative Cologuard result, the [place] Cancer Society and U.S. Multi-Society Task Force screening guidelines recommend a Cologuard re-screening interval of 3 years. References: [place] [employer] Society Guideline for Colorectal Cancer Screening: https://www.cancer.org/cancer/dqvcb-bdtury-rshvbg/qhfyqxmbx-ngliscyja-agxmofc/ac s-rec ommendations.html.; Jeffrey DK, John CR, Elliot KhanK, Colorectal Cancer Screening: Recommendations for Physicians and Patients from the U.S. Multi-Society Task Force on Colorectal Cancer Screening , Am J Gastroenterology 2017; 112:2168-5830. TEST DESCRIPTION: Composite algorithmic analysis of stool [...] (Tello Casper al, N Engl J Med 2014;370(14):6495-1687.) Cologuard may produce a false negative or false positive result (no colorectal cancer or precancerous polyp present at colonoscopy follow up). A negative Cologuard test result does not guarantee the absence of CRC or advanced adenoma (pre-cancer). The current Cologuard screening interval is every 3 years. ([place] [employer] Society and U.S. Multi-Society Task Force). Cologuard performance data in a 10,000 patient pivotal study using colonoscopy as the reference method can be accessed at the following location: www.ImageProtect/results. Additional description of the Cologuard test process, warnings and precautions can be found at www.PopUp Leasingrd.com. Stool 08/02/2024 12:5 3 PM EDT 08/04/2024 12:43 PM EDT Apolonia Piedra NP LAB MOLECULAR DIAGNOSTICS ORDERABLES Final Result Performing Organization Address City/State/[facility] Co de Phone Number [place] [address] [place] [address] [facility] [address] [place] [address] * Hepatitis panel, acute with reflex to confirmation (02/15/2023 8:50 AM EDT) Hepatitis A Antibody IgM NON-REACTI VE NON-REACT JAZ [facility] Comment: For additional information, please refer to http://FITiST.Attune Foods/faq/DKY836 (This link is being provided for informational/ educational purposes only.) Hepatitis B Surface Antigen NON-REACTI VE NON-REACT JAZ [facility] Comment: For additional information, please refer to http://FITiST.Medlert.Kaleidoscope/faq/UDF800 (This link is being provided for informational/ educational purposes only.) Hepatitis B Core Antibody IgM NON-REACTI VE NON-REACT JAZ [facility] Comment: For additional information, please refer to http://FITiST.Attune Foods/faq/TQC486 (This link is being provided for informational/ educational purposes only.) Hepatitis C Antibody NON-REACTI VE NON-REACT JAZ [facility] Comment: HCV antibody was non-reactive. There is no laboratory evidence of HCV infection. In most cases, no further action is required. However, if recent HCV exposure is suspected, a test for HCV RNA (test code 97439) is suggested. For additional information please refer to http://Astaro/faq/CCY34b6 (This link is being provided for informational/ educational purposes only.) Blood Venous blood specimen / Unknown 02/15/2023 8:50 AM EDT 02/15/2023 9:00 AM EDT Jay Resendiz DO LAB BLOOD ORDERABLES Final Result DAVID STOUT ([facility]) [address] [place] [address] Dr. Stout, [place] [address] [address] [place] [address] * HIV 1, HIV 2 antibody screen, [...] purpose. For additional information please refer to http://FITiST.Attune Foods/faq/COR660 (This link is being provided for informational/ educational purposes only.) The performance of this assay has not been clinically validated in patients less than 2 years old. 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
== END 2025-05-19 11:35 | disposition home or self-care (01) ==
LOC: HO.RHES 11:01
PROVIDERS: Visit Provider Student in an Organized Health Care Education/Training Program
DX: M25.50 Pain in unspecified joint (principal); R76.89 Other specified abnormal immunological findings in serum; M54.2 Cervicalgia; M19.041 Primary osteoarthritis, right hand; M19.042 Primary osteoarthritis, left hand; M54.50 Low back pain, unspecified; G89.29 Other chronic pain
CPT/HCPCS: 99213; G2211

== ENCOUNTER → 2025-05-19 11:00 | Outpatient (BNVA) | payer MEDICARE, MEDICAID, SELFPAY | PROVIDERS: Visit Provider Student in an Organized Health Care Education/Training Program | DX: M19.041 Primary osteoarthritis, right hand (principal); M19.042 Primary osteoarthritis, left hand; M54.50 Low back pain, unspecified; G89.29 Other chronic pain; M54.2 Cervicalgia; R76.89 Other specified abnormal immunological findings in serum | CPT/HCPCS: 99212 ==